=== PATIENT | female | born 1985 | race Caucasian/White ===

== ENCOUNTER 2020-07-20 11:43 | Outpatient (REF) | payer OTHER, SELFPAY ==
[2020-07-20 12:48] LABS: Influenza A PCR NEGATIVE (Negative); Influenza B PCR NEGATIVE (Negative); Resp Syncy Virus RNA Qual PCR NEGATIVE (Negative); SARS COV2 PCR INHOUSE POSITIVE (Negative)
== END 2020-07-20 11:44 | disposition home or self-care (01) ==
LOC: HO.LNP 11:43
PROVIDERS: Visit Provider Nurse Practitioner Family
DX: Z20.822 Contact with and (suspected) exposure to COVID-19 (principal); R05 Cough; R52 Pain, unspecified
CPT/HCPCS: 0241U

== ENCOUNTER 2020-07-21 10:35 | Emergency (ER) | payer OTHER, SELFPAY ==
[2020-07-21 10:49] VITALS: BP 112/71; BP 118/78; PULSE 73; PULSE 82; RESP 16; TEMP 37.2; O2SAT 97; O2SAT 99; BMI 22.4
--- NOTE | 2020-07-21 11:06 | ED.SOB ---
HPI - SOB/Dyspnea General Chief Complaint: Dyspnea Stated Complaint: covid +, diff breathing/abd pain Time Seen by Provider: 07/21/20 10:53 History of Present Illness HPI Narrative: Patient is a 35-year-old female with a past medical history of abdominoplasty on 07/05/20 with freshly removed sutures and Steri-Strips in place who was diagnosed yesterday at the walk-in clinic with COVID and pneumonia. She was treated with a Z-Jarrett and inhaler and sent home. Today, she is complaining of increased shortness of breath. Diarrhea, inability to keep food down, she is also dry heaving. She states it is difficult for her to cough or dry heaves because of the incision in her abdomen which is healing. She states she has been bed-bound the last 2 weeks because of her surgery. She lives with her 17-year-old son who is waiting to hear the results of his COVID test. She admits to loss of sense of smell. She denies cough, fever. Related Data Home Medications Medication Instructions Recorded Confirmed bupropion HCl 300 mg 24 hr tablet, mg PO 07/20/20 extended release cetirizine 10 mg tablet 10 mg PO DAILY 07/20/20 Previous Rx's Medication Instructions Recorded albuterol sulfate 90 mcg/actuation 1 inh INHALATION Q6H PRN 30 Days 07/20/20 aerosol inhaler #8.5 g azithromycin 250 mg tablet See Rx Instructions PO .COMPLEX #6 07/20/20 tab ondansetron HCl [Zofran] 4 mg PO Q6H PRN #10 tab 07/21/20 Allergies Allergy/AdvReac Type Severity Reaction Status Date / Time sumatriptan [From IMITREX] Allergy Severe HYPOTENSION, Verified 07/21/20 10:55 SYNCOPE sulfamethoxazole Allergy Mild HIVES Verified 07/21/20 10:55 [From BACTRIM] trimethoprim [From BACTRIM] Allergy Mild HIVES Verified 07/21/20 10:55 Sulfa (Sulfonamide Allergy Unknown Rash Verified 07/21/20 10:55 Antibiotics) tetracycline [TETRACYCLINE] Allergy Unknown HIVES, Rash Verified 07/21/20 10:55 trazodone [TRAZODONE] AdvReac Intermediate HEADACHE, Verified 07/21/20 10:55 Severe HAs oxycodone AdvReac Vomiting Verified 07/21/20 10:56 Review of Systems Review of Systems: Yes all other systems are reviewed and are negative [facility] Past Medical History Medical History Chronic fatigue Endometriosis Fibromyalgia Interstitial cystitis Surgical History H/O abdominoplasty Social History Social History Alcohol intake: never Smoked in Last 30 Days: No Use of substances other than those prescribed or required for medical reasons: No Advance Directives: No Advance Directives Information Provided: No Physical Exam Vital Signs: Vital Signs: Last Vital Signs Temp 98.7 F 07/21/20 14:17 Pulse 65 07/21/20 14:17 Resp 16 07/21/20 14:17 BP 112/61 07/21/20 14:17 Pulse Ox 99 07/21/20 14:17 Body Mass Index 22.4 Const: General: cooperative, healthy appearing, no acute distress, well developed and anxious Orientation/consciousness: patient oriented x3 Limitations: no limitations HENMT: Head: Yes normal to inspection Eyes: General: appearance normal, both eyes and all related structures Neck: Neck: Yes normal visual inspection and Yes full ROM Resp: Effort & Inspection: normal respiratory effort and able to speak in complete sentences Auscultation: clear to auscultation bilaterally Cardio: Rate: regular rate Rhythm: regular rhythm Heart sounds: normal S1 and S2 GI: Inspection: Yes normal to inspection Palpation (GI): Soft to palpation and nontender Skin: General skin exam: no rashes or lesions noted Neuro: General: patient oriented x3 Extrem: General: Yes normal to inspection Course Course Course Narrative: 35-year-old female a with a past medical history of abdominal plasty 2 weeks ago has been bed-bound since then complaining of is decreased shortness of breast after being diagnosed with COVID-19 yesterday. Patient started taking his Z-Jarrett in using inhaler yesterday with no relief. Because patient has been bedbound for 2 weeks, and now she has COVID, I will get a CTA to rule out a PE although she is not tachycardic and the usual labs and EKG. Dyspnea is likely secondary to anxiety related to her illness at her vital signs are stable. 3pm VSS, CTA negative, labs all normal, patient received 2 L IV fluids and is feeling better. Will p.o. call patient prior to discharge. Will discharge home with prescription for Zofran and red flag warning signs and when to return to the emergency department. MDM - SOB/Dyspnea Lab Data Result diagrams: 07/21/20 11:57 07/21/20 11:57 Labs: Lab Results 07/21/20 07/21/20 07/21/20 Range/Units 11:57 11:57 11:57 WBC 2.4 L (4.8-10.8) X10*3/uL RBC 4.17 L (4.20-5.50) X10*6/uL Hgb 13.6 (12.0-16.0) g/dl Hct 40.7 (37-47) % MCV 97.6 (80-98) fL MCH 32.6 (27.0-33.0) pg MCHC 33.4 (31.0-35.0) g/dl RDW 12.3 (11.0-16.0) % Plt Count 249 (160-400) X10*3/uL MPV 9.7 (9.4-12.3) fL Immature Gran % (Auto) 0.4 (0.0-0.4) % Neut % (Auto) 45.7 (45-73) % Lymph % (Auto) 33.6 (20-40) % [place] % (Auto) 19.9 H (2-11) % Eos % (Auto) 0.4 (0-4) % Baso % (Auto) 0.0 (0-2) % Lymph # (Auto) 0.8 L (1.2-4.9) X10*3/uL [place] # (Auto) 0.5 (0.1-1.2) X10*3/uL Eos # (Auto) 0.0 (0.0-0.4) X10*3/uL Baso # (Auto) 0.0 (0.0-0.2) X10*3/uL Abs Immat Gran (auto) 0.01 (0.00-0.03) X10*3/uL Absolute Neuts (auto) 1.1 L (2.0-8.3) X10*3/uL Absolute Nucleated RBC 0.000 (0.0-0.012) X10*3/uL Nucleated RBC % (auto) 0.0 (0.0-0.2) /100WBC Smear Tech's Comments VERIFIED Hold Blue Top SEE NOTE Sodium 144 (135-145) mmol/L Potassium 3.9 (3.3-5.1) mmol/l Chloride 109 H (96-108) mmol/L Carbon Dioxide 27 (22-29) mmol/L Anion Gap 12 (12-20) BUN 14 (9-16) mg/dL Creatinine 0.71 (0.5-1.4) mg/dL Estim Creat Clear Calc 97.6 Estimated GFR > 60 Random Glucose 92 (60-115) mg/dL Calcium 8.7 (8.4-10.2) mg/dL Troponin I High Sens (<3.5-17.0) ng/L B-Natriuretic Peptide (<100) pg/mL 07/21/20 Range/Units 11:57 WBC (4.8-10.8) X10*3/uL RBC (4.20-5.50) X10*6/uL Hgb (12.0-16.0) g/dl Hct (37-47) % MCV (80-98) fL MCH (27.0-33.0) pg MCHC (31.0-35.0) g/dl RDW (11.0-16.0) % Plt Count (160-400) X10*3/uL MPV (9.4-12.3) fL Immature Gran % (Auto) (0.0-0.4) % Neut % (Auto) (45-73) % Lymph % (Auto) (20-40) % [place] % (Auto) (2-11) % Eos % (Auto) (0-4) % Baso % (Auto) (0-2) % Lymph # (Auto) (1.2-4.9) X10*3/uL [place] # (Auto) (0.1-1.2) X10*3/uL Eos # (Auto) (0.0-0.4) X10*3/uL Baso # (Auto) (0.0-0.2) X10*3/uL Abs Immat Gran (auto) (0.00-0.03) X10*3/uL Absolute Neuts (auto) (2.0-8.3) X10*3/uL Absolute Nucleated RBC (0.0-0.012) X10*3/uL Nucleated RBC % (auto) (0.0-0.2) /100WBC Smear Tech's Comments Hold Blue Top Sodium (135-145) mmol/L Potassium (3.3-5.1) mmol/l Chloride (96-108) mmol/L Carbon Dioxide (22-29) mmol/L Anion Gap (12-20) BUN (9-16) mg/dL Creatinine (0.5-1.4) mg/dL Estim Creat Clear Calc Estimated GFR Random Glucose (60-115) mg/dL Calcium (8.4-10.2) mg/dL Troponin I High Sens < 3.5 (<3.5-17.0) ng/L B-Natriuretic Peptide < 10 (<100) pg/mL Imaging Data CT scan - chest: Attestation: I personally reviewed and interpreted this imaging study as follows: My impression: negative for PE Radiologist's impression: [address] [address] [address] Scan Report Signed Patient: Sindhu Talavera [facility]#: [id number] : 1985Acct:[id number] Age/Sex: 35 / FADM Date: 07/21/20 Loc: .ED Attending Dr: Ordering Physician: JONG SAAVEDRA Date of Service: 07/21/20 Procedure(s): CT angio chest PE protocol Accession Number(s): [id number] cc: JONG SAAVEDRA~ EXAMINATION: CT ANGIOGRAM OF THE CHEST WITH AND WITHOUT CONTRAST (CT PULMONARY ANGIOGRAM FOR PE) CLINICAL INFORMATION: Reason for Exam covid + and bedbound x 16 DAYS COMPARISON: None TECHNIQUE: Prior to contrast administration, noncontrast localization images were obtained. Subsequently, multidetector volumetric imaging was performed from the thoracic inlet to below the diaphragms following the administration of 80 mL Omnipaque 350 intravenous contrast. No contrast reaction reported Sagittal, coronal, and MIP oblique sagittal reformatted images were obtained on the CT workstation, uploaded to PACS, and reviewed. This CT examination was performed using dose optimization techniques as appropriate, variously including the following: *Automated exposure control *Adjustment of mA and/or kV according to patient size (this includes techniques or standardized protocols for targeted exams where dose is matched to indication/reason for exam; i.e. extremities or head) *Use of iterative reconstruction technique Total exam dose-length product 289 mGy-cm FINDINGS: QUALITY OF STUDY/CONTRAST BOLUS: Satisfactory. PULMONARY ARTERIES: No central or segmental pulmonary emboli. THORACIC AORTA: No aneurysm or dissection. LUNG: The lungs are well-expanded with dependent bibasilar patchy airspace disease. Rest of lungs are clear. PLEURA: No pleural effusion or pneumothorax. MEDIASTINUM: Normal heart size. No pericardial effusion. No hilar or mediastinal lymphadenopathy. No evidence of septal bowing or right heart strain. CHEST WALL/AXILLA: No axillary or internal mammary lymphadenopathy. OSSEOUS STRUCTURES: No acute or suspicious osseous abnormality. UPPER ABDOMEN: Visualized liver, spleen, pancreas appears unremarkable. No reflux of contrast into the hepatic veins to suggest elevated right heart pressures. CT/CT angio chest PE protocol IMPRESSION: No evidence of PE. No evidence of aortic aneurysm or dissection. Bilateral lower lobe dependent infiltrates, likely related to Covid. VTE: negative. Dictated By:ANTONY ABRAHAM MD Signed By:<Electronically signed by ANTONY ABRAHAM MD in OV>07/21/20 1439 ECG Data Attestation: I personally reviewed and interpreted this ECG as follows: ECG interpretation date: 07/21/20 ECG interpretation time: 12:04 Prior ECG tracings: not available for review Interpretation: NSR @63BPM, incomplete RBBB Discharge Plan Discharge Clinical Impression: COVID-19 Patient Disposition: Home, Self-Care Instructions: COVID-19 (Coronavirus Disease 2019) (ED) Additional Instructions: If you experience shortness of breath, chest pain or fever you can not control your cannot tolerate eating or drinking, please return to the emergency department. Prescriptions: New ondansetron HCl [Zofran] 4 mg tablet 4 mg PO Q6H PRN (Reason: nausea and vomiting) Qty: 10 RF: 0 No Action cetirizine 10 mg tablet 10 mg PO DAILY RF: 0 bupropion HCl 300 mg tablet extended release 24 hr PO RF: 0 azithromycin 250 mg tablet See Rx Instructions PO .COMPLEX Qty: 6 RF: 0 albuterol sulfate 90 mcg/actuation HFA aerosol inhaler 1 inh inhalation Q6H PRN (Reason: shortness of breath or wheezing) 30 Days Qty: 8.5 RF: 0
--- NOTE | 2020-07-21 11:10 | CT_ITS ---
EXAMINATION: CT ANGIOGRAM OF THE CHEST WITH AND WITHOUT CONTRAST (CT PULMONARY ANGIOGRAM FOR PE) CLINICAL INFORMATION: Reason for Exam covid + and bedbound x 16 DAYS COMPARISON: None TECHNIQUE: Prior to contrast administration, noncontrast localization images were obtained. Subsequently, multidetector volumetric imaging was performed from the thoracic inlet to below the diaphragms following the administration of 80 mL Omnipaque 350 intravenous contrast. No contrast reaction reported Sagittal, coronal, and MIP oblique sagittal reformatted images were obtained on the CT workstation, uploaded to PACS, and reviewed. This CT examination was performed using dose optimization techniques as appropriate, variously including the following: *Automated exposure control *Adjustment of mA and/or kV according to patient size (this includes techniques or standardized protocols for targeted exams where dose is matched to indication/reason for exam; i.e. extremities or head) *Use of iterative reconstruction technique Total exam dose-length product 289 mGy-cm FINDINGS: QUALITY OF STUDY/CONTRAST BOLUS: Satisfactory. PULMONARY ARTERIES: No central or segmental pulmonary emboli. THORACIC AORTA: No aneurysm or dissection. LUNG: The lungs are well-expanded with dependent bibasilar patchy airspace disease. Rest of lungs are clear. PLEURA: No pleural effusion or pneumothorax. MEDIASTINUM: Normal heart size. No pericardial effusion. No hilar or mediastinal lymphadenopathy. No evidence of septal bowing or right heart strain. CHEST WALL/AXILLA: No axillary or internal mammary lymphadenopathy. OSSEOUS STRUCTURES: No acute or suspicious osseous abnormality. UPPER ABDOMEN: Visualized liver, spleen, pancreas appears unremarkable. No reflux of contrast into the hepatic veins to suggest elevated right heart pressures. CT/CT angio chest PE protocol IMPRESSION: No evidence of PE. No evidence of aortic aneurysm or dissection. Bilateral lower lobe dependent infiltrates, likely related to Covid. VTE: negative.
--- NOTE | 2020-07-21 11:11 | ECG_ITS ---
Test Reason : SOB Blood Pressure : / mmHG Vent. Rate : 063 BPM Atrial Rate : 063 BPM P-R Int : 128 ms QRS Dur : 096 ms QT Int : 410 ms P-R-T Axes : 064 020 016 degrees QTc Int : 419 ms Normal sinus rhythm Incomplete right bundle branch block Borderline ECG No previous ECGs available Referred By: Merly Farmer Electronically Signed By:LITZY MARTE MD
[2020-07-21 12:00] VITALS: BP 101/63; PULSE 63; RESP 16; TEMP 36.8; O2SAT 98
[2020-07-21 12:04] LABS: Eosinophils Percent Auto 0.4 % (0-4); Hematocrit 40.7 % (37-47); Hemoglobin 13.6 g/dl (12.0-16.0); Imm Gran Abs Auto 0.01 X10*3/uL (0.00-0.03); Imm Gran Pct Auto 0.4 % (0.0-0.4); Lymphocytes Absolute Auto 0.8 X10*3/uL (1.2-4.9); Lymphocytes Percent Auto 33.6 % (20-40); MANUAL DIFF FLAG SCAN; Mean Corpuscular HGB Conc 33.4 g/dl (31.0-35.0); Mean Corpuscular Hemoglobin 32.6 pg (27.0-33.0); Mean Corpuscular Volume 97.6 fL (80-98); Mean Platelet Volume 9.7 fL (9.4-12.3); Monocytes Absolute Auto 0.5 X10*3/uL (0.1-1.2); Monocytes Percent Auto 19.9 % (2-11); Neutrophils Absolute Auto 1.1 X10*3/uL (2.0-8.3); Neutrophils Percent Auto 45.7 % (45-73); Platelet Count 249 X10*3/uL (160-400); Red Blood Count 4.17 X10*6/uL (4.20-5.50); Red Cell Distribution Width 12.3 % (11.0-16.0); SCAN SMEAR FLAG 1
[2020-07-21] MEDS: 0.9 % Sodium Chloride 1,000 ML 999 ML IVCONT (12:06)
[2020-07-21] MEDS: Ketorolac Tromethamine 15 MG/ML VIAL IVPUSH (12:06)
[2020-07-21 12:11] LABS: White Blood Count 2.4 X10*3/uL (4.8-10.8)
[2020-07-21 12:24] LABS: SLIDE REVIEW VERIFIED
[2020-07-21 12:31] LABS: B Type Natriuretic Peptide < 10 pg/mL (<100); Troponin-I High Sensitivity < 3.5 ng/L (<3.5-17.0)
[2020-07-21 12:37] LABS: Anion Gap 12 (12-20); Blood Urea Nitrogen 14 mg/dL (9-16); Calcium 8.7 mg/dL (8.4-10.2); Carbon Dioxide 27 mmol/L (22-29); Chloride 109 mmol/L (96-108); Creatinine Clr Calc Pharmacy 97.6; Estimated Glomerular Filt Rate > 60; Glucose Random 92 mg/dL (60-115); Potassium 3.9 mmol/l (3.3-5.1); Sodium 144 mmol/L (135-145)
--- NOTE | 2020-07-21 13:52 | PC.NURSE ---
Pt given total of 2l NS W/O per donna.
[2020-07-21 14:17] VITALS: BP 112/61; PULSE 65; RESP 16; TEMP 37.1; O2SAT 99
[2020-07-21] MEDS: iohexoL 350 MG/ML 100 ML INFUS..BTL IV (14:28)
[2020-07-21 16:48] LABS: HCG Quantitative < 2 mIU/mL
== END 2020-07-21 16:36 | disposition home or self-care (01) ==
PROVIDERS: Physician Assistant; Emergency Provider Emergency Medicine; PCP Nurse Practitioner Family
DX: U07.1 COVID-19 (principal)
CPT/HCPCS: 36415; 71275; 80048; 83880; 84484; 84702; 85025; 85060; 93005; 96361; 96374; 99284; J1885; Q9967

== ENCOUNTER 2020-12-26 09:07 | Outpatient (REF) | payer OTHER, SELFPAY ==
[2020-12-30 05:36] LABS: HPV 16 RNA NOT DETECTED (NOT DETECTED); HPV mRNA E6/E7 rflx Detected (Not Detected)
== END 2020-12-26 09:08 | disposition home or self-care (01) ==
LOC: HO.LAB 09:07
PROVIDERS: PCP Nurse Practitioner Family; Visit Provider Advanced Practice Midwife
DX: Z01.419 Encounter for gynecological examination (general) (routine) without abnormal findings (principal)
CPT/HCPCS: 87624; 87625; 88142

== ENCOUNTER 2021-01-07 15:29 | Emergency (ER) | payer OTHER, SELFPAY ==
--- NOTE | ~2021-01-07 | CT_ITS ---
EXAMINATION: CT ABDOMEN AND PELVIS WITHOUT CONTRAST CLINICAL INFORMATION: Lower abdominal pain. Hematuria, question kidney stones. COMPARISON: CT abdomen 09/24/2019 TECHNIQUE: Multidetector volumetric imaging was performed from the superior aspect of the liver through the pubic symphysis. Sagittal and coronal reformatted images were obtained on the technologist's workstation. This CT examination was performed using dose optimization techniques as appropriate, variously including the following: *Automated exposure control *Adjustment of mA and/or kV according to patient size (this includes techniques or standardized protocols for targeted exams where dose is matched to indication/reason for exam; i.e. extremities or head) *Use of iterative reconstruction technique DLP: 459 mGy-cm FINDINGS: LUNG BASES: Mild bibasilar atelectasis. Evaluation limited without intravenous contrast. LIVER, GALLBLADDER, AND BILIARY TREE: Stable small hypodensities in segment 4A, and the inferior right lobe, too small to characterize, stable from previous. Additional smaller lesions are not seen on the noncontrast study. No intrahepatic biliary duct dilatation. The gallbladder is unremarkable with no evidence of radiopaque gallstones, gallbladder wall thickening, or obvious pericholecystic inflammatory changes. PANCREAS: Unremarkable. SPLEEN: Unremarkable. ADRENAL GLANDS: Unremarkable. KIDNEYS AND URETERS: The kidneys are normal in size, shape, and attenuation. 2 mm nonobstructing calculus in the right renal pelvis, unchanged. No left renal calculi. No hydronephrosis is seen. The ureters are difficult to follow distally, with no definite calculi in the expected course of the ureters. BLADDER: Unremarkable. GASTROINTESTINAL TRACT: Stomach and luminal contents limiting evaluation. Evaluation is limited without intravenous contrast, paucity of intra-abdominal fat. The large colon is mildly prominent with fluid within the lumen, extending to the pelvis, without evidence of kwadwo distention. No colonic wall thickening or pericolonic inflammatory changes. No dilated small bowel loops seen. Overall, there is a nonobstructive bowel gas pattern. The appendix is not clearly visualized, with clustering of bowel loops in the right lower quadrant, lack of intravenous contrast. No kwadwo inflammatory changes evident in the right upper quadrant. No significant free fluid. ABDOMINAL WALL: No significant hernia is appreciated. LYMPH NODES: No enlarged lymph nodes are seen. VASCULAR: Normal caliber aorta. PELVIC VISCERA: Anteverted uterus with an IUD in place. No obvious adnexal masses identified, with fluid-filled bowel loops limiting evaluation. OSSEOUS STRUCTURES: Degenerative changes in lower lumbar spine. CT/CT abdomen pelvis wo con IMPRESSION: 1. Unchanged appearance of a 2 mm nonobstructing calculus in the right renal pelvis. No additional renal or ureteral calculi are seen. No evidence of hydronephrosis. 2. Stable small hypodensities in the liver. 3. Nonspecific fluid within the large colon, but overall nonobstructive bowel gas pattern. Clinically correlate. 4. Additional findings and details, as above.
[2021-01-07 15:32] VITALS: BP 140/79; PULSE 86; RESP 18; TEMP 37.1; O2SAT 100; BMI 25.0
--- NOTE | 2021-01-07 15:45 | ED_ITS ---
HPI - General Adult General Chief complaint: General Medical Stated complaint: Vomiting/Diarrhea Time Seen by Provider: 01/07/21 17:02 Source: patient Mode of arrival: ambulatory Limitations: no limitations History of Present Illness HPI narrative: patient presents to the ED for lower abdominal pain, hematuria, diarrhea, nausea, and vomiting for 2 days. Patient states symptoms started since yesterday. patient patient states she is having her usual endometriosis exacerbation. patient has been followed by her OBGYN for this. Patient was informed hysterectomy was not a good option due to endometriosis can come back after hysterectomy. Related Data Home Medications Medication Instructions Recorded Confirmed bupropion HCl 300 mg 24 hr tablet, mg PO 07/20/20 extended release alprazolam 0.5 mg tablet 0.5 mg PO BID PRN 12/26/20 levonorgestrel 20 mcg/24 hours (6 INTRAUTERINE 12/26/20 yrs) 52 mg intrauterine device Previous Rx's Medication Instructions Recorded albuterol sulfate 90 mcg/actuation 1 inh INHALATION Q6H PRN 30 Days 07/20/20 aerosol inhaler #8.5 g azithromycin 250 mg tablet See Rx Instructions PO .COMPLEX #6 07/20/20 tab ondansetron HCl [Zofran] 4 mg PO Q6H PRN #10 tab 07/21/20 cetirizine 10 mg tablet 10 mg PO DAILY #90 tab 11/20/20 Allergies Allergy/AdvReac Type Severity Reaction Status Date / Time sumatriptan [From IMITREX] Allergy Severe HYPOTENSION, Verified 12/26/20 09:29 SYNCOPE Sulfa (Sulfonamide Allergy Unknown Rash Verified 12/26/20 09:29 Antibiotics) tetracycline [TETRACYCLINE] Allergy Unknown HIVES, Rash Verified 12/26/20 09:29 sulfamethoxazole Allergy Hives Verified 01/07/21 15:32 [From Bactrim] trimethoprim [From Bactrim] Allergy Hives Verified 01/07/21 15:32 trazodone [TRAZODONE] AdvReac Intermediate HEADACHE, Verified 12/26/20 09:29 Severe HAs oxycodone AdvReac Vomiting Verified 12/26/20 09:29 Review of Systems Review of Systems: Yes all other systems are reviewed and are negative Constitutional: Constitutional: Reports as per HPI and Reports no additional constitutional complaints Eyes: Eyes: Reports as per HPI and Reports no additional eye complaints ENT: Reports system reviewed and no additional complaints, except as documented and Reports as per HPI Cardiovascular: Cardiovascular: Reports as per HPI and Reports no additional cardiovascular complaints Respiratory: Respiratory: Reports as per HPI and Reports no additional respiratory complaints Gastrointestinal: Gastrointestinal: Reports as per HPI, Reports no additional gastrointestinal complaints, Reports abdominal pain ( Lower abdominal pain), Reports diarrhea, Reports nausea and Reports vomiting Genitourinary: Genitourinary: Reports no additional female genitourinary complaints, Reports as per HPI and Reports hematuria Comments: endometriosis Musculoskeletal: Musculoskeletal: Reports no additional musculoskeletal complaints and Reports as per HPI Neurologic: Reports system reviewed and no additional complaints, except as documented and Reports as per HPI Psychiatric: Psychiatric: Reports no additional psychiatric complaints and Reports as per HPI PMFSH Past Medical History Medical History Chronic fatigue Endometriosis Fibromyalgia Junie's disease Interstitial cystitis Positive ISAAK (antinuclear antibody) Renal calculi Surgical History H/O abdominoplasty Social History Social History Alcohol intake: never Patient Tobacco Use Status: Never used Tobacco Use of substances other than those prescribed or required for medical reasons: No Advance Directives: No Advance Directives Information Provided: Yes Patient : No Physical Exam Vital Signs: Vital Signs: Last Vital Signs Temp 98.7 F 01/07/21 15:32 Pulse 86 01/07/21 15:32 Resp 18 01/07/21 15:32 BP 140/79 H 01/07/21 15:32 Pulse Ox 100 01/07/21 15:32 Body Mass Index 25.0 Const: General: cooperative, healthy appearing and acute distress Orientation/consciousness: patient oriented x3 HENMT: Head: Yes normal to inspection, Yes No palpable skull fracture present, Yes normocephalic, Yes atraumatic and No abrasion Eyes: General: appearance normal, both eyes and all related structures Neck: Neck: Yes normal visual inspection, Yes full ROM, Yes no lymphadenopathy, Yes no meningeal signs, Yes trachea midline, Yes supple and No tender Chest: Chest palpation & inspection: normal inspection of the chest and normal palpation of entire chest wall Resp: Effort & Inspection: normal respiratory effort and able to speak in complete sentences Auscultation: clear to auscultation bilaterally Cardio: Jugular venous distension: no JVD Heart sounds: S1 normal heart sound present and S2 normal heart sound present GI: Inspection: Yes normal to inspection and No abdominal wall ecchymosis Palpation (GI): Soft to palpation, not firm, Tenderness to palpation present (GI) in the LLQ and in the RLQ, no guarding and not rigid : General: No CVA tenderness and Yes no CVA tenderness Back/Spine/Pelvis: Back: no CVA tenderness, No CVA tenderness and No back tenderness Neuro: General: patient oriented x3, gait normal and no meningeal signs Cranial nerves: Yes CN's II-XII intact bilaterally Extrem: General: Yes normal to inspection and Yes full ROM Psych: Appearance: grossly normal, well kempt and not disheveled Course Course Course Narrative: patient states this is her endometriosis exacerbation but will do labs. Reevaluation(s) Reevaluation #1: patient labs are normal and baseline. is negative. Patient given Toradol. Although patient states this usual endometriosis exacerbation was sent for CT scan due to patient stating diarrhea and vomiting. Patient given fluids. Case signed out to ANA MARIA Mckeon. patient not in distress After being given Toradol Time: 17:40 Medical Decision Making [facility] Narrative Medical decision making narrative: endometriosis Lab Data Result diagrams: 01/07/21 16:07 01/07/21 16:07 Labs: Lab Results 01/07/21 01/07/21 01/07/21 Range/Units 15:43 15:43 16:07 WBC 12.2 H (4.8-10.8) X10*3/uL RBC 4.32 (4.20-5.50) X10*6/uL Hgb 14.3 (12.0-16.0) g/dl Hct 42.4 (37-47) % MCV 98.1 H (80-98) fL MCH 33.1 H (27.0-33.0) pg MCHC 33.7 (31.0-35.0) g/dl RDW 13.2 (11.0-16.0) % Plt Count 232 (160-400) X10*3/uL MPV 9.9 (9.4-12.3) fL Immature Gran % (Auto) 0.3 (0.0-0.4) % Neut % (Auto) 92.7 H (45-73) % Lymph % (Auto) 2.3 L (20-40) % [place] % (Auto) 3.8 (2-11) % Eos % (Auto) 0.7 (0-4) % Baso % (Auto) 0.2 (0-2) % Lymph # (Auto) 0.3 L (1.2-4.9) X10*3/uL [place] # (Auto) 0.5 (0.1-1.2) X10*3/uL Eos # (Auto) 0.1 (0.0-0.4) X10*3/uL Baso # (Auto) 0.0 (0.0-0.2) X10*3/uL Abs Immat Gran (auto) 0.04 H (0.00-0.03) X10*3/uL Absolute Neuts (auto) 11.3 H (2.0-8.3) X10*3/uL Absolute Nucleated RBC 0.000 (0.0-0.012) X10*3/uL Nucleated RBC % (auto) 0.0 (0.0-0.2) /100WBC Smear Tech's Comments VERIFIED PT (9.9-13.0) SEC INR (0.9-1.1) APTT (24.1-38.0) SEC Sodium (135-145) mmol/L Potassium (3.3-5.1) mmol/L Chloride (96-108) mmol/L Carbon Dioxide (22-29) mmol/L Anion Gap (12-20) BUN (9-16) mg/dL Creatinine (0.5-1.4) mg/dL Estim Creat Clear Calc Estimated GFR Random Glucose (60-115) mg/dL Calcium (8.4-10.2) mg/dL Total Bilirubin (0.0-1.0) mg/dL Direct Bilirubin (0.0-0.5) mg/dL AST (5-31) U/L ALT (0-31) U/L Alkaline Phosphatase (39-117) U/L Total Protein (6.5-8.0) g/dL Albumin (3.5-5.0) g/dL Lipase (8-78) U/L Urine Color YELLOW Urine Appearance CLEAR Urine pH 5.5 (5.0-8.0) Ur Specific [place] >= 1.030 H (1.005-1.025) Urine Protein NEG (NEG-TRACE) MG/DL Urine Glucose (UA) NEG (NEG) MG/DL Urine Ketones 40 (NEG) MG/DL Urine Blood 2+ H (NEG) Urine Nitrite NEG (NEG) Ur Leukocyte Esterase NEG (NEG) Urine RBC 1-4 (0) /HPF Urine WBC 0-2 (0-4) /HPF Ur Squamous Epith Cells 4+ /LPF Urine Bacteria 1+ /LPF Urine Mucus 2+ /LPF Urine Test NEGATIVE (NEGATIVE) COVID-19 ([facility]) (Negative) COVID-19 Clin Com 01/07/21 01/07/21 01/07/21 Range/Units 16:07 16:07 16:34 WBC (4.8-10.8) X10*3/uL RBC (4.20-5.50) X10*6/uL Hgb (12.0-16.0) g/dl Hct (37-47) % MCV (80-98) fL MCH (27.0-33.0) pg MCHC (31.0-35.0) g/dl RDW (11.0-16.0) % Plt Count (160-400) X10*3/uL MPV (9.4-12.3) fL Immature Gran % (Auto) (0.0-0.4) % Neut % (Auto) (45-73) % Lymph % (Auto) (20-40) % [place] % (Auto) (2-11) % Eos % (Auto) (0-4) % Baso % (Auto) (0-2) % Lymph # (Auto) (1.2-4.9) X10*3/uL [place] # (Auto) (0.1-1.2) X10*3/uL Eos # (Auto) (0.0-0.4) X10*3/uL Baso # (Auto) (0.0-0.2) X10*3/uL Abs Immat Gran (auto) (0.00-0.03) X10*3/uL Absolute Neuts (auto) (2.0-8.3) X10*3/uL Absolute Nucleated RBC (0.0-0.012) X10*3/uL Nucleated RBC % (auto) (0.0-0.2) /100WBC Smear Tech's Comments PT 12.2 (9.9-13.0) SEC INR 1.1 (0.9-1.1) APTT 31.8 (24.1-38.0) SEC Sodium 141 (135-145) mmol/L Potassium 4.7 (3.3-5.1) mmol/L Chloride 110 H (96-108) mmol/L Carbon Dioxide 17 L (22-29) mmol/L Anion Gap 19 (12-20) BUN 14 (9-16) mg/dL Creatinine 0.86 (0.5-1.4) mg/dL Estim Creat Clear Calc 80.6 Estimated GFR > 60 Random Glucose 102 (60-115) mg/dL Calcium 9.6 D (8.4-10.2) mg/dL Total Bilirubin 1.1 H (0.0-1.0) mg/dL Direct Bilirubin 0.3 (0.0-0.5) mg/dL AST 25 (5-31) U/L ALT 12 (0-31) U/L Alkaline Phosphatase 53 (39-117) U/L Total Protein 7.7 (6.5-8.0) g/dL Albumin 4.5 (3.5-5.0) g/dL Lipase 13 (8-78) U/L Urine Color Urine Appearance Urine pH (5.0-8.0) Ur Specific [place] (1.005-1.025) Urine Protein (NEG-TRACE) MG/DL Urine Glucose (UA) (NEG) MG/DL Urine Ketones (NEG) MG/DL Urine Blood (NEG) Urine Nitrite (NEG) Ur Leukocyte Esterase (NEG) Urine RBC (0) /HPF Urine WBC (0-4) /HPF Ur Squamous Epith Cells /LPF Urine Bacteria /LPF Urine Mucus /LPF Urine Test (NEGATIVE) COVID-19 ([facility]) Negative (Negative) COVID-19 Clin Com See Note Discharge Plan Discharge Clinical Impression: Endometriosis Prescriptions: No Action cetirizine 10 mg tablet 10 mg PO DAILY Qty: 90 RF: 0 ondansetron HCl [Zofran] 4 mg tablet 4 mg PO Q6H PRN (Reason: nausea and vomiting) Qty: 10 RF: 0 bupropion HCl 300 mg tablet extended release 24 hr PO RF: 0 azithromycin 250 mg tablet See Rx Instructions PO .COMPLEX Qty: 6 RF: 0 albuterol sulfate 90 mcg/actuation HFA aerosol inhaler 1 inh inhalation Q6H PRN (Reason: shortness of breath or wheezing) 30 Days Qty: 8.5 RF: 0 alprazolam 0.5 mg tablet 0.5 mg PO BID PRNRF: 0 Mirena 20 mcg/24 hours (6 yrs) 52 mg intrauterine device intrauterine RF: 0
[2021-01-07 15:50] LABS: Glucose Urine UA NEG (NEG); Leukocyte Esterase Urine NEG (NEG); Nitrite Urine NEG (NEG); PH 5.5 (5.0-8.0); Specific Gravity - Urine >= 1.030 (1.005-1.025); Urine Blood 2+ (NEG); Urine Ketones 40 MG/DL (NEG); Urine Protein NEG (NEG-TRACE)
[2021-01-07 15:54] LABS: Appearance Urine CLEAR; Color Urine YELLOW
[2021-01-07 16:00] LABS: Bacteria Urine 1+ /LPF; Mucus Urine 2+ /LPF; Squamous Epithelial Cell Urine 4+ /LPF; WBC Urine 0-2 /HPF (0-4)
[2021-01-07] MEDS: 0.9 % Sodium Chloride 1,000 ML 999 ML IV (16:08)
[2021-01-07 16:14] LABS: Basophils Percent Auto 0.2 % (0-2); Eosinophils Absolute Auto 0.1 X10*3/uL (0.0-0.4); Eosinophils Percent Auto 0.7 % (0-4); Hematocrit 42.4 % (37-47); Hemoglobin 14.3 g/dl (12.0-16.0); Imm Gran Abs Auto 0.04 X10*3/uL (0.00-0.03); Imm Gran Pct Auto 0.3 % (0.0-0.4); Lymphocytes Absolute Auto 0.3 X10*3/uL (1.2-4.9); Lymphocytes Percent Auto 2.3 % (20-40); MANUAL DIFF FLAG SCAN; Mean Corpuscular HGB Conc 33.7 g/dl (31.0-35.0); Mean Corpuscular Hemoglobin 33.1 pg (27.0-33.0); Mean Corpuscular Volume 98.1 fL (80-98); Mean Platelet Volume 9.9 fL (9.4-12.3); Monocytes Absolute Auto 0.5 X10*3/uL (0.1-1.2); Monocytes Percent Auto 3.8 % (2-11); Neutrophils Absolute Auto 11.3 X10*3/uL (2.0-8.3); Neutrophils Percent Auto 92.7 % (45-73); Platelet Count 232 X10*3/uL (160-400); Red Blood Count 4.32 X10*6/uL (4.20-5.50); Red Cell Distribution Width 13.2 % (11.0-16.0); SCAN SMEAR FLAG 1; White Blood Count 12.2 X10*3/uL (4.8-10.8)
[2021-01-07 16:21] LABS: UPreg QC Valid YES; Urine Pregnancy NEGATIVE (NEGATIVE)
[2021-01-07 16:35] LABS: SLIDE REVIEW VERIFIED
[2021-01-07 16:46] LABS: INTERNATIONAL NORM RATIO 1.1 (0.9-1.1); Prothrombin Time 12.2 SEC (9.9-13.0)
[2021-01-07 16:49] LABS: Partial Thromboplastin Time 31.8 SEC (24.1-38.0)
[2021-01-07 16:49] LABS: Alanine Aminotransferase 12 U/L (0-31); Albumin Level 4.5 g/dL (3.5-5.0); Alkaline Phosphatase 53 U/L (39-117); Anion Gap 19 (12-20); Aspartate Amino Transferase 25 U/L (5-31); Bilirubin Direct 0.3 mg/dL (0.0-0.5); Bilirubin Total 1.1 mg/dL (0.0-1.0); Blood Urea Nitrogen 14 mg/dL (9-16); Calcium 9.6 mg/dL (8.4-10.2); Carbon Dioxide 17 mmol/L (22-29); Chloride 110 mmol/L (96-108); Creatinine Clr Calc Pharmacy 80.6; Estimated Glomerular Filt Rate > 60; Glucose Random 102 mg/dL (60-115); Lipase 13 U/L (8-78); Potassium 4.7 mmol/L (3.3-5.1); Sodium 141 mmol/L (135-145); Total Protein 7.7 g/dL (6.5-8.0)
[2021-01-07 17:31] LABS: COVID-19 Test Negative (Negative)
[2021-01-07] MEDS: Ketorolac Tromethamine 30 MG/ML VIAL IVPUSH (17:41)
[2021-01-07] MEDS: ondansetron HCL 4 MG/2 ML VIAL IVPUSH (17:41)
[2021-01-07 18:43] VITALS: BP 117/59; PULSE 71; RESP 16; O2SAT 98
--- NOTE | 2021-01-07 18:44 | PC.NURSE ---
pt reports nausea resolved & pain improvement after IV toradol. pt appears more comfortable at this time. awaiting ct results.
== END 2021-01-07 19:45 | disposition home or self-care (01) ==
PROVIDERS: Physician Assistant; Emergency Provider Internal Medicine; PCP Nurse Practitioner Family
DX: N80.9 Endometriosis, unspecified (principal); R19.7 Diarrhea, unspecified; Z20.822 Contact with and (suspected) exposure to COVID-19
CPT/HCPCS: 36415; 74176; 80053; 80076; 81001; 81025; 82248; 83690; 85025; 85610; 85730; 87635; 96361; 96374; 96375; 99284; J1885; J2405

== ENCOUNTER 2021-01-12 16:49 | Emergency (ER) | payer OTHER, SELFPAY | END 2021-01-12 18:02 | disposition left against medical advice (07) | PROVIDERS: Emergency Provider Internal Medicine; PCP Nurse Practitioner Family | DX: R10.9 Unspecified abdominal pain (principal) ==

== ENCOUNTER 2021-01-24 08:38 | Outpatient (REF) | payer OTHER, SELFPAY | END 2021-01-24 08:39 | disposition home or self-care (01) | LOC: HO.LAB 08:38 | PROVIDERS: PCP Nurse Practitioner Family; Visit Provider Obstetrics & Gynecology | DX: R87.610 Atypical squamous cells of undetermined significance on cytologic smear of cervix (ASC-US) (principal); R87.810 Cervical high risk human papillomavirus (HPV) DNA test positive | CPT/HCPCS: 57454; 88305; 88342 ==

== ENCOUNTER 2021-02-05 16:47 | Emergency (ER) | payer OTHER, SELFPAY ==
[2021-02-05 17:22] VITALS: BP 134/80; PULSE 73; RESP 18; TEMP 36.7; O2SAT 100; BMI 24.1
[2021-02-05] MEDS: Ondansetron ODT 4 MG TAB.RAPDIS TRANSLINGU (17:28)
--- NOTE | 2021-02-05 20:09 | ED_ITS ---
HPI - SOB/Dyspnea General Chief Complaint: Dyspnea Stated Complaint: sob Time Seen by Provider: 02/05/21 20:07 Related Data Home Medications Medication Instructions Recorded Confirmed bupropion HCl 300 mg 24 hr tablet, mg PO 07/20/20 01/10/21 extended release alprazolam 0.5 mg tablet 0.5 mg PO BID PRN 12/26/20 01/10/21 levonorgestrel 20 mcg/24 hours (6 INTRAUTERINE 12/26/20 01/10/21 yrs) 52 mg intrauterine device (Mirena) Previous Rx's Medication Instructions Recorded cetirizine 10 mg tablet 10 mg PO DAILY #90 tab 11/20/20 dicyclomine 10 mg capsule 10 mg PO BID #14 cap 01/07/21 hydrocodone 5 mg-acetaminophen 300 1 tab PO BID PRN #14 tab 01/07/21 mg tablet ondansetron HCl 4 mg tablet 4 mg PO Q8H PRN #14 tab 01/07/21 (Zofran) Allergies Allergy/AdvReac Type Severity Reaction Status Date / Time sumatriptan [From IMITREX] Allergy Severe HYPOTENSION, Verified 12/26/20 09:29 SYNCOPE Sulfa (Sulfonamide Allergy Unknown Rash Verified 12/26/20 09:29 Antibiotics) tetracycline [TETRACYCLINE] Allergy Unknown HIVES, Rash Verified 12/26/20 09:29 sulfamethoxazole Allergy Hives Verified 01/07/21 15:32 [From Bactrim] trimethoprim [From Bactrim] Allergy Hives Verified 01/07/21 15:32 trazodone [TRAZODONE] AdvReac Intermediate HEADACHE, Verified 12/26/20 09:29 Severe HAs oxycodone AdvReac Vomiting Verified 12/26/20 09:29 [facility] Past Medical History Medical History Chronic fatigue Endometriosis Fibromyalgia Junie's disease Interstitial cystitis Positive ISAAK (antinuclear antibody) Renal calculi Surgical History H/O abdominoplasty Family History Family History Other Substance use disorder Social History Social History Housing: House Alcohol intake: never Patient Tobacco Use Status: Never used Tobacco Current occupational status: employed Physical Exam Vital Signs: Vital Signs: Last Vital Signs Temp 98.1 F 02/05/21 17:22 Pulse 73 02/05/21 17:22 Resp 18 02/05/21 17:22 BP 134/80 02/05/21 17:22 Pulse Ox 100 02/05/21 17:22 Body Mass Index 24.1 Discharge Plan Discharge Patient Disposition: Left Without Being Seen Interventions: LWBS Worksheet Last Done: 02/05/21 20:04 Discharge Date/Time: 02/05/21 21:05
== END 2021-02-05 21:05 | disposition left against medical advice (07) ==
PROVIDERS: Emergency Provider Student in an Organized Health Care Education/Training Program; PCP Nurse Practitioner Family
DX: R06.02 Shortness of breath (principal)
CPT/HCPCS: 99282; 99283

== ENCOUNTER → 2021-02-07 11:37 | Outpatient (BNVA) | payer OTHER, SELFPAY | PROVIDERS: PCP Nurse Practitioner Family; Visit Provider Obstetrics & Gynecology ==

== ENCOUNTER 2021-05-26 12:18 | Outpatient (REF) | payer OTHER, SELFPAY ==
[2021-05-26 13:42] LABS: MANUAL DIFF FLAG NO
[2021-05-26 14:06] LABS: Alanine Aminotransferase 11 U/L (0-31); Albumin Level 4.4 g/dL (3.5-5.0); Alkaline Phosphatase 63 U/L (39-117); Anion Gap 13 (12-20); Aspartate Amino Transferase 18 U/L (5-31); Bilirubin Total 0.3 mg/dL (0.0-1.0); Blood Urea Nitrogen 21 mg/dL (9-16); Calcium 9.6 mg/dL (8.4-10.2); Carbon Dioxide 26 mmol/L (22-29); Chloride 108 mmol/L (96-108); Estimated Glomerular Filt Rate > 60; Glucose Random 87 mg/dL (60-115); Potassium 4.8 mmol/L (3.3-5.1); Sodium 142 mmol/L (135-145); Total Protein 7.2 g/dL (6.5-8.0)
[2021-05-26 14:12] LABS: Basophils Percent Auto 0.5 % (0-2); Eosinophils Absolute Auto 0.1 X10*3/uL (0.0-0.4); Eosinophils Percent Auto 0.9 % (0-4); Hematocrit 40.3 % (37.0-47.0); Hemoglobin 13.4 g/dl (12.0-16.0); Lymphocytes Absolute Auto 1.5 X10*3/uL (1.2-4.9); Lymphocytes Percent Auto 26.7 % (20-40); Mean Corpuscular HGB Conc 33.3 g/dl (31.0-35.0); Mean Corpuscular Volume 99.3 fL (80.0-98.0); Mean Platelet Volume 11.3 fL (9.4-12.3); Monocytes Absolute Auto 0.6 X10*3/uL (0.1-1.2); Monocytes Percent Auto 9.9 % (2-11); Neutrophils Absolute Auto 3.6 x10*3/uL (2.0-8.3); Platelet Count 224 X10*3/uL (160-400); Red Blood Count 4.06 X10*6/uL (4.20-5.50); Red Cell Distribution Width 13.9 % (11.0-16.0); White Blood Count 5.7 X10*3/uL (4.8-10.8)
[2021-05-26 14:27] LABS: Ferritin 125 ng/mL (10-122)
[2021-05-26 14:28] LABS: TSH reflex Free T4 0.43 uIU/mL (0.32-4.0)
[2021-05-28 04:27] LABS: Folate 14.6 ng/mL (> or = 4.0); Vitamin B12 753 pg/mL (200-900)
[2021-05-28 21:11] LABS: Lyme Abs Screen <0.90 index
== END 2021-05-26 12:19 | disposition home or self-care (01) ==
LOC: HO.HMGCLDS 12:18
PROVIDERS: PCP Nurse Practitioner Family; Visit Provider Nurse Practitioner Family
DX: R53.83 Other fatigue (principal)
CPT/HCPCS: 36415; 80053; 82607; 82728; 82746; 84443; 85025; 86617; 86618

== ENCOUNTER 2021-11-22 13:19 | Outpatient (REF) | payer OTHER, SELFPAY ==
--- NOTE | ~2021-11-22 | XR_ITS ---
EXAMINATION: XR HAND, BILATERAL CLINICAL INFORMATION: Injury COMPARISON: None available at the time of this dictation. TECHNIQUE: Frontal lateral obliques views of the hand were obtained. FINDINGS: There is an avulsion chip fracture from the medial base distal phalanx left fourth finger. There are no other fractures.. Radiocarpal, intercarpal, carpometacarpal, metacarpophalangeal and interphalangeal joints are intact. There are no osteolytic or osteoblastic lesions. There are no bone erosions. Surrounding soft tissue unremarkable. XR/XR hand RT min 3V IMPRESSION: Avulsion chip fracture from the medial aspect of the base of the distal phalanx left fourth finger. No other fractures.
--- NOTE | ~2021-11-22 | XR_ITS ---
EXAMINATION: XR HAND, BILATERAL CLINICAL INFORMATION: Injury COMPARISON: None available at the time of this dictation. TECHNIQUE: Frontal lateral obliques views of the hand were obtained. FINDINGS: There is an avulsion chip fracture from the medial base distal phalanx left fourth finger. There are no other fractures.. Radiocarpal, intercarpal, carpometacarpal, metacarpophalangeal and interphalangeal joints are intact. There are no osteolytic or osteoblastic lesions. There are no bone erosions. Surrounding soft tissue unremarkable. XR/XR hand LT min 3V IMPRESSION: Avulsion chip fracture from the medial aspect of the base of the distal phalanx left fourth finger. No other fractures.
== END 2021-11-22 13:20 | disposition home or self-care (01) ==
LOC: HO.HMGCX 13:19
PROVIDERS: Visit Provider Nurse Practitioner Family
DX: S69.92XD Unspecified injury of left wrist, hand and finger(s), subsequent encounter (principal); S69.91XD Unspecified injury of right wrist, hand and finger(s), subsequent encounter
CPT/HCPCS: 73130

== ENCOUNTER 2021-12-05 10:22 | Outpatient (REF) | payer OTHER, SELFPAY ==
--- NOTE | ~2021-12-05 | XR_ITS ---
EXAMINATION: XR ANKLE, RIGHT CLINICAL INFORMATION: Pain right ankle and right foot. COMPARISON: None TECHNIQUE: AP, lateral, and mortise views of the right ankle. FINDINGS: There is mild right lateral malleolar soft tissue swelling and lateral hindfoot but no visible acute fracture or dislocation seen. The ankle mortise and subtalar joints are normal. XR/XR ankle RT min 3V IMPRESSION: Mild lateral malleolar soft tissue swelling. No underlying acute fracture or dislocation.
== END 2021-12-05 10:23 | disposition home or self-care (01) ==
LOC: HO.HOSX 10:22
PROVIDERS: PCP Nurse Practitioner Family; Visit Provider Physician Assistant
DX: S62.605A Fracture of unspecified phalanx of left ring finger, initial encounter for closed fracture (principal); S93.401A Sprain of unspecified ligament of right ankle, initial encounter; Y93.61 Activity, american tackle football
CPT/HCPCS: 73610; 99202

== ENCOUNTER 2021-12-17 09:36 | Outpatient (REF) | payer OTHER, SELFPAY ==
--- NOTE | ~2021-12-17 | XR_ITS ---
EXAMINATION: XR FOOT, RIGHT CLINICAL INFORMATION: Pain COMPARISON: Right ankle x-ray from earlier this month TECHNIQUE: AP, lateral, and oblique views of the right foot. FINDINGS: On the lateral view there is ossification projecting over the dorsal base of the metatarsal bones. This is well-corticated and suggestive of chronic changes from old trauma/avulsion fracture. No acute fracture is seen. There is mild arthritis at the talar navicular joint. Joint spaces are otherwise normal. Soft tissues are otherwise normal. XR/XR foot RT min 3V IMPRESSION: Question old trauma to the dorsal base of the metatarsal bones seen on the lateral view. No acute fracture seen. Mild degenerative changes at the talar navicular joint.
== END 2021-12-17 09:37 | disposition home or self-care (01) ==
LOC: HO.HMGCX 09:36
PROVIDERS: Visit Provider Nurse Practitioner Family
DX: M79.671 Pain in right foot (principal)
CPT/HCPCS: 73630

== ENCOUNTER 2021-12-18 11:48 | Outpatient (REF) | payer OTHER, SELFPAY ==
--- NOTE | ~2021-12-18 | XR_ITS ---
EXAMINATION: XR ANKLE, RIGHT CLINICAL INFORMATION: Right ankle sprain. COMPARISON: None TECHNIQUE: AP, lateral, and mortise views of the right ankle. FINDINGS: There is mild lateral malleolar soft tissue swelling. The ankle mortise and subtalar joints are normal. No visible acute fracture, dislocation or subluxation seen. XR/XR ankle RT min 3V IMPRESSION: Mild right lateral malleolar soft tissue swelling suggestive of ligamentous injury. No visible acute fracture or dislocation seen.
== END 2021-12-18 11:49 | disposition home or self-care (01) ==
LOC: HO.HMGCX 11:48
PROVIDERS: Visit Provider Nurse Practitioner Family
DX: S93.401A Sprain of unspecified ligament of right ankle, initial encounter (principal); X58.XXXA Exposure to other specified factors, initial encounter; Y93.9 Activity, unspecified; Y92.9 Unspecified place or not applicable; Y99.9 Unspecified external cause status
CPT/HCPCS: 73610

== ENCOUNTER 2021-12-24 07:18 | Outpatient (REF) | payer OTHER, SELFPAY ==
--- NOTE | ~2021-12-24 | MR_ITS ---
EXAMINATION: MR ANKLE WITHOUT CONTRAST, RIGHT CLINICAL INFORMATION: Pain, difficulty weightbearing. Decreased range of motion. Pain and swelling. COMPARISON: Most recent right ankle radiographs dated 12/18/2021. TECHNIQUE: Multisequence MR imaging of the right ankle was obtained without contrast on a high-field strength scanner. FINDINGS: BONE AND ARTICULAR CARTILAGE: Patchy marrow edema throughout the medial aspect of the talus adjacent to the deltoid ligament and likely reactive. Edema extends along the dorsal aspect of the talar head. No associated fracture line. Focal degenerative cystic change within the anterior tibial plafond. No talar osteochondral lesion. ACHILLES TENDON: Increased T2 signal within the intrasubstance of the Achilles tendon consistent with chronic tendinosis. No measurable tendon tear. OTHER TENDONS: Prominent fluid within the peroneal brevis and peroneal longus tendons as well as, to a lesser degree, within the posterior tibialis tendon and flexor digitorum longus tendon, consistent with tenosynovitis. No transverse tendon tear or tendon retraction. LIGAMENTS: Absence of the anterior talofibular ligament consistent with a complete tear. Adjacent soft tissue edema. Diffuse thickening and abnormal signal of the posterior talofibular ligament and calcaneofibular ligament consistent with more moderate sprain/partial tears. Abnormal signal/edema throughout the deltoid ligament, consistent with an acute moderate sprain/partial tear. JOINT FLUID AND SOFT TISSUES: Moderate tibiotalar and posterior subtalar joint effusions. Circumferential subcutaneous edema. PLANTAR FASCIA: Normal. SINUS TARSI AND TARSAL TUNNEL: Normal. MR/MR ankle RT wo con IMPRESSION: 1. Complete tear of the anterior talofibular ligament with more moderate sprain/partial tears of the posterior talofibular and calcaneofibular ligaments. 2. Moderate sprain/partial tear of the deltoid ligament with patchy, reactive marrow edema throughout the adjacent talus. No definite fracture line. 3. Peroneal brevis, peroneal longus, posterior tibialis, and flexor digitorum longus tenosynovitis without a transverse tendon tear. 4. Chronic Achilles tendinosis. 5. Moderate tibiotalar and posterior subtalar joint effusions. Circumferential subcutaneous edema.
== END 2021-12-24 07:19 | disposition home or self-care (01) ==
LOC: HO.MRI 07:18
PROVIDERS: Visit Provider Nurse Practitioner Family
DX: S93.401A Sprain of unspecified ligament of right ankle, initial encounter (principal); M79.673 Pain in unspecified foot
CPT/HCPCS: 73721

== ENCOUNTER → 2021-12-27 08:36 | Outpatient (BNVA) | payer OTHER, SELFPAY | PROVIDERS: PCP Nurse Practitioner Family; Visit Provider Orthopaedic Surgery | DX: S93.491A Sprain of other ligament of right ankle, initial encounter (principal) | CPT/HCPCS: 99212 ==

== ENCOUNTER 2022-01-02 08:38 | Day surgery (SDC) | payer OTHER, SELFPAY ==
--- NOTE | 2022-01-01 10:01 | HO.ANESPROP2 ---
Documented by User: Solange Pickett NP 01/01/22 10:02 HPI - Anesthesia Eval Consult details Narrative: 36yo F for Right Ligament Repair anterior Talobfibular *Multiple Med Allergies* PMFSH Active Problems Active Problems: All Active Problems (Updated 12/27/21 @ 12:51 by Az Del Rosario MD) Tear of talofibular ligament of right lower extremity (Acute) Foot pain (Acute) Right ankle sprain (Acute) Jammed interphalangeal joint of finger of right hand (Acute) Jammed interphalangeal joint of finger of left hand (Acute) Physical exam (Acute) Fatigue (Acute) ASCUS with positive high risk HPV (Acute) Grieving (Acute) Hospital discharge follow-up (Acute) Diarrhea (Acute) Nausea (Acute) Abdominal discomfort (Acute) Endometriosis (Acute) Encounter for annual routine gynecological examination (Acute) Close exposure to COVID-19 virus (Acute) Generalized body aches (Acute) Cough with exposure to COVID-19 virus (Acute) COVID-19 (Acute) Past Medical History Medical History Chronic fatigue Endometriosis Fibromyalgia Junie's disease Interstitial cystitis Positive ISAAK (antinuclear antibody) Renal calculi Small intestinal bacterial overgrowth (SIBO) Family History Family History Other Substance use disorder Surgical History Surgical History H/O abdominoplasty Social History Social History (Updated 12/05/21 @ 10:38 by Mary Grace Roberts CMA) Housing: House Alcohol intake: never Patient Tobacco Use Status: Never used Tobacco e-Cigarette/Vaping Use: Never Used Use of substances other than those prescribed or required for medical reasons: No Are you DNR?: No Advance Directives: No Advance Directives Information Provided: Yes Current occupational status: employed 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 Cognitive needs: No Hearing needs: No Vision needs: No Meds Allergies Allergy/AdvReac Type Severity Reaction Status Date / Time sumatriptan [From IMITREX] Allergy Severe HYPOTENSION, Verified 12/17/21 09:17 SYNCOPE Sulfa (Sulfonamide Allergy Unknown Rash Verified 12/17/21 09:17 Antibiotics) tetracycline [TETRACYCLINE] Allergy Unknown HIVES, Rash Verified 12/17/21 09:17 sulfamethoxazole Allergy Hives Verified 12/17/21 09:17 [From Bactrim] trimethoprim [From Bactrim] Allergy Hives Verified 12/17/21 09:17 trazodone [TRAZODONE] AdvReac Intermediate HEADACHE, Verified 12/17/21 09:17 Severe HAs oxycodone AdvReac Vomiting Verified 12/17/21 09:17 Home Medications Medication Instructions Recorded Confirmed Last Taken Type levonorgestrel 20 mcg/24 hours (7 intrauterine 12/26/20 07/24/21 Unknown History yrs) 52 mg intrauterine device (Mirena) dicyclomine 20 mg tablet 20 mg PO QID 02/20/21 07/24/21 Unknown History acarbose 25 mg tablet mg PO PRN low sugar 07/24/21 07/24/21 Unknown History flash glucose sensor (FreeStyle #1 ea 11/14/21 Unknown History Esteban 2 Sensor) pantoprazole 40 mg tablet,delayed 40 mg PO DAILY 11/14/21 Unknown History release ropinirole 0.25 mg tablet 0.25 mg PO BID 11/14/21 Unknown History Exam Exam Date and Time: January 01, 2022 1001 Assessment and Plan Assessment Anesthesia Assessment: Chart Reviewed Documented by User: Reji Galvan MD 01/02/22 18:53 [facility] Past Medical History Medical History Chronic fatigue Endometriosis Fibromyalgia Junie's disease Interstitial cystitis Positive ISAAK (antinuclear antibody) Renal calculi Small intestinal bacterial overgrowth (SIBO) Functional capacity: independent ambulation Family History Family History Other Substance use disorder Family history of problems with anesthesia: No Surgical History Surgical History H/O abdominoplasty History of Problems with Anesthesia: Yes (PONV) Social History Social History (Updated 12/05/21 @ 10:38 by Mary Grace Roberts CMA) Housing: House Alcohol intake: never Patient Tobacco Use Status: Never used Tobacco e-Cigarette/Vaping Use: Never Used Use of substances other than those prescribed or required for medical reasons: No Are you DNR?: No Advance Directives: No Advance Directives Information Provided: Yes Current occupational status: employed 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 Cognitive needs: No Hearing needs: No Vision needs: No Meds Allergies Allergy/AdvReac Type Severity Reaction Status Date / Time sumatriptan [From IMITREX] Allergy Severe HYPOTENSION, Verified 12/17/21 09:17 SYNCOPE Sulfa (Sulfonamide Allergy Unknown Rash Verified 12/17/21 09:17 Antibiotics) tetracycline [TETRACYCLINE] Allergy Unknown HIVES, Rash Verified 12/17/21 09:17 sulfamethoxazole Allergy Hives Verified 12/17/21 09:17 [From Bactrim] trimethoprim [From Bactrim] Allergy Hives Verified 12/17/21 09:17 trazodone [TRAZODONE] AdvReac Intermediate HEADACHE, Verified 12/17/21 09:17 Severe HAs oxycodone AdvReac Vomiting Verified 12/17/21 09:17 Home Medications Medication Instructions Recorded Confirmed Last Taken Type levonorgestrel 20 mcg/24 hours (7 intrauterine 12/26/20 07/24/21 Unknown History yrs) 52 mg intrauterine device (Mirena) dicyclomine 20 mg tablet 20 mg PO QID 02/20/21 07/24/21 Unknown History acarbose 25 mg tablet mg PO PRN low sugar 07/24/21 07/24/21 Unknown History flash glucose sensor (FreeStyle #1 ea 11/14/21 Unknown History Esteban 2 Sensor) pantoprazole 40 mg tablet,delayed 40 mg PO DAILY 11/14/21 Unknown History release ropinirole 0.25 mg tablet 0.25 mg PO BID 11/14/21 Unknown History Exam Airway Mallampati Class: II TM Dist: >3cm Neck ROM: Full Loose/Missing/Broken Teeth: Yes Heart: S1,S2 Lungs: b/l breath sounds Assessment and Plan Assessment Anesthesia Assessment: Anesthesia Plan Discussed Final Anesthetic Review Family History of Problems with Anesthesia: No History of Problems with Anesthesia: Yes (PONV) NPO: Yes ASA Class: II Final Preanesthetic Review: Meds/Allgs Chart Reviewed, Consent Obtained/Reviewed and Anes Risks/Benef Reviewed Patient Risk: Intermediate Procedure Risk: Intermediate Anesthetic Plan Anesthetic Plan: GA Disposition: Standard PACU
[2022-01-02] VITALS (10 sets, daily range): BP systolic 98–117; BP diastolic 55–70; PULSE 60–106; RESP 11–18; TEMP 36.3–37.2; O2SAT 95–100; BMI 27.1
[2022-01-02 09:07] LABS: Urine Pregnancy NEGATIVE (NEGATIVE)
[2022-01-02 09:08] LABS: UPreg QC Valid YES
[2022-01-02] MEDS: Lactated Ringers 1,000 ML 100 ML IVCONT (09:24)
[2022-01-02 13:55] LABS: Glucose, Whole Blood 105 mg/dL (60-115)
--- NOTE | 2022-01-08 14:25 | P.BOP_ITS ---
Brief Operative Note Date of Service: 02/01/22 Pre-op diagnosis: Right ankle ATFL tear Post-op diagnosis: same Procedure: Right ankle Brostrom with internal brace Implants: Wu and Nephew micro-raptor x 2 Arthrex internal brace Surgeon: Az Del Rosario MD Anesthesia: GETA and local Was an Environment Coordinator used for this Procedure?: No Estimated blood loss (mL): 25 IV fluids (mL): 800 Pathology: other Condition: stable Disposition: PACU
--- NOTE | 2022-01-09 09:42 | W.PM.OPN ---
Operative Note Operative Note Date of Service: 01/02/22 Narrative: Date of Service: 01/02/22 Pre-op diagnosis: Right ankle ATFL tear Post-op diagnosis: same Procedure: Right ankle Brostrom with internal brace Implants: Wu and Nephew micro-raptor x 2 Arthrex internal brace Surgeon: Az Del Rosario MD Anesthesia: GETA and local Was an Commercial Real Estate Manager used for this Procedure?: No Estimated blood loss (mL): 25 IV fluids (mL): 800 Pathology: other Condition: stable Disposition: PACU Procedure in detail: Patient was brought to the operating room and placed supine on the surgical table. She was prepped and draped in standard sterile fashion and a time out was called to identify proper site, proper procedure and IV antibiotics per weight were administered. I began by making a curvilinear incision over the anterolateral aspect of the anterior talofibular ligament. once through skin I was careful to avoid the anterior-posterior neurovascular structures. The calcaneofibular ligament was intact but the anterior talofibular ligament was compromised. It was torn both off the fibula and with intrasubstance tearing. It appeared to be acute on chronic. I incised a portion of the capsule and extensor retinaculum off the distal fibula and placed to all suture Wu and Nephew anchors. I then placed a talar anchor fro mthe internal brace system in the non articular portion of the talus just distal to the insertion of the ATFL. I then performed the brostrm using the suturefrom the anchors from the fibula. I had a good repair of the ATFL. The repair was performed in dorsiflexion and mild pronation. Once I was satisfied with this repair I placed a swivel lock anchor proximal to fibular anchors and, with the ankle in neutral, tightened the internal brace. I was careful not to overtighten. I was satisfied with both the repair and the internal brace. The wound was then irrigated copiously and closed with absorbale suture and skin. Sterile dressing were applied and she was awaklined from anesthesia and arslan the to the recovery room. There were no known complications.
== END 2022-01-02 15:40 | disposition home or self-care (01) ==
LOC: HO.SSS 16:46
PROVIDERS: Nurse Practitioner; PCP Nurse Practitioner Family; Visit Provider Orthopaedic Surgery
PROC: (CPT 27698; principal; 2022-01-02 11:10)
DX: S93.491A Sprain of other ligament of right ankle, initial encounter (principal); M25.471 Effusion, right ankle; W01.0XXA Fall on same level from slipping, tripping and stumbling without subsequent striking against object, initial encounter; Y93.01 Activity, walking, marching and hiking; Y92.9 Unspecified place or not applicable; Y99.8 Other external cause status; M79.7 Fibromyalgia; R53.82 Chronic fatigue, unspecified; E06.3 Autoimmune thyroiditis; Z79.899 Other long term (current) drug therapy; Z88.2 Allergy status to sulfonamides; Z88.1 Allergy status to other antibiotic agents; Z88.8 Allergy status to other drugs, medicaments and biological substances; Z98.890 Other specified postprocedural states
CPT/HCPCS: 27698; 81025; 82947; C1713; J0690; J1100; J1170; J1885; J2250; J2405; J2550; J3010

== ENCOUNTER 2022-01-31 08:09 | Outpatient (REF) | payer OTHER, SELFPAY ==
--- NOTE | ~2022-01-31 | XR_ITS ---
EXAMINATION: XR ANKLE, RIGHT CLINICAL INFORMATION: M25.579 - Pain in unspecified ankle and joints of unspecified foot COMPARISON: Radiographs right ankle 12/18/2021 TECHNIQUE: AP, lateral, and mortise views of the right ankle. FINDINGS: No fracture, dislocation, or destructive process. The malleoli appear intact and the ankle mortise is symmetric. There is no tibiotalar joint narrowing or erosive change. No visible osteochondral lesion. No visible ankle capsular effusion. The subtalar joint is unremarkable. The retrocalcaneal recess is preserved. There are borderline posterior and plantar calcaneal spurs and mild dorsal spurring from the talonavicular region. XR/XR ankle RT min 3V IMPRESSION: -No fracture or destructive process or arthropathy. -Mild dorsal spurring tibiotalar region. Borderline calcaneal spurring.
== END 2022-01-31 08:10 | disposition home or self-care (01) ==
LOC: HO.HOSX 08:09
PROVIDERS: Visit Provider Physician Assistant
DX: M25.571 Pain in right ankle and joints of right foot (principal)
CPT/HCPCS: 73610

== ENCOUNTER 2022-05-08 08:00 | Outpatient (RCR) | payer OTHER, SELFPAY ==
--- NOTE | 2022-01-21 15:01 | MHC.PT.EP ---
[facility] [place] Office [place] Office [place] [facility] [address] Regis John [address] [phone] F: [phone] F: [phone] F: [phone] F: [phone] Physical Therapy Plan of Care Date of Evaluation: Date of Surgery: 01/02/22 Diagnosis: s/p ATFL repair Assessment: Patient is a 36 year old R handed female who presents with s/s consistent with R ATFL repair. 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 Patient past medical history includes pelvic fracture. Current impairments include pain, posture, ROM, strength, activity tolerance, gait mechanics, and functional mobility. Functional limitations include decreased ability to perform all weight bearing activities. Patient is motivated with good rehab potential. Skilled PT will address impairments and functional limitations in order to achieve goals. 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 Manual therapy to restore motion and function. Therapeutic exercise to improve strength and flexibility. Neuromuscular re-education for posture and balance. Therapeutic activities to return to functional activities of daily living. Electronically signed by: Ulices Morales, PT Please sign and return to therapist. Thank you for your referral.
--- NOTE | 2022-06-18 11:49 | MHC.PT.DC ---
[facility] [place] [facility] [place] [facility] [place] [facility] [address] Regis John [address] [phone] F: [phone] F: [phone] F: [phone] F: [phone] Physical Therapy Discharge Report Diagnosis: s/p ATFL repair Date of Surgery: 01/02/22 Date of Evaluation: 01/21/22 Date of Discharge: 06/18/22 Treatments to Date: 20 Cancellations to Date: No Shows to Date: Discharge Status: Improved Function Independent with HEP Discharge Summary: Pt was unable to continue with PT due to other health concerns. 05/08/22: pt progressing still with ladder drills. no adverse reactions. hesitant with progression today due to pt have GI issues. 05/06/22: pt has been progressing well with skilled PT, adding ladder drills with increased instensity. notes minimal decrease in discomfort since changing shoes. 05/01/22: pt has been feeling better overall, progressing with strength and higher level ex. she has been able to progress ladder drills, jogging and strenght. today's ladder at 60% max. 04/22/22: Pt has been progressing well over the course of skilled PT. She has improved strength, ROM and balance with less pain and swelling. We have been able to progress functional activities as she is progressing through TM program and initiating plyo/speed and agility activity. She is compliant and motivated. She would like to progress towards a return to tackle football. We will continue to push progress this way over the next 6 weeks as we continue 2x/week for 6 more weeks. At that time we will plan to d/c to HEP and continued progression toward all activities. 04/17/22: pt continues to progress well with skilled PT. S&A ladder started today at 50%. Follows cues and commands well. Continue to progress as tolerated. 04/03/22: pt continues to progress well. was able to walk big E for 3 hours. progressing in single leg stance activities with no pain. 03/29/22: pt progressing well with skilled PT. some toe ext weakness. given ideas to work with TB at home. 03/22/22: pt TM jog for 2 min. mild discomfort noted. we will manage this going forward. min swelling present. tolerating program well with little s/s. 03/20/22: pt progressing well with skilled PT. stared jogging today. good mechanics. we will progress this as tolerated. 03/13/22: pt with improved ROM after mobs with DF. we will progress towards jogging. encouraged pt to walk daily with increased pain, focus on single leg heel raises, and balance in HEP. 03/08/22: progressing well with amb, strength. ROM. we have been progressing pain free with higher level ex with SLS included. Electronically signed by: Ulices Morales, PT Please sign and return to therapist. Thank you for your referral.
== END 2022-06-18 11:50 | disposition home or self-care (01) ==
LOC: HO.PTCHIC 08:00
PROVIDERS: PCP Nurse Practitioner Family; Visit Provider Orthopaedic Surgery
DX: S93.491A Sprain of other ligament of right ankle, initial encounter (principal); Z98.890 Other specified postprocedural states
CPT/HCPCS: 97110; 97112; 97116; 97140; 97161; 97530

== ENCOUNTER 2022-05-10 15:32 | Emergency (ER) | payer OTHER, SELFPAY ==
--- NOTE | ~2022-05-10 | CT_ITS ---
EXAMINATION: CT ABDOMEN AND PELVIS WITHOUT CONTRAST CLINICAL INFORMATION: Right-sided abdominal pain. COMPARISON: CT abdomen pelvis 01/07/2021 TECHNIQUE: Multidetector volumetric imaging was performed from the superior aspect of the liver through the pubic symphysis. Sagittal and coronal reformatted images were obtained on the technologist's workstation. This CT examination was performed using dose optimization techniques as appropriate, variously including the following: *Automated exposure control *Adjustment of mA and/or kV according to patient size (this includes techniques or standardized protocols for targeted exams where dose is matched to indication/reason for exam; i.e. extremities or head) *Use of iterative reconstruction technique DLP: 490 mGy-cm FINDINGS: LUNG BASES: The visualized lung bases are unremarkable. LIVER, GALLBLADDER, AND BILIARY TREE: Stable small hypodensities of liver too small to characterize likely hepatic cyst. Segment 4A. No suspicious liver lesions. No intrahepatic bile duct dilatation. The gallbladder is unremarkable with no evidence of radiopaque gallstones, gallbladder wall thickening, or obvious pericholecystic inflammatory changes. PANCREAS: Unremarkable. SPLEEN: Unremarkable. ADRENAL GLANDS: Unremarkable. KIDNEYS AND URETERS: Right kidney: 2 mm stone mid pole right kidney. There is no stone in the left kidney. No ureteral calculi. No hydronephrosis. BLADDER: Unremarkable. GASTROINTESTINAL TRACT: The small and large bowel are unremarkable. The appendix is unremarkable. ABDOMINAL WALL: No significant hernia is appreciated. LYMPH NODES: Normal. VASCULAR: Unremarkable. PELVIC VISCERA: The uterus is anteverted. IUD in endometrial cavity. No adnexal abnormality. OSSEOUS STRUCTURES: Multilevel degenerative spondylosis. Vacuum disc phenomena L4-L5 and L5-S1. No acute osseous abnormality. CT/CT abdomen pelvis wo IV con IMPRESSION: No acute abnormality CT scan abdomen pelvis. Fleischner guidelines were followed.
[2022-05-10 15:35] VITALS: BP 114/67; PULSE 61; RESP 20; TEMP 36.9; O2SAT 100; BMI 27.6
[2022-05-10 15:49] LABS: Basophils Percent Auto 0.4 % (0-2); Eosinophils Absolute Auto 0.1 X10*3/uL (0.0-0.4); Eosinophils Percent Auto 1.7 % (0-4); Hematocrit 36.3 % (37.0-47.0); Hemoglobin 12.4 g/dl (12.0-16.0); Imm Gran Abs Auto 0.01 X10*3/uL (0.00-0.03); Imm Gran Pct Auto 0.2 % (0.0-0.4); Lymphocytes Absolute Auto 1.7 X10*3/uL (1.2-4.9); Lymphocytes Percent Auto 31.3 % (20-40); MANUAL DIFF FLAG NO; Mean Corpuscular HGB Conc 34.2 g/dl (31.0-35.0); Mean Corpuscular Hemoglobin 33.2 pg (27.0-33.0); Mean Corpuscular Volume 97.1 fL (80.0-98.0); Mean Platelet Volume 10.2 fL (9.4-12.3); Monocytes Absolute Auto 0.5 X10*3/uL (0.1-1.2); Neutrophils Percent Auto 56.4 % (45-73); Platelet Count 199 X10*3/uL (160-400); Red Blood Count 3.74 X10*6/uL (4.20-5.50); Red Cell Distribution Width 12.7 % (11.0-16.0); White Blood Count 5.3 X10*3/uL (4.8-10.8)
[2022-05-10 16:10] LABS: Alanine Aminotransferase 9 U/L (0-31); Albumin Level 4.1 g/dL (3.5-5.0); Alkaline Phosphatase 50 U/L (39-117); Anion Gap 15 (12-20); Aspartate Amino Transferase 15 U/L (5-31); Bilirubin Direct 0.2 mg/dL (0.0-0.5); Bilirubin Total 0.5 mg/dL (0.0-1.0); Blood Urea Nitrogen 12 mg/dL (9-16); Carbon Dioxide 23 mmol/L (22-29); Chloride 107 mmol/L (96-108); Creatinine Clr Calc Pharmacy 92.4; Estimated Glomerular Filt Rate > 60; Glucose Random 77 mg/dL (60-115); Potassium 4.1 mmol/L (3.3-5.1); Sodium 141 mmol/L (135-145); Total Protein 6.6 g/dL (6.5-8.0)
[2022-05-10 17:26] LABS: HCG Quantitative < 2 mIU/mL
[2022-05-10 21:03] VITALS: BP 117/56; PULSE 57; RESP 16; TEMP 37.1; O2SAT 99
--- NOTE | 2022-05-10 21:04 | ED.ABDPAIN ---
HPI - Abdominal Pain General Chief Complaint: Abdominal Pain Stated Complaint: gallbladder infection? Time Seen by Provider: 05/10/22 20:50 Source: patient Mode of arrival: ambulatory Limitations: no limitations History of Present Illness HPI narrative: Patient comes to the emergency room complaining of 4 weeks of intermittent abdominal pain especially in the right upper quadrant radiating towards the right shoulder and towards the back. Patient states that she usually feels nauseous after eating. Patient states that for the last 5 days, any time that she eats or drinks anything she starts vomiting. Patient also complaining of diarrhea. Patient went to a walk-in clinic today, she was asked to come to the emergency room for further evaluation and treatment. Related Data Home Medications Medication Instructions Recorded Confirmed levonorgestrel 20 mcg/24 hours (8 intrauterine 12/26/20 07/24/21 yrs) 52 mg intrauterine device (Mirena) dicyclomine 20 mg tablet 20 mg PO QID 02/20/21 07/24/21 acarbose 25 mg tablet mg PO PRN low sugar 07/24/21 07/24/21 flash glucose sensor (FreeStyle #1 ea 11/14/21 Esteban 2 Sensor kit) pantoprazole 40 mg tablet,delayed 40 mg PO DAILY 11/14/21 release ropinirole 0.25 mg tablet 0.25 mg PO BID 11/14/21 Previous Rx's Medication Instructions Recorded ondansetron 8 mg disintegrating 8 mg PO BEDTIME 24 hours #5 tabs 01/04/22 tablet oxycodone-acetaminophen 5 mg-325 1 tab PO Q4-6H PRN pain 7 days #42 01/04/22 mg tablet tabs ibuprofen 800 mg tablet 800 mg PO TID pain #90 tabs 01/17/22 oxycodone 5 mg tablet 5 mg PO BEDTIME PRN pain 7 days 01/22/22 #14 tabs cetirizine 10 mg tablet 10 mg PO DAILY #90 tabs 04/15/22 lorazepam 1 mg tablet 1 mg PO DAILY PRN anxiety 30 days 05/04/22 #30 tabs sucralfate 1 gram tablet (Carafate) 1 g PO BID #60 tabs 05/10/22 Allergies Allergy/AdvReac Type Severity Reaction Status Date / Time sumatriptan [From IMITREX] Allergy Severe HYPOTENSION, Verified 05/10/22 14:42 SYNCOPE Sulfa (Sulfonamide Allergy Unknown Rash Verified 05/10/22 14:42 Antibiotics) tetracycline [TETRACYCLINE] Allergy Unknown HIVES, Rash Verified 05/10/22 14:42 sulfamethoxazole Allergy Hives Verified 05/10/22 14:42 [From Bactrim] trimethoprim [From Bactrim] Allergy Hives Verified 05/10/22 14:42 trazodone [TRAZODONE] AdvReac Intermediate HEADACHE, Verified 05/10/22 14:42 Severe HAs oxycodone AdvReac Vomiting Verified 05/10/22 14:42 Review of Systems Review of Systems Constitutional : No Weight loss, No Fever, No Chills, No Night Sweats, No Fatigue, No Malaise ENT/Mouth : No Hearing loss, No Ear Pain, No Nasal Congestion, No Sinus Pain, No Hoarseness, No sore throat, No Rhinorrhea, No Swallowing Difficulty Eyes: No Eye Pain, No Swelling, No Redness, No Foreign Body, No Discharge, No Vision Changes Cardiovascular : No Chest Pain, No SOB, No Dyspnea on Exertion, No Orthopnea, No Edema, No Palpitations Respiratory : No Cough, No Sputum, No Wheezing, No Smoke Exposure, No Dyspnea Gastrointestinal : Complaining of nausea vomiting and diarrhea, no constipation, complaining of right upper quadrant pain radiating to the back and right shoulder Genitourinary : no irregular bleeding, No Dysuria, No Urinary Frequency, No Hematuria, No Urinary Incontinence, No Urgency, No Flank Pain, No Urinary Flow Changes, No Hesitancy Musculoskeletal : No joint pain, No Myalgias, No Joint Swelling Skin : No Skin Lesions, No rash Neuro : No Weakness, No Numbness, No Paresthesias, No Loss of Consciousness, No Dizziness, No Headache Psych : No Anxiety/Panic, No Depression, No SI/HI/AH/VH, No Social Issues, Heme/Lymph: No Bruising, No Bleeding,No Lymphadenopathy Endocrine : No Polyuria, No Polydipsia, No Temperature Intolerance [facility] Past Medical History Medical History Chronic fatigue Endometriosis Fibromyalgia Junie's disease Interstitial cystitis Positive ISAAK (antinuclear antibody) Renal calculi Small intestinal bacterial overgrowth (SIBO) Surgical History H/O abdominoplasty Family History Family History Other Substance use disorder Social History Social History Housing: House Alcohol intake: never Patient Tobacco Use Status: Never used Tobacco e-Cigarette/Vaping Use: Never Used Advance Directives: No Advance Directives Information Provided: No Current occupational status: employed Current occupation: [employer] Cognitive needs: No Hearing needs: No Vision needs: No Physical Exam ED Vital Signs: Vital Signs - 24 hr 05/10/22 15:35 05/10/22 21:03 Temperature 98.4 F 98.7 F Pulse Rate 61 57 Respiratory Rate 20 16 Blood Pressure 114/67 117/56 L Pulse Oximetry 100 99 Oxygen Delivery Method Room Air Room Air BMI result Body Mass Index 27.6 Const Other: Appearance: Alert. Oriented X3. No acute distress. Well-appearing Eyes: Pupils equal, round and reactive to light. ENT: Pharynx normal. Neck: Normal inspection. Neck supple. No lymph nodes noted. No crepitus CVS: Normal heart rate and rhythm. Pulses normal. Normal S1 and S2 Respiratory: No respiratory distress. Breath sounds normal. No Wheezing. No rales Abdomen: Soft , moderate tenderness to palpation in right upper and lower quadrant, pain to palpation in epigastric area and all a solid left upper quadrant, negative Stroud sign Skin: Skin warm and dry. Normal skin color. Normal skin turgor. Extremities: No lower extremity edema. No Lacerations. No Rash Neuro: Oriented X 3. No motor deficit. No sensory deficit. Moving all extremities. No slurred speech. CN 2 through 12 grossly intact Psych: calm, cooperative, normal affect Course Course Course Narrative: With white blood cell count within normal limits, chemistry unremarkable, LFTs within normal limits. CT scan pending. Patient unlikely to have a gallbladder pathology, patient may have a peptic ulcer Patient getting IV fluids, Pepcid IV, p.o. Maalox and viscous lidocaine Patient states that she felt much better after GI cocktail. CT scan unremarkable. MDM - Abdominal Pain Lab Data Result diagrams: 05/10/22 15:44 05/10/22 15:44 Labs: Lab Results 05/10/22 05/10/22 05/10/22 Range/Units 15:44 15:44 20:53 WBC 5.3 (4.8-10.8) X10*3/uL RBC 3.74 L (4.20-5.50) X10*6/uL Hgb 12.4 (12.0-16.0) g/dl Hct 36.3 L (37.0-47.0) % MCV 97.1 (80.0-98.0) fL MCH 33.2 H (27.0-33.0) pg MCHC 34.2 (31.0-35.0) g/dl RDW 12.7 (11.0-16.0) % Plt Count 199 (160-400) X10*3/uL MPV 10.2 (9.4-12.3) fL Immature Gran % (Auto) 0.2 (0.0-0.4) % Neut % (Auto) 56.4 (45-73) % Lymph % (Auto) 31.3 (20-40) % Douglas % (Auto) 10.0 (2-11) % Eos % (Auto) 1.7 (0-4) % Baso % (Auto) 0.4 (0-2) % Lymph # (Auto) 1.7 (1.2-4.9) X10*3/uL Douglas # (Auto) 0.5 (0.1-1.2) X10*3/uL Eos # (Auto) 0.1 (0.0-0.4) X10*3/uL Baso # (Auto) 0.0 (0.0-0.2) X10*3/uL Abs Immat Gran (auto) 0.01 (0.00-0.03) X10*3/uL Absolute Neuts (auto) 3.0 (2.0-8.3) x10*3/uL Absolute Nucleated RBC 0.000 (0.0-0.012) X10*3/uL Nucleated RBC % (auto) 0.0 (0.0-0.2) /100WBC Sodium 141 (135-145) mmol/L Potassium 4.1 (3.3-5.1) mmol/L Chloride 107 (96-108) mmol/L Carbon Dioxide 23 (22-29) mmol/L Anion Gap 15 (12-20) BUN 12 (9-16) mg/dL Creatinine 0.83 (0.5-1.4) mg/dL Estim Creat Clear Calc 92.4 Estimated GFR > 60 Random Glucose 77 (60-115) mg/dL Calcium 9.0 D (8.4-10.2) mg/dL Total Bilirubin 0.5 (0.0-1.0) mg/dL Direct Bilirubin 0.2 (0.0-0.5) mg/dL AST 15 (5-31) U/L ALT 9 (0-31) U/L Alkaline Phosphatase 50 D (39-117) U/L Total Protein 6.6 (6.5-8.0) g/dL Albumin 4.1 (3.5-5.0) g/dL Beta HCG, Quant < 2 mIU/mL Urine Color Yellow Urine Appearance Clear Urine pH 5.5 (5.0-9.0) Ur Specific [place] 1.025 (1.005-1.025) Urine Protein Negative (Neg-Trace) mg/dL Urine Glucose (UA) Negative (Negative) mg/dL Urine Ketones 40 (Negative) mg/dL Urine Blood Negative (Negative) Urine Nitrite Negative (Negative) Ur Leukocyte Esterase Negative (Negative) Imaging Data CT scan - abdomen: Radiologist's impression: FINDINGS: LUNG BASES: The visualized lung bases are unremarkable.? LIVER, GALLBLADDER, AND BILIARY TREE: Stable small hypodensities of liver too small to characterize likely hepatic cyst. Segment 4A. No suspicious liver lesions. No intrahepatic bile duct dilatation. ?The gallbladder is unremarkable with no evidence of radiopaque gallstones, gallbladder wall thickening, or obvious pericholecystic inflammatory changes.? PANCREAS: Unremarkable.? SPLEEN: Unremarkable.? ADRENAL GLANDS: Unremarkable.? KIDNEYS AND URETERS: Right kidney: 2 mm stone mid pole right kidney. There is no stone in the left kidney. No ureteral calculi. No hydronephrosis.? BLADDER: Unremarkable.? GASTROINTESTINAL TRACT: The small and large bowel are unremarkable. The appendix is unremarkable.? ABDOMINAL WALL: No significant hernia is appreciated.? LYMPH NODES: Normal. VASCULAR: Unremarkable. PELVIC VISCERA: The uterus is anteverted. IUD in endometrial cavity. No adnexal abnormality.? OSSEOUS STRUCTURES: Multilevel degenerative spondylosis. Vacuum disc phenomena L4-L5 and L5-S1. No acute osseous abnormality.? CT/CT abdomen pelvis wo IV con IMPRESSION: No acute abnormality CT scan abdomen pelvis. ? Fleischner guidelines were followed. Discharge Plan Discharge Clinical Impression: Peptic ulcer symptoms Patient Disposition: Home, Self-Care Instructions: Gastritis (ED), Diet for Stomach Ulcers and Gastritis (ED) Additional Instructions: Stop taking pantoprazole. Please follow-up with your primary care physician and with your offline cutter on FridayMay 13. If you have any worsening or new symptoms, please return to the emergency room or call 911 Prescriptions: New sucralfate [Carafate] 1 gram tablet 1 g PO BID Qty: 60 0RF No Action oxycodone-acetaminophen 5-325 mg tablet 1 tab PO Q4-6H PRN (Reason: pain) 7 Days Qty: 42 0RF Rx Instructions: Partial Fill upon patient request. ondansetron 8 mg tablet,disintegrating 8 mg PO BEDTIME 1 Days Qty: 5 0RF cetirizine 10 mg tablet 10 mg PO DAILY Qty: 90 1RF lorazepam 1 mg tablet 1 mg PO DAILY PRN (Reason: anxiety) 30 Days Qty: 30 0RF acarbose 25 mg tablet PO PRN (Reason: low sugar) dicyclomine 20 mg tablet 20 mg PO QID pantoprazole 40 mg tablet,delayed release (DR/EC) 40 mg PO DAILY ropinirole 0.25 mg tablet 0.25 mg PO BID (DME) FreeStyle Esteban 2 Sensor Kit See Rx Instructions .ROUTE .MEDSUPPLY Qty: 1 Rx Instructions: As directed Mirena 20 mcg/24 hours (6 yrs) 52 mg intrauterine device intrauterine ibuprofen 800 mg tablet 800 mg PO TID Qty: 90 1RF oxycodone 5 mg tablet 5 mg PO BEDTIME PRN (Reason: pain) 7 Days Qty: 14 0RF Rx Instructions: Partial Fill upon patient request.
[2022-05-10 21:07] LABS: Appearance Urine Clear; Color Urine Yellow; Glucose Urine UA Negative (Negative); Leukocyte Esterase Urine Negative (Negative); Nitrite Urine Negative (Negative); PH 5.5 (5.0-9.0); Specific Gravity - Urine 1.025 (1.005-1.025); Urine Blood Negative (Negative); Urine Ketones 40 mg/dL (Negative); Urine Protein Negative (Neg-Trace)
[2022-05-10] MEDS: 0.9 % Sodium Chloride 1,000 ML 999 ML IVCONT (21:32)
[2022-05-10] MEDS: Magnesium Hydrox/Alum Hydrox 30 ML ORAL.SUSP PO (21:38)
[2022-05-10] MEDS: ondansetron HCL 4 MG/2 ML VIAL IVPUSH (21:38)
[2022-05-10] MEDS: Lidocaine HCl Viscous 2 % 15 ML SOLUTION MUCOUS MEM (21:38)
[2022-05-10] MEDS: Famotidine/PF 20 MG/2 ML VIAL IVPUSH (21:38)
[2022-05-10 23:54] VITALS: BP 119/62; PULSE 59; RESP 16; TEMP 36.6; O2SAT 99
== END 2022-05-10 23:55 | disposition home or self-care (01) ==
PROVIDERS: Student in an Organized Health Care Education/Training Program; Emergency Provider Emergency Medicine; PCP Nurse Practitioner Family
DX: K27.9 Peptic ulcer, site unspecified, unspecified as acute or chronic, without hemorrhage or perforation (principal); R10.11 Right upper quadrant pain; Z79.899 Other long term (current) drug therapy
CPT/HCPCS: 36415; 74176; 80048; 80076; 81003; 84702; 85025; 96361; 96374; 96375; 99284; J2405

== ENCOUNTER → 2022-05-24 09:32 | Outpatient (BNVA) | payer OTHER, SELFPAY | PROVIDERS: PCP Nurse Practitioner Family; Visit Provider Physician Assistant | DX: S93.491A Sprain of other ligament of right ankle, initial encounter (principal); Z98.890 Other specified postprocedural states | CPT/HCPCS: 99212 ==

== ENCOUNTER → 2022-07-29 08:28 | Outpatient (BNVA) | payer OTHER, SELFPAY | PROVIDERS: PCP Nurse Practitioner Family; Visit Provider Physician Assistant | DX: S93.491D Sprain of other ligament of right ankle, subsequent encounter (principal) | CPT/HCPCS: 99212 ==

== ENCOUNTER → 2022-09-30 13:16 | Outpatient (BNVA) | payer OTHER, SELFPAY | PROVIDERS: PCP Nurse Practitioner Family; Visit Provider Physician Assistant | DX: S93.491D Sprain of other ligament of right ankle, subsequent encounter (principal); Z98.890 Other specified postprocedural states | CPT/HCPCS: 99212 ==

== ENCOUNTER 2022-10-11 09:21 | Outpatient (REF) | payer OTHER, SELFPAY ==
--- NOTE | ~2022-10-11 | XR_ITS ---
EXAMINATION: XR SHOULDER, RIGHT CLINICAL INFORMATION: Right shoulder sprain COMPARISON: None available. TECHNIQUE: AP external rotation, Grashey, scapular Y, and axillary views of the right shoulder. FINDINGS: The bones and soft tissues are normal. No fracture. Glenohumeral and acromioclavicular alignment is anatomic with normal joint space. No abnormal soft tissue calcifications. XR/XR shoulder RT min 2V IMPRESSION: Unremarkable right shoulder.
== END 2022-10-11 09:22 | disposition home or self-care (01) ==
LOC: HO.HMGCX 09:21
PROVIDERS: PCP Nurse Practitioner Family; Visit Provider Internal Medicine
DX: S43.401A Unspecified sprain of right shoulder joint, initial encounter (principal); X58.XXXA Exposure to other specified factors, initial encounter; Y93.9 Activity, unspecified; Y92.9 Unspecified place or not applicable; Y99.9 Unspecified external cause status
CPT/HCPCS: 73030

== ENCOUNTER 2022-11-03 15:00 | Emergency (ER) | payer OTHER, SELFPAY ==
--- NOTE | ~2022-11-03 | CT_ITS ---
EXAM: Noncontrast CT scan of the head and cervical spine. INDICATION: Head on collision playing football. Pain. COMPARISON: Head CT 07/26/2016 TECHNIQUE: Axial slices were obtained from skull base to vertex and displayed. This was followed by helical, multislice, multidetector axial images from the occiput to the upper thorax. Coronal and sagittal reformats of the cervical spine in addition to coronal reformats of the head were obtained at the technologist workstation. DLP: 895 mGy-cm FINDINGS: HEAD: There is no evidence of acute intracranial hemorrhage or territorial infarction. No abnormal mass effect or midline shift is appreciated. Bose-white differentiation is well preserved. No extra-axial fluid collections. The ventricular system and cortical sulci are normal in size. The osseous structures and soft tissues are normal. The visualized paranasal sinuses and mastoid air cells are well aerated. SPINE: The cervical spine is visualized in its entirety. There is straightening of the normal cervical lordosis. Alignment is otherwise unremarkable. Normal C1/C2 articulation. Cervical vertebral body heights are maintained. Cervical disc spaces are well-maintained diffusely. No appreciable degenerative changes. Visualized lung apices are well aerated. CT/CT cervical spine wo IV con IMPRESSION: 1. No acute intracranial pathology. 2. No fractures or dislocations of the cervical spine. This CT examination was performed using dose optimization techniques as appropriate, variously including the following: *Automated exposure control *Adjustment of mA and/or kV according to patient size (this includes techniques or standardized protocols for targeted exams where dose is matched to indication/reason for exam; i.e. extremities or head) *Use of iterative reconstruction technique
--- NOTE | ~2022-11-03 | CT_ITS ---
EXAM: Noncontrast CT scan of the head and cervical spine. INDICATION: Head on collision playing football. Pain. COMPARISON: Head CT 07/26/2016 TECHNIQUE: Axial slices were obtained from skull base to vertex and displayed. This was followed by helical, multislice, multidetector axial images from the occiput to the upper thorax. Coronal and sagittal reformats of the cervical spine in addition to coronal reformats of the head were obtained at the technologist workstation. DLP: 895 mGy-cm FINDINGS: HEAD: There is no evidence of acute intracranial hemorrhage or territorial infarction. No abnormal mass effect or midline shift is appreciated. Bose-white differentiation is well preserved. No extra-axial fluid collections. The ventricular system and cortical sulci are normal in size. The osseous structures and soft tissues are normal. The visualized paranasal sinuses and mastoid air cells are well aerated. SPINE: The cervical spine is visualized in its entirety. There is straightening of the normal cervical lordosis. Alignment is otherwise unremarkable. Normal C1/C2 articulation. Cervical vertebral body heights are maintained. Cervical disc spaces are well-maintained diffusely. No appreciable degenerative changes. Visualized lung apices are well aerated. CT/CT head/brain wo IV con IMPRESSION: 1. No acute intracranial pathology. 2. No fractures or dislocations of the cervical spine. This CT examination was performed using dose optimization techniques as appropriate, variously including the following: *Automated exposure control *Adjustment of mA and/or kV according to patient size (this includes techniques or standardized protocols for targeted exams where dose is matched to indication/reason for exam; i.e. extremities or head) *Use of iterative reconstruction technique
[2022-11-03 15:15] VITALS: BP 115/74; PULSE 76; RESP 16; TEMP 36.6; O2SAT 100; BMI 24.6
--- NOTE | 2022-11-03 15:22 | ED.GENADULT ---
HPI - General Adult General Chief complaint: Head Injury <ANA MARIA Holley - Last Filed: 11/05/22 12:00> Stated complaint: possible concussion <ANA MARIA Holley - Last Filed: 11/05/22 12:00> Time Seen by Provider: 11/03/22 16:03 <ANA MARIA Holley - Last Filed: 11/05/22 12:00> Source: patient <Gladys Rivers NP - Last Filed: 11/03/22 17:22> Mode of arrival: ambulatory <Gladys Rivers NP - Last Filed: 11/03/22 17:22> Limitations: no limitations <Gladys Rivers NP - Last Filed: 11/03/22 17:22> History of Present Illness HPI narrative: This is a 37-year-old female who has a history of previous concussions and post concussive syndrome who presents to the ER after head injury yesterday. Patient reports she was playing tackle football with home it and had 2 head injuries. The 1st head injury occurred when she fell hitting her head on the ground. The 2nd injury occurred when she struck a 2nd player's body with her helmeted head. She did not lose consciousness but she was dazed after the head strike and was confused. Patient reports since then she has had headache, neck pain, nausea, dizziness, photophobia and phonophobia. She has not had any vomiting and has been able to take ibuprofen for pain. <Gladys Rivers NP - Last Filed: 11/03/22 17:22> Related Data Home medications: Home Medications Medication Instructions Recorded Confirmed levonorgestrel 21 mcg/24 hours (8 intrauterine 12/26/07/24/21 yrs) 52 mg intrauterine device (Mirena) dicyclomine 20 mg tablet 20 mg PO QID 02/20/21 07/24/21 flash glucose sensor (FreeStyle #1 ea 11/14/21 Esteban 2 Sensor kit) pantoprazole 40 mg tablet,delayed 40 mg PO DAILY 11/14/21 release ropinirole 0.25 mg tablet 0.25 mg PO BID 11/14/21 trazodone 50 mg tablet 50 - 100 mg PO BEDTIME PRN anxiety 05/24/22 dextroamphetamine-amphetamine 20 20 mg PO DAILY 11/05/22 mg tablet (Adderall) Previous Rx's Medication Instructions Recorded ondansetron 8 mg disintegrating 8 mg PO BEDTIME 24 hours #5 tabs 01/04/22 tablet lorazepam 1 mg tablet 1 mg PO DAILY PRN anxiety 30 days 05/04/22 #30 tabs cetirizine 10 mg tablet 10 mg PO DAILY #90 tabs 10/31/22 <ANA MARIA Holley - Last Filed: 11/05/22 12:00> Allergies/adverse reactions: Allergies Allergy/AdvReac Type Severity Reaction Status Date / Time sumatriptan [From IMITREX] Allergy Severe HYPOTENSION, Verified 11/05/22 08:18 SYNCOPE Sulfa (Sulfonamide Allergy Unknown Rash Verified 11/05/22 08:18 Antibiotics) tetracycline [TETRACYCLINE] Allergy Unknown HIVES, Rash Verified 11/05/22 08:18 sulfamethoxazole Allergy Hives Verified 11/05/22 08:18 [From Bactrim] trimethoprim [From Bactrim] Allergy Hives Verified 11/05/22 08:18 oxycodone AdvReac Vomiting Verified 11/05/22 08:18 <ANA MARIA Holley - Last Filed: 11/05/22 12:00> Review of Systems Review of Systems: Yes all other systems are reviewed and are negative <Gladys Rivers NP - Last Filed: 11/03/22 17:22> Constitutional: Constitutional: Reports no additional constitutional complaints, Denies body ache(s), Denies chills, Denies fever(s), Reports headache(s) and Denies weakness <Gladys Rivers NP - Last Filed: 11/03/22 17:22> Eyes: Eyes: Reports no additional eye complaints, Denies change in vision and Reports photophobia <Gladys Rivers NP - Last Filed: 11/03/22 17:22> ENT: Reports system reviewed and no additional complaints, except as documented, Denies dizziness, Reports headache(s), Denies nasal congestion, Denies nasal discharge and Reports neck pain <Gladys Rivers NP - Last Filed: 11/03/22 17:22> Cardiovascular: Cardiovascular: Reports no additional cardiovascular complaints, Denies chest pain, Denies leg edema and Denies dyspnea <Gladys Rivers HEALTHCARE ADVISORY SERVICES MANAGER - Last Filed: 11/03/22 17:22> Respiratory: Respiratory: Reports no additional respiratory complaints, Denies cough and Denies dyspnea <Gladys Rivers HEALTHCARE ADVISORY SERVICES MANAGER - Last Filed: 11/03/22 17:22> Gastrointestinal: Gastrointestinal: Reports no additional gastrointestinal complaints, Denies abdominal pain, Denies diarrhea, Denies nausea and Denies vomiting <lGadys Rivers HEALTHCARE ADVISORY SERVICES MANAGER - Last Filed: 11/03/22 17:22> Genitourinary: Genitourinary: Reports no additional female genitourinary complaints and Denies urinary incontinence <Gladys Rivers, HEALTHCARE ADVISORY SERVICES MANAGER - Last Filed: 11/03/22 17:22> Musculoskeletal: Musculoskeletal: Reports no additional musculoskeletal complaints, Denies back pain, Denies arthralgias, Denies joint swelling, Reports neck pain, Denies numbness and Denies tingling <Gladys Rivers HEALTHCARE ADVISORY SERVICES MANAGER - Last Filed: 11/03/22 17:22> Integumentary/Breasts: Skin/Breast: Reports system reviewed and no additional complaints, except as docu and Denies rash <Gladys Rivers HEALTHCARE ADVISORY SERVICES MANAGER - Last Filed: 11/03/22 17:22> Neurologic: Reports system reviewed and no additional complaints, except as documented, Denies dizziness, Reports headache(s), Denies numbness, Denies tingling and Denies weakness <Gladys Rivers HEALTHCARE ADVISORY SERVICES MANAGER - Last Filed: 11/03/22 17:22> [facility] Past Medical History Attestation statement: The following information was validated with the patient. <Gladys Rivers NP - Last Filed: 11/03/22 17:22> Source: old records reviewed and nursing notes reviewed <Gladys Rivers NP - Last Filed: 11/03/22 17:22> Medical History: Medical History Chronic fatigue Endometriosis Fibromyalgia Junie's disease Interstitial cystitis Positive ISAAK (antinuclear antibody) Renal calculi Small intestinal bacterial overgrowth (SIBO) <ANA MARIA Holley - Last Filed: 11/05/22 12:00> Surgical History: Surgical History H/O abdominoplasty History of ankle surgery <ANA MARIA Holley - Last Filed: 11/05/22 12:00> Family History Family History: Family History Father Diabetes Maternal Grandfather Hypertension Maternal Grandmother Hypertension Other Substance use disorder <ANA MARIA Holley - Last Filed: 11/05/22 12:00> Social History Social History: Social History Housing: House Alcohol intake: current Alcohol intake frequency: holidays/special occasions only Patient Tobacco Use Status: Never used Tobacco e-Cigarette/Vaping Use: Never Used Current occupational status: employed 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 Sexual orientation: Straight/Heterosexual Gender identity: Female Cognitive needs: No Hearing needs: No Vision needs: No <ANA MARIA Holley - Last Filed: 11/05/22 12:00> Physical Exam ED Vital Signs: Vital Signs - 24 hr 11/03/22 15:15 11/03/22 16:42 Temperature 97.9 F 98.3 F Pulse Rate 76 68 Respiratory Rate 16 12 Blood Pressure 115/74 111/67 Pulse Oximetry 100 99 Oxygen Delivery Method Room Air Room Air BMI result Body Mass Index 24.6 <ANA MARIA Holley - Last Filed: 11/05/22 12:00> Vital Signs - 24 hr 11/03/22 15:15 11/03/22 16:42 Temperature 97.9 F 98.3 F Pulse Rate 76 68 Respiratory Rate 16 12 Blood Pressure 115/74 111/67 Pulse Oximetry 100 99 Oxygen Delivery Method Room Air Room Air BMI result Body Mass Index 24.6 <Gladys Rivers NP - Last Filed: 11/03/22 17:22> Const General: cooperative, healthy appearing, comfortable and no acute distress <Gladys Rivers NP - Last Filed: 11/03/22 17:22> Orientation/consciousness: patient oriented x3 <Gladys Rivers NP - Last Filed: 11/03/22 17:22> Limitations: no limitations <Gladys Rivers NP - Last Filed: 11/03/22 17:22> HENMT Head: Yes normal to inspection, No Gee's sign and No raccoon eyes <Gladys Rivers HEALTHCARE ADVISORY SERVICES MANAGER - Last Filed: 11/03/22 17:22> Ears: hearing grossly normal bilaterally and TM's normal bilaterally <Gladys Rivers HEALTHCARE ADVISORY SERVICES MANAGER - Last Filed: 11/03/22 17:22> General nose exam: Normal external nose present <Gladys Rivers HEALTHCARE ADVISORY SERVICES MANAGER - Last Filed: 11/03/22 17:22> Face and sinus: Yes normal facial exam <Gladys Rivers, HEALTHCARE ADVISORY SERVICES MANAGER - Last Filed: 11/03/22 17:22> Mouth: Normal oral and palatal mucosa present <Gladys Rivers HEALTHCARE ADVISORY SERVICES MANAGER - Last Filed: 11/03/22 17:22> Throat: Yes posterior oropharynx normal, Yes tonsils normal and Yes uvula midline <Gladys Rivers HEALTHCARE ADVISORY SERVICES MANAGER - Last Filed: 11/03/22 17:22> Eyes General: appearance normal, both eyes and all related structures <Gladys Rivers HEALTHCARE ADVISORY SERVICES MANAGER - Last Filed: 11/03/22 17:22> Pupils: Equal, round and reactive pupils present <Gladys Rivers HEALTHCARE ADVISORY SERVICES MANAGER - Last Filed: 11/03/22 17:22> Direct Ophthalmoscopy: photophobia <Gladys Rivers HEALTHCARE ADVISORY SERVICES MANAGER - Last Filed: 11/03/22 17:22> Neck Neck: Yes normal visual inspection, Yes full ROM, Yes no lymphadenopathy and Yes no meningeal signs <Gladys Rivers HEALTHCARE ADVISORY SERVICES MANAGER - Last Filed: 11/03/22 17:22> Chest Chest palpation & inspection: normal inspection of the chest <Gladys Rivers HEALTHCARE ADVISORY SERVICES MANAGER - Last Filed: 11/03/22 17:22> Resp Effort & Inspection: normal respiratory effort <Gladys Rivers HEALTHCARE ADVISORY SERVICES MANAGER - Last Filed: 11/03/22 17:22> Auscultation: clear to auscultation bilaterally <Gladys Rivers HEALTHCARE ADVISORY SERVICES MANAGER - Last Filed: 11/03/22 17:22> Cardio Rate: regular rate <Gladys Pascucci, HEALTHCARE ADVISORY SERVICES MANAGER - Last Filed: 11/03/22 17:22> Rhythm: regular rhythm <Gladysdirk Rivers, HEALTHCARE ADVISORY SERVICES MANAGER - Last Filed: 11/03/22 17:22> Peripheral pulses: Peripheral pulses 2+ throughout <Gladysdirk Rivers, HEALTHCARE ADVISORY SERVICES MANAGER - Last Filed: 11/03/22 17:22> GI Inspection: Yes normal to inspection <Gladysdirk Rivers, HEALTHCARE ADVISORY SERVICES MANAGER - Last Filed: 11/03/22 17:22> Palpation (GI): Soft to palpation and nontender <Gladys Tita, HEALTHCARE ADVISORY SERVICES MANAGER - Last Filed: 11/03/22 17:22> General: Yes no CVA tenderness <Gladys Tita, HEALTHCARE ADVISORY SERVICES MANAGER - Last Filed: 11/03/22 17:22> Back/Spine/Pelvis Back: no CVA tenderness <Gladys Tita, HEALTHCARE ADVISORY SERVICES MANAGER - Last Filed: 11/03/22 17:22> Thoracic/Lumbar Spine: thoracic and lumbar spine normal to inspection <Gladysdirk Rivers, HEALTHCARE ADVISORY SERVICES MANAGER - Last Filed: 11/03/22 17:22> Skin General skin exam: no rashes or lesions noted <Gladysdirk Rivers, HEALTHCARE ADVISORY SERVICES MANAGER - Last Filed: 11/03/22 17:22> Neuro General: patient oriented x3, moves all extremities and no meningeal signs <Gladysdirk Rivers, HEALTHCARE ADVISORY SERVICES MANAGER - Last Filed: 11/03/22 17:22> Cranial nerves: Yes CN's II-XII intact bilaterally, Yes Equal, round and reactive pupils present, Yes Bilaterally intact EOM present, Yes Nystagmus not present and Yes Normal facial strength present <Gladysdirk Rivers, HEALTHCARE ADVISORY SERVICES MANAGER - Last Filed: 11/03/22 17:22> Cognition (Neuro): normal cognition <Gladys Tita, HEALTHCARE ADVISORY SERVICES MANAGER - Last Filed: 11/03/22 17:22> Gait exam (Neuro): Normal gait present <Gladysjacqueline Rivers, HEALTHCARE ADVISORY SERVICES MANAGER - Last Filed: 11/03/22 17:22> Motor exam (neuro): 5/5 motor strength present throughout <Gladys Tita, HEALTHCARE ADVISORY SERVICES MANAGER - Last Filed: 11/03/22 17:22> Sensory Exam: Normal double simultaneous stimulation for sensation <Gladys Tita, HEALTHCARE ADVISORY SERVICES MANAGER - Last Filed: 11/03/22 17:22> Coordination: [id number] test normal, [id number] test normal and tandem gait normal <Gladys Rivers NP - Last Filed: 11/03/22 17:22> Course Course Course Narrative: RME: 37 yold female presents to the ED for headacge, neck pain after head collission while playing football yesterday. patient falied concussion test and was confused yesterday. patient main complaints is posterior neck pain. she states headache has improved. cervical spine tendreness intact. Head CT and cervical spine CT odered. <ANA MARIA Holley - Last Filed: 11/05/22 12:00> Reevaluation(s) Reevaluation #1: CT head and cervical spine are unremarkable. Likely concussion and cervical strain. Patient tolerating p.o.. Reviewed head injury care at home. Reviewed worrisome signs and symptoms when to return to the emergency room. Comfortable plan for discharge home <Gladys Rivers NP - Last Filed: 11/03/22 17:22> Medications Administered Discontinued Medications Generic Name Dose Route Start Last Admin Trade Name Freq PRN Reason Stop Dose Admin Acetaminophen 975 mg 11/03/22 16:23 11/03/22 16:54 Acetaminophen 325 Mg Tablet PO 11/03/22 16:24 975 mg ONCE ONE Administration <ANA MARIA Holley - Last Filed: 11/05/22 12:00> Medications Administered Discontinued Medications Generic Name Dose Route Start Last Admin Trade Name Freq PRN Reason Stop Dose Admin Acetaminophen 975 mg 11/03/22 16:23 11/03/22 16:54 Acetaminophen 325 Mg Tablet PO 11/03/22 16:24 975 mg ONCE ONE Administration <Gladys Rivers NP - Last Filed: 11/03/22 17:22> Medical Decision Making Medical Decision Making MDM Narrative: This is a 37-year-old female with a history of concussion and post concussive syndrome who presents the ER with complaints of headache, neck pain, photophobia, phonophobia, nausea after having 2 head strike yesterday while playing tackle football. Normal neuro exam with no focal finding. Will check CT head and cervical spine, provide analgesia <Gladys Rivers NP - Last Filed: 11/03/22 17:22> Differential Diagnosis Differential Diagnoses: The differential diagnosis associated with the presentation includes <Gladys Rivers NP - Last Filed: 11/03/22 17:22> Concussion, less likely intracranial hemorrhage Cervical strain, less likely cervical fracture <Gladys Rivers NP - Last Filed: 11/03/22 17:22> Lab Data MDM Lab Attestation statement: I reviewed the patient's lab results. <Gladys Rivers NP - Last Filed: 11/03/22 17:22> Labs: Lab Results 11/03/22 Range/Units 15:25 Urine Test NEGATIVE (NEGATIVE) <ANA MARIA Holley - Last Filed: 11/05/22 12:00> Lab Results 11/03/22 Range/Units 15:25 Urine Test NEGATIVE (NEGATIVE) <Gladys Rivers NP - Last Filed: 11/03/22 17:22> Independent Interpretation I performed an independent interpretation of an: CT Scan <Gladys Rivers NP - Last Filed: 11/03/22 17:22> Interpretation: I independently reviewed the CT scan and agree with radiologist's report <Gladys Rivers NP - Last Filed: 11/03/22 17:22> Radiology Impression Discussion of test interpretation with radiology: I have reviewed the radiologist's reading. <Gladys Rivers NP - Last Filed: 11/03/22 17:22> Radiologist Impression: [place] [id number] CT Scan Report Signed Patient: Sindhu Rolon MR#: [id number] : 1985 Acct:[id number] Age/Sex: 37 / F ADM Date: 11/03/22 Loc: HO.ED Attending Dr: Ordering Physician: Bill Zendejas Date of Service: 11/03/22 Procedure(s): CT head/brain wo IV con Accession Number(s): [id number] cc: Bill Zendejas~ EXAM: Noncontrast CT scan of the head and cervical spine. INDICATION: Head on collision playing football. Pain. COMPARISON: Head CT 07/26/2016 TECHNIQUE: Axial slices were obtained from skull base to vertex and displayed. This was followed by helical, multislice, multidetector axial images from the occiput to the upper thorax. Coronal and sagittal reformats of the cervical spine in addition to coronal reformats of the head were obtained at the technologist workstation. DLP: 895 mGy-cm FINDINGS: HEAD: There is no evidence of acute intracranial hemorrhage or territorial infarction.? No abnormal mass effect or midline shift is appreciated. Bose-white differentiation is well preserved.? No extra-axial fluid collections.? The ventricular system and cortical sulci are normal in size. The osseous structures and soft tissues are normal.? The visualized paranasal sinuses and mastoid air cells are well aerated. SPINE: The cervical spine is visualized in its entirety. There is straightening of the normal cervical lordosis. Alignment is otherwise unremarkable. Normal C1/C2 articulation. Cervical vertebral body heights are maintained. Cervical disc spaces are well-maintained diffusely. No appreciable degenerative changes. Visualized lung apices are well aerated. CT/CT head/brain wo IV con IMPRESSION: 1. No acute intracranial pathology. 2. No fractures or dislocations of the cervical spine. ? ? This CT examination was performed using dose optimization techniques as appropriate, variously including the following: ? <Gladys Rivers NP - Last Filed: 11/03/22 17:22> Discharge Plan Discharge Clinical Impression: Concussion without loss of consciousness, Cervical strain <ANA MARIA Holley - Last Filed: 11/05/22 12:00> Patient Disposition: Home, Self-Care <ANA MARIA Holley - Last Filed: 11/05/22 12:00> Instructions: Cervical Strain (DC), Concussion (ED) <ANA MARIA Holley - Last Filed: 11/05/22 12:00> Additional Instructions: Limit screen time Get plenty of rest Take Motrin or Tylenol for pain as needed Follow-up with her primary care doctor No contact sports until cleared by primary care <ANA MARIA Holley - Last Filed: 11/05/22 12:00> Prescriptions: No Action ondansetron 8 mg tablet,disintegrating 8 mg PO BEDTIME 1 Days Qty: 5 0RF lorazepam 1 mg tablet 1 mg PO DAILY PRN (Reason: anxiety) 30 Days Qty: 30 0RF cetirizine 10 mg tablet 10 mg PO DAILY Qty: 90 1RF dicyclomine 20 mg tablet 20 mg PO QID pantoprazole 40 mg tablet,delayed release (DR/EC) 40 mg PO DAILY ropinirole 0.25 mg tablet 0.25 mg PO BID (DME) FreeStyle Esteban 2 Sensor Kit See Rx Instructions .ROUTE .MEDSUPPLY Qty: 1 Rx Instructions: As directed Mirena 20 mcg/24 hours (6 yrs) 52 mg intrauterine device intrauterine dextroamphetamine-amphetamine [Adderall] 20 mg tablet 20 mg PO DAILY trazodone 50 mg tablet 50 - 100 mg PO BEDTIME PRN (Reason: anxiety) <ANA MARIA Holley - Last Filed: 11/05/22 12:00> Referrals: Ari Richard FNP- [Primary Care Provider] - 1 week <ANA MARIA Holley - Last Filed: 11/05/22 12:00> Interventions: ED Discharge Assessment Last Done: 11/03/22 17:38 <ANA MARIA Holley - Last Filed: 11/05/22 12:00> Discharge Date/Time: 11/03/22 17:40 <ANA MARIA Holley - Last Filed: 11/05/22 12:00>
[2022-11-03 15:33] LABS: UPreg QC Valid YES
[2022-11-03 15:36] LABS: Urine Pregnancy NEGATIVE (NEGATIVE)
[2022-11-03 16:42] VITALS: BP 111/67; PULSE 68; RESP 12; TEMP 36.8; O2SAT 99
[2022-11-03] MEDS: Acetaminophen 325 MG TABLET 975 MG PO (16:54)
== END 2022-11-03 17:40 | disposition home or self-care (01) ==
PROVIDERS: Physician Assistant; Emergency Provider Emergency Medicine; PCP Nurse Practitioner Family
DX: S06.0X0A Concussion without loss of consciousness, initial encounter (principal); S16.1XXA Strain of muscle, fascia and tendon at neck level, initial encounter; M54.2 Cervicalgia; R51.9 Headache, unspecified; Y29.XXXA Contact with blunt object, undetermined intent, initial encounter; Y93.9 Activity, unspecified; Y92.9 Unspecified place or not applicable; Y99.9 Unspecified external cause status; Z79.899 Other long term (current) drug therapy
CPT/HCPCS: 70450; 72125; 81025; 99284

== ENCOUNTER 2022-11-05 08:08 | Outpatient (REF) | payer OTHER, SELFPAY ==
[2022-11-06 08:52] LABS: BV Int Neg Control Negative (Negative); BV Int Pos Control Positive (Positive)
[2022-11-07 07:24] LABS: HPV mRNA E6/E7 rflx Not Detected (Not Detected)
== END 2022-11-05 08:09 | disposition home or self-care (01) ==
LOC: HO.LNP 08:08
PROVIDERS: PCP Nurse Practitioner Family; Visit Provider Advanced Practice Midwife
DX: Z01.419 Encounter for gynecological examination (general) (routine) without abnormal findings (principal); N89.8 Other specified noninflammatory disorders of vagina; R10.2 Pelvic and perineal pain
CPT/HCPCS: 87480; 87510; 87624; 87660; 88142

== ENCOUNTER 2022-11-05 08:49 | Outpatient (REF) | payer OTHER, SELFPAY | END 2022-11-05 08:50 | disposition home or self-care (01) | LOC: HO.LAB 08:49 | PROVIDERS: Visit Provider Advanced Practice Midwife | DX: Z13.89 Encounter for screening for other disorder (principal) ==

== ENCOUNTER 2022-11-18 08:10 | Emergency (ER) | payer OTHER, SELFPAY ==
--- NOTE | ~2022-11-18 | CT_ITS ---
EXAMINATION: CT angio head neck CLINICAL INFORMATION: Left-sided headaches and pain status post injury. COMPARISON: CT scan of the head 11/03/2022. TECHNIQUE: Coding File Clerk images were obtained. A CT angiogram of the head and neck was performed in the arterial phase after the intravenous administration of 70 mL Omnipaque 350. Delayed postcontrast images of the head were also obtained. 3D images were processed on an independent workstation under concurrent supervision. Arterial stenoses are measured in accordance with NASCET criteria or similar method if applicable. This CT examination was performed using dose optimization techniques as appropriate, including one or more of the following: Automated exposure control, iterative reconstruction, and adjustment of technique factors (mA and/or kVp) according to patient size (this includes techniques or standardized protocols for targeted exams where dose is matched to indication/reason for exam). Fleischner Society criteria for the followup of incidental pulmonary nodules was implemented if appropriate. Total exam dose-length product 1493 mGy-cm FINDINGS: Head: Postcontrast images reveal no abnormal intracranial mass or enhancement. There is no intracranial mass effect or midline shift. Lateral and third ventricles are normal. No hydrocephalus. Bose-white matter differentiation is preserved and there is no evidence of acute territorial infarct. The calvarium and skull base are intact. Mastoid air cells and middle ear cavities are well aerated. No active paranasal sinus disease. CT angiogram neck: The aortic arch apex is normal. Origins of the major aortic branches are widely patent. Common carotid arteries and carotid bifurcations are normal. No stenosis of the extracranial internal carotid arteries. The cervical vertebral arteries are patent. CT angiogram head: Intracranial internal carotid arteries are patent. The intradural vertebral artery segments and basilar artery are patent. Anterior, middle, and posterior cerebral complexes are normal. No intracranial vessel occlusion. The timing of contrast injection provides adequate opacification of the dural venous sinuses which are patent. Other: Soft tissues of the neck including the thyroid gland are normal. No pathologically enlarged cervical lymph nodes. Lung apices are clear. There is no acute osseous finding. No worrisome lytic or blastic osseous lesion. Grossly no spinal canal compromise. CT/CT angio head neck IMPRESSION: Normal CT angiogram of the head and neck. No stenosis of the cervical carotid or vertebral arteries. No intracranial vessel occlusion. No evidence of acute territorial infarct or hemorrhage. No abnormal intracranial mass or enhancement.
[2022-11-18 08:11] VITALS: BP 111/74; PULSE 65; RESP 18; TEMP 36.4; O2SAT 100; BMI 24.5
[2022-11-18 08:17] VITALS: BP 115/72; PULSE 62; RESP 20; TEMP 36.6; O2SAT 100
--- NOTE | 2022-11-18 08:21 | PC.NURSE ---
Pt being seen by provider for Left eye swelling, pain, ADKINS, internal ear pain, dizziness and loss of balance. Reporting symptoms worsen in the night than in the morning time. awaiting further orders at this time
--- NOTE | 2022-11-18 08:37 | ED_ITS ---
HPI - Headache General Chief Complaint: Headache Stated Complaint: L sided head pain/Ear pain Time Seen by Provider: 11/18/22 08:15 Source: patient and old records reviewed Mode of arrival: ambulatory Limitations: no limitations History of Present Illness HPI Narrative: 37-year-old female with a history of fibromyalgia, Junie's disease, endometriosis, small intestinal bacterial overgrowth, kidney stones, , history of syncope, currently being monitored with a Holter who presents to the ER for evaluation of chronic left-sided facial pain and head pain for the last several months. Patient reports that the pain was initially thought to be due to a dental problem, she had a tooth extracted from her left upper dentition in August. The pain persisted. She reports daily left-sided facial pain and headaches. It is worse at the end of the day, worse with chewing, worse when touching her face. She also reports associated left eye swelling, watering, blurred vision in the left eye. She states the pain radiates to the ear as well. No hearing loss or drainage. Patient was seen here on November 03 after head injury associated with tackle football. She had dry CT of the head and neck that were unremarkable. MD elicited complaint: headache and other Pertinent past history: recent trauma Onset (ago): month(s) (5-6) Onset description: gradually Location: left, frontal, temporal and facial Severity: moderate Quality & Timing: aching, throbbing and progressively worsening Exacerbating factors: other (chewing, end of the day) Relieving factors: NSAIDs Context: occurred while eating and recent head injury Associated symptoms: eye pain Treatments prior to arrival: none Related Data Home Medications Medication Instructions Recorded Confirmed levonorgestrel 21 mcg/24 hours (8 intrauterine 12/26/20 07/24/21 yrs) 52 mg intrauterine device (Mirena) dicyclomine 20 mg tablet 20 mg PO QID 02/20/21 07/24/21 flash glucose sensor (FreeStyle #1 ea 11/14/21 Esteban 2 Sensor kit) pantoprazole 40 mg tablet,delayed 40 mg PO DAILY 11/14/21 release ropinirole 0.25 mg tablet 0.25 mg PO BID 11/14/21 trazodone 50 mg tablet 50 - 100 mg PO BEDTIME PRN anxiety 05/24/22 dextroamphetamine-amphetamine 20 20 mg PO DAILY 05/02/23 mg tablet (Adderall) Previous Rx's Medication Instructions Recorded ondansetron 8 mg disintegrating 8 mg PO BEDTIME 24 hours #5 tabs 01/04/22 tablet lorazepam 1 mg tablet 1 mg PO DAILY PRN anxiety 30 days 05/04/22 #30 tabs cetirizine 10 mg tablet 10 mg PO DAILY #90 tabs 10/31/22 carbamazepine 200 mg tablet 200 mg PO DAILY #30 tabs 11/18/22 (Tegretol) Allergies Allergy/AdvReac Type Severity Reaction Status Date / Time sumatriptan [From IMITREX] Allergy Severe HYPOTENSION, Verified 11/18/22 08:11 SYNCOPE Sulfa (Sulfonamide Allergy Unknown Rash Verified 11/18/22 08:11 Antibiotics) tetracycline [TETRACYCLINE] Allergy Unknown HIVES, Rash Verified 11/18/22 08:11 sulfamethoxazole Allergy Hives Verified 11/18/22 08:11 [From Bactrim] trimethoprim [From Bactrim] Allergy Hives Verified 11/18/22 08:11 oxycodone AdvReac Vomiting Verified 11/18/22 08:11 Review of Systems Review of Systems: Yes all other systems are reviewed and are negative [facility] Past Medical History Medical History Chronic fatigue Endometriosis Fibromyalgia Junie's disease Interstitial cystitis Positive ISAAK (antinuclear antibody) Renal calculi Small intestinal bacterial overgrowth (SIBO) Surgical History H/O abdominoplasty History of ankle surgery Family History Family History Father Diabetes Maternal Grandfather Hypertension Maternal Grandmother Hypertension Other Substance use disorder Social History Social History Housing: House Alcohol intake: current Alcohol intake frequency: holidays/special occasions only Patient Tobacco Use Status: Never used Tobacco e-Cigarette/Vaping Use: Never Used Advance Directives: No Advance Directives Information Provided: Yes Current occupational status: employed 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 Oriented X3. No acute distress. Head/face: normocephalic, atraumatic. diffuse tenderness of the left side of the face, face is symmetrical. Eyes: Pupils equal, round and reactive to light. EOMI, mild periorbial swelling of the left eye, superficial twitching. ENT: Pharynx normal. No tonsillar swelling or exudate. Normal TMs bilaterally. Neck: Normal inspection. Neck supple. No midline tenderness. CVS: Normal heart rate and rhythm. Pulses normal. Respiratory: No respiratory distress. Breath sounds normal. Abdomen: Soft and nontender. +BS x4 Skin: Skin warm and dry. Normal skin color. Normal skin turgor. No rashes. Extremities: No lower extremity edema. No joint swelling. Neuro/psych: Oriented X 3. No motor deficit. No sensory deficit. CN II-XII intact. Normal speech and cognition. Medications Administered Discontinued Medications Generic Name Dose Route Start Last Admin Trade Name Freq PRN Reason Stop Dose Admin Iohexol 70 ml 11/18/22 10:49 11/18/22 10:50 Iohexol 350 Mg/Ml 100 Ml Infus..Btl IV 11/18/22 10:50 70 ml ONCE ONE Administration Medical Decision Making Medical Decision Making MDM Narrative: 37 yo female presenting to the ER for evaluation of 5-6 months of left sided facial and head pain associated with intermittent swelling of the left eye, left eye blurred vision. Symptoms occur daily, are worse the end of the day and with chewing. Exam and clinical presentation are concerning for trigeminal neuralgia. Case d/w Dr. Bolanos - recommended CT angio/head and neck done today given head injury recently to r/o dissection which was normal. Case was d/w Dr. Montaño from Neurology - recommending f/u in the office. tegretol effective for trigeminal neuralgia Stable for d/c home w/ low dose tegretol, neuro and PCP follow up. patient counseled. Differential Diagnosis Differential Diagnoses: The differential diagnosis associated with the presentation includes trigeminal neuralgia, post herpetic neuralgia, cluster headache, migraine, TMJ disorder Consult Healthcare Provider Management of the patient was discussed with: Social Media Manager Dr. montaño Lab Data [facility] Lab Attestation statement: I reviewed the patient's lab results. 11/18/22 09:21 11/18/22 09:21 Labs: Lab Results 11/18/22 11/18/22 Range/Units 09:21 09:52 WBC 3.9 L (4.8-10.8) X10*3/uL RBC 4.06 L (4.20-5.50) X10*6/uL Hgb 13.1 (12.0-16.0) g/dl Hct 38.7 (37.0-47.0) % MCV 95.3 (80.0-98.0) fL MCH 32.3 (27.0-33.0) pg MCHC 33.9 (31.0-35.0) g/dl RDW 13.5 (11.0-16.0) % Plt Count 195 (160-400) X10*3/uL MPV 9.9 (9.4-12.3) fL Immature Gran % (Auto) 0.3 (0.0-0.4) % Neut % (Auto) 47.4 (45-73) % Lymph % (Auto) 34.0 (20-40) % [place] % (Auto) 13.9 H (2-11) % Eos % (Auto) 3.6 (0-4) % Baso % (Auto) 0.8 (0-2) % Lymph # (Auto) 1.3 (1.2-4.9) X10*3/uL [place] # (Auto) 0.5 (0.1-1.2) X10*3/uL Eos # (Auto) 0.1 (0.0-0.4) X10*3/uL Baso # (Auto) 0.0 (0.0-0.2) X10*3/uL Abs Immat Gran (auto) 0.01 (0.00-0.03) X10*3/uL Absolute Neuts (auto) 1.8 L (2.0-8.3) x10*3/uL Absolute Nucleated RBC 0.000 (0.0-0.012) X10*3/uL Nucleated RBC % (auto) 0.0 (0.0-0.2) /100WBC Sodium 141 (135-145) mmol/L Potassium 4.3 (3.3-5.1) mmol/L Chloride 109 H (96-108) mmol/L Carbon Dioxide 28 (22-29) mmol/L Anion Gap 8 L (12-20) BUN 12 (9-16) mg/dL Creatinine 0.85 (0.5-1.4) mg/dL Estim Creat Clear Calc 79.9 Estimated GFR > 60 Random Glucose 80 (60-115) mg/dL Calcium 9.3 (8.4-10.2) mg/dL External Record Review External record reviewed: Office record, Outpatient record, Prior outpatient labs and Prior outpatient radiology Prescription Management I considered prescription management with: Pain Medication Critical Care Time Critical Care Time Critical Care Time: No Discharge Plan Discharge Clinical Impression: Left-sided trigeminal neuralgia Patient Disposition: Home, Self-Care Instructions: Trigeminal Neuralgia (ED) Additional Instructions: Your CT head/neck with contrast today was normal. Recommend starting the prescribed medication for probable trigeminal neuralgia This is a low starting dose and can be titrated up by your doctor or by Neurology Recommend calling Neurology to set up an appointment for further evaluation and treatment If you develop new or worsening symptoms call 911 or come back to the ER for further evaluation. Prescriptions: New carbamazepine [Tegretol] 200 mg tablet 200 mg PO DAILY Qty: 30 0RF No Action ondansetron 8 mg tablet,disintegrating 8 mg PO BEDTIME 1 Days Qty: 5 0RF lorazepam 1 mg tablet 1 mg PO DAILY PRN (Reason: anxiety) 30 Days Qty: 30 0RF cetirizine 10 mg tablet 10 mg PO DAILY Qty: 90 1RF dicyclomine 20 mg tablet 20 mg PO QID pantoprazole 40 mg tablet,delayed release (DR/EC) 40 mg PO DAILY ropinirole 0.25 mg tablet 0.25 mg PO BID (DME) FreeStyle Esteban 2 Sensor Kit See Rx Instructions .ROUTE .MEDSUPPLY Qty: 1 Rx Instructions: As directed Mirena 20 mcg/24 hours (6 yrs) 52 mg intrauterine device intrauterine dextroamphetamine-amphetamine [Adderall] 20 mg tablet 20 mg PO DAILY trazodone 50 mg tablet 50 - 100 mg PO BEDTIME PRN (Reason: anxiety) Referrals: [facility] Neuro/Sleep [Provider Group] (trigeminal neuralgia) Ari Richard, [facility] [Primary Care Provider] - Stand Alone Forms: Work/School Release Interventions: ED Discharge Assessment Last Done: 11/18/22 12:28
[2022-11-18 09:26] LABS: MANUAL DIFF FLAG NO
[2022-11-18 09:31] LABS: Basophils Percent Auto 0.8 % (0-2); Eosinophils Absolute Auto 0.1 X10*3/uL (0.0-0.4); Eosinophils Percent Auto 3.6 % (0-4); Hematocrit 38.7 % (37.0-47.0); Hemoglobin 13.1 g/dl (12.0-16.0); Imm Gran Abs Auto 0.01 X10*3/uL (0.00-0.03); Imm Gran Pct Auto 0.3 % (0.0-0.4); Lymphocytes Absolute Auto 1.3 X10*3/uL (1.2-4.9); Mean Corpuscular HGB Conc 33.9 g/dl (31.0-35.0); Mean Corpuscular Hemoglobin 32.3 pg (27.0-33.0); Mean Corpuscular Volume 95.3 fL (80.0-98.0); Mean Platelet Volume 9.9 fL (9.4-12.3); Monocytes Absolute Auto 0.5 X10*3/uL (0.1-1.2); Monocytes Percent Auto 13.9 % (2-11); Neutrophils Absolute Auto 1.8 x10*3/uL (2.0-8.3); Neutrophils Percent Auto 47.4 % (45-73); Platelet Count 195 X10*3/uL (160-400); Red Blood Count 4.06 X10*6/uL (4.20-5.50); Red Cell Distribution Width 13.5 % (11.0-16.0); White Blood Count 3.9 X10*3/uL (4.8-10.8)
[2022-11-18 10:13] LABS: Anion Gap 8 (12-20); Blood Urea Nitrogen 12 mg/dL (9-16); Calcium 9.3 mg/dL (8.4-10.2); Carbon Dioxide 28 mmol/L (22-29); Chloride 109 mmol/L (96-108); Creatinine Clr Calc Pharmacy 79.9; Estimated Glomerular Filt Rate > 60; Glucose Random 80 mg/dL (60-115); Potassium 4.3 mmol/L (3.3-5.1); Sodium 141 mmol/L (135-145)
[2022-11-18] MEDS: iohexoL 350 MG/ML 100 ML INFUS..BTL 70 ML IV (10:50)
== END 2022-11-18 12:28 | disposition home or self-care (01) ==
PROVIDERS: Physician Assistant; Emergency Provider Student in an Organized Health Care Education/Training Program; PCP Nurse Practitioner Family
DX: G50.0 Trigeminal neuralgia (principal); R51.9 Headache, unspecified; H57.12 Ocular pain, left eye; Z79.899 Other long term (current) drug therapy
CPT/HCPCS: 36415; 70496; 70498; 80048; 85025; 99284; Q9967

== ENCOUNTER 2022-12-23 10:58 | Outpatient (REF) | payer OTHER, SELFPAY | END 2022-12-23 10:59 | disposition home or self-care (01) | LOC: HO.LAB 10:58 | PROVIDERS: PCP Nurse Practitioner Family; Visit Provider Obstetrics & Gynecology | DX: Z32.02 Encounter for pregnancy test, result negative (principal); R87.610 Atypical squamous cells of undetermined significance on cytologic smear of cervix (ASC-US) | CPT/HCPCS: 57454; 81025; 88305 ==

== ENCOUNTER 2022-12-24 06:56 | Emergency (ER) | payer OTHER, SELFPAY ==
[2022-12-24 07:01] VITALS: BP 123/70; PULSE 64; RESP 16; TEMP 36.4; O2SAT 100; BMI 25.0
[2022-12-24 08:01] LABS: MANUAL DIFF FLAG NO
[2022-12-24 08:05] LABS: Appearance Urine Clear; Color Urine Yellow; Glucose Urine UA Negative (Negative); Leukocyte Esterase Urine Small (1+) (Negative); Nitrite Urine Negative (Negative); PH 7.5 (5.0-9.0); Specific Gravity - Urine 1.015 (1.005-1.025); UMIC TRIGGER UACC YES; Urine Blood Negative (Negative); Urine Ketones 15 mg/dL (Negative); Urine Protein Negative (Neg-Trace)
[2022-12-24 08:06] LABS: Basophils Percent Auto 0.3 % (0-2); Eosinophils Absolute Auto 0.1 X10*3/uL (0.0-0.4); Eosinophils Percent Auto 0.5 % (0-4); Hematocrit 44.2 % (37.0-47.0); Imm Gran Abs Auto 0.02 X10*3/uL (0.00-0.03); Imm Gran Pct Auto 0.2 % (0.0-0.4); Lymphocytes Absolute Auto 0.4 X10*3/uL (1.2-4.9); Mean Corpuscular HGB Conc 33.9 g/dl (31.0-35.0); Mean Corpuscular Hemoglobin 32.8 pg (27.0-33.0); Mean Corpuscular Volume 96.5 fL (80.0-98.0); Mean Platelet Volume 10.4 fL (9.4-12.3); Monocytes Absolute Auto 0.5 X10*3/uL (0.1-1.2); Monocytes Percent Auto 5.3 % (2-11); Neutrophils Percent Auto 89.7 % (45-73); Platelet Count 230 X10*3/uL (160-400); Red Blood Count 4.58 X10*6/uL (4.20-5.50); Red Cell Distribution Width 13.8 % (11.0-16.0); White Blood Count 10.1 X10*3/uL (4.8-10.8)
[2022-12-24] MEDS: 0.9 % Sodium Chloride 1,000 ML 999 ML IV (08:06)
--- NOTE | 2022-12-24 08:08 | ED.GENADULT ---
HPI - General Adult General Chief complaint: Nausea/Vomiting/Diarrhea Stated complaint: Vomiting Time Seen by Provider: 12/24/22 07:14 Source: patient Mode of arrival: ambulatory Limitations: no limitations History of Present Illness HPI narrative: 37-year-old female with history of IBS and longstanding history of other GI issues that have been extensively worked up including upper and lower endoscopy, check celiac disease bacterial overgrowth presents with nausea, vomiting and abdominal pain. Her symptoms are severe. There is no clear relieving or exacerbating features. She had similar symptoms just a few days ago. She denies any fevers or chills. Her abdominal pain is generalized. It is constant. It does not radiate. The pain is described as sharp and achy. Symptoms are similar to previous episodes. She currently takes dicyclomine as needed as well as pantoprazole. She denies any blood in her stool or melanotic stool. She did have flecks of blood in her vomitus but no gross hematemesis. Related Data Home Medications Medication Instructions Recorded Confirmed levonorgestrel 21 mcg/24 hours (8 intrauterine 12/26/20 07/24/21 yrs) 52 mg intrauterine device (Mirena) dicyclomine 20 mg tablet 20 mg PO QID 02/20/21 07/24/21 flash glucose sensor (FreeStyle #1 ea 11/14/21 Esteban 2 Sensor kit) pantoprazole 40 mg tablet,delayed 40 mg PO DAILY 11/14/21 release trazodone 50 mg tablet 50 - 100 mg PO BEDTIME PRN anxiety 05/24/22 dextroamphetamine-amphetamine 20 20 mg PO DAILY 11/05/22 mg tablet (Adderall) venlafaxine 25 mg tablet 25 mg PO BID 12/23/22 Previous Rx's Medication Instructions Recorded ondansetron 8 mg disintegrating 8 mg PO BEDTIME 24 hours #5 tabs 01/04/22 tablet lorazepam 1 mg tablet 1 mg PO DAILY PRN anxiety 30 days 05/04/22 #30 tabs cetirizine 10 mg tablet 10 mg PO DAILY #90 tabs 10/31/22 fddzgbfad-xzonsyyil-chhnvhqm-scop 1 tab PO BID PRN indigestion #14 12/24/22 16.2 mg-0.1037 mg-0.0194 mg tablet tabs () Allergies Allergy/AdvReac Type Severity Reaction Status Date / Time carbamazepine [From Tegretol] Allergy Severe Hives Verified 12/24/22 07:04 sumatriptan [From IMITREX] Allergy Severe HYPOTENSION, Verified 12/24/22 07:04 SYNCOPE Sulfa (Sulfonamide Allergy Unknown Rash Verified 12/24/22 07:04 Antibiotics) tetracycline [TETRACYCLINE] Allergy Unknown HIVES, Rash Verified 12/24/22 07:04 oxycodone AdvReac Vomiting Verified 12/24/22 07:04 Review of Systems Review of Systems: CONSTITUTIONAL: Denies weight loss, fever and chills. HEENT: Denies changes in vision and hearing. RESPIRATORY: Denies SOB and cough. CV: Denies palpitations no CP. GI: n/v abd pain : Denies dysuria and urinary frequency. MSK: Denies myalgia and joint pain. SKIN: Denies rash and pruritus. NEUROLOGICAL: Denies headache and syncope. PSYCHIATRIC: Denies recent changes in mood. Denies anxiety and depression. All other ROS are negative unless in HPI PMFSH Past Medical History Medical History Chronic fatigue Endometriosis Fibromyalgia Junie's disease Interstitial cystitis Positive ISAAK (antinuclear antibody) Renal calculi Small intestinal bacterial overgrowth (SIBO) Surgical History H/O abdominoplasty History of ankle surgery Family History Family History Father Diabetes Maternal Grandfather Hypertension Maternal Grandmother Hypertension Other Substance use disorder Social History Social History Housing: House Alcohol intake: current Alcohol intake frequency: holidays/special occasions only Patient Tobacco Use Status: Never used Tobacco e-Cigarette/Vaping Use: Never Used Advance Directives: No Advance Directives Information Provided: No Current occupational status: employed 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 Sexual orientation: Straight/Heterosexual Gender identity: Female Cognitive needs: No Hearing needs: No Vision needs: No Physical Exam ED Vital Signs: Vital Signs - 24 hr 12/24/22 07:01 Temperature 97.5 F Pulse Rate 64 Respiratory Rate 16 Blood Pressure 123/70 Pulse Oximetry 100 Oxygen Delivery Method Room Air BMI result Body Mass Index 25.0 GEN: Well developed, no acute distress, alert, oriented HEENT: Normocephalic, atraumatic, normal external ears, nose appears normal, no oropharyngeal edema or exudates Eyes: Normal to appearance Neck: Supple, no lymphadenopathy Respiratory: Talks in complete sentences, no respiratory distress, clear to auscultation bilaterally Cardiovascular: Regular rate and rhythm, no murmurs rubs or gallops Abdomen: Soft, generalized tenderenss, nondistended, no guarding, no rebound Back: No CVA tenderness Extremities: No clubbing cyanosis or edema Neurologic: No focal neurologic deficits, cranial nerves 2-12 intact, strength is 5/5 bilaterally Skin: No rash Medications Administered Generic Name Dose Route Start Last Admin Trade Name Freq PRN Reason Stop Dose Admin Sodium Chloride 1,000 mls @ 999 mls/hr 12/24/22 07:30 12/24/22 08:06 Ns IV 12/24/22 08:30 999 mls/hr .Q1H1M CONCEPCION Administration Discontinued Medications Generic Name Dose Route Start Last Admin Trade Name Freq PRN Reason Stop Dose Admin Promethazine HCl 12.5 mg/ 50.5 mls @ 202 mls/hr 12/24/22 07:24 12/24/22 08:11 Sodium Chloride IV 12/24/22 07:25 202 mls/hr ONCE ONE Administration Ketorolac Tromethamine 15 mg 12/24/22 07:24 12/24/22 08:10 Ketorolac Tromethamine 15 Mg/Ml Vial IVPUSH 12/24/22 07:25 15 mg ONCE ONE Administration Pantoprazole Sodium 40 mg 12/24/22 07:27 12/24/22 08:09 Pantoprazole Sodium 40 Mg/10 Ml Vial IVPUSH 12/24/22 07:28 40 mg ONCE ONE Administration Medical Decision Making Medical Decision Making MDM Narrative: 37-year-old female with an extensive previous workup for chronic abdominal pain, nausea, vomiting intermittent diarrhea. Today she presents with similar symptoms. She has generalized abdominal tenderness without rebound or guarding. She has been nausea vomiting which is her predominant complaint. At this point, will hold off on a CT scan as I do not believe this is colitis, diverticulitis, mesenteric ischemia, appendicitis, cholecystitis, AAA, dissection. Most likely this is related to her chronic abdominal pain likely IBS. At this time, we will obtain a CBC, chemistry, lipase in treat symptomatically. Will re-evaluate. However, should symptoms start to localize, will order CT scan or an ultrasound of the abdomen. Differential Diagnosis Differential Diagnoses: The differential diagnosis associated with the presentation includes (See above) Admission/Observation Consideration of admission/observation: Escalation of care including admission/observation considered (If patient has intractable nausea vomiting) Lab Data MDM Lab Attestation statement: I reviewed the patient's lab results. 12/24/22 07:54 12/24/22 07:54 Labs: Lab Results 12/24/22 12/24/22 Range/Units 07:45 07:54 WBC 10.1 (4.8-10.8) X10*3/uL RBC 4.58 (4.20-5.50) X10*6/uL Hgb 15.0 (12.0-16.0) g/dl Hct 44.2 (37.0-47.0) % MCV 96.5 (80.0-98.0) fL MCH 32.8 (27.0-33.0) pg MCHC 33.9 (31.0-35.0) g/dl RDW 13.8 (11.0-16.0) % Plt Count 230 (160-400) X10*3/uL MPV 10.4 (9.4-12.3) fL Immature Gran % (Auto) 0.2 (0.0-0.4) % Neut % (Auto) 89.7 H (45-73) % Lymph % (Auto) 4.0 L (20-40) % [place] % (Auto) 5.3 (2-11) % Eos % (Auto) 0.5 (0-4) % Baso % (Auto) 0.3 (0-2) % Lymph # (Auto) 0.4 L (1.2-4.9) X10*3/uL [place] # (Auto) 0.5 (0.1-1.2) X10*3/uL Eos # (Auto) 0.1 (0.0-0.4) X10*3/uL Baso # (Auto) 0.0 (0.0-0.2) X10*3/uL Abs Immat Gran (auto) 0.02 (0.00-0.03) X10*3/uL Absolute Neuts (auto) 9.0 H (2.0-8.3) x10*3/uL Absolute Nucleated RBC 0.000 (0.0-0.012) X10*3/uL Nucleated RBC % (auto) 0.0 (0.0-0.2) /100WBC Urine Color Yellow Urine Appearance Clear Urine pH 7.5 (5.0-9.0) Ur Specific [place] 1.015 (1.005-1.025) Urine Protein Negative (Neg-Trace) mg/dL Urine Glucose (UA) Negative (Negative) mg/dL Urine Ketones 15 (Negative) mg/dL Urine Blood Negative (Negative) Urine Nitrite Negative (Negative) Ur Leukocyte Esterase Small (1+) H (Negative) External Record Review External record reviewed: Office record (GI from 2020) Tests considered The following testing was considered but not selected: CT scan, ultrasound Prescription Management I considered prescription management with: Pain Medication Discharge Plan Discharge Clinical Impression: Abdominal discomfort, Nausea, Diarrhea Patient Disposition: Home, Self-Care Instructions: Acute Nausea and Vomiting (ED), Acute Diarrhea (ED), Abdominal Pain (ED) Prescriptions: New isvbjhvqq-nlwznw-ffcpgbuh-scop [] 16.2-0.1037 -0.0194 mg tablet 1 tab PO BID PRN (Reason: indigestion) Qty: 14 0RF No Action ondansetron 8 mg tablet,disintegrating 8 mg PO BEDTIME 1 Days Qty: 5 0RF lorazepam 1 mg tablet 1 mg PO DAILY PRN (Reason: anxiety) 30 Days Qty: 30 0RF cetirizine 10 mg tablet 10 mg PO DAILY Qty: 90 1RF dicyclomine 20 mg tablet 20 mg PO QID pantoprazole 40 mg tablet,delayed release (DR/EC) 40 mg PO DAILY (DME) FreeStyle Esteban 2 Sensor Kit See Rx Instructions .ROUTE .MEDSUPPLY Qty: 1 Rx Instructions: As directed Mirena 20 mcg/24 hours (6 yrs) 52 mg intrauterine device intrauterine dextroamphetamine-amphetamine [Adderall] 20 mg tablet 20 mg PO DAILY trazodone 50 mg tablet 50 - 100 mg PO BEDTIME PRN (Reason: anxiety) venlafaxine 25 mg tablet 25 mg PO BID Referrals: Ari Richard, [employer] [Primary Care Provider] - 3 days
[2022-12-24] MEDS: Pantoprazole Sodium 40 MG/10 ML VIAL IVPUSH (08:09)
[2022-12-24] MEDS: Ketorolac Tromethamine 15 MG/ML VIAL IVPUSH (08:10)
[2022-12-24 08:20] LABS: Bacteria Urine None Seen (None Seen); Hyaline Casts Urine 0-2 /LPF (0-2); RBC Urine 0-2 /HPF (0-2); Squamous Epithelial Cell Urine 0-2 /HPF (0-2); UACC Culture Trigger YES; WBC Urine 0-5 /HPF (0-5)
[2022-12-24 09:01] LABS: Alanine Aminotransferase 8 U/L (0-31); Alkaline Phosphatase 60 U/L (39-117); Anion Gap 14 (12-20); Aspartate Amino Transferase 14 U/L (5-31); Bilirubin Total 0.7 mg/dL (0.0-1.0); Blood Urea Nitrogen 15 mg/dL (9-16); Calcium 9.5 mg/dL (8.4-10.2); Carbon Dioxide 26 mmol/L (22-29); Chloride 106 mmol/L (96-108); Creatinine Clr Calc Pharmacy 93.1; Estimated Glomerular Filt Rate > 60; Glucose Random 107 mg/dL (60-115); Lipase 9 U/L (8-78); Sodium 142 mmol/L (135-145); Total Protein 6.9 g/dL (6.5-8.0)
[2022-12-24 09:25] VITALS: BP 116/65; PULSE 64; RESP 16; TEMP 36.7; O2SAT 99
--- NOTE | 2022-12-24 09:39 | PC.NURSE ---
Pt currently resting, appears to have positive effect from medication, needs are being met.
--- NOTE | 2022-12-24 11:24 | PC.NURSE ---
Pt stated she is not feeling nauseous at this time. Stated if upon discharge can they prescribe zofran in case she gets nauseous at home. Provider aware.
== END 2022-12-24 12:01 | disposition home or self-care (01) ==
PROVIDERS: Emergency Provider Emergency Medicine; PCP Nurse Practitioner Family
DX: R11.2 Nausea with vomiting, unspecified (principal); R19.7 Diarrhea, unspecified; R10.9 Unspecified abdominal pain; Z79.899 Other long term (current) drug therapy
CPT/HCPCS: 36415; 80053; 81001; 81003; 83690; 85025; 87086; 96361; 96374; 96375; 99284; 99285; J1885; J2550

== ENCOUNTER 2023-01-03 18:07 | Outpatient (REF) | payer OTHER, SELFPAY | END 2023-01-03 18:08 | disposition home or self-care (01) | LOC: HO.MRI 18:07 | PROVIDERS: PCP Nurse Practitioner Family; Visit Provider Nurse Practitioner Family | DX: M25.511 Pain in right shoulder (principal) | CPT/HCPCS: 73221 ==

== ENCOUNTER → 2023-01-09 09:23 | Outpatient (BNVA) | payer OTHER, SELFPAY | PROVIDERS: PCP Nurse Practitioner Family; Visit Provider Obstetrics & Gynecology | DX: R87.610 Atypical squamous cells of undetermined significance on cytologic smear of cervix (ASC-US) (principal) | CPT/HCPCS: 99212 ==

== ENCOUNTER 2023-02-17 07:50 | Emergency (ER) | payer OTHER, SELFPAY ==
--- NOTE | ~2023-02-17 | XR_ITS ---
EXAMINATION: XR CHEST CLINICAL INFORMATION: Upper back pain, difficulty breathing COMPARISON: None available. TECHNIQUE: Frontal view of the chest was obtained. FINDINGS: No significant abnormality is noted involving the heart, lungs, mediastinum, bony thorax or soft tissues. XR/XR chest 1V IMPRESSION: Unremarkable examination.
[2023-02-17 07:53] VITALS: BP 102/69; PULSE 61; RESP 18; TEMP 36.4; O2SAT 100; BMI 24.5
--- NOTE | 2023-02-17 09:58 | ECG_ITS ---
Test Reason : CHEST PAIN Blood Pressure : / mmHG Vent. Rate : 055 BPM Atrial Rate : 055 BPM P-R Int : 152 ms QRS Dur : 092 ms QT Int : 424 ms P-R-T Axes : 069 013 017 degrees QTc Int : 405 ms Sinus bradycardia with sinus arrhythmia Otherwise normal ECG When compared to the previous EKG of No significant changes seen Referred By: Bill Zendejas Electronically Signed By:LITZY MARTE MD
--- NOTE | 2023-02-17 10:13 | MHC.EDTECH ---
Labs drawn and sent to lab
[2023-02-17 10:17] LABS: MANUAL DIFF FLAG NO
[2023-02-17 10:19] LABS: Basophils Percent Auto 0.4 % (0-2); Eosinophils Absolute Auto 0.1 X10*3/uL (0.0-0.4); Eosinophils Percent Auto 1.9 % (0-4); Hematocrit 39.3 % (37.0-47.0); Hemoglobin 13.1 g/dl (12.0-16.0); Imm Gran Abs Auto 0.01 X10*3/uL (0.00-0.03); Imm Gran Pct Auto 0.2 % (0.0-0.4); Lymphocytes Absolute Auto 1.5 X10*3/uL (1.2-4.9); Lymphocytes Percent Auto 28.1 % (20-40); Mean Corpuscular HGB Conc 33.3 g/dl (31.0-35.0); Mean Corpuscular Hemoglobin 32.3 pg (27.0-33.0); Mean Platelet Volume 10.1 fL (9.4-12.3); Monocytes Absolute Auto 0.4 X10*3/uL (0.1-1.2); Monocytes Percent Auto 7.8 % (2-11); Neutrophils Absolute Auto 3.2 x10*3/uL (2.0-8.3); Neutrophils Percent Auto 61.6 % (45-73); Platelet Count 206 X10*3/uL (160-400); Red Blood Count 4.05 X10*6/uL (4.20-5.50); Red Cell Distribution Width 12.9 % (11.0-16.0); White Blood Count 5.2 X10*3/uL (4.8-10.8)
[2023-02-17 10:27] LABS: Prothrombin Time 11.9 SEC (11.1-13.3)
[2023-02-17 10:30] LABS: Partial Thromboplastin Time 29.4 SEC (26.0-36.4)
--- NOTE | 2023-02-17 10:31 | ED.GENADULT ---
HPI - General Adult General Chief complaint: General Medical Stated complaint: diff breathing chest and upper back pain Time Seen by Provider: 02/17/23 09:42 Source: patient Mode of arrival: ambulatory Limitations: no limitations History of Present Illness HPI narrative: 37-year-old female healthy presents to ED for upper back pain -worse on moving and also pleurisy for 1 week. Patient states 1 week ago she woke up with upper back pain that is worse on movement and pain when she took a deep breath. Patient denies any recent trauma, lower extremity swelling, recent long travel, recent surgery, fever, chills, or any history of IV drug use. Patient denies any urinary / bowel incontinence. Patient admits to sleeping in awkward position may contributed to back pain as worse of movement. Patient denies any URI symptoms. Related Data Home Medications Medication Instructions Recorded Confirmed levonorgestrel 21 mcg/24 hours (8 intrauterine 12/26/07/24/21 yrs) 52 mg intrauterine device (Mirena) flash glucose sensor (FreeStyle #1 ea 11/14/21 Esteban 2 Sensor kit) pantoprazole 40 mg tablet,delayed 40 mg PO DAILY 11/14/21 release trazodone 50 mg tablet 50 - 100 mg PO BEDTIME PRN anxiety 05/24/22 dextroamphetamine-amphetamine 20 20 mg PO DAILY 11/05/22 mg tablet (Adderall) venlafaxine 25 mg tablet 25 mg PO BID 12/23/22 Previous Rx's Medication Instructions Recorded ondansetron 8 mg disintegrating 8 mg PO BEDTIME 24 hours #5 tabs 01/04/22 tablet cetirizine 10 mg tablet 10 mg PO DAILY #90 tabs 10/31/22 ondansetron 4 mg disintegrating 4 mg PO Q8H PRN nausea and 12/24/22 tablet vomiting #10 tabs kvfaymxsc-lygkfysce-ugvdzbuo-scop 1 tab PO BID PRN indigestion #14 12/24/22 16.2 mg-0.1037 mg-0.0194 mg tablet tabs () lorazepam 1 mg tablet 1 mg PO DAILY PRN anxiety 30 days 01/14/23 #30 tabs naproxen 500 mg tablet 500 mg PO BID PRN pain 7 days #14 02/17/23 tabs prednisone 20 mg tablet 40 mg PO DAILY 5 days #10 tabs 02/17/23 Allergies Allergy/AdvReac Type Severity Reaction Status Date / Time carbamazepine [From Tegretol] Allergy Severe Hives Verified 01/09/23 09:47 sumatriptan [From IMITREX] Allergy Severe HYPOTENSION, Verified 01/09/23 09:47 SYNCOPE gluten Allergy Unknown Unknown Verified 01/09/23 09:48 Sulfa (Sulfonamide Allergy Unknown Rash Verified 01/09/23 09:47 Antibiotics) tetracycline [TETRACYCLINE] Allergy Unknown HIVES, Rash Verified 01/09/23 09:47 oxycodone AdvReac Vomiting Verified 01/09/23 09:47 Review of Systems Review of Systems: Upper back pain worse on movement and pleurisy for 1 week Yes all other systems are reviewed and are negative [facility] Past Medical History Medical History Chronic fatigue Endometriosis Fibromyalgia Junie's disease Interstitial cystitis Positive ISAAK (antinuclear antibody) Renal calculi Small intestinal bacterial overgrowth (SIBO) Surgical History H/O abdominoplasty History of ankle surgery Family History Family History Father Diabetes Maternal Grandfather Hypertension Maternal Grandmother Hypertension Other Substance use disorder Social History Social History Housing: House Alcohol intake: current Alcohol intake frequency: holidays/special occasions only Patient Tobacco Use Status: Never used Tobacco e-Cigarette/Vaping Use: Never Used Advance Directives: No Advance Directives Information Provided: No Current occupational status: employed 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 Sexual orientation: Straight/Heterosexual Gender identity: Female Cognitive needs: No Hearing needs: No Vision needs: No Physical Exam ED Vital Signs: Vital Signs - 24 hr 02/17/23 07:53 Temperature 97.5 F Pulse Rate 61 Respiratory Rate 18 Blood Pressure 102/69 Pulse Oximetry 100 Oxygen Delivery Method Room Air BMI result Body Mass Index 24.5 Const General: cooperative, healthy appearing, comfortable, no acute distress, well developed, alert, awake and Physically active Orientation/consciousness: oriented to person, oriented to place, oriented to time and patient oriented x3 HENMT Head: Yes normal to inspection, Yes No palpable skull fracture present, Yes normocephalic, Yes atraumatic and No abrasion Eyes General: appearance normal, both eyes and all related structures Neck Neck: Yes normal visual inspection, Yes full ROM, Yes no lymphadenopathy, Yes no meningeal signs, Yes trachea midline, Yes supple, No anterior neck swelling and No tender Chest Chest palpation & inspection: normal inspection of the chest and normal palpation of entire chest wall Chest/axillae images: 1. tenderness on palpation and range of motion of upper torso and left upper extremity. no crepitus, ecchymosis, or erythema rash Resp Effort & Inspection: normal respiratory effort and able to speak in complete sentences Auscultation: clear to auscultation bilaterally Cardio Jugular venous distension: no JVD Heart sounds: S1 normal heart sound present and S2 normal heart sound present GI Inspection: Yes normal to inspection and No abdominal wall ecchymosis Palpation (GI): Soft to palpation, not firm, nontender, no guarding and not rigid General: No CVA tenderness and Yes no CVA tenderness Back/Spine/Pelvis Back: no CVA tenderness, No CVA tenderness and back tenderness (no spine tenderenss) Back/spine/pelvis image: 1. tenderness on palpation. Positive for pain on range of motion. Negative for any erythema, vesicles, rash, crepitus, ecchymosis, or deformity. Skin General skin exam: no rashes or lesions noted, elasticity normal and turgor normal Neuro General: oriented to person, oriented to place, oriented to time, patient oriented x3, gait normal, tone normal, moves all extremities, Normal light touch and pain sensation, no meningeal signs, no focal motor deficits, CN's II-XI intact bilaterally and normal sensation to monofilament Extrem Other: Bilateral lower extremities negative for swelling, pitting edema, or calf tenderness General: Yes normal to inspection and Yes full ROM Psych Appearance: grossly normal, well kempt and not disheveled Medical Decision Making Medical Decision Making MDM Narrative: 37-year-old female healthy presents to ED for upper back pain as worse on movement and pleurisy for 1 week. Patient denies any shortness of breath or chest pain on exertion. Patient denies any lower extremity swelling, calf pain, coughing up blood, recent travel, fever, or chills. Due to patient stating mother have history of DVT patient will have labs drawn including D-dimer. Perc score is 0 11:23. Patient D-dimer negative. Perc score is 0. Heart score 0. Troponin BNP negative. EKG negative STEMI. Chest x-ray normal. Patient is safe for discharge. Most likely muscle spasm Differential Diagnosis Differential Diagnoses: The differential diagnosis associated with the presentation includes ( PE, DVT, myocardial infarction, CHF, back muscle spasm) Admission/Observation Consideration of admission/observation: Escalation of care including admission/observation considered Lab Data MDM Lab Attestation statement: I reviewed the patient's lab results. 02/17/23 10:11 02/17/23 10:11 Labs: Lab Results 02/17/23 02/17/23 02/17/23 Range/Units 10:11 10:11 10:11 WBC 5.2 (4.8-10.8) X10*3/uL RBC 4.05 L (4.20-5.50) X10*6/uL Hgb 13.1 (12.0-16.0) g/dl Hct 39.3 (37.0-47.0) % MCV 97.0 (80.0-98.0) fL MCH 32.3 (27.0-33.0) pg MCHC 33.3 (31.0-35.0) g/dl RDW 12.9 (11.0-16.0) % Plt Count 206 (160-400) X10*3/uL MPV 10.1 (9.4-12.3) fL Immature Gran % (Auto) 0.2 (0.0-0.4) % Neut % (Auto) 61.6 (45-73) % Lymph % (Auto) 28.1 (20-40) % [place] % (Auto) 7.8 (2-11) % Eos % (Auto) 1.9 (0-4) % Baso % (Auto) 0.4 (0-2) % Lymph # (Auto) 1.5 (1.2-4.9) X10*3/uL [place] # (Auto) 0.4 (0.1-1.2) X10*3/uL Eos # (Auto) 0.1 (0.0-0.4) X10*3/uL Baso # (Auto) 0.0 (0.0-0.2) X10*3/uL Abs Immat Gran (auto) 0.01 (0.00-0.03) X10*3/uL Absolute Neuts (auto) 3.2 (2.0-8.3) x10*3/uL Absolute Nucleated RBC 0.000 (0.0-0.012) X10*3/uL Nucleated RBC % (auto) 0.0 (0.0-0.2) /100WBC PT 11.9 (11.1-13.3) SEC INR 1.0 (0.9-1.1) APTT 29.4 (26.0-36.4) SEC D-Dimer High Sensitivty < 150 NG/ML Sodium 138 (135-145) mmol/L Potassium 4.1 (3.3-5.1) mmol/L Chloride 107 (96-108) mmol/L Carbon Dioxide 24 (22-29) mmol/L Anion Gap 11 L (12-20) BUN 18 H (9-16) mg/dL Creatinine 0.99 (0.5-1.4) mg/dL Estim Creat Clear Calc 68.6 Estimated GFR > 60 Random Glucose 79 (60-115) mg/dL Calcium 9.3 (8.4-10.2) mg/dL Total Bilirubin 0.3 (0.0-1.0) mg/dL AST 15 (5-31) U/L ALT 7 (0-31) U/L Alkaline Phosphatase 45 (39-117) U/L Troponin I High Sens (<3.5-17.0) ng/L B-Natriuretic Peptide (<100) pg/mL Total Protein 7.0 (6.5-8.0) g/dL Albumin 4.0 (3.5-5.0) g/dL 02/17/23 02/17/23 Range/Units 10:11 10:11 WBC (4.8-10.8) X10*3/uL RBC (4.20-5.50) X10*6/uL Hgb (12.0-16.0) g/dl Hct (37.0-47.0) % MCV (80.0-98.0) fL MCH (27.0-33.0) pg MCHC (31.0-35.0) g/dl RDW (11.0-16.0) % Plt Count (160-400) X10*3/uL MPV (9.4-12.3) fL Immature Gran % (Auto) (0.0-0.4) % Neut % (Auto) (45-73) % Lymph % (Auto) (20-40) % [place] % (Auto) (2-11) % Eos % (Auto) (0-4) % Baso % (Auto) (0-2) % Lymph # (Auto) (1.2-4.9) X10*3/uL [place] # (Auto) (0.1-1.2) X10*3/uL Eos # (Auto) (0.0-0.4) X10*3/uL Baso # (Auto) (0.0-0.2) X10*3/uL Abs Immat Gran (auto) (0.00-0.03) X10*3/uL Absolute Neuts (auto) (2.0-8.3) x10*3/uL Absolute Nucleated RBC (0.0-0.012) X10*3/uL Nucleated RBC % (auto) (0.0-0.2) /100WBC PT (11.1-13.3) SEC INR (0.9-1.1) APTT (26.0-36.4) SEC D-Dimer High Sensitivty NG/ML Sodium (135-145) mmol/L Potassium (3.3-5.1) mmol/L Chloride (96-108) mmol/L Carbon Dioxide (22-29) mmol/L Anion Gap (12-20) BUN (9-16) mg/dL Creatinine (0.5-1.4) mg/dL Estim Creat Clear Calc Estimated GFR Random Glucose (60-115) mg/dL Calcium (8.4-10.2) mg/dL Total Bilirubin (0.0-1.0) mg/dL AST (5-31) U/L ALT (0-31) U/L Alkaline Phosphatase (39-117) U/L Troponin I High Sens < 2.7 (<3.5-17.0) ng/L B-Natriuretic Peptide 14 (<100) pg/mL Total Protein (6.5-8.0) g/dL Albumin (3.5-5.0) g/dL Independent Interpretation I performed an independent interpretation of an: EKG ( sinus bradycardia, ventricular rate 55. Pr interval 152. QRS 92. QTC 405. Negative STEMI) Radiology Impression Discussion of test interpretation with radiology: I have reviewed the radiologist's reading. External Record Review External record reviewed: Other (Prior ED visit) Prescription Management I considered prescription management with: Pain Medication Discharge Plan Discharge Clinical Impression: Back spasm, Pleurisy Patient Disposition: Home, Self-Care Instructions: Pleurisy (ED), Back Pain (ED), Warm Compress or Soak (ED) Additional Instructions: your blood work and EKG came back negative for signs of heart attack, heart failure, or blood clot. You're chest x-ray came back normal. Most likely having a muscle spasm. Recommend follow-up with your primary care provider. Return to the ED immediately for any chest pain, shortness of breath, chest pain and pleurisy, leg swelling, calf pain, coughing blood, fever, chills, weakness, dizziness, or any other concerning symptoms. Prescriptions: New naproxen 500 mg tablet 500 mg PO BID PRN (Reason: pain) 7 Days Qty: 14 0RF prednisone 20 mg tablet 40 mg PO DAILY 5 Days Qty: 10 0RF No Action ondansetron 8 mg tablet,disintegrating 8 mg PO BEDTIME 1 Days Qty: 5 0RF cetirizine 10 mg tablet 10 mg PO DAILY Qty: 90 1RF lorazepam 1 mg tablet 1 mg PO DAILY PRN (Reason: anxiety) 30 Days Qty: 30 0RF zyaoxeqvr-dnhkug-cxnopsrq-scop [] 16.2-0.1037 -0.0194 mg tablet 1 tab PO BID PRN (Reason: indigestion) Qty: 14 0RF ondansetron 4 mg tablet,disintegrating 4 mg PO Q8H PRN (Reason: nausea and vomiting) Qty: 10 0RF pantoprazole 40 mg tablet,delayed release (DR/EC) 40 mg PO DAILY (DME) FreeStyle Esteban 2 Sensor Kit See Rx Instructions .ROUTE .MEDSUPPLY Qty: 1 Rx Instructions: As directed Mirena 20 mcg/24 hours (6 yrs) 52 mg intrauterine device intrauterine dextroamphetamine-amphetamine [Adderall] 20 mg tablet 20 mg PO DAILY trazodone 50 mg tablet 50 - 100 mg PO BEDTIME PRN (Reason: anxiety) venlafaxine 25 mg tablet 25 mg PO BID Stand Alone Forms: Work/School Release Interventions: ED Discharge Assessment Last Done: 02/17/23 11:36 Discharge Date/Time: 02/17/23 11:39 Print Language: Irish
[2023-02-17 10:35] LABS: Alanine Aminotransferase 7 U/L (0-31); Alkaline Phosphatase 45 U/L (39-117); Anion Gap 11 (12-20); Aspartate Amino Transferase 15 U/L (5-31); Bilirubin Total 0.3 mg/dL (0.0-1.0); Blood Urea Nitrogen 18 mg/dL (9-16); Calcium 9.3 mg/dL (8.4-10.2); Carbon Dioxide 24 mmol/L (22-29); Chloride 107 mmol/L (96-108); Creatinine Clr Calc Pharmacy 68.6; Estimated Glomerular Filt Rate > 60; Glucose Random 79 mg/dL (60-115); Potassium 4.1 mmol/L (3.3-5.1); Sodium 138 mmol/L (135-145)
[2023-02-17 10:36] LABS: D Dimer High Sensitivity < 150 NG/ML
[2023-02-17 10:40] LABS: B Type Natriuretic Peptide 14 pg/mL (<100)
[2023-02-17 10:44] LABS: Troponin-I High Sensitivity < 2.7 ng/L (<3.5-17.0)
== END 2023-02-17 11:39 | disposition home or self-care (01) ==
PROVIDERS: Physician Assistant; Emergency Provider Emergency Medicine; PCP Nurse Practitioner Family
DX: M62.830 Muscle spasm of back (principal); R09.1 Pleurisy; M79.622 Pain in left upper arm; E06.3 Autoimmune thyroiditis; Z79.899 Other long term (current) drug therapy
CPT/HCPCS: 36415; 71045; 80053; 83880; 84484; 85025; 85379; 85610; 85730; 93005; 99283

== ENCOUNTER → 2023-02-17 09:58 | Outpatient (BNV) | payer OTHER, SELFPAY | PROVIDERS: Emergency Provider Emergency Medicine; PCP Nurse Practitioner Family; Visit Provider Internal Medicine Cardiovascular Disease | DX: R00.1 Bradycardia, unspecified (principal) | CPT/HCPCS: 93010 ==

== ENCOUNTER 2023-04-17 12:58 | Outpatient (AMB) | payer OTHER, SELFPAY ==
--- NOTE | 2023-04-17 13:03 | AM.OFFWIN_ITS ---
Intake Vital Signs 04/17/23 13:05 Weight 153 lb BP 108/70 Blood Pressure Location Lt brachial Position Sitting Pulse 102 H Pulse Source Pulse Oximeter Pulse Oximetry (%) 96 Oxygen Delivery Method Room Air Intake Visit Reasons: EST/cold sympt/(masked lobby) Intake Note: Patient here for cough, fatigue,lower back pain and chest pain that has been going on for about 8 days. Patient Tobacco Use Status: Never used Tobacco Allergies carbamazepine [From Tegretol] Allergy (Severe, Verified 04/17/23 13:06) Hives sumatriptan [From IMITREX] Allergy (Severe, Verified 04/17/23 13:06) HYPOTENSION, SYNCOPE gluten Allergy (Unknown, Verified 04/17/23 13:06) Unknown Sulfa (Sulfonamide Antibiotics) Allergy (Unknown, Verified 04/17/23 13:06) Rash tetracycline [TETRACYCLINE] Allergy (Unknown, Verified 04/17/23 13:06) HIVES, Rash oxycodone Adverse Reaction (Verified 04/17/23 13:06) Vomiting Do you need a note to return to daycare/school/sports/work: No HPI HPI Comments History of Present Illness Details 38-year-old female who presents for coug h chest congestion times 10 days. Denies fever or chills. Was seen at urgent care received negative COVID and flu swab. [facility] Medical History Chronic fatigue Endometriosis Fibromyalgia Junie's disease Interstitial cystitis Positive ISAAK (antinuclear antibody) Renal calculi Small intestinal bacterial overgrowth (SIBO) Surgical History H/O abdominoplasty History of ankle surgery Family History Father Diabetes Maternal Grandfather Hypertension Maternal Grandmother Hypertension Other Substance use disorder Social History Housing: House Alcohol intake: current Alcohol intake frequency: holidays/special occasions only Patient Tobacco Use Status: Never used Tobacco e-Cigarette/Vaping Use: Never Used Current occupational status: employed 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 Sexual orientation: Straight/Heterosexual Gender identity: Female Cognitive needs: No Hearing needs: No Vision needs: No Review of Systems ENT Reports nasal congestion Resp Reports chest congestion, Reports cough and Reports excessive phlegm production Physical Exam Vital Signs: Last Vital Signs Pulse 102 H 04/17/23 13:05 BP 108/70 04/17/23 13:05 Pulse Ox 96 04/17/23 13:05 Oxygen Delivery Method Room Air 04/17/23 13:05 Const General: healthy appearing, comfortable, no acute distress and alert Orientation/consciousness: patient oriented x3 Limitations: no limitations HEENT Head: Yes normal to inspection Ears: hearing grossly normal bilaterally Resp Other: Coarse breath sounds throughout Effort & Inspection: normal respiratory effort and able to speak in complete sentences Cardio Rate: regular rate Skin General skin exam: no rashes or lesions noted Neuro General: patient oriented x3 Extrem General: Yes normal to inspection Assessment & Plan Assessment & Plan (1) Bronchitis: Code(s): J40 - Bronchitis, not specified as acute or chronic Plan: Signs and symptoms consistent w/ bronchitis. will prescribe albuterol, prednisone, and tessalon pearls Discharge instructions, follow up and treatment are discussed with patient in my usual fashion. Alternatives in treatment are also discussed. The patient will return for worsening symptoms or as needed. Advised that any labs/imaging ordered will be followed up on and contact made if further treatment needed. Counseled that patient's condition may require further evaluation and/or treatment. Symptoms of concern for worsening disorder discussed in detail in my customary manner. Patient does verbalize understanding of the plan, there are no apparent barriers to communication. The patient is given the opportunity to ask questions and have them answered to his/her satisfaction Medications: New albuterol sulfate 90 mcg/actuation 2 puffs inhalation Q6H PRN 6.7 grams 0RF shortness of breath or wheezing benzonatate 100 mg PO BID PRN 10 caps 0RF cough prednisone 40 mg (2 x 20 mg) PO DAILY 10 tabs 0RF 5 days Coding Level of Care Code Est Pt Level 3 (71218) Diagnoses Bronchitis J40
[2023-04-17 13:05] VITALS: BP 108/70; PULSE 102; O2SAT 96
== END 2023-04-17 13:35 | disposition home or self-care (01) ==
PROVIDERS: PCP Nurse Practitioner Family; Visit Provider Physician Assistant
DX: J40 Bronchitis, not specified as acute or chronic (principal)
CPT/HCPCS: 99213

== ENCOUNTER 2023-06-26 10:11 | Outpatient (AMB) | payer OTHER, SELFPAY ==
--- NOTE | 2023-06-26 10:50 | A.OFFPC_ITS ---
Vital Signs 06/26/23 10:56 Height 5 ft 5 in Weight 150 lb BMI 25.0 BP 130/98 H Blood Pressure Location Lt brachial Position Sitting Pulse 80 Pulse Source Pulse Oximeter Pulse Oximetry (%) 100 Oxygen Delivery Method Room Air Intake Visit Reasons: Physical Intake Note: Patient is here for physical exam and would like to talk about getting allergy tested as she has been to the ED a couple of times due to possible gluten allergy. Mammo: booked for aug Pap: up to date Allergies carbamazepine [From Tegretol] Allergy (Severe, Verified 06/26/23 10:59) Hives sumatriptan [From IMITREX] Allergy (Severe, Verified 06/26/23 10:59) HYPOTENSION, SYNCOPE gluten Allergy (Unknown, Verified 06/26/23 10:59) Unknown Sulfa (Sulfonamide Antibiotics) Allergy (Unknown, Verified 06/26/23 10:59) Rash tetracycline [TETRACYCLINE] Allergy (Unknown, Verified 06/26/23 10:59) HIVES, Rash oxycodone Adverse Reaction (Verified 06/26/23 10:59) Vomiting Tobacco use date assessed: 06/26/23 Dental Screening Dental Screen Date: 06/26/23 Did you have a dental visit in the last 12 months?: No Did you have a dental problem in the last 6 months where you did not have access to dental care?: No Was dental information given to patient?: Patient has dentist HPI Physical HPI Details Pt is here for a PE. Will order labs. Has a tenant selector. Mammo is scheduled. Pt thinks she has a significant amount of environmental and food allergies. Will order RAST testing. Will also refer to middle school music teacher. Pt's blood pressure is elevated today. Will have pt monitor BP at home. Pt has a GI provider as well. [facility] Medical History 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 Renal calculi Positive ISAAK (antinuclear antibody) Chronic fatigue Endometriosis Fibromyalgia Interstitial cystitis Surgical History History of ankle surgery H/O abdominoplasty Family History Father Diabetes Maternal Grandfather Hypertension Maternal Grandmother Hypertension Other Substance use disorder Social History Housing: House Alcohol intake: current Alcohol intake frequency: holidays/special occasions only Patient Tobacco Use Status: Never used Tobacco e-Cigarette/Vaping Use: Never Used Current occupational status: employed 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 How often do you have a drink containing alcohol?: Monthly or less 2. How many drinks containing alcohol do you have on a typical day when you are drinking?: 1 or 2 3. How often do you have six or more drinks on one occasion?: Never Total Score: 1 Score Reviewed/Action Taken: Yes DINORA-7 AMB Questionnaire DINORA-7 Date DINORA - 7 assessed: 06/26/23 Feeling nervous, anxious, or on edge: 2 = More than half the days Not being able to stop or control worryin = More than half the days Worrying too much about different things: 2 = More than half the days Trouble relaxin = More than half the days Being so restless that it is hard to sit still: 2 = More than half the days Becoming easily annoyed or irritable: 2 = More than half the days Feeling afraid as if something awful might happen: 2 = More than half the days Total DINORA-7 score (0-4 normal; 5-9 mild; 10-14 moderate; 15-21 severe): 14 Source: Developed by Drs. Keyur Corey, Yana Moss, Vernon Tomas and colleagues, with an educational hossein from [employer]. DINORA-7 Assessment Billing DINORA-7 Assessment Tool: DINORA-7 Assessment 58305 Review of Systems Const Denies chills and Denies fever(s) Eyes Denies blurry vision ENT Denies vertigo, Denies dizziness and Denies sore throat Card Denies chest pain at rest, Denies chest pain with activity, Denies diaphoresis, Denies dyspnea and Denies dyspnea on exertion Resp Denies cough, Denies dyspnea, Denies dyspnea on exertion and Denies wheezing GI Denies abdominal pain, Denies melena, Denies hematochezia, Denies constipation, Denies diarrhea and Denies loose stools Denies hematuria Musc Denies numbness and Denies tingling Skin/Breast Denies lesions Neuro Denies vertigo, Denies dizziness, Denies numbness and Denies tingling Psych Denies anxiety, Denies depression, Denies homicidal ideation, Denies suicidal ideation and Denies other (substance abuse) Aller/Immun Denies wheezing Physical exam (Primary Care) Vital Signs: Last Vital Signs Pulse 80 06/26/23 10:56 BP 130/98 H 06/26/23 10:56 Pulse Ox 100 06/26/23 10:56 Oxygen Delivery Method Room Air 06/26/23 10:56 BMI result Body Mass Index 25.0 Tobacco/Smoking Status: Tobacco use Status Tobacco use date assessed 06/26/23 06/26/23 11:03 Patient Tobacco Use Status Never used Tobacco 06/26/23 10:53 e-Cigarette/Vaping Use Never Used 06/26/23 10:53 Thrive Assessment: Date of Thrive Assessment Date Thrive assessed 07/24/21 06/26/23 10:53 Const General: cooperative Nutritional Appearance: well nourished Orientation/consciousness: patient oriented x3 [facility] Head: Yes normal to inspection, Yes normocephalic and Yes atraumatic Ears: TM's normal bilaterally Eyes General: appearance normal, both eyes and all related structures Alignment and Position: alignment normal and position normal Neck Neck: Yes normal visual inspection and Yes no lymphadenopathy Thyroid: Thyroid normal Resp Effort & Inspection: normal respiratory effort Auscultation: clear to auscultation bilaterally Cardio Rate: regular rate Rhythm: regular rhythm Heart sounds: S1 normal heart sound present, S2 normal heart sound present and no murmurs GI Palpation (GI): Soft to palpation and nontender Auscultation: normal bowel sounds Skin Rashes: no rashes Neuro General: patient oriented x3, moves all extremities, no focal motor deficits and deep tendon reflexes 2+ bilaterally Romberg Test: Negative Psych Appearance: grossly normal Mental Status: mental status grossly normal Speech and movement: Normal speech and movement present Affect: normal affect Attitude: cooperative Thought process: Normal thought process present Thought content: Normal thought content present Insight: Good insight present (Psych) Judgement: Good judgement present (Psych) Assessment and Plan Assessment & Plan (1) Allergic reaction: Code(s): T78.40XA - Allergy, unspecified, initial encounter Plan: RAST testing ordered, referred to middle school music teacher (2) Rash: Code(s): R21 - Rash and other nonspecific skin eruption Plan: RAST testing ordered, referred to middle school music teacher (3) Physical exam: Code(s): Z00.00 - Encounter for general adult medical examination without abnormal findings Plan: Labs ordered (4) Elevated blood pressure reading: Code(s): R03.0 - Elevated blood-pressure reading, without diagnosis of hypertension Plan: will cont to monitor Plan The patient agreed to the use of a medical educator for this encounter. Scribed for STEVEN Garner by Fransisca Kinsey medical educator, on 06/26/2023 at 11:05 EST. Orders: Orders Complete Blood Count Auto Diff Today Z00.00 - Encounter for general adult medical examination without abnormal findings Comprehensive [place]. Panel Fast Today Z00.00 - Encounter for general adult medical examination without abnormal findings TSH reflex Free T4 Today Z00.00 - Encounter for general adult medical examination without abnormal findings UA CC w/rflx Micro + Cult Today Z00.00 - Encounter for general adult medical examination without abnormal findings Lipid Panel Today Z00.00 - Encounter for general adult medical examination without abnormal findings Referrals Allergy & Immunology Referral R21 - Rash and other nonspecific skin eruption, T78.40XA - Allergy, unspecified, initial encounter Medications: Changed From ondansetron 8 mg PO BEDTIME 24 hours 5 tabs 0RF To ondansetron 8 mg PO BEDTIME 30 tabs 3RF 30 days Coding Level of Care Code Est Pt Prev Care 40-64y(38985) Diagnoses Allergic reaction T78.40XA Rash R21 Physical exam Z00.00 Elevated blood pressure reading R03.0 Additional Codes DINORA-7 Assessment Billing - DINORA-7 Assessment Tool: DINORA-7 Assessment 30143 ([id number])
[2023-06-26 10:56] VITALS: BP 130/98; PULSE 80; O2SAT 100; BMI 25.0
== END 2023-06-26 11:31 | disposition home or self-care (01) ==
PROVIDERS: PCP Nurse Practitioner Family; Visit Provider Nurse Practitioner Family
DX: T78.40XA Allergy, unspecified, initial encounter (principal); R21 Rash and other nonspecific skin eruption; Z00.00 Encounter for general adult medical examination without abnormal findings; R03.0 Elevated blood-pressure reading, without diagnosis of hypertension
CPT/HCPCS: 99396

== ENCOUNTER 2023-08-25 07:28 | Outpatient (REF) | payer OTHER, SELFPAY ==
--- NOTE | ~2023-08-25 | MM_ITS ---
EXAMINATION: MM SCREENING DIGITAL BREAST TOMOSYNTHESIS, BILATERAL CLINICAL INFORMATION: Screening. Asymptomatic. COMPARISON: Mammography: This is a baseline mammogram. TECHNIQUE: Digital breast tomosynthesis is performed in both the craniocaudal and mediolateral oblique views along with computer-aided detection (CAD). Synthesized 2D images are generated from the tomosynthesis. FINDINGS: The breasts are heterogeneously dense, which may obscure small masses (ACR BI-RADS breast composition Category c). There are no significant masses, abnormal calcifications, or other abnormalities. MM/MM tomosynthesis screening BI IMPRESSION: No mammographic evidence of malignancy. ASSESSMENT: BI-RADS BI-RADS 1 - Negative RECOMMENDATION: Routine annual mammography screening. 1 year F/U This examination should not preclude the clinical evaluation of a suspicious palpable abnormality. This patient's information was entered into a reminder system with a target due date for their next mammogram.
== END 2023-08-25 07:29 | disposition home or self-care (01) ==
LOC: HO.MAMMO 07:28
PROVIDERS: PCP Nurse Practitioner Family; Visit Provider Advanced Practice Midwife
DX: Z12.31 Encounter for screening mammogram for malignant neoplasm of breast (principal)
CPT/HCPCS: 77063; 77067

== ENCOUNTER → 2023-08-25 07:45 | Outpatient (BNV) | payer OTHER, SELFPAY | PROVIDERS: PCP Nurse Practitioner Family; Visit Provider Radiology Diagnostic Radiology | DX: Z12.31 Encounter for screening mammogram for malignant neoplasm of breast (principal) | CPT/HCPCS: 77063; 77067 ==

== ENCOUNTER 2023-09-13 08:08 | Outpatient (REF) | payer OTHER, SELFPAY ==
[2023-09-13 10:58] LABS: Appearance Urine Clear; Color Urine Yellow; Glucose Urine UA Negative (Negative); Leukocyte Esterase Urine Negative (Negative); Nitrite Urine Negative (Negative); PH 6.5 (5.0-9.0); Specific Gravity - Urine 1.015 (1.005-1.025); UMIC TRIGGER UACC YES; Urine Blood Trace (Negative); Urine Ketones Negative (Negative); Urine Protein Negative (Neg-Trace)
[2023-09-13 11:01] LABS: Bacteria Urine None Seen (None Seen); Hyaline Casts Urine 0-2 /LPF (0-2); Squamous Epithelial Cell Urine 0-2 /HPF (0-2); WBC Urine 0-5 /HPF (0-5)
[2023-09-13 11:09] LABS: MANUAL DIFF FLAG NO
[2023-09-13 11:12] LABS: Eosinophils Absolute Auto 0.1 X10*3/uL (0.0-0.4); Eosinophils Percent Auto 2.8 % (0-4); Hematocrit 41.6 % (37.0-47.0); Hemoglobin 13.8 g/dl (12.0-16.0); Lymphocytes Absolute Auto 1.6 X10*3/uL (1.2-4.9); Lymphocytes Percent Auto 40.7 % (20-40); Mean Corpuscular HGB Conc 33.2 g/dl (31.0-35.0); Mean Corpuscular Hemoglobin 31.9 pg (27.0-33.0); Mean Corpuscular Volume 96.1 fL (80.0-98.0); Mean Platelet Volume 10.5 fL (9.4-12.3); Monocytes Absolute Auto 0.5 X10*3/uL (0.1-1.2); Neutrophils Absolute Auto 1.7 x10*3/uL (2.0-8.3); Neutrophils Percent Auto 43.5 % (45-73); Platelet Count 321 X10*3/uL (160-400); Red Blood Count 4.33 X10*6/uL (4.20-5.50); Red Cell Distribution Width 12.3 % (11.0-16.0); White Blood Count 3.9 X10*3/uL (4.8-10.8)
[2023-09-13 12:25] LABS: Alanine Aminotransferase 7 U/L (0-31); Albumin Level 3.9 g/dL (3.5-5.0); Alkaline Phosphatase 57 U/L (39-117); Anion Gap 12 (12-20); Aspartate Amino Transferase 14 U/L (5-31); Bilirubin Total 0.6 mg/dL (0.0-1.0); Blood Urea Nitrogen 13 mg/dL (9-16); Calcium 9.4 mg/dL (8.4-10.2); Carbon Dioxide 27 mmol/L (22-29); Chloride 107 mmol/L (96-108); Cholesterol 161 mg/dL (<200); Estimated Glomerular Filt Rate > 60; Glucose Fasting 71 mg/dL (60-99); HDL Cholesterol 55 mg/dL (>40); LDL Cholesterol Calculated 101 mg/dL (<100); Potassium 3.9 mmol/L (3.3-5.1); Sodium 142 mmol/L (135-145); Total Protein 7.2 g/dL (6.5-8.0); Triglycerides 28 mg/dL (<150)
[2023-09-13 12:39] LABS: TSH reflex Free T4 0.24 uIU/mL (0.32-4.0)
[2023-09-13 13:57] LABS: Free T4 (Free Thyroxine) 1.09 ng/dL (0.71-1.85)
== END 2023-09-13 08:09 | disposition home or self-care (01) ==
LOC: HO.HMGCLDS 08:08
PROVIDERS: PCP Nurse Practitioner Family; Visit Provider Nurse Practitioner Family
DX: Z00.00 Encounter for general adult medical examination without abnormal findings (principal); Z13.6 Encounter for screening for cardiovascular disorders
CPT/HCPCS: 36415; 80053; 80061; 81001; 84439; 84443; 85025

== ENCOUNTER 2023-09-24 08:14 | Outpatient (REF) | payer OTHER, SELFPAY ==
--- NOTE | ~2023-09-24 | US_ITS ---
EXAMINATION: US THYROID CLINICAL INFORMATION: Low TSH. COMPARISON: CTA neck 11/18/2022. TECHNIQUE: Linear transducer grayscale and color Doppler examination with attention to the region of the thyroid. FINDINGS: SIZE: Measurements of the thyroid lobes and nodules are given in sagittal, anteroposterior and transverse dimensions respectively. Right Thyroid Lobe: 5.5 x 1.8 x 2.0 cm, volume 10.3 mL. Parenchyma: The gland echotexture is heterogeneous. Thyroid vascularity is increased. Left Thyroid Lobe: 4.7 x 1.4 x 2.2 cm, volume 7.8 mL. Parenchyma: The gland echotexture is heterogeneous. Thyroid vascularity is increased. There is a lobulated appearance of the left thyroid lobe, nonspecific. Isthmus: 0.5 cm in maximum AP dimension. No focal thyroid nodule is seen. NODES: No lymphadenopathy is seen in the tissue surrounding the thyroid gland. ADDITIONAL FINDINGS: Inferior to the right thyroid lobe is a 0.7 x 0.4 x 0.6 cm hypoechoic focus, nonspecific. US/US thyroid IMPRESSION: 1. Normal-sized thyroid gland which demonstrates heterogeneous echotexture and increased vascularity. No discrete thyroid nodules visualized. Inferior to the right thyroid lobe is a 0.7 x 0.4 x 0.6 cm hypoechoic focus. This is a nonspecific finding. This may represent a small lymph node or possibly parathyroid. Clinical correlation recommended. Follow-up imaging can be obtained as clinically indicated.
[2023-10-13 07:54] LABS: Immunoglobulin A 233
[2023-10-13 07:55] LABS: Transglutaminase IgA <1.0
== END 2023-09-24 08:15 | disposition home or self-care (01) ==
LOC: HO.HMGCX 08:14
PROVIDERS: PCP Nurse Practitioner Family; Visit Provider Nurse Practitioner Family
DX: R79.89 Other specified abnormal findings of blood chemistry (principal)
CPT/HCPCS: 36415; 76536; 82784; 86003; 86364

== ENCOUNTER 2023-11-14 08:56 | Outpatient (REF) | payer OTHER, SELFPAY ==
[2023-11-14 16:27] LABS: Urine Cytology See Pathology rpt
== END 2023-11-14 08:57 | disposition home or self-care (01) ==
LOC: HO.LNP 08:56
PROVIDERS: PCP Nurse Practitioner Family; Visit Provider Nurse Practitioner Family
DX: R31.29 Other microscopic hematuria (principal); N30.10 Interstitial cystitis (chronic) without hematuria
CPT/HCPCS: 81003; 88112; 99202

== ENCOUNTER 2023-11-14 08:56 | Outpatient (AMB) | payer OTHER, SELFPAY ==
--- NOTE | 2023-11-14 09:27 | MHC.OFFVIS ---
Intake Visit Reasons: Microscopic hematuria Intake Note: New Patient presents for initial visit for micro hematuria Urology Medications: none Blood Thinner: none smoker: never Audit Officer Required: No Accompanied by: Self / Same As Patient Allergies carbamazepine [From Tegretol] Allergy (Severe, Verified 11/14/23 11:13) Hives sumatriptan [From IMITREX] Allergy (Severe, Verified 11/14/23 11:13) HYPOTENSION, SYNCOPE gluten Allergy (Unknown, Verified 11/14/23 11:13) Unknown Sulfa (Sulfonamide Antibiotics) Allergy (Unknown, Verified 11/14/23 11:13) Rash tetracycline [TETRACYCLINE] Allergy (Unknown, Verified 11/14/23 11:13) HIVES, Rash oxycodone Adverse Reaction (Verified 11/14/23 11:13) Vomiting Medication List - Last Reconciled 11/14/23 by ALCIDES Iniguez-JULIETTE cetirizine 10 mg PO DAILY dextroamphetamine-amphetamine 20 mg (Adderall) 20 mg PO DAILY flash glucose sensor (FreeStyle Esteban 2 Sensor kit) As directed gabapentin mg PO levonorgestrel (Mirena) intrauterine lorazepam 1 mg PO DAILY PRN 30 days ondansetron 8 mg PO BEDTIME 30 days pantoprazole 40 mg PO DAILY ijmhwremk-pzkjgd-ubijygse-scop 16.2-0.1037 -0.0194 mg () 1 tab PO BID PRN trazodone 100 mg PO BEDTIME PRN HPI Comments Details: Sindhu is a very pleasant 38-year-old female patient of Dr. Richard. She has a past medical history of Junie's disease, nephrolithiasis, positive ISAAK, chronic fatigue, endometriosis, fibromyalgia, and interstitial cystitis. She presents to the office today as a new patient for microscopic hematuria. In discussion with the patient today she reports a longstanding history of interstitial cystitis for the last 22 years. She reports being diagnosed with interstitial cystitis at the age of 16 [address] Sheree Henderson. She has undergone multiple treatment options to include hydrodistention, medications such as Elmiron, and at home bladder installations. She discusses experiencing bladder pain and pressure however feels she is and has been managing this without medications. She discusses her reluctant see to taking medications. Discussed at length treatment options of interstitial cystitis. She denies urinary urgency, urinary frequency, incontinence, nocturia, hematuria, dysuria, foul smelling urine, changes to urinary stream, flank pain, fever, and or chills. She is happy with her current voiding parameters. In office urinalysis results reviewed with the patient today 1+ microscopic hematuria. She denies any previous history of chemical exposure and or nicotine dependence. Discussed obtaining retroperitoneal ultrasound for further assessment evaluation. She discusses her concerns regarding bladder cancer as her brother has recently been diagnosed with bladder cancer and another sibling had from a rare form of cancer. She otherwise offers no other issues or concerns at this time. [facility] Medical History 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 Renal calculi Positive ISAAK (antinuclear antibody) Chronic fatigue Endometriosis Fibromyalgia Interstitial cystitis Surgical History History of ankle surgery H/O abdominoplasty Family History Father Diabetes Maternal Grandfather Hypertension Maternal Grandmother Hypertension Other Substance use disorder Social History Housing: House Alcohol intake: current Alcohol intake frequency: holidays/special occasions only Patient Tobacco Use Status: Never used Tobacco e-Cigarette/Vaping Use: Never Used Current occupational status: employed Current occupation: [employer] Sexual orientation: Straight/Heterosexual Gender identity: Female Cognitive needs: No Hearing needs: No Vision needs: No Review of Systems Const Reports no additional complaints Eyes Reports no additional complaints ENT Reports no additional complaints Card Reports no additional complaints Resp Reports no additional complaints GI Reports no additional complaints Reports as per HPI Musc Reports as per HPI Neuro Reports no additional complaints Psych Reports no additional complaints Endo Reports as per HPI Dimas/Lymph Reports no additional complaints Aller/Immun Reports no additional complaints Physical Exam Const General: cooperative, healthy appearing, comfortable, no acute distress, well developed, alert and awake Orientation/consciousness: patient oriented x3 Limitations: no limitations HEENT Head: Yes normal to inspection, Yes normocephalic and Yes atraumatic Ears: hearing grossly normal bilaterally Eyes General: appearance normal, both eyes and all related structures Neck Neck: Yes normal visual inspection and Yes trachea midline Chest Chest palpation & inspection: normal inspection of the chest Resp Effort & Inspection: normal respiratory effort and able to speak in complete sentences Cardio Rate: regular rate GI Inspection: Yes normal to inspection General: Yes no CVA tenderness Back/Spine/Pelvis Back: no CVA tenderness Skin General skin exam: no rashes or lesions noted Neuro General: patient oriented x3 Extrem General: Yes normal to inspection Psych Appearance: grossly normal and well kempt Mental Status: mental status grossly normal Speech and movement: Normal speech and movement present and Clear speech present Affect: normal affect Attitude: cooperative Thought process: Normal thought process present Thought content: Normal thought content present Insight: Fair insight present (Psych) Judgement: Fair judgement present (Psych) Results AMB Urinalysis, Automated UA Leukoctes 0 Eli/uL Last Edit by [employer] on 11/14/23 09:35 UA Nitrite Negative Last Edit by [employer] on 11/14/23 09:35 UA Urobilinogen 0.2 mg/dL Last Edit by [employer] on 11/14/23 09:35 UA Protein 0 mg/dL Last Edit by [employer] on 11/14/23 09:35 UA pH 6.0 Last Edit by [employer] on 11/14/23 09:35 UA Blood 25 Harpreet/uL Last Edit by [employer] on 11/14/23 09:35 UA Specific [place] 1.025 Last Edit by [employer] on 11/14/23 09:35 UA Ketone Negative Last Edit by [employer] on 11/14/23 09:35 UA Bilirubin 0 mg/dL Last Edit by [employer] on 11/14/23 09:35 UA Glucose 0 mg/dL Last Edit by [employer] on 11/14/23 09:35 Results Reviewed Results Reviewed: Laboratory Last Values Urine pH (Auto) 6.0 11/14/23 09:31 Specific [place] (Auto) 1.025 11/14/23 09:31 Urine Protein (Auto) 0 mg/dL 11/14/23 09:31 Glucose (UA)(Auto) 0 mg/dL 11/14/23 09:31 Urine Ketones (Auto) Negative 11/14/23 09:31 Urine Blood (Auto) 25 Harpreet/uL 11/14/23 09:31 Urine Nitrite (Auto) Negative 11/14/23 09:31 Urine Bilirubin (Auto) 0 mg/dL 11/14/23 09:31 Urine Urobilinogen (Auto) 0.2 mg/dL 11/14/23 09:31 Leukocyte Esterase (Auto) 0 Eli/uL 11/14/23 09:31 Assessment & Plan Assessment & Plan (1) Microscopic hematuria: Code(s): R31.29 - Other microscopic hematuria Category: Medical (2) Interstitial cystitis: Code(s): N30.10 - Interstitial cystitis (chronic) without hematuria Category: Medical Plan In office urinalysis results reviewed with the patient today; as noted above; will send for urine cytology. Patient currently denies any bothersome urinary issues or concerns. Discussed further interventions for interstitial cystitis. Discussed bladder triggers/irritants. Discussed IC diet. Discussed pelvic floor therapy. Will obtain retroperitoneal ultrasound for further assessment evaluation. Discussed, educated, and stressed the importance of drinking plenty of water daily. Follow-up in 1-3 months with imaging to be completed prior; or sooner with any issues, concerns, and or questions. Orders: Orders AMB Urinalysis Automated 11/14/23 Z13.9 - Encounter for screening, unspecified Urine Cytology 11/14/23 R31.29 - Other microscopic hematuria Patient Instructions: The patient had an opportunity to ask questions regarding the treatment plan. All questions were answered. Physical exam, labs, and imaging were discussed and reviewed in detail. As well as risks, benefits, and discussion of treatment choices. No major barriers to understanding were identified. The patient expressed understanding and agreement with the above treatment plan. The patient was made aware they should contact our office by phone for worsening of their current condition, the appearance of new symptoms, or with any questions or concerns. Compliance is encouraged with any medications and follow up testing that is ordered. It is a privilege to be allowed the opportunity to participate in? your urological care.? Again, if you have any questions or concerns If you have any questions or concerns please do not hesitate to contact me. The office is [phone]. This note is constructed using voice recognition software. While every effort has been made to ensure accuracy casting director errors may have been included. Yours sincerely, STEVEN Iniguez Coding Level of Care Code New Pt Level 3 (89875) Diagnoses Microscopic hematuria R31.29 Interstitial cystitis N30.10
== END 2023-11-14 09:46 | disposition home or self-care (01) ==
PROVIDERS: PCP Nurse Practitioner Family; Visit Provider Nurse Practitioner Family
DX: R31.29 Other microscopic hematuria (principal); N30.10 Interstitial cystitis (chronic) without hematuria
CPT/HCPCS: 99203

== ENCOUNTER 2023-12-22 09:43 | Outpatient (AMB) | payer OTHER, SELFPAY ==
--- NOTE | 2023-12-22 09:45 | A.OFFPC_ITS ---
Vital Signs 12/22/23 09:47 Height 5 ft 5 in Weight 151 lb BMI 25.1 BP 110/78 Blood Pressure Location Rt brachial Position Sitting Pulse 100 Pulse Source Pulse Oximeter Pulse Oximetry (%) 98 Oxygen Delivery Method Room Air Intake Visit Reasons: 6 month follow up Intake Note: Patient here for HTN f/u. Allergies carbamazepine [From Tegretol] Allergy (Severe, Verified 12/22/23 09:48) Hives sumatriptan [From IMITREX] Allergy (Severe, Verified 12/22/23 09:48) HYPOTENSION, SYNCOPE gluten Allergy (Unknown, Verified 12/22/23 09:48) Unknown Sulfa (Sulfonamide Antibiotics) Allergy (Unknown, Verified 12/22/23 09:48) Rash tetracycline [TETRACYCLINE] Allergy (Unknown, Verified 12/22/23 09:48) HIVES, Rash oxycodone Adverse Reaction (Verified 12/22/23 09:48) Vomiting Tobacco use date assessed: 12/22/23 Dental Screening Dental Screen Date: 12/22/23 Did you have a dental visit in the last 12 months?: Yes Did you have a dental problem in the last 6 months where you did not have access to dental care?: No Was dental information given to patient?: Patient has dentist HPI 6 month follow up HPI Details pt is depressed, brother , then pt found out her is having an affair. Pt reports her tried committing suicide, was in ICU, now out. Pt does have therapist and a psychiatrist. Pt reports liking her therapist. Pt denies any SI or HI. Pt was in tears talking about this, but then seemed more relaxed. Pt has a hx of trigeminal neuralgia. She is currently seeing a neurologist but he is moving so she needs a new provider. Will refer to [facility] (Dr. Holden). [facility] Medical History 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 Renal calculi Positive ISAAK (antinuclear antibody) Chronic fatigue Endometriosis Fibromyalgia Interstitial cystitis Surgical History History of ankle surgery H/O abdominoplasty Family History Father Diabetes Maternal Grandfather Hypertension Maternal Grandmother Hypertension Other Substance use disorder Social History Housing: House Alcohol intake: current Alcohol intake frequency: holidays/special occasions only Patient Tobacco Use Status: Never used Tobacco e-Cigarette/Vaping Use: Never Used Current occupational status: employed Current occupation: [employer] Sexual orientation: Straight/Heterosexual Gender identity: Female Cognitive needs: No Hearing needs: No Vision needs: No Questionnaire PHQ-9 Over the last 2 weeks, how often have you been bothered by any of the following problems? 1. Little interest or pleasure in doing things: nearly every day 2. Feeling down, depressed, or hopeless: nearly every day 3. Trouble falling or staying asleep, or sleeping too much: nearly every day 4. Feeling tired or having little energy: nearly every day 5. Poor appetite or overeating: nearly every day 6. Feeling bad about yourself - or that you are a failure or have let yourself or your family down: nearly every day 7. Trouble concentrating on things, such as reading the newspaper or watching television: nearly every day 8. Moving or speaking so slowly that other people could have noticed. Or the o pposite - being so fidgety or restless that you have been moving around a lot more than usual: nearly every day 9. Thoughts that you would be better off or of hurting yourself in some way: several days Total score: 25 Depression Screening Interpretation: Positive Depression Screening Done: Yes 56653 - PHQ-9 Billing: Yes Source: Developed by Drs. Keyur Corey, Yana Moss, Vernon Tomas and colleagues, with an educational hossein from [employer]. Thrive Questionnaire Date Thrive assessed: 12/22/23 I am a: Patient What is your living situation today?: I have a steady place to live Within the past 12 months, did the food you bought not last and you didn't have the money to get more?: Never true Within the past 12 months, did you worry whether your food would run out before you got money to buy more?: Never true Do you have trouble paying for medicines?: No Do you have trouble getting transportation to medical appointments?: No Do you have trouble paying your heating and electricity bill?: No Do you have trouble taking care of your child, family member or friend?: No Do you have trouble with day-to-day activities such as bathing, preparing meals, shopping, managing finances, etc.?: No Are you currently unemployed and looking for a job?: No Are you interested in more education?: No Currently or been in a relationship where the following occur: I choose not to answer this question THRIVE Score: 0 AUDIT C Alcohol Use Questionnaire (AUDIT-C) 1. How often do you have a drink containing alcohol?: Never 3. How often do you have six or more drinks on one occasion?: Never Total Score: 0 Score Reviewed/Action Taken: No DINORA-7 AMB Questionnaire DINORA-7 Date DINORA - 7 assessed: 12/22/23 Feeling nervous, anxious, or on edge: 3 = Nearly every day Not being able to stop or control worryin = Nearly every day Worrying too much about different things: 3 = Nearly every day Trouble relaxin = Nearly every day Being so restless that it is hard to sit still: 3 = Nearly every day Becoming easily annoyed or irritable: 1 = Several days Feeling afraid as if something awful might happen: 0 = Not at all Total DINORA-7 score (0-4 normal; 5-9 mild; 10-14 moderate; 15-21 severe): 16 Source: Developed by Drs. Keyur Corey, Yana Moss, Vernon Tomas and colleagues, with an educational hossein from [employer]. Review of Systems Const Reports as per HPI Physical exam (Primary Care) Vital Signs: Last Vital Signs Pulse 100 12/22/23 09:47 BP 110/78 12/22/23 09:47 Pulse Ox 98 12/22/23 09:47 Oxygen Delivery Method Room Air 12/22/23 09:47 BMI result Body Mass Index 25.1 Tobacco/Smoking Status: Tobacco use Status Tobacco use date assessed 12/22/23 12/22/23 09:51 Patient Tobacco Use Status Never used Tobacco 12/22/23 09:47 e-Cigarette/Vaping Use Never Used 12/22/23 09:47 Depression Screening Interpretation: Positive Thrive Assessment: Date of Thrive Assessment Date Thrive assessed 07/24/21 12/22/23 09:47 Currently or been in a relationship where the following occur: I choose not to answer this question Const General: cooperative Orientation/consciousness: patient oriented x3 Resp Effort & Inspection: normal respiratory effort Auscultation: clear to auscultation bilaterally Cardio Rate: regular rate Rhythm: regular rhythm Heart sounds: S1 normal heart sound present and S2 normal heart sound present Neuro General: patient oriented x3 Psych Appearance: grossly normal Mental Status: mental status grossly normal Speech and movement: Normal speech and movement present Affect: normal affect Attitude: cooperative Thought process: Normal thought process present Thought content: Normal thought content present Insight: Good insight present (Psych) Judgement: Good judgement present (Psych) Assessment and Plan Assessment & Plan (1) Anxiety: Code(s): F41.9 - Anxiety disorder, unspecified Plan: cont with psychiatrist and therapist. (2) Depression: Code(s): F32.A - Depression, unspecified Plan: Continue seeing therapist and psychiatrist (3) Trigeminal neuralgia: Code(s): G50.0 - Trigeminal neuralgia Plan: referring to Dr. Navin Hodges. Plan The patient agreed to the use of a medical information officer for this encounter. Scribed for ALCIDES Garner-JULIETTE by Fransisca Kinsey medical information officer, on 12/22/2023 at 10:10 EST. Orders: Referrals Neurology Referral G50.0 - Trigeminal neuralgia Coding Level of Care Code Est Pt Level 3 (80689) Diagnoses Anxiety F41.9 Depression F32.A Trigeminal neuralgia G50.0
[2023-12-22 09:47] VITALS: BP 110/78; PULSE 100; O2SAT 98; BMI 25.1
== END 2023-12-22 10:40 | disposition home or self-care (01) ==
PROVIDERS: PCP Nurse Practitioner Family; Visit Provider Nurse Practitioner Family
DX: F41.9 Anxiety disorder, unspecified (principal); F32.A Depression, unspecified; G50.0 Trigeminal neuralgia
CPT/HCPCS: 99213

== ENCOUNTER 2023-12-31 08:29 | Outpatient (REF) | payer OTHER, SELFPAY ==
--- NOTE | ~2023-12-31 | US_ITS ---
EXAMINATION: US SOFT TISSUE HEAD/NECK CLINICAL INFORMATION: Disorder of thyroid, unspecified. Hypoechoic focus to right thyroid.? Parathyroid versus lymph node (follow up image). COMPARISON: Thyroid ultrasound 09/24/2023. TECHNIQUE: Linear transducer avina-scale and color Doppler examination with attention to the region of concern inferior to the right thyroid. FINDINGS: Inferior to the right thyroid gland, a 7 x 4 x 7 mm hypoechoic, circumscribed nodule is seen. This shows mild associated color Doppler flow, possibly a vascular hilum. Prior ultrasound dimensions were 7 x 4 x 6 mm. US/US soft tiss head and/or neck IMPRESSION: There is a continued stable hypoechoic nodule inferior to the right thyroid lobe, possibly a small lymph node or a parathyroid gland. Continued clinical concern, consider further evaluation with serum parathormone and calcium levels.
== END 2023-12-31 08:30 | disposition home or self-care (01) ==
LOC: HO.HMGCX 08:29
PROVIDERS: PCP Nurse Practitioner Family; Visit Provider Nurse Practitioner Family
DX: E07.9 Disorder of thyroid, unspecified (principal)
CPT/HCPCS: 76536

== ENCOUNTER 2024-01-14 08:13 | Outpatient (REF) | payer OTHER, SELFPAY ==
--- NOTE | ~2024-01-14 | US_ITS ---
EXAMINATION: US RETROPERITONEAL COMPLETE (RENAL) CLINICAL INFORMATION: Interstitial cystitis (chronic) without hematuria. COMPARISON: CT abdomen and pelvis 05/10/2022. TECHNIQUE: Real-time imaging of the kidneys and bladder. FINDINGS: RIGHT KIDNEY: 10.6 x 3.6 x 5.4 cm (SAG x AP x TRV). The kidney is normal in size, contour, and echogenicity. Renal cortical thickness is normal. No calculi or focal parenchymal lesions. No hydronephrosis. LEFT KIDNEY: 10.3 x 4.8 x 5.1 cm (SAG x AP x TRV). The kidney is normal in size, contour, and echogenicity. Renal cortical thickness is normal. No calculi or focal parenchymal lesions. No hydronephrosis. BLADDER: Well distended and normal. Bilateral ureteral jets are demonstrated. Prevoid bladder volume is 533 mL. Postvoid bladder volume is 28 mL. US/US retroperitoneal comp IMPRESSION: Normal renal and bladder ultrasound. Previously seen right renal calculus is not visible on the current study.
== END 2024-01-14 08:14 | disposition home or self-care (01) ==
LOC: HO.HMGCX 08:13
PROVIDERS: PCP Nurse Practitioner Family; Visit Provider Nurse Practitioner Family
DX: N30.10 Interstitial cystitis (chronic) without hematuria (principal); R31.29 Other microscopic hematuria
CPT/HCPCS: 76770

== ENCOUNTER 2024-01-20 08:21 | Outpatient (AMB) | payer OTHER, SELFPAY ==
--- NOTE | 2024-01-20 08:30 | A.OFFVIS_ITS ---
Intake Visit Reasons: 2m/US(set) Intake Note: Patient presents for a 2m f/u and US Urology Medications: none Blood Thinner: none Allergies:sulfa,tetracycline Customer Operations Representative Required: No Accompanied by: Self / Same As Patient Allergies carbamazepine [From Tegretol] Allergy (Severe, Verified 01/20/24 20:00) Hives sumatriptan [From IMITREX] Allergy (Severe, Verified 01/20/24 20:00) HYPOTENSION, SYNCOPE gluten Allergy (Unknown, Verified 01/20/24 20:00) Unknown Sulfa (Sulfonamide Antibiotics) Allergy (Unknown, Verified 01/20/24 20:00) Rash tetracycline [TETRACYCLINE] Allergy (Unknown, Verified 01/20/24 20:00) HIVES, Rash oxycodone Adverse Reaction (Verified 01/20/24 20:00) Vomiting Medication List - Last Reconciled 01/20/24 by ALCIDES Iniguez-JULIETTE cetirizine 10 mg PO DAILY dextroamphetamine-amphetamine 20 mg (Adderall) 20 mg PO DAILY flash glucose sensor (FreeStyle Esteban 2 Sensor kit) As directed gabapentin 1 tab in am 1 tab in afternoon and 2 tabs at night levonorgestrel (Mirena) intrauterine lorazepam 1 mg PO DAILY PRN 30 days ondansetron 8 mg PO BEDTIME 30 days HPI Comments Details: Sindhu is a very pleasant 38-year-old female patient of Dr. Richard. She has a past medical history of Junie's disease, nephrolithiasis, positive ISAAK, chronic fatigue, endometriosis, fibromyalgia, and interstitial cystitis. She presents to the office today for follow-up. Of note, patient was seen approximately 2 months ago as a new patient for microscopic hematuria at which time a retroperitoneal ultrasound was ordered for further assessment evaluation. These results were reviewed with the patient today. Bilateral kidneys with no hydronephrosis, renal calculi, and or lesions noted. The bladder is well distended and normal. Bladder jets are demonstrated. Pre void bladder volume is approximately 530 mL. Postvoid bladder volume is approximately 30 mL. Previously seen right renal calculus is not visible on current study. In discussion with the patient today she reports to be doing and feeling well. She reports a longstanding history of interstitial cystitis over the last 22 years. She reports initial diagnosis was that the age of 16 [address] Sheree Henderson. She has undergone multiple treatment options to include hydrodistention, medications such as Elmiron, and at home bladder installations. She discusses at times she does experience bladder pain and pressure however feels she is managing well with lifestyle modifications. She discusses her reluctancy to taking medications. Discussed at length treatment options of interstitial cystitis. She denies urinary urgency, urinary frequency, incontinence, nocturia, hematuria, dysuria, foul smelling urine, changes to urinary stream, flank pain, fever, and or chills. She is happy with her current voiding parameters. In office urinalysis results reviewed with the patient today. She denies any previous history of chemical exposure and or nicotine dependence. She discusses her concerns regarding bladder cancer as her brother has recently been diagnosed with bladder cancer and another sibling had from a rare form of cancer. She otherwise offers no other issues or concerns at this time. Urine cytology 11/27 Negative for high-grade urothelial carcinoma. [facility] Medical History 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 Renal calculi Positive ISAAK (antinuclear antibody) Chronic fatigue Endometriosis Fibromyalgia Interstitial cystitis Surgical History History of ankle surgery H/O abdominoplasty Family History Father Diabetes Maternal Grandfather Hypertension Maternal Grandmother Hypertension Other Substance use disorder Social History Housing: House Alcohol intake: current Alcohol intake frequency: holidays/special occasions only Patient Tobacco Use Status: Never used Tobacco e-Cigarette/Vaping Use: Never Used Current occupational status: employed 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 Sexual orientation: Straight/Heterosexual Gender identity: Female Cognitive needs: No Hearing needs: No Vision needs: No Review of Systems Const Reports no additional complaints Eyes Reports no additional complaints ENT Reports no additional complaints Card Reports no additional complaints Resp Reports no additional complaints GI Reports no additional complaints Reports as per HPI Musc Reports as per HPI Neuro Reports no additional complaints Psych Reports no additional complaints Endo Reports as per HPI Dimas/Lymph Reports no additional complaints Aller/Immun Reports no additional complaints Physical Exam Const General: cooperative, healthy appearing, comfortable, no acute distress, well developed, alert and awake Orientation/consciousness: patient oriented x3 Limitations: no limitations HEENT Head: Yes normal to inspection, Yes normocephalic and Yes atraumatic Ears: hearing grossly normal bilaterally Eyes General: appearance normal, both eyes and all related structures Neck Neck: Yes normal visual inspection and Yes trachea midline Chest Chest palpation & inspection: normal inspection of the chest Resp Effort & Inspection: normal respiratory effort and able to speak in complete sentences Cardio Rate: regular rate GI Inspection: Yes normal to inspection General: Yes no CVA tenderness Back/Spine/Pelvis Back: no CVA tenderness Skin General skin exam: no rashes or lesions noted Neuro General: patient oriented x3 Extrem General: Yes normal to inspection Psych Appearance: grossly normal and well kempt Mental Status: mental status grossly normal Speech and movement: Normal speech and movement present and Clear speech present Affect: normal affect Attitude: cooperative Thought process: Normal thought process present Thought content: Normal thought content present Insight: Fair insight present (Psych) Judgement: Fair judgement present (Psych) Results AMB Urinalysis, Automated UA Leukoctes 0 Eli/uL Last Edit by NATI Sweeney on 01/20/24 08:42 UA Nitrite Negative Last Edit by NATI Sweeney on 01/20/24 08:42 UA Urobilinogen 0.2 mg/dL Last Edit by NATI Sweeney on 01/20/24 08:4 2 UA Protein 15 mg/dL Last Edit by NATI Sweeney on 01/20/24 08:42 UA pH 80 Last Edit by NATI Sweeney on 01/20/24 08:42 UA Blood 0 Harpreet/uL Last Edit by NATI Sweeney on 01/20/24 08:42 UA Specific [place] 1.010 Last Edit by NATI Sweeney on 01/20/24 08: 42 UA Ketone Negative Last Edit by NATI Sweeney on 01/20/24 08:42 UA Bilirubin 0 mg/dL Last Edit by NATI Sweeney on 01/20/24 08:42 UA Glucose 0 mg/dL Last Edit by NATI Sweeney on 01/20/24 08:42 Results Reviewed Results Reviewed: Laboratory Last Values Urine pH (Auto) 80 01/20/24 08:40 Specific [place] (Auto) 1.010 01/20/24 08:40 Urine Protein (Auto) 15 mg/dL 01/20/24 08:40 Glucose (UA)(Auto) 0 mg/dL 01/20/24 08:40 Urine Ketones (Auto) Negative 01/20/24 08:40 Urine Blood (Auto) 0 Harpreet/uL 01/20/24 08:40 Urine Nitrite (Auto) Negative 01/20/24 08:40 Urine Bilirubin (Auto) 0 mg/dL 01/20/24 08:40 Urine Urobilinogen (Auto) 0.2 mg/dL 01/20/24 08:40 Leukocyte Esterase (Auto) 0 Eli/uL 01/20/24 08:40 Date of Service: 01/14/24 EXAMINATION: US RETROPERITONEAL COMPLETE (RENAL) FINDINGS: RIGHT KIDNEY: 10.6 x 3.6 x 5.4 cm (SAG x AP x TRV). The kidney is normal in size, contour, and echogenicity. Renal cortical thickness is normal. No calculi or focal parenchymal lesions. No hydronephrosis. LEFT KIDNEY: 10.3 x 4.8 x 5.1 cm (SAG x AP x TRV). The kidney is normal in size, contour, and echogenicity. Renal cortical thickness is normal. No calculi or focal parenchymal lesions. No hydronephrosis. BLADDER: Well distended and normal. Bilateral ureteral jets are demonstrated. Prevoid bladder volume is 533 mL. Postvoid bladder volume is 28 mL. IMPRESSION: Normal renal and bladder ultrasound. Previously seen right renal calculus is not visible on the current study. Assessment & Plan Assessment & Plan (1) Microscopic hematuria: Code(s): R31.29 - Other microscopic hematuria Category: Medical (2) Interstitial cystitis: Code(s): N30.10 - Interstitial cystitis (chronic) without hematuria Category: Medical Plan In office urinalysis results reviewed with the patient today; as noted above. Recent retroperitoneal ultrasound results reviewed with the patient today; as noted above. Recent urine cytology results reviewed with the patient today; as noted above. Patient currently denies any bothersome urinary issues or concerns. Discussed further interventions for interstitial cystitis. Discussed bladder triggers/irritants. Discussed IC diet. Discussed pelvic floor therapy. Discussed, educated, and stressed the importance of drinking plenty of water daily. Follow-up in 6months with imaging to be completed prior; or sooner with any issues, concerns, and or questions. Orders: Orders AMB Urinalysis Automated Today Z13.9 - Encounter for screening, unspecified Patient Instructions: The patient had an opportunity to ask questions regarding the treatment plan. All questions were answered. Physical exam, labs, and imaging were discussed and reviewed in detail. As well as risks, benefits, and discussion of treatment ch oices. No major barriers to understanding were identified. The patient expressed understanding and agreement with the above treatment plan. The patient was made aware they should contact our office by phone for worsening of their current condition, the appearance of new symptoms, or with any questions or concerns. Compliance is encouraged with any medications and follow up testing that is ordered. It is a privilege to be allowed the opportunity to participate in? your urological care.? Again, if you have any questions or concerns If you have any questions or concerns please do not hesitate to contact me. The office is [phone]. This note is constructed using voice recognition software. While every effort has been made to ensure accuracy church communications administrator errors may have been included. Yours sincerely, STEVEN Iniguez Coding Level of Care Code Est Pt Level 3 (06001) Diagnoses Microscopic hematuria R31.29 Interstitial cystitis N30.10
== END 2024-01-20 08:57 | disposition home or self-care (01) ==
PROVIDERS: PCP Nurse Practitioner Family; Visit Provider Nurse Practitioner Family
DX: R31.29 Other microscopic hematuria (principal); N30.10 Interstitial cystitis (chronic) without hematuria; Z13.9 Encounter for screening, unspecified
CPT/HCPCS: 99213

== ENCOUNTER → 2024-01-20 08:21 | Outpatient (BNVA) | payer OTHER, SELFPAY | PROVIDERS: PCP Nurse Practitioner Family; Visit Provider Nurse Practitioner Family | DX: R31.29 Other microscopic hematuria (principal); N30.10 Interstitial cystitis (chronic) without hematuria | CPT/HCPCS: 81003; 99212 ==

== ENCOUNTER 2024-01-22 06:52 | Outpatient (REF) | payer OTHER, SELFPAY ==
[2024-01-22 07:06] LABS: MANUAL DIFF FLAG NO
[2024-01-22 07:19] LABS: Basophils Percent Auto 0.9 % (0-2); Eosinophils Absolute Auto 0.1 X10*3/uL (0.0-0.4); Eosinophils Percent Auto 1.2 % (0-4); Hematocrit 40.8 % (37.0-47.0); Hemoglobin 13.4 g/dl (12.0-16.0); Imm Gran Abs Auto 0.01 X10*3/uL (0.00-0.03); Imm Gran Pct Auto 0.2 % (0.0-0.4); Immature Retic Fraction 10.4 % (3.0-15.9); Lymphocytes Absolute Auto 1.5 X10*3/uL (1.2-4.9); Lymphocytes Percent Auto 34.4 % (20-40); Mean Corpuscular HGB Conc 32.8 g/dl (31.0-35.0); Mean Corpuscular Hemoglobin 32.5 pg (27.0-33.0); Mean Platelet Volume 9.8 fL (9.4-12.3); Monocytes Absolute Auto 0.5 X10*3/uL (0.1-1.2); Monocytes Percent Auto 11.5 % (2-11); Neutrophils Absolute Auto 2.2 x10*3/uL (2.0-8.3); Neutrophils Percent Auto 51.8 % (45-73); Platelet Count 272 X10*3/uL (160-400); Red Blood Count 4.12 X10*6/uL (4.20-5.50); Red Cell Distribution Width 13.4 % (11.0-16.0); Reticulocyte Percent 1.4 % (0.5-1.8); Reticulocytes Absolute 0.056 X10*6/uL (0.026-0.095); White Blood Count 4.3 X10*3/uL (4.8-10.8)
[2024-01-22 07:52] LABS: Parathyroid Hormone Intact 99.5 pg/mL (8.7-77.1)
[2024-01-22 08:06] LABS: TSH reflex Free T4 0.73 uIU/mL (0.32-4.0)
[2024-01-22 08:12] LABS: Urine Cytology See Pathology rpt
[2024-01-22 09:37] LABS: Appearance Urine Clear; Color Urine Yellow; Glucose Urine UA Negative (Negative); Leukocyte Esterase Urine Negative (Negative); Nitrite Urine Negative (Negative); PH 5.5 (5.0-9.0); Specific Gravity - Urine 1.025 (1.005-1.025); Urine Blood Negative (Negative); Urine Ketones Negative (Negative); Urine Protein Negative (Neg-Trace)
[2024-01-23 20:18] LABS: Triiodothyronine T3 Free 2.7 pg/mL (2.3-4.2)
[2024-01-23 21:19] LABS: Thyroid Peroxidase Antibodies 504 IU/mL (<9)
[2024-01-26 20:23] LABS: Thyrotropin Receptor Antibody 1.03 IU/L (<=2.00)
== END 2024-01-22 06:53 | disposition home or self-care (01) ==
LOC: HO.LAB 06:52
PROVIDERS: PCP Nurse Practitioner Family; Visit Provider Nurse Practitioner Family
DX: Z00.00 Encounter for general adult medical examination without abnormal findings (principal); E04.1 Nontoxic single thyroid nodule; R79.89 Other specified abnormal findings of blood chemistry; D72.819 Decreased white blood cell count, unspecified; R31.29 Other microscopic hematuria
CPT/HCPCS: 36415; 81003; 82330; 83520; 83970; 84443; 84481; 85025; 85045; 86376; 87086; 88112

== ENCOUNTER 2024-01-28 08:05 | Outpatient (AMB) | payer OTHER, SELFPAY ==
--- NOTE | 2024-01-28 08:05 | MHC.OFFVIS ---
Vital Signs 01/28/24 08:06 Height 5 ft 5 in Weight 150 lb 12.739 oz BMI 25.1 BP 102/78 Blood Pressure Location Lt brachial Position Sitting Pulse 63 Pulse Source Pulse Oximeter Intake Visit Reasons: Nontoxic single thyroid nodule-conf Intake Note: Patient present today for Nontoxic single thyroid nodule follow up visit. Acls Specialist Required: No Accompanied by: Spouse Allergies carbamazepine [From Tegretol] Allergy (Severe, Verified 01/28/24 08:13) Hives sumatriptan [From IMITREX] Allergy (Severe, Verified 01/28/24 08:13) HYPOTENSION, SYNCOPE gluten Allergy (Unknown, Verified 01/28/24 08:13) Unknown Sulfa (Sulfonamide Antibiotics) Allergy (Unknown, Verified 01/28/24 08:13) Rash tetracycline [TETRACYCLINE] Allergy (Unknown, Verified 01/28/24 08:13) HIVES, Rash oxycodone Adverse Reaction (Verified 01/28/24 08:13) Vomiting Medication List - Last Reconciled 01/28/24 by Keyur Nunn MD cetirizine 10 mg PO DAILY dextroamphetamine-amphetamine 20 mg (Adderall) 20 mg PO DAILY flash glucose sensor (FreeStyle Esteban 2 Sensor kit) As directed gabapentin 1 tab in am 1 tab in afternoon and 2 tabs at night levonorgestrel (Mirena) intrauterine lorazepam 1 mg PO DAILY PRN 30 days ondansetron 8 mg PO BEDTIME 30 days HPI Comments Details: 38 YO F who is seen in consultation for neck mass at the request of PCP. Was initially diagnosed with with thyroid US on 09/24/23 revealing .SIZE: Measurements of the thyroid lobes and nodules are given in sagittal, anteroposterior and transverse dimensions respectively. Right Thyroid Lobe: 5.5 x 1.8 x 2.0 cm, volume 10.3 mL. Parenchyma: The gland echotexture is heterogeneous. Thyroid vascularity is increased. Left Thyroid Lobe: 4.7 x 1.4 x 2.2 cm, volume 7.8 mL. Parenchyma: The gland echotexture is heterogeneous. Thyroid vascularity is increased. There is a lobulated appearance of the left thyroid lobe, nonspecific. Isthmus: 0.5 cm in maximum AP dimension. No focal thyroid nodule is seen. NODES: No lymphadenopathy is seen in the tissue surrounding the thyroid gland. ADDITIONAL FINDINGS: Inferior to the right thyroid lobe is a 0.7 x 0.4 x 0.6 cm hypoechoic focus, nonspecific. CAdmits to palpitations,but no tremors, weight loss, frequent bowel movements. Denies any ocular complaints, blurred or double vision. Has trigeminal neuralgia Has hair loss, dry skin,has cold intolerance, weight gain, confusion. Denies any history of head or neck irradiation. Denies any family history of thyroid cancer. Not Had biopsy of nodules in the past. Thyroid US: Labs: Was found to have a slightly increased PTH level with normal ionized calcium. Has hx of kidney stomes and pelvic fx PFSH Medical History (Updated 01/24/24 @ 12:37 by ALCIDES [facility]) 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 Renal calculi Positive ISAAK (antinuclear antibody) Chronic fatigue Endometriosis Fibromyalgia Interstitial cystitis Surgical History (Updated 01/28/24 @ 08:15 by DANIEL Alarcon) H/O shoulder surgery History of ankle surgery H/O abdominoplasty Family History Father Diabetes Maternal Grandfather Hypertension Maternal Grandmother Hypertension Other Substance use disorder Social History Housing: House Alcohol intake: current Alcohol intake frequency: holidays/special occasions only Patient Tobacco Use Status: Never used Tobacco e-Cigarette/Vaping Use: Never Used Current occupational status: employed 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 Thyroid gland measure gms . No nodules or tenderness palpated. There is no cervical adenopathy palpated. Lungs CTA. Heart S1, S2 Reg R/R -M/R/G. Abdominal exam benign. Skin exam reveals absence of dryness or thyroid dermopathy or vitiligo. Nail exam reveals absence of thyroid acropachy or oncholysis. Neurologic exam reveals 2+ reflexes . Muscle Strength is 5/5 proximally. There are no tremors in upper extremities. Assessment & Plan Assessment & Plan (1) Thyroid cyst: Code(s): E04.1 - Nontoxic single thyroid nodule Category: Medical Plan: This is a 38-year-old female with a history of neck ultrasound showing possible mass inferior to the right lobe of the thyroid? Parathyroid adenoma. PTH is slightly elevated. Patient appears to be clinically and biochemically euthyroid . The plan is to recheck PTH, calcium, albumin, 25 hydroxy vitamin-D at [facility] ([facility]) as a have been some issues and measuring PTH in our lab. Will have patient follow-up with Dr. Maldonado with joining our practice in February 2024 in his expert neck ultrasound. At that point, neck ultrasound can be correlated with above lab tests to see if primary hyperparathyroidism is present and also to better characterize the mass inferior to the right lobe of the thyroid. If there is in fact a distinct lesion inferior to the right lobe, a fine-needle aspiration of the lesion might be necessary with sample being sent for PTH measurement (2) Elevated parathyroid hormone: Code(s): R79.89 - Other specified abnormal findings of blood chemistry Category: Medical Plan: See plan above Orders: Orders Vitamin D 25-OH Total Today R79.89 - Other specified abnormal findings of blood chemistry Calcium Today R79.89 - Other specified abnormal findings of blood chemistry Albumin Level Today R79.89 - Other specified abnormal findings of blood chemistry Parathyroid Hormone Intact Today R79.89 - Other specified abnormal findings of blood chemistry Coding Level of Care Code New Pt Level 4 (60718) Diagnoses Thyroid cyst E04.1 Elevated parathyroid hormone R79.89
[2024-01-28 08:06] VITALS: BP 102/78; PULSE 63; BMI 25.1
== END 2024-01-28 08:35 | disposition home or self-care (01) ==
PROVIDERS: PCP Nurse Practitioner Family; Referring Provider Nurse Practitioner Family; Visit Provider Internal Medicine Endocrinology, Diabetes & Metabolism
DX: E04.1 Nontoxic single thyroid nodule (principal); R79.89 Other specified abnormal findings of blood chemistry
CPT/HCPCS: 99204

== ENCOUNTER → 2024-01-28 08:05 | Outpatient (BNVA) | payer OTHER, SELFPAY | PROVIDERS: PCP Nurse Practitioner Family; Visit Provider Internal Medicine Endocrinology, Diabetes & Metabolism | DX: E04.1 Nontoxic single thyroid nodule (principal); R79.89 Other specified abnormal findings of blood chemistry | CPT/HCPCS: 99202 ==

== ENCOUNTER 2024-02-24 07:52 | Outpatient (AMB) | payer OTHER, SELFPAY ==
[2024-02-24 07:54] VITALS: BP 98/64; PULSE 77; BMI 25.3
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
== END 2024-02-24 08:54 | disposition home or self-care (01) ==
PROVIDERS: PCP Nurse Practitioner Family; Visit Provider Student in an Organized Health Care Education/Training Program
DX: R22.1 Localized swelling, mass and lump, neck (principal); Z87.310 Personal history of (healed) osteoporosis fracture
CPT/HCPCS: 99214

== ENCOUNTER → 2024-02-24 07:52 | Outpatient (BNVA) | payer OTHER, SELFPAY | PROVIDERS: PCP Nurse Practitioner Family; Visit Provider Student in an Organized Health Care Education/Training Program | DX: R22.1 Localized swelling, mass and lump, neck (principal); Z87.310 Personal history of (healed) osteoporosis fracture | CPT/HCPCS: 99212 ==

== ENCOUNTER 2024-03-11 11:22 | Outpatient (AMB) | payer OTHER, SELFPAY ==
--- NOTE | 2024-03-11 11:23 | AM.OFFWIN_ITS ---
Intake Vital Signs 03/11/24 11:24 Height 5 ft 5 in Weight 153 lb BMI 25.5 BP 102/68 Blood Pressure Location Lt brachial Position Sitting Pulse 68 Pulse Source Pulse Oximeter Temp 98.5 F Temp Source Oral Pulse Oximetry (%) 98 Oxygen Delivery Method Room Air Intake Visit Reasons: EP Cervical spine pain Intake Note: pt c/o neck pain. Started 2 months ago Patient Tobacco Use Status: Never used Tobacco Allergies carbamazepine [From Tegretol] Allergy (Severe, Verified 03/11/24 11:23) Hives sumatriptan [From IMITREX] Allergy (Severe, Verified 03/11/24 11:23) HYPOTENSION, SYNCOPE Sulfa (Sulfonamide Antibiotics) Allergy (Unknown, Verified 03/11/24 11:23) Rash tetracycline [TETRACYCLINE] Allergy (Unknown, Verified 03/11/24 11:23) HIVES, Rash oxycodone Adverse Reaction (Verified 03/11/24 11:23) Vomiting Do you need a note to return to daycare/school/sports/work: No HPI HPI Comments History of Present Illness Details Patient is a 38-year-old female complaining of pain along the spine of her neck for the last 2 months. She states the pain is like a burning and throbbing pain that is worse when she tries to extend her neck and look up. She has tried ibuprofen and Tylenol with no relief. She denies this ever happening before. But she states the pain is unbearable. 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 Renal calculi Positive ISAAK (antinuclear antibody) Chronic fatigue Endometriosis Fibromyalgia Interstitial cystitis Surgical History H/O shoulder surgery History of ankle surgery H/O abdominoplasty Family History Father Diabetes Maternal Grandfather Hypertension Maternal Grandmother Hypertension Other Substance use disorder Social History Housing: House Alcohol intake: current Alcohol intake frequency: holidays/special occasions only Patient Tobacco Use Status: Never used Tobacco e-Cigarette/Vaping Use: Never Used Current occupational status: employed 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 Sexual orientation: Straight/Heterosexual Gender identity: Female Cognitive needs: No Hearing needs: No Vision needs: No Review of Systems Const All systems reviewed & are unremarkable except as noted in HPI and below Physical Exam Vital Signs: Last Vital Signs Temp 98.5 F 03/11/24 11:24 Pulse 68 03/11/24 11:24 BP 102/68 03/11/24 11:24 Pulse Ox 98 03/11/24 11:24 Oxygen Delivery Method Room Air 03/11/24 11:24 BMI result Body Mass Index 25.5 Const General: cooperative, healthy appearing and comfortable Orientation/consciousness: patient oriented x3 HEENT Head: Yes normal to inspection and Yes normocephalic General nose exam: Normal external nose present Face and sinus: Yes normal facial exam Eyes General: appearance normal, both eyes and all related structures Resp Effort & Inspection: normal respiratory effort and able to speak in complete sentences Back/Spine/Pelvis Cervical Spine: cervical ROM normal, No cervical muscular tenderness, pain with cervical ROM (extension), No cervical spasm and Cervical spine tenderness (lower c spine) Thoracic/Lumbar Spine: thoracic and lumbar spine normal to inspection and No tho racic spinal tenderness Neuro General: patient oriented x3 Assessment & Plan Assessment & Plan (1) Cervical spine pain: Code(s): M54.2 - Cervicalgia Plan: We will get x-ray to rule out anatomical issue. Also sent prednisone for anti- inflammatory effects. Recommended if no improvement and x-ray negative, she follow up with her PCP for further management. Plan See above Orders: Orders XR cervical spine w flex/ext Today M54.2 - Cervicalgia Medications: New prednisone 20 mg PO DAILY 5 tabs 0RF Coding Level of Care Code Est Pt Level 4 (87898) Diagnoses Cervical spine pain M54.2
[2024-03-11 11:24] VITALS: BP 102/68; PULSE 68; TEMP 36.9; O2SAT 98; BMI 25.5
== END 2024-03-11 12:36 | disposition home or self-care (01) ==
PROVIDERS: PCP Nurse Practitioner Family; Visit Provider Physician Assistant
DX: M54.2 Cervicalgia (principal)
CPT/HCPCS: 99214

== ENCOUNTER 2024-03-11 11:57 | Outpatient (REF) | payer OTHER, SELFPAY ==
--- NOTE | ~2024-03-11 | XR_ITS ---
EXAMINATION: XR CERVICAL SPINE CLINICAL INFORMATION: Cervicalgia. COMPARISON: CT cervical spine 11/03/2022. TECHNIQUE: 4 views of the cervical spine, inclusive of flexion and extension views, were obtained. FINDINGS: Straightening of the cervical lordosis, otherwise anatomic alignment. No instability on flexion or extension views. No acute compression deformity. Mild multilevel intervertebral disc height loss more noticeable at C4, C5 and C6. Small anterior marginal osteophyte at C5. Mild multilevel uncovertebral hypertrophy. No prevertebral soft tissue thickening. Minimally included lung apices are clear. XR/XR cervical spine w flex/ext IMPRESSION: 1. No acute compression deformity or malalignment. 2. No instability on flexion or extension views. 3. Mild cervical spondylosis. Electronically signed by: Maria Teresa Sanders MD 03/11/2024 01:00 PM EDT
== END 2024-03-11 11:58 | disposition home or self-care (01) ==
LOC: HO.HMGCX 11:57
PROVIDERS: PCP Nurse Practitioner Family; Visit Provider Physician Assistant
DX: M54.2 Cervicalgia (principal)
CPT/HCPCS: 72052

== ENCOUNTER 2024-04-02 08:18 | Outpatient (REF) | payer OTHER, SELFPAY ==
--- NOTE | ~2024-04-02 | MM_ITS ---
EXAMINATION: BONE DENSITOMETRY CLINICAL INDICATION: Personal history of (healed) osteoporosis fracture. COMPARISON: This is the patient's baseline examination. TECHNIQUE: Using a SCYNEXIS DXA System (software version: 13.1) manufactured by [employer], dual-energy x-ray absorptiometry was performed of the lumbar spine, left hip and left forearm radius 33%. The images are of good technical quality. Based on ISCD (International Society for Clinical Densitometry) standards of reporting, Z-scores instead of T-scores are reported in this premenopausal woman. Summary results are attached. FINDINGS: AP SPINE L1-L4: BMD 1.354 g/cm2, T-score 1.4, Z-score 1.3, Z-score within expected range for age. LEFT FEMUR, NECK: BMD 0.965 g/cm2, T-score -0.5, Z-score -0.1, Z-score within expected range for age. LEFT FEMUR, TOTAL: BMD 0.988 g/cm2, T-score -0.2, Z-score 0.0, Z-score within expected range for age. LEFT FOREARM RADIUS 33%: BMD 0.862 g/cm2, T-score -0.2, Z-score -0.2, Z-score within expected range for age. IDENTIFIED RISK FACTORS: None listed. HISTORY OF FRACTURE: None listed. MEDICATIONS: Vitamin D. MM/XR DEXA appendicular skeleton IMPRESSION: 1. DIAGNOSIS: Based on the lowest Z-score value of -0.2 in the left forearm radius 33%, the patient's bone density is within the expected range for age. 2. 10-YEAR FRACTURE RISK PREDICTION, FRAX: Not performed in this perimenopausal patient. 3. Treatment Recommendations: NOF guidelines recommend consideration for treatment in postmenopausal women and men age 50 and older presenting with the following: -A hip or vertebral (clinical or morphometric) fracture. -T-score less than or equal to -2.5 at the femoral neck or spine after appropriate evaluation to exclude secondary causes. -Low bone mass at the hip or spine and a 10-year fracture probability by FRAX of greater than or equal to 3% for hip fracture or greater than or equal to 20% for major osteoporotic fracture based on the [place] adapted WHO algorithm. 4. Other Recommendations: All treatment decisions require clinical judgment and consideration of individual patient factors, including patient preferences, comorbidities, previous drug use, risk factors not captured in the FRAX model (e.g. frailty, falls, vitamin D deficiency, increased bone turnover, interval significant decline in bone density) and possible under or overestimation of fracture risk by FRAX. FUTURE SCAN RECOMMENDATION: People with diagnosed cases of osteoporosis or at high risk for fracture should have regular bone mineral density tests. For patients eligible for Medicare, routine testing is allowed once every 2 years. The testing frequency can be increased to one year for patients who have rapidly progressing disease, those who are receiving or discontinuing medical therapy to restore bone mass, or have additional risk factors. Electronically signed by: Ga Liang MD 04/13/2024 01:15 PM EDT RP
== END 2024-04-02 08:19 | disposition home or self-care (01) ==
LOC: HO.MAMMO 08:18
PROVIDERS: PCP Nurse Practitioner Family; Visit Provider Student in an Organized Health Care Education/Training Program
DX: Z13.820 Encounter for screening for osteoporosis (principal); Z87.310 Personal history of (healed) osteoporosis fracture; R79.89 Other specified abnormal findings of blood chemistry
CPT/HCPCS: 77081

== ENCOUNTER 2024-05-04 10:35 | Outpatient (AMB) | payer OTHER, SELFPAY ==
[2024-05-04 10:45] VITALS: BP 110/74; BMI 25.5
--- NOTE | 2024-05-04 10:45 | MHC.OFFVIS ---
Vital Signs 05/04/24 10:45 Height 5 ft 5 in Weight 153 lb BMI 25.5 BP 110/74 Blood Pressure Location Lt brachial Position Sitting Intake Visit Reasons: co-test Allergies carbamazepine [From Tegretol] Allergy (Severe, Verified 05/04/24 10:45) Hives sumatriptan [From IMITREX] Allergy (Severe, Verified 05/04/24 10:45) HYPOTENSION, SYNCOPE Sulfa (Sulfonamide Antibiotics) Allergy (Unknown, Verified 05/04/24 10:45) Rash tetracycline [TETRACYCLINE] Allergy (Unknown, Verified 05/04/24 10:45) HIVES, Rash oxycodone Adverse Reaction (Verified 05/04/24 10:45) Vomiting HPI Comments Details: Presenting for annual exam. No complaints. Last Pap/HPV was ascus/HPV negative in 11/26, followed by colpo/biopsy/ECC which was negative Last Mammogram was BI-RADS 1 in 08/30 [facility] Medical History ASCUS of cervix with negative high risk HPV Mass of right side of neck History of healed fragility fracture 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 Renal calculi Positive ISAAK (antinuclear antibody) Chronic fatigue Endometriosis Fibromyalgia Interstitial cystitis Surgical History H/O shoulder surgery History of ankle surgery H/O abdominoplasty Family History Father Diabetes Maternal Grandfather Hypertension Maternal Grandmother Hypertension Other Substance use disorder Social History Housing: House Alcohol intake: current Alcohol intake frequency: holidays/special occasions only Patient Tobacco Use Status: Never used Tobacco e-Cigarette/Vaping Use: Never Used Current occupational status: employed 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 Sexual orientation: Straight/Heterosexual Gender identity: Female Cognitive needs: No Hearing needs: No Vision needs: No Review of Systems Const All systems reviewed & are unremarkable except as noted in HPI and below Card Reports as per HPI Resp Reports as per HPI GI Reports as per HPI and Reports no additional complaints Reports as per HPI Physical Exam Vital Signs: Last Vital Signs BP 110/74 05/04/24 10:45 BMI result Body Mass Index 25.5 Const General: cooperative, healthy appearing and comfortable Chest Chest palpation & inspection: normal inspection of the chest and normal palpation of entire chest wall Breast/axilla inspection: normal inspection of the breasts and normal inspection of the axillae Breast/axilla palpation: normal palpation of the breasts, normal palpation of the axillae and no axillary lymphadenopathy Resp Effort & Inspection: normal respiratory effort Auscultation: clear to auscultation bilaterally Percussion: percussion normal Cardio Palpation: normal PMI Rate: regular rate Rhythm: regular rhythm Heart sounds: no murmurs and no rubs Peripheral pulses: Peripheral pulses 2+ throughout GI Inspection: Yes normal to inspection Palpation (GI): Soft to palpation, nontender, no guarding, not rigid and No hepatosplenomegaly present Percussion: Yes normal to percussion Auscultation: normal bowel sounds Rectal Exam - Female: deferred General: Yes bladder normal to palpation External Female Exam: No lesion Speculum Exam - Vagina: normal appearance of the vagina, normal palpation, normal vaginal discharge and not erythematous Speculum Exam - Cervix: normal appearance of the cervix, normal palpation and Other cervical findings present (IUD string in place) Bimanual exam- vagina & uterus: normal bimanual exam, normal palpation, uterine size normal, bladder normal to palpation, consistency normal and normal palpation Bimanual Exam- Adnexa, other: normal adnexae, no masses and no tenderness Assessment & Plan Assessment & Plan (1) Well woman exam: Code(s): Z01.419 - Encounter for gynecological examination (general) (routine) without abnormal findings Category: Medical Plan: Cotesting done. Instructions given the patient to schedule next screening Mammogram in 08/31. Counseled the patient about the recommended dietary allowance of 1000 mg of Calcium & 600 IU of vitamin D. The patient was instructed to perform monthly self-breast exams and to schedule an annual exam in a year; All questions answered and the patient verbalized understanding. Instructed the patient to schedule annual exam in a year (2) IUD check up: Code(s): Z30.431 - Encounter for routine checking of intrauterine contraceptive device Category: Medical Plan: Discussed with the patient the timing of replacement for Mirena IUD for endometriosis around 5 years, recommended to schedule an appointment for IUD removal and reinsertion since screen more than 5 years IUD was inserted according to the patient. All questions answered, the patient verbalized understanding agreed with the plan Coding Level of Care Code Est Pt Prev Care 40-64y(87737) Diagnoses Well woman exam Z01.419 IUD check up Z30.431
== END 2024-05-04 11:04 | disposition home or self-care (01) ==
LOC: HO.HWS 10:36
PROVIDERS: PCP Nurse Practitioner Family; Visit Provider Obstetrics & Gynecology
DX: Z01.419 Encounter for gynecological examination (general) (routine) without abnormal findings (principal); Z30.431 Encounter for routine checking of intrauterine contraceptive device
CPT/HCPCS: 99396

== ENCOUNTER 2024-05-04 10:35 | Outpatient (REF) | payer OTHER, SELFPAY ==
[2024-05-09 06:13] LABS: HPV mRNA E6/E7 Not Detected (Not Detected)
== END 2024-05-04 10:36 | disposition home or self-care (01) ==
LOC: HO.LNP 10:35
PROVIDERS: PCP Nurse Practitioner Family; Visit Provider Obstetrics & Gynecology
DX: R87.610 Atypical squamous cells of undetermined significance on cytologic smear of cervix (ASC-US) (principal)
CPT/HCPCS: 87624; 88175

== ENCOUNTER 2024-06-11 08:10 | Outpatient (AMB) | payer OTHER, SELFPAY ==
[2024-06-11 08:13] VITALS: BP 108/66; BMI 25.5
--- NOTE | 2024-06-11 08:13 | MHC.OFFVIS ---
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 Frame Operator Present (Anneliese Patel DANIEL) Accompanied by: Self / Same As Patient Allergies carbamazepine [From Tegretol] Allergy (Severe, Verified 06/11/24 08:22) Hives sumatriptan [From IMITREX] Allergy (Severe, Verified 06/11/24 08:22) HYPOTENSION, SYNCOPE Sulfa (Sulfonamide Antibiotics) Allergy (Unknown, Verified 06/11/24 08:22) Rash tetracycline [TETRACYCLINE] Allergy (Unknown, Verified 06/11/24 08:22) HIVES, Rash oxycodone Adverse Reaction (Verified 06/11/24 08:22) Vomiting Is last menstrual period known: No (mirena) HPI Comments Details: Presenting for Mirena IUD removal and reinsertion [facility] Medical History ASCUS of cervix with negative high risk HPV Mass of right side of neck History of healed fragility fracture 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 Renal calculi Positive ISAAK (antinuclear antibody) Chronic fatigue Endometriosis Fibromyalgia Interstitial cystitis Surgical History H/O shoulder surgery History of ankle surgery H/O abdominoplasty Family History Father Diabetes Maternal Grandfather Hypertension Maternal Grandmother Hypertension Other Substance use disorder Social History Housing: House Alcohol intake: current Alcohol intake frequency: holidays/special occasions only Patient Tobacco Use Status: Never used Tobacco e-Cigarette/Vaping Use: Never Used Current occupational status: employed 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 Her last menstrual period was within the last 5 days, Urine test was done in the office and was negative; All the contraindications were excluded. The following possible complications were discussed with the patient: Intrauterine , Ectopic , Sepsis, Pelvic Infection, Irregular Bleeding and Amenorrhea, Perforation, Expulsion, Ovarian Cysts, Breast Cancer. The following adverse effects were discussed with the patient: alteration of menstrual bleeding pattern, including: unscheduled uterine bleeding decreased uterine bleeding increased scheduled uterine bleeding female genital tract bleeding ,amenorrhea , genital discharge , vulvovaginitis , breast pain , benign ovarian cyst and associated complications , dysmenorrhea , Gastrointestinal disorders abdominal/pelvic pain, headache/migraine , back pain , acne , depression Alternative options were discussed with the patient including but not limited: control pills, patch, NuvaRing, Depo-medroxyprogesterone acetate, Nexplanon, copper IUD, sterilization, vasectomy, others The procedure was explained in detail to patient , at the end patient signed the informed consent obtained. Alternative options were discussed with the patient The patient signed the consent and agreed with the plan; all questions answered. Urine test was done in the office and was negative Preop dx: Requesting IUD removal and Reinsertion Op: IUD removal and Mirena insertion Post op dx: same EBL= 10 cc Procedure: The patient was put in the dorsal lithotomy position a speculum was inserted in the vagina the IUD thread identified. Using a Brandie clamp the thread was grasped and the IUD pulled out with no complications. A no touch technique was used throughout the procedure. A speculum was placed into vagina and cervix was cleaned with betadine). A tenaculum was placed. A plastic sound was advanced through the external and internal os until it reached the fundus of the uterus, the depth was 8 cm. The sound was then withdrawn. The IUD was loaded in a sterile manner and advanced into position. The string was visualized and cut to 3 cm. Tenaculum site hemostatic. All instruments removed from vagina. Patient tolerated the procedure well. NO complications were noted. Patient was instructed to call for fever over 100.4, significant pain unrelieved by Motrin, IUD expulsion, heavy bleeding, or abnormal discharge. In addition, the following clinical considerations were discussed with the patient to call for removal: A stroke or heart attack ,Very severe or migraine headaches ,Unexplained fever ,Yellowing of the skin or whites of the eyes, as these may be signs of serious liver problems , or suspected , Pelvic pain or pain during sex ,HIV positive seroconversion in herself or her partner , Possible exposure to sexually transmitted infections Unusual vaginal discharge or genital sores , severe vaginal bleeding or bleeding that lasts a long time, or if she misses a menstrual period, Inability to feel Mirena's threads Counseled the patient that the IUD does not protect against STI's, recommended use of condoms for the first 7 days post insertion and explained to the patient that condoms are recommended for patients at risk for sexually transmitted infections. Follow up appointment made for 4 weeks following insertion. Date of removal in no more than five years for DUB treatment and 8 years for contraception from today?s date was d/w patient. This note was generated with a voice recognition program. Some errors may have been overlooked during the review of this note. Sometimes these errors may affect the content or meaning of a given sentence. 08707-TYB Insertion 69399-EDK Removal Procedure code (CPT) selection complete Office Meds Mirena 21 mcg/24 hr (up to 8 years) 52 mg intrauterine device Performing Provider: Joselito Merida MD Performing Location: [facility] [place] [facility] Documented (not given) by: Joselito Merida MD on 06/11/24 08:38 Dose Route Admin Location Dispensed Lot Number Expiration Date NDC Director Data Management 1 device intrauterine ea Assessment & Plan Assessment & Plan (1) Encounter for IUD removal and reinsertion: Code(s): Z30.433 - Encounter for removal and reinsertion of intrauterine contraceptive device Category: Medical Plan: UPT done in the office was negative, GC/CT collected. Mirena IUD removed and reinserted, see procedure Orders: Orders AMB IUD Insertion/Removal - Practice Supplied Today Z30.433 - Encounter for removal and reinsertion of intrauterine contraceptive device Medications: New Mirena (levonorgestrel) 1 device intrauterine ONCE 1 ea 0RF IUD removal/insertion NS Z30.433 - Encounter for removal and reinsertion of intrauterine contraceptive device Coding Level of Care Code Procedure Only Diagnoses Encounter for IUD removal and reinsertion Z30.433 CPT Codes Details - CPT: 59412-TRX Insertion ([id number]) Details - CPT: 73666-OMU Removal ([id number])
--- OUTSIDE RECORDS SUMMARY | 2024-06-16 05:10 | XMS_ITS | Continuity of Care Document ---
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 It does not include entries that were removed or entered in error. Problem Status Onset Date Problem Type Date of Resolution Comments Source pain in leg lower Active Condition DoD dermatitis Inactive Condition DoD pelvic fracture stress Active Condition DoD sinusitis acute Inactive Condition DoD visit for: screening exam Inactive Condition DoD joint pain, localized in the hip Active Condition DoD groin (inguinal) pain left side Active Condition DoD ankle sprain Inactive Condition DoD ankle joint pain Active Condition DoD Other Physical Therapy Active Condition DoD visit for: services physical Active Condition DoD refractive error Active Condition DoD visit for: screening exam pulmonary tuberculosis Inactive Condition DoD other specified family circumstances Active Condition DoD Cervical Pap Smear Inactive Condition Do D insomnia Active Condition DoD Body Mass Index Active Condition DoD depression with anxiety Active Condition DoD Gynecologic Services Intrauterine Device (IUD) Checking Inactive Condition DoD Gynecologic Services Intrauterine Device (IUD) Insertion Inactive Condition DoD primary insomnia Active Condition DoD female pelvic pain Active Condition DoD hyperlipidemia Active Condition DoD female dyspareunia due to a physical condition Active Condition DoD blood in urine Inactive Condition DoD routine examination Inactive Condition D oD migraine headache Active Condition DoD abdominal pain Inactive Condition DoD obesity Active Condition DoD joint pain, localized in the knee Active Condition DoD candidiasis oral thrush Inactive Condition meds [id number] up with pcm prn DoD skin abscess Inactive Condition Small a bcess in right axillary. Will treat with augmentin for 10 days. Advised paitnet to change razor. DoD depression Inactive Condition Patient a lso reports trouble sleeping and crying spells. Will try trial of trazodone 100mg po qhs. DoD visit for: contraceptive surveillance Inactive Condition DoD allergic rhinitis Active Condition DoD dermatophytosis tinea corporis Inactive Condition buttock DoD visit for: administrative purpose Inactive Condition DoD metrorrhagia Inactive Condition DoD cystitis chronic interstitial Active Condition DoD visit for: issue repeat prescription Inactive Condition DoD bronchitis Inactive Condition DoD Need For Vaccination Against Influenza Inactive Condition DoD Need For Vaccination Hepatitis B Inactive Condition DoD cystitis Inactive Condition pt instruc humberto on prevention of UTI DoD routine gynecological exam with cervical pap smear Inactive Condition [facility] Contraceptive Management Active Condition DoD Inquiry And Counseling: Contraceptive Practices Inactive Condition DoD Patient Education - Proper Use Of Medications Inactive Condition [facility] visit for: issue repeat prescription for medication Inactive Condition DoD benign paroxysmal positional vertigo Inactive Condition probaply from virus and new diet pills DoD skin disorders appendage hair follicle folliculitis Inactive Condition TO AXILLAE DoD acne vulgaris Active Condition DoD visit for: refer patient without exam or treatment Inactive Condition DoD Allergies, Adverse Reactions, Alerts Combined list of allergies from Department of Defense and Veterans Affairs facilities. It does not include entries that were removed or entered in error. Substance Category Reaction Severity Reaction type Status Date Reported Comments Source BACTRIM (SULFAMETHOXA ZOLE/TRIMETHO PRIM) Drug allergy (disorder ) Unknown active 4 [place] IMITREX Drug allergy (disorder ) Unknown active 8 [facility] TETRACYCLINE (TETRACYCLINE ) Drug allergy (disorder ) Unknown active 4 [place] TRAZODONE (TRAZODONE HCL) Drug allergy (disorder ) Unknown active 8 [facility] Immunizations Combined list of available immunizations from the Department of Defense and Veterans Affairs facilities. Immunization Series Date Given Administered By Site Reaction Lot Number CVX Code Drug Qm Nurse Status Comments Source Influenza, seasonal, injectable, preservative free 1 2014 UNK 140 [employer] (CSL) complet ed Influenza , seasonal, injectabl e, preservat marilu free DoD hepatitis A vaccine, adult dosage 2 2014 [id number] Other (OTH) complet ed hepatitis A vaccine, adult dosage DoD Influenza, seasonal, injectable, preservative free 1 2013 UNK 140 [employer] (CSL) complet ed Influenza , seasonal, injectabl e, preservat marilu free DoD tetanus toxoid, reduced diphtheria toxoid, and acellular pertu is vaccine, adsorbed 1 2013 [id number] 115 Sanofi Pasteur ([facility]) complet ed tetanus toxoid, reduced diphtheri a toxoid, and acellular pertussis vaccine, adsorbed DoD Influenza, seasonal, injectable, preservative free 1 2013 [id number] 140 [employer] (MED) complet ed Influenza , seasonal, injectabl e, preservat marilu free DoD tetanus toxoid, reduced diphtheria toxoid, and acellular pertu is vaccine, adsorbed 1 2013 [id number] 115 [employer] (SKB) complet ed tetanus toxoid, reduced diphtheri a toxoid, and acellular pertussis vaccine, adsorbed DoD Influenza, seasonal, injectable, preservative free 1 2012 [id number] 140 [employer] (MED) complet ed Influenza , seasonal, injectabl e, preservat marilu free DoD poliovirus vaccine, inactivated 1 2011 [id number] 10 Sanofi Pasteur ([facility]) complet ed polioviru s vaccine, inactivat ed DoD hepatitis A vaccine, adult dosage 1 2011 [id number] 52 [employer] (SKB) complet ed hepatitis A vaccine, adult dosage DoD influenza virus vaccine, live, attenuated, for intranasal use 1 2011 [id number] 111 [employer] (MED) complet ed influenza virus vaccine, live, attenuate d, for intranasa l use DoD meningococcal polysaccharid e (groups A, C, Y and W-135) diphtheria toxoid conjugate vaccine (MCV4P) 1 2011 [id number] 114 Sanofi Pasteur ([facility]) complet ed meningoco ccal polysacch aride (groups A, C, Y and W-135) diphtheri a toxoid conjugate vaccine (MCV4P) DoD tetanus toxoid, reduced diphtheria toxoid, and acellular pertu is vaccine, adsorbed 1 2011 [id number] 115 Vita [employer]oco[employer] (SKB) complet ed tetanus toxoid, reduced diphtheri a toxoid, and acellular pertussis vaccine, adsorbed DoD Adenovirus, type 4 and type 7, live, oral 1 [id number] [place] [address] (BRR) complet ed Adenoviru s, type 4 and type 7, live, oral DoD measles, mumps and rubella virus vaccine 2 2011 UNK 03 Unknown (UNK) Not Given measles, mumps and rubella virus vaccine DoD varicella virus vaccine 1 2011 UNK 21 Unknown (UNK) Not Given varicella virus vaccine DoD hepatitis B vaccine, adult dosage 1 2011 UNK 43 Unknown (UNK) Not Given hepatitis B vaccine, adult dosage DoD tuberculin skin test; purified protein derivative solution, intradermal 1 2011 Unknown, Provider [id number] Sanofi Pasteur ([facility]) complet ed tuberculi n skin test; purified protein derivativ e solution, intraderm al DoD Influenza, seasonal, injectable, preservative free 0 2010 140 Sanofi Pasteur ([facility]) complet ed Influenza , seasonal, injectabl e, preservat marilu free DoD influenza virus vaccine, split virus (incl. purified surface antigen)-reti red CODE 1 2007 JULITO RICHTER [id number] 15 [employer] PASTEUR ([facility]) complet ed influenza virus vaccine, split virus (incl. purified surface antigen)- retired CODE DoD influenza virus vaccine, split virus (incl. purified surface antigen)-reti red CODE 1 2004 Unknown, Provider [id number] 15 Sanofi Pasteur ([facility]) complet ed influenza virus vaccine, split virus (incl. purified surface antigen)- retired CODE DoD measles, mumps and rubella virus vaccine 1 2004 Unknown, Provider [id number] 03 Merck (MSD) complet ed measles, mumps and rubella virus vaccine DoD Encounters Combined list of: 1) Encounters from Department of Veterans Affairs facilities going back up to thelast 18 months. 2) Encounters from the Department of Defense facilities going back up to 280 months. Location Location Details Encounter Type Encounter Number Reason For Visit Attending Provider ADM Date DC Date Status Disposition Source [place] OUTPATIENT [id number] [facility] Released w/o Limitations [place] OUT[place]IENT [id number] KRISTIN VASQUEZ 09/28 Released w/o Limitations [facility], [place]) [place] TELE CONSULT [id number] PEDRO PABLO OSBORN 11/08 [facility] [employer] [place] [place] [facility] [place] [id number] ALLERGI ES KRISTIN BECKER 11/13 Released w/o Limitations [facility], [place] [facility] [place] [id number] WELL WOMAN EXAM KRISTIN BECKER 11/28 Released w/o Limitations [facility], [place] [facility] [place] TELE CONSULT [id number] CHESTER JONES 12/11 [facility], [employer] [place] [facility] [place] [id number] painful urinati on(walk in appt for 1800) MELINDA KERNS 04/24 Released w/o Limitations [facility], [employer] [place] [place]) [facility], [place] OUTPATIENT [id number] immuniz ation BLAKE HUYNH 04/29 Released w/o Limitations [facility], [employer] [place] [place] [facility] [place] [id number] REQ REF TO UROLOGY KRISTIN BECKER 06/03 Released w/o Limitations [facility], [employer] [place] [facility] [place] [id number] COUGH MEKA VALLES 06/17 Released w/o Limitations [facility], [employer] [place] [facility] [place] [id number] VAG DISCHAR GE AND ODOR KRISTIN BECKER 07/10 Released w/o Limitations [facility], [employer] [place] [place] [facility] [place] TELE CONSULT [id number] RODNEY ROSAHANIE 07/23 [facility] [employer] [place] [place] [facility] [place] [id number] RASH IN PRIVATE AREA FIOR QUEEN SURYA 12/03 Released w/o Limitations [facility], [employer] [place] [place] [facility] [place] TELE CONSULT [id number] SHARIF QUEENVENICE LONDON 12/09 [facility] [employer] [place] [place] [facility] [place] TELE CONSULT [id number] MED REFILL LORI ROSA 01/08 [facility] [employer] [place] [place] [facility] [place] [id number] RASH UNDER ARM CARRIE WELLER 02/28 Released w/o Limitations [facility], [employer] [place] [place] [facility] [place] [id number] R/O FRANCOISE JUÁREZ 04/28 Released w/o Limitations [facility], [employer] [place] [place]) [facility], [place]Except ional Family [place] OUTPATIENT [id number] [facility] enrollm ent ASHIA BESS 02/05 Released w/o Limitations [facility], [employer]Exce ptional Family Member) [facility](Amanda [facility] [place]) OUTPATIENT [id number] BOTD/IR R VAG BLEEDIN G/PAIN X3WK PAPADOPOUL OS, HAI B 11/24 Released w/o Limitations [facility]David [facility]([facility] [place]) [facility] Olympic Team) OUTPATIENT [id number] fu migrain and allergy meds ANGELIQUE WARREN SILVIA 12/08 Released w/o Limitations [facility] Olympic Team) [facility](Uro logy) OUTPATIENT [id number] Interst itial Cystiti s/ufl/b s/void log-nee ds SPEC appt. MIRIAM TAMIA A 12/23 Released w/o Limitations [facility](U rology) [facility](Uro logy) OUTPATIENT [id number] LENARD Pineda 01/12 Released w/o Limitations [facility](U rology) [facility](Linux System Admin ecology Clinic) OUTPATIENT [id number] metorrh LIMA Grimm 01/25 Released w/o Limitations [facility](G ynecolo gy Clinic) [facility] Olympic Team) OUTPATIENT [id number] f/u ANGELIQUE WARREN 01/27 Released w/o Limitations 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 Olympic Team) OUTPATIENT [id number] depress ion and anxiety x yos ROSIO CARBAJAL 04/12 Released w/o Limitations [facility] Olympic Team) [facility] Olympic Team) OUTPATIENT [id number] f/u DEPRESS ION ROSIO CARBAJAL 06/01 Released w/o Limitations [facility]-For lazara Peñ[place]za(M [facility] Olympic Team) [facility] Olympic Team) OUTPATIENT [id number] 23yo f/u on sleep issues ROSIO CARBAJAL [place] 07/28 Released w/o Limitations [facility]For la[facility]ara Peñalo[facility] Olympic Team) [facility](Linux System Admin ecology Clinic) OUTPATIENT [id number] iud removal MIKE REES 12/05 Released w/o Limitations [facility]For [facility]ara Peñ[place](G ynecolo gy Clinic) [facility] Post Immunizat ion) OUTPATIENT [id number] Notes Entered by: XAVIER TOMAS 21 Apr 2012 0626 ------- ------- ------- ------- -- IET PPD ELIAS MCCARTHY 04/21 Released w/o Limitations [employer]([facility] Post Immuniz ation) [employer]([facility] Optometry -Trainee) OUTPATIENT [id number] FITO SMITH 04/22 Released w/o Limitations [facility](P ES Optomet ry-Lewis nee) [facility] Physical Therapy) TELE CONSULT [id number] Notes Entered by: ANGELIQUE VUONG 20 May 2012 0751 ------- ------- ------- ------- -- med refill ANGELIQUE VUONG 05/20 [employer]([facility] Physica l Therapy ) [employer]([facility] [place] Athlete Perform) OUTPATIENT [id number] Notes Entered by: SMILEY COTO 20 May 2012 1423 ------- ------- ------- ------- -- TONY Dodson 05/20 Released with Work/Duty Limitations [employer]([facility] [place] Ath[place] Perform ) [facility] [place] [employer] Perform) OUTPATIENT [id number] Notes Entered by: SMILEY COTO 21 May 2012 1514 ------- ------- ------- ------- -- Left Ankle TONY COTO 05/21 Released with Work/Duty Limitations [facility] [place] Ath[place] Perform ) [facility] [place] Ath[place] Perform) OUTPATIENT [id number] Notes Entered by: SMILEY COTO 22 May 2012 1247 ------- ------- ------- ------- -- L ankle TONY COTO 05/22 Released with Work/Duty Limitations [employer]([facility] [place] Ath[place] Perform ) [facility] Physical Therapy BAS) TELE CONSULT [id number] Notes Entered by: Aristeo BEGUM 26 May 2012 0550 ------- ------- ------- ------- -- REF-- ATC imaging DAYANARA DANIELS 05/26 [employer] Physica l Therapy BAS) [facility] Ambulator y) OUTPATIENT [id number] Notes Entered by: JESUS SALCEDO 26 May 2012 0824 ------- ------- ------- ------- -- ORTHO FELIPE CADENA 05/26 Released with Work/Duty Limitations [employer](T [facility] Ambulat ory) [facility] Physical Therapy) OUTPATIENT [id number] Notes Entered by: TWAN ELLIS 26 May 2012 1444 ------- ------- ------- ------- -- Ankle - Initial (ref: Soljamey) CHARISMA ELLIS 05/26 Released with Work/Duty Limitations [facility]([employer] Physica l Therapy ) [facility] [place] Ath[place] Perform) OUTPATIENT [id number] Notes Entered by: SMILEY COTO 26 May 2012 1530 ------- ------- ------- ------- -- L ankle TONY COTO 05/26 Immediate Referral [facility] [place] Athlete Perform ) [facility] Ambulator y) OUTPATIENT [id number] Notes Entered by: Amanda ELDRIDGE 08 Jun 2012 0759 ------- ------- ------- ------- -- LEFT GROIN PAIN YULIANA FAULKNER 06/08 Released with Work/Duty Limitations [facility] Ambulat ory) [facility] Ambulator y) OUTPATIENT [id number] Notes Entered by: HENRY FLEMING 09 Jun 2012 1308 ------- ------- ------- ------- -- f/u YULIANA FAULKNER 06/09 Immediate Referral [facility] Ambulat ory) [facility] Ambulator y) OUTPATIENT [id number] Notes Entered by: HENRY FLEMING 09 Jun 2012 1312 ------- ------- ------- ------- -- fran/ELIAS Thompson 06/09 Released w/o Limitations [facility] Ambulat ory) [facility] Physical Therapy BAS) OUTPATIENT [id number] Notes Entered by: Aristeo BEGUM 10 Jun 2012 0627 ------- ------- ------- ------- -- INITIAL -- GROIN/P ELVIC PAIN DAYANARA DANIELS 06/10 Released with Work/Duty Limitations [facility] Physica l Therapy BAS) [facility] Physical Therapy BAS) OUTPATIENT [id number] Notes Entered by: Aristeo BEGUM 11 Jun 2012 0600 ------- ------- ------- ------- -- F/U -- GROIN PAIN DAYANARA DANIELS 06/11 Released with Work/Duty Limitations [facility] Physica l Therapy BAS) [facility] Ambulator y) OUTPATIENT [id number] Notes Entered by: Elaine FAULKNER 11 Jun 2012 0616 ------- ------- ------- ------- -- sore throat YULIANA FAULKNER 06/11 Sick at Home/Quarter s [facility] Ambulat ory) [facility] Ambulator y) OUTPATIENT [id number] MEME FINLEY 06/12 Released w/o Limitations [facility] Ambulat ory) [facility] Ambulator y) OUTPATIENT [id number] Notes Entered by: ALLEN SMITH 13 Jun 2012 1459 ------- ------- ------- ------- -- ORTHO NADIA GUAMAN 06/13 Released with Work/Duty Limitations [facility] Ambulat ory) [facility] Physical Therapy BAS) OUTPATIENT [id number] Notes Entered by: Aristeo BEGUM 19 Jun 2012 0837 ------- ------- ------- ------- -- F/U -- HIP PAIN DAYANARA DANIELS 06/19 Released with Work/Duty Limitations [facility] Physica l Therapy BAS) [facility]([address]) OUTPATIENT [id number] Notes Entered by: ARIS HERRERA 27 Aug 2012 0816 ------- ------- ------- ------- -- Rash on bilater al legs, behind knee for 3 days. MALAIKA STEIN 08/27 Released w/o Limitations [facility]([address]) [facility]([address]) OUTPATIENT [id number] Notes Entered by: JIMBO MOLINA 14 Oct 2012 1413 ------- ------- ------- ------- -- Self Care Knee pain JIMBO MOLINA 10/14 Released w/o Limitations [facility] [place]) [facility]([place] Athlete Performan ce) OUTPATIENT [id number] Notes Entered by: MARTINA STEIN 20 Oct 2012 0938 ------- ------- ------- ------- -- Thony saravia knee pain 12/14 GERSON STEIN 10/20 Released with Work/Duty Limitations [facility](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) [facility] Team B) OUTPATIENT [id number] LOD stress fx pelvis, left MADELINE TIRADO 12/22 Released w/o Limitations [facility] Team B) [facility] Team B) OUTPATIENT [id number] LOD Followu p MADELINE Ramirez 09/15 Released with Work/Duty Limitations [facility] Team B) [facility] Team A) TELE CONSULT [id number] Notes Entered by: Amanda CROFT 26 Jul 2016 1212 ------- ------- ------- ------- -- Network Results LOD Referra saravia [facility] Jul 23 FAISAL HINES I 07/[address] [place] [address]([facility] Team A) Procedures Combined list of: 1) Procedures from Department of Veterans Affairs facilities going back [facility] to [facility], not all VA non-surgical procedures are included; 2) All procedures from the Department of Defense facilities. Procedure Procedure Type Code Date Perfomer Comments [facility] THERAPEUTIC PROCEDURE,1 OR MORE AREAS,EACH 15 MINUTES;NEUROMUSCULAR REEDUCATION OF MOVEMENT,BALANCE,COOR DINATION,KINESTHETIC SENSE,POSTURE,AND/OR PROPRIOCEPTION FOR SITTING AND/OR STANDING ACTIVITIES 2 [facility] PHYSICAL THERAPY RE-EVALUATION 2 [facility] THERAPEUTIC PROCEDURE,1 OR MORE AREAS,EACH 15 MINUTES;NEUROMUSCULAR REEDUCATION OF MOVEMENT,BALANCE,COOR DINATION,KINESTHETIC SENSE,POSTURE,AND/OR PROPRIOCEPTION FOR SITTING AND/OR STANDING ACTIVITIES 2 DoD APPLICATION OF A MODALITY TO 1 OR MORE AREAS; HOT OR COLD PACKS 2 DoD ANKLE ORTHOSIS, ANKLE GAUNTLET OR SIMILAR, WITH OR WITHOUT JOINTS, PREFABRICATED, [id number] 2 DoD ANKLE FOOT ORTHOSIS, MULTILIGAMENTOUS ANKLE SUPPORT, PREFABRICATED, [id number] 2 DoD STRAPPING; ANKLE AND/OR FOOT 2 DoD STRAPPING; ANKLE AND/OR FOOT 2 DoD EAR MOLD/INSERT, NOT DISPOSABLE, ANY TYPE 2 DoD DETERMINATION OF REFRACTIVE STATE 2 DoD SKIN TEST; TUBERCULOSIS, INTRADERMAL 2 DoD REMOVAL OF INTRAUTERINE DEVICE (IUD) 9 DoD IMMUNIZATION ADMINISTRATION (INCLUDES PERCUTANEOUS, INTRADERMAL, SUBCUTANEOUS, OR INTRAMUSCULAR INJECTIONS); 1 VACCINE (SINGLE OR COMBINATION VACCINE/TOXOID) 8 DoD URINALYSIS, BY DIP STICK OR TABLET REAGENT FOR BILIRUBIN, GLUCOSE, HEMOGLOBIN, KETONES, LEUKOCYTES, NITRITE, PH, PROTEIN, SPEC GRAVITY, UROBILINOGEN, ANY NUMBER OF CONSTITUENTS; W/O MICRO, NON-AUTO 8 DoD CONTRACEPTIVE INTRAUTERINE DEVICE (E.G., PROGESTACERT IUD), INCLUDING IMPLANTS AND SUPPLIES 8 DoD EDUCATIONAL SUPPLIES, SUCH BOOKS, TAPES, AND PAMPHLETS, FOR THE PATIENT'S EDUCATION AT COST TO PHYSICIAN OR OTHER QUALIFIED HEALTH NETWORK FIELD ENGINEER 8 DoD MEASUREMENT OF POST-VOIDING RESIDUAL URINE AND/OR BLADDER CAPACITY BY ULTRASOUND, NON-IMAGING 8 DoD APPLICATION OF A MODALITY TO 1 OR MORE AREAS; HOT OR COLD PACKS 3 DoD IMMUNIZATION ADMINISTRATION (INCLUDES PERCUTANEOUS, INTRADERMAL, SUBCUTANEOUS, OR INTRAMUSCULAR INJECTIONS); 1 VACCINE (SINGLE OR COMBINATION VACCINE/TOXOID) 5 DoD HEPATITIS B VACCINE (HEPB), ADULT DOSAGE, 3 DOSE SCHEDULE, FOR INTRAMUSCULAR USE 5 DoD URINALYSIS, BY DIP STICK OR TABLET REAGENT FOR BILIRUBIN, GLUCOSE, HEMOGLOBIN, KETONES, LEUKOCYTES, NITRITE, PH, PROTEIN, SPEC GRAVITY, UROBILINOGEN, ANY NUMBER OF CONSTITUENTS; W/O MICRO, NON-AUTO 5 [facility] ALL POTASSIUM HYDROXIDE (LUPE) PREPARATIONS 5 [facility] NONINVASIVE EAR OR PULSE OXIMETRY FOR OXYGEN SATURATION; SINGLE DETERMINATION 5 [facility] ANESTHESIA FOR VAGINAL PROCEDURES (INCLUDING BIOPSY OF LABIA, VAGINA, CERVIX OR ENDOMETRIUM); NOT OTHERWISE SPECIFIED 4 [facility] SCREENING PAPANICOLAOU SMEAR; OBTAINING, PREPARING AND CONVEYANCE OF CERVICAL OR VAGINAL SMEAR TO LABORATORY 4 [facility] Modalities Cryotherapy Cold Packs Modalities Cryotherapy Cold Packs 42640 3 [facility] Athletic Training Evaluation Athletic Training Evaluation 64514 3 [facility] Physical Therapy Neuromuscular Re-education Physical Therapy Neuromuscular Re-education 96125 2 DAYANARA DANIELS [facility] Physical Therapy Service Re-Evaluation Physical Therapy Service Re-Evaluation 53572 2 JEREMIAHDAYANARA ROLON [facility] Physical Therapy Service Re-Evaluation Physical Therapy Service Re-Evaluation 18439 2 DAYANARA DANIELS [facility] Physical Therapy Neuromuscular Re-education Physical Therapy Neuromuscular Re-education 04205 2 JEREMIAHDAYANARA ROLON [facility] Physical Therapy Service Evaluation Physical Therapy Service Evaluation 39750 2 DAYANARA DANIELS [facility] Modalities Cryotherapy Cold Packs Modalities Cryotherapy Cold Packs 80213 2 TONY COTO [facility] Athletic Training Re-evaluation Athletic Training Re-evaluation 23477 2 TONY COTO [facility] Ankle orthosis, ankle gauntlet or similar, with or without joints, prefabricated, [id number] 2 CHARISMA ELLIS [facility] Foot, arch support, removable, premolded, longitudinal, each 2 CHARISMA ELLIS [facility] Physician Supervised Ordering / Handling / Fitting Patient Devices Physician Supervised Ordering / Handling / Fitting Patient Devices 96375 2 CHARISMA ELLIS Physical Therapy Neuromuscular Re-education Physical Therapy Neuromuscular Re-education 99303 2 CHARISMA ELLIS Patient Counseling Medical Management Individual Patient Patient Counseling Medical Management Individual Patient 32855 2 CHARISMA ELLIS Physical Therapy Service Evaluation Physical Therapy Service Evaluation 64088 2 CHARISMA ELLIS Ankle foot orthosis, multiligamentous ankle support, prefabricated, [id number] 2 TONY COTO Taping Ankle Taping Ankle 16926 2 TONY COTO Modalities Cryotherapy Cold Packs Modalities Cryotherapy Cold Packs 62885 2 TONY COTO Physical Therapy Neuromuscular Re-education Physical Therapy Neuromuscular Re-education 57466 2 TONY COTO Taping Ankle Taping Ankle 63441 2 TONY COTO Modalities Cryotherapy Cold Packs Modalities Cryotherapy Cold Packs 25990 2 TONY COTO A isted Exercises For ROM Assisted Exercises For ROM 11930 2 TONY COTO Athletic Training Evaluation Athletic Training Evaluation 83907 2 TONY COTO Taping Ankle Taping Ankle 92428 2 TONY COTO Modalities Cryotherapy Cold Packs Modalities Cryotherapy Cold Packs 98984 2 TONY COTO isted Exercises For ROM Assisted Exercises For ROM 74603 2 TONY COTO Athletic Training Evaluation Athletic Training Evaluation 93247 2 TONY COTO Ophthalmological New Patient Start Intermediate Level Care Ophthalmological New Patient Start Intermediate Level Care 84038 2 MARY ELLEN ERAZO Spectacles Services Fitting Monofocal Except For Aphakia Spectacles Services Fitting Monofocal Except For Aphakia 53143 2 MARY ELLEN ERAZO Determination Of Refractive State Determination Of Refractive State 32350 2 MARY ELLEN ERAZO Skin Test Anergy Tuberculin Intradermal Skin Test Anergy Tuberculin Intradermal 56319 2 ELIAS MCCARTHY Immunization Administration By Injection, One Vaccine Immunization Administration By Injection, One Vaccine 84115 2 ELIAS MCCARTHY Screening papanicolaou smear; obtaining, preparing and conveyance of cervical or vaginal smear to laboratory 9 MIKE REES [facility] Intrauterine Device (IUD) Removal Gynecologic Services Intrauterine Device (IUD) Removal 56365 9 CABRERA MIKE [facility] Influenza Split Virus Vaccine 0.5mL Dosage Intramuscular Preservative Free 8 ROSIO CARBAJAL [facility] Immunization Administration By Injection, One Vaccine Immunization Administration By Injection, One Vaccine 44233 8 ROSIO CARBAJAL [facility] Routine Urinalysis Without Microscopic Examination Routine Urinalysis Without Microscopic Examination 63641 8 OMID WINTER [facility] Diagnostic Cystoscopy Diagnostic Cystoscopy 25165 8 OMID WINTER [facility] Contraceptive IntraUterine Device (e.g., Progestacert IUD), including implants and supplies 8 LIMA VARMA [facility] Intrauterine Device (IUD) Insertion Gynecologic Services Intrauterine Device (IUD) Insertion 44533 8 LIMA VARMA Ultrasound Trans-Vaginal Ultrasound Trans-Vaginal 51780 8 LIMA VARMA Physician Supervised Services Provision Of Educational Supplies Physician Supervised Services Provision Of Educational Supplies 92308 8 LIMA VARMA Screening papanicolaou smear; obtaining, preparing and conveyance of cervical or vaginal smear to laboratory 8 LIMA VARMA Measuremt Post-Voiding Resid Urine, Bladder Capacity Ultrasd Measuremt Post-Voiding Resid Urine, Bladder Capacity Ultrasd 73455 8 TAMIA PINEDA Complex Bladder Flow Rate Studies Complex Bladder Flow Rate Studies 68372 8 TAMIA PINEDA Influenza Split Virus Vaccine 0.5mL Dosage Intramuscular 5 KRISTIN BECKER Immunization Administration By Injection, One Vaccine Immunization Administration By Injection, One Vaccine 47491 5 KRISTIN BECKER Hepatitis B Vaccine (Active) Adult Dosage 5 BLAKE HUYNH Routine Urinalysis Without Microscopic Examination Routine Urinalysis Without Microscopic Examination 76309 5 MELINDA KERNS Vaginal Wet [place] Smear Vaginal [place] Smear 59297 5 KRISTIN BECKER Vaginal LUPE Prep Vaginal LUPE Prep 91439 00 5 KRISTIN BECKER [facility] Screening papanicolaou smear; obtaining, preparing and conveyance of cervical or vaginal smear to laboratory 5 KRISTIN BECKER Cervical Pap Smear Cervical Pap Smear 51907 5 KRISTIN BECKER Social History Combined list of available smoking, tobacco, and other social history from [facility] of Defense and [facility] facilities. Social History Type Response Date Comment Sour e This section is an empty social history section. DoD
--- OUTSIDE RECORDS SUMMARY | 2024-06-16 05:12 | XMS_ITS | Continuity of Care Document ---
Author Organization [facility] Address 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 Care Team Information Rec eiver Unavailable Kelly Whatley MD Primary Care Physician Unavailab le Problems Active Problems Provider Date Reactive hypoglycemia Stacey Agrawal M.D. On set: 02/04/2022 Reactive hypoglycemia Stacey Agrawal M.D. On set: 09/24/2021 Junie thyroiditis Stacey Agrawal M.D. On set: 06/11/2021 Reactive hypoglycemia Stacey Agrawal M.D. On set: 06/11/2021 Social History Type Date Description Comments Sex Unknown Allergies and adverse reactions Active Allergies Criticality Reaction Severity Comments Date Bactrim Unable to assess criticality Hives 04/18/2021 Tetracycline Unable to assess criticality Hives 04/18/2021 traZODone Unable to assess criticality Severe headache 04/18/2021 Oxycodone Unable to assess criticality Nausea and Vomitin g 04/18/2021 Acarbose Unable to assess criticality GI upse t 08/20/2022 Medications Active Medications SIG Qnty Indications Ordering Provider Date Freestyle Esteban 2/Sensor/Flash Glucose Monitoring [id number] Misc uad to monitor bs 4-6x a day 2units E16.1 Stacey Agrawal M.D. 07/09/2021 Dicyclomine [id number] Capsules 2 tablets up to four times a day Kelly Whatley MD Bupropion Hydrochloride ER (XL)300mg Tablets ER 24HR Daily Unknown Xanax0.5mg Tablets prn Unknown 0 Zyrtec [id number] Tablets Every night Unknown [id number] Tablets Martha Whatley se, MD Vitamin D (Ergocalciferol)1.25mg (80192 Ut) Capsules Wing Morris MD Multivitamin Ca+380mg/[id number] x1/d Unknown Mirena (52 MG)20mcg/24HR IUD Unknown History Medications Dexcom G6 TransmitterMisc use as directed daily to send glucose values to control systems designer. change every 3 months 1units E16.1 Stacey Agrawal M.D. 08/15/2021 - 02/04/2022 Dexcom G6 SensorMisc use 1 sensor q10d 3units E16.1 Stacey Agrawal M.D. 08/15/2021 - 02/04/2022 Dexcom G6 ReceiverDevice use daily to recieve sugar data from sensor 1units E16.1 Stacey Agrawal M.D. 08/15/2021 - 02/04/2022 [id number] Tablets 1 tab by mouth three times a day before meals 270tabs E16.1 Stacey Agrawal M.D. 07/24/2021 - 08/20/2022 Ogqyvzzo91yb Tablets 1 tab by mouth three times a day before meals 90tabs E16.1 Stacey Agrawal M.D. 06/11/2021 - 07/24/2021
== END 2024-06-11 08:39 | disposition home or self-care (01) ==
LOC: HO.HWS 08:10
PROVIDERS: PCP Nurse Practitioner Family; Visit Provider Obstetrics & Gynecology
DX: Z30.433 Encounter for removal and reinsertion of intrauterine contraceptive device (principal)
CPT/HCPCS: 58300; 58301

== ENCOUNTER 2024-06-11 08:10 | Outpatient (REF) | payer OTHER, SELFPAY ==
[2024-06-11 15:36] LABS: CT PCR NOT DETECTED (Not Detect.); NG PCR NOT DETECTED (Not Detect.)
--- OUTSIDE RECORDS SUMMARY | 2024-06-16 05:52 | XMS_ITS | Continuity of Care Document ---
Author Name DOD-PA Organization DOD-PA Care Team Providers Care Instructor Painting Name Role Phone [facility] Unavailable Unavailable Problems [...] DoD candidiasis oral thrush Inactive Condition meds [id number] up with pcm prn DoD skin abscess [...] exam with cervical pap smear Inactive Condition [facility] Gynecologic Services Contraceptive Management Active Condition DoD Inquiry And Counseling: Contraceptive Practices Inactive Condition DoD Patient Education - Proper Use Of Medications Inactive Condition [facility] visit for: issue repeat prescription for medication [...] Drug allergy (disorder ) Unknown active 4 [place] IMITREX Drug allergy (disorder ) Unknown active 8 [facility] TETRACYCLINE (TETRACYCLINE ) Drug allergy (disorder ) Unknown active 4 [place] TRAZODONE (TRAZODONE HCL) Drug allergy (disorder ) Unknown active 8 [facility] Immunizations Combined list of available immunizations from the Department of Defense and Veterans Affairs facilities. Immunization Series Date Given Administered By Site Reaction Lot Number CVX Code Drug Cube Cutter Status Comments Source Influenza, seasonal, injectable, preservative free 1 2014 UNK 140 [employer] (CSL) complet ed Influenza , seasonal, injectabl e, preservat marilu free DoD hepatitis A vaccine, adult dosage 2 2014 [id number] 52 Other (OTH) complet ed hepatitis A vaccine, adult dosage DoD Influenza, seasonal, injectable, preservative free 1 2013 UNK 140 [employer] (CSL) complet ed Influenza , seasonal, injectabl e, preservat marilu free DoD tetanus toxoid, reduced diphtheria toxoid, and acellular pertu is vaccine, adsorbed 1 2013 [id number] 115 Sanofi Pasteur ([facility]) complet ed tetanus toxoid, reduced diphtheri a toxoid, and acellular pertussis vaccine, adsorbed DoD Influenza, seasonal, injectable, preservative free 1 2013 [id number] 140 [employer] (MED) complet ed Influenza , seasonal, injectabl e, preservat marilu free DoD tetanus toxoid, reduced diphtheria toxoid, and acellular pertu is vaccine, adsorbed 1 2013 [id number] 115 [place] (SKB) complet ed tetanus toxoid, reduced diphtheri a toxoid, and acellular pertussis vaccine, adsorbed DoD Influenza, seasonal, injectable, preservative free 1 2012 [id number] 140 [employer] (MED) complet ed Influenza , seasonal, injectabl e, preservat marilu free DoD poliovirus vaccine, inactivated 1 2011 [id number] 10 Sanofi Pasteur ([facility]) complet ed polioviru s vaccine, inactivat ed DoD hepatitis A vaccine, adult dosage 1 2011 [id number] 52 [place] (SKB) complet ed hepatitis A vaccine, adult dosage DoD influenza virus vaccine, live, attenuated, for intranasal use 1 2011 [id number] 111 [employer] (MED) complet ed influenza virus vaccine, live, attenuate d, for intranasa l use DoD meningococcal polysaccharid e (groups A, C, Y and W-135) diphtheria toxoid conjugate vaccine (MCV4P) 1 2011 [id number] 114 Sanofi Pasteur ([facility]) complet ed meningoco ccal polysacch aride (groups A, C, Y and W-135) diphtheri a toxoid conjugate vaccine (MCV4P) DoD tetanus toxoid, reduced diphtheria toxoid, and acellular pertu is vaccine, adsorbed 1 2011 [id number] 115 [employer]it[employer] (SKB) complet ed tetanus toxoid, reduced diphtheri a toxoid, and acellular pertussis vaccine, adsorbed DoD Adenovirus, type 4 and type 7, live, oral 1 [id number] [place] [address] (BRR) complet ed Adenoviru s, type 4 [...] derivative solution, intradermal 1 2011 Unknown, Provider [id number] 96 Sanofi Pasteur ([facility]) complet ed tuberculi n skin test; purified protein derivativ e solution, intraderm al DoD Influenza, seasonal, injectable, preservative free 0 2010 140 Sanofi Pasteur ([facility]) complet ed Influenza , seasonal, injectabl e, preservat marilu free DoD influenza virus vaccine, split virus (incl. purified surface antigen)-reti red CODE 1 2007 JULITO RICHTER [id number] 15 [employer] PA[employer]UR ([facility]) complet ed influenza virus vaccine, split virus (incl. purified surface antigen)- retired CODE DoD influenza virus vaccine, split virus (incl. purified surface antigen)-reti red CODE 1 2004 Unknown, Provider [id number] 15 Sanofi Pasteur ([facility]) complet ed influenza virus vaccine, split virus [...] DC Date Status Disposition Source [place] OUTPATIENT [id number] [facility]ased w/o Limitations [place]) [place] OUTPATIENT [id number] KRISTIN VASQUEZ 09/28 Released w/o Limitations [facility], [place]([facility]) [place] TELE CONSULT [id number] PEDRO PABLO OSBORN 11/08 [facility], [employer] [place] [place] [facility], [place] [id number] ALLERGI ES KRISTIN BECKER 11/13 Released w/o Limitations [facility], [employer] [place] [place] [facility], [place] [id number] WELL WOMAN EXAM KRISTIN BECKER 11/28 Released w/o Limitations [facility], [employer] [place] [facility], [place] TELE CONSULT [id number] CHESTER JONES 12/11 [facility], [employer] [place] [place] [facility], [place] [id number] painful urinati on(walk in appt for 1800) MELINDA KERNS 04/24 Released w/o Limitations [facility], [employer] [place]) [facility], [place] OUTPATIENT [id number] immuniz ation BLAKE HUYNH 04/29 Released w/o Limitations [facility], [employer] [place] [place] [facility], [place] [id number] REQ REF TO UROLOGY KRISTIN BECKER 06/03 Released w/o Limitations [facility], [employer] [place] [place] [facility], [place] [id number] COUGH MEKA VALLES 06/17 Released w/o Limitations [facility], [employer] [place] [place] [facility], [place]IENT [id number] VAG DISCHAR GE AND ODOR KRISTIN BECKER 07/10 Released w/o Limitations [facility], [place] [place] [facility], [place] TELE CONSULT [id number] RODNEY ROSAHANIE 07/23 [facility], [employer] [place] [place] [facility], [place] [id number] RASH IN PRIVATE AREA FIOR QUEEN SURYA 12/03 Released w/o Limitations [facility], [employer] [place] [place] [facility], [place] TELE CONSULT [id number] SHARIF QUEENVENICE LONDON 12/09 [facility], [employer] [place] [place] [facility], [place] TELE CONSULT [id number] MED REFILL LORI ROSA 01/08 [facility], [place] [place] [facility], [place] [id number] RASH UNDER ARM CARRIE WELLER 02/28 Released w/o Limitations [facility], [employer] [place] [place]) [facility], [place] [id number] R/O FRANCOISE JUÁREZ 04/28 Released w/o Limitations [facility], [employer] [place] [facility], [place]Except [place] Family [place] OUTPATIENT [id number] [facility] enrollm ent ASHIA BESS 02/05 Released w/o Limitations [facility], [employer]Exce [place]ional Family Member) [facility](Amanda [facility]aton Team) OUTPATIENT [id number] BOTD/IR R VAG BLEEDIN G/PAIN X3WK PAPADOPOUL OS, HAI B 11/24 Released w/o Limitations [facility](M [facility]) [facility] OUTPATIENT [id number] fu migrain and allergy meds ANGELIQUE WARREN SILVIA 12/08 Released w/o Limitations [facility]) [facility](Uro logy) OUTPATIENT [id number] Interst itial Cystiti s/ufl/b s/void log-nee ds SPEC appt. MIRIAM TAMIA A 12/23 Released w/o Limitations [facility](U rology) [facility](Uro logy) OUTPATIENT [id number] LENARD Pineda 01/12 Released w/o Limitations [facility](U rology) [facility]([place] [place] [facility]) OUTPATIENT [id number] metorrh LIMA Grimm 01/25 Released w/o Limitations [facility](G ynecolo gy Clinic) [facility] OUTPATIENT [id number] f/u ANGELIQUE WARREN 01/27 Released w/o Limitations [facility]) [facility]([place] [facility]) OUTPATIENT [id number] FIELD CHECKER F/U (WALK-I N) PER LIMA MEDINA 02/02 Released w/o Limitations [facility]) [facility]([place] [place] [facility]) OUTPATIENT [id number] LIMA BLAIR 02/17 Released w/o Limitations [facility]) [facility](Uro logy) OUTPATIENT [id number] venkato LENARD WAGNER 03/23 Released w/o Limitations [facility](U rology) [facility]) OUTPATIENT [id number] depress ion and anxiety x yos ROSIO CARBAJAL 04/12 Released w/o Limitations [facility] Olympic [facility]) [facility] Olympic [facility]) OUTPATIENT [id number] f/u DEPRESS ION ROSIO CARBAJAL 06/01 Released w/o Limitations [facility]ara [facility](M [facility] Olympic Team) [facility] Olympic [facility] OUTPATIENT [id number] 23yo f/u on sleep issues ROSIO CARBAJAL IA 07/28 Released w/o Limitations [facility](M [facility] Olympic Team) [facility]([place] [facility]) OUTPATIENT [id number] iud removal MIKE REES 12/05 Released w/o Limitations [facility](G ynecolo gy Clinic) [facility] Post Immunizat ion) OUTPATIENT [id number] Notes Entered by: XAVIER TOMAS 21 Apr 2012 0626 ------- ------- ------- ------- -- IET PPD ELIAS MCCARTHY 04/21 Released w/o Limitations [facility]([facility] Post Immuniz ation) [employer]([facility] Optometry -Trainee) OUTPATIENT [id number] FITO SMITH 04/22 Released w/o Limitations [facility](P ES Optomet ry-Lewis nee) [facility] Physical Therapy) TELE CONSULT [id number] Notes Entered by: ANGELIQUE VUONG 20 May 2012 0751 ------- ------- ------- ------- -- med refill ANGELIQUE VUONG 05/20 [facility] [employer] [facility](T [facility] Physica l Therapy ) [employer]([facility] [employer] Perform) OUTPATIENT [id number] Notes Entered by: SMILEY COTO 20 May 2012 1423 ------- ------- ------- ------- -- TONY Dodson 05/20 Released with Work/Duty Limitations [employer]([facility] [employer]lete 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 ) [facility] [employer]lete Perform) OUTPATIENT [id number] Notes Entered by: SMILEY COTO 21 May 2012 1514 ------- ------- ------- ------- -- Left Ankle TONY COTO 05/21 Released with Work/Duty Limitations [facility] [employer]lete Perform ) [facility] [employer]lete Perform) OUTPATIENT [id number] Notes Entered by: SMILEY COTO 22 May 2012 1247 ------- ------- ------- ------- -- L ankle TONY COTO 05/22 Released with Work/Duty Limitations [facility]([facility] [employer] Perform ) [facility] Physical Therapy BAS) TELE CONSULT [id number] Notes Entered by: Aristeo BEGUM 26 May 2012 0550 ------- ------- ------- ------- -- REF-- ATC imaging DAYANARA DANIELS 05/26 [facility](T [employer] Physica l Therapy BAS) [facility] Ambulator y) OUTPATIENT [id number] Notes Entered by: JESUS SALCEDO 26 May 2012 0824 ------- ------- ------- ------- -- ORTHO FELIPE CADENA 05/26 Released with Work/Duty Limitations [employer](T MC Ambulat ory) [facility] Physical Therapy) OUTPATIENT [id number] Notes Entered by: TWAN ELLIS 26 May 2012 1444 ------- ------- ------- ------- -- Ankle - Initial (ref: Soljamey) CHARISMA ELLIS 05/26 Released with Work/Duty Limitations [facility](T [employer] Physica l Therapy ) [facility] [employer] Perform) OUTPATIENT [id number] Notes Entered by: SMILEY COTO 26 May 2012 1530 ------- ------- ------- ------- -- L ankle TONY COTO 05/26 Immediate Referral [facility] [employer] Perform ) [facility] Ambulator y) OUTPATIENT [id number] Notes Entered by: Amanda ELDRIDGE 08 Jun 2012 0759 ------- ------- ------- ------- -- LEFT GROIN PAIN YULIANA FAULKNER 06/08 Released with Work/Duty Limitations [facility] Ambulat ory) [facility] Ambulator y) OUTPATIENT [id number] Notes Entered by: HENRY FLEMING 09 Jun 2012 1308 ------- ------- ------- ------- -- f/u YULIANA FAULKNER 06/09 Immediate Referral [facility] Ambulat ory) [facility] Ambulator y) OUTPATIENT [id number] Notes Entered by: HENRY FLEMING 09 Jun 2012 1312 ------- ------- ------- ------- -- fran/ELIAS Thompson 06/09 Released w/o Limitations [facility] Ambulat ory) [facility] Physical Therapy BAS) OUTPATIENT [id number] Notes Entered by: Aristeo BEGUM 10 Jun 2012 0627 ------- ------- ------- ------- -- INITIAL -- GROIN/P ELVIC PAIN DAYANARA DANIELS 06/10 Released with Work/Duty Limitations [facility] Physica l Therapy BAS) [facility] Physical Therapy BAS) OUTPATIENT [id number] Notes Entered by: Aristeo BEGUM 11 Jun 2012 0600 ------- ------- ------- ------- -- F/U -- GROIN PAIN DAYANARA DANIELS 06/11 Released with Work/Duty Limitations [facility] Physica l Therapy BAS) [facility] Ambulator y) OUTPATIENT [id number] Notes Entered by: Elaine FAULKNER 11 Jun 2012 0616 ------- ------- ------- ------- -- sore throat YULIANA FAULKNER 06/11 Sick at Home/Quarter s [facility] Ambulat ory) [facility] Ambulator y) OUTPATIENT [id number] MEME FINLEY 06/12 Released w/o Limitations [facility] Ambulat ory) [facility] Ambulator y) OUTPATIENT [id number] Notes Entered by: ALLEN SMITH 13 Jun 2012 1459 ------- ------- ------- ------- -- ORTHO NADIA GUAMAN 06/13 Released with Work/Duty Limitations [facility] Ambulat ory) [facility] Physical Therapy BAS) OUTPATIENT [id number] Notes Entered by: Aristeo BEGUM 19 Jun 2012 0837 ------- ------- ------- ------- -- F/U -- HIP PAIN DAYANARA DANIELS 06/19 Released with Work/Duty Limitations [facility] Physica l Therapy BAS) [facility]([address]) OUTPATIENT [id number] Notes Entered by: ARIS HERRERA 27 Aug 2012 0816 ------- ------- ------- ------- -- Rash on bilater al legs, behind knee for 3 days. MALAIKA STEIN 08/27 Released w/o Limitations [facility]([address]) [facility]([address]) OUTPATIENT [id number] Notes Entered by: JIMBO MOLINA 14 Oct 2012 1413 ------- ------- ------- ------- -- Self Care Knee pain JIMBO MOLINA 10/14 Released w/o Limitations [facility] [place]) [facility]([employer]forman ce) OUTPATIENT [id number] Notes Entered by: MARTINA STEIN 20 Oct 2012 0938 ------- ------- ------- ------- -- Thony saravia knee pain 12/14 GERSON STEIN 10/20 Released with Work/Duty Limitations [facility](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) [facility]([employer]) OUTPATIENT [id number] LOD stress fx pelvis, left MADELINE TIRADO 12/22 Released w/o Limitations [facility] Team B) [facility]([employer] [facility]) OUTPATIENT [id number] LOD Followu p MADELINE Ramirez 09/15 Released with Work/Duty Limitations [facility] Team B) [facility]([employer] A) TELE CONSULT [id number] Notes Entered by: Amanda CROFT 26 Jul 2016 1212 ------- ------- ------- ------- -- Network Results LOD Referra saravia [facility] Jul 23 FAISAL HINES I 07/[address] [place] [address]([facility] Team A) Procedures Combined list of: 1) Procedures from Department of Veterans Affairs facilities [facility], not all VA non-surgical procedures are included; 2) All procedures from the Department of Defense facilities. Procedure Procedure Type Code Date Perfomer Comments [facility] e THERAPEUTIC PROCEDURE,1 OR MORE AREAS,EACH 15 MINUTES;NEUROMUSCULAR REEDUCATION OF MOVEMENT,BALANCE,COOR DINATION,KINESTHETIC SENSE,POSTURE,AND/OR PROPRIOCEPTION FOR SITTING AND/OR STANDING ACTIVITIES 2 [facility] PHYSICAL THERAPY RE-EVALUATION 2 [facility] THERAPEUTIC PROCEDURE,1 OR MORE AREAS,EACH 15 MINUTES;NEUROMUSCULAR REEDUCATION OF MOVEMENT,BALANCE,COOR DINATION,KINESTHETIC SENSE,POSTURE,AND/OR PROPRIOCEPTION FOR SITTING AND/OR STANDING ACTIVITIES 2 DoD APPLICATION OF A MODALITY TO 1 OR MORE AREAS; HOT OR COLD PACKS 2 DoD ANKLE ORTHOSIS, ANKLE GAUNTLET OR SIMILAR, WITH OR WITHOUT JOINTS, PREFABRICATED, [id number] 2 DoD ANKLE FOOT ORTHOSIS, MULTILIGAMENTOUS ANKLE SUPPORT, PREFABRICATED, [id number] 2 DoD STRAPPING; ANKLE AND/OR FOOT 2 [...] COST TO PHYSICIAN OR OTHER QUALIFIED HEALTH TUMBLER OPERATOR 8 DoD MEASUREMENT OF POST-VOIDING RESIDUAL URINE [...] NUMBER OF CONSTITUENTS; W/O MICRO, NON-AUTO 5 [facility] ALL POTASSIUM HYDROXIDE (ULPE) PREPARATIONS 5 [facility] NONINVASIVE EAR OR PULSE OXIMETRY FOR OXYGEN SATURATION; SINGLE DETERMINATION 5 [facility] ANESTHESIA FOR VAGINAL PROCEDURES (INCLUDING BIOPSY OF LABIA, VAGINA, CERVIX OR ENDOMETRIUM); NOT OTHERWISE SPECIFIED 4 [facility] SCREENING PAPANICOLAOU SMEAR; OBTAINING, PREPARING AND CONVEYANCE OF CERVICAL OR VAGINAL SMEAR TO LABORATORY 4 [facility] Modalities Cryotherapy Cold Packs Modalities Cryotherapy Cold Packs 41876 3 [facility] Athletic Training Evaluation Athletic Training Evaluation 34370 3 [facility] Physical Therapy Neuromuscular Re-education Physical Therapy Neuromuscular Re-education 81719 2 DAYANARA DANIELS [facility] Physical Therapy Service Re-Evaluation Physical Therapy Service Re-Evaluation 99645 2 JEREMIAHDAYANARA ROLON [facility] Physical Therapy Service Re-Evaluation Physical Therapy Service Re-Evaluation 39598 2 DAYANARA DANIELS [facility] Physical Therapy Neuromuscular Re-education Physical Therapy Neuromuscular Re-education 85332 2 JEREMIAHDAYANARA ROLON [facility] Physical Therapy Service Evaluation Physical Therapy Service Evaluation 20159 2 DAYANARA DANIELS [facility] Modalities Cryotherapy Cold Packs Modalities Cryotherapy Cold Packs 44376 2 TONY COTO [facility] Athletic Training Re-evaluation Athletic Training Re-evaluation 32928 2 TONY COTO [facility] Ankle orthosis, ankle gauntlet or similar, with or without joints, prefabricated, [id number] 2 CHARISMA ELLIS [facility] Foot, arch support, removable, premolded, longitudinal, each 2 CHARISMA ELLIS [facility] Physician Supervised Ordering / Handling / Fitting Patient Devices Physician Supervised Ordering / Handling / Fitting Patient Devices 56869 2 CHARISMA ELLIS Physical Therapy Neuromuscular Re-education Physical Therapy Neuromuscular Re-education 48456 2 CHARISMA ELLIS Patient Counseling Medical Management Individual Patient Patient Counseling Medical Management Individual Patient 56335 2 CHARISMA ELLIS Physical Therapy Service Evaluation Physical Therapy Service Evaluation 89703 2 CHARISMA ELLIS Ankle foot orthosis, multiligamentous ankle support, prefabricated, [id number] 2 TONY COTO Taping Ankle Taping Ankle 87927 2 TONY COTO Modalities Cryotherapy Cold Packs Modalities Cryotherapy Cold Packs 22571 2 TONY COTO Physical Therapy Neuromuscular Re-education Physical Therapy Neuromuscular Re-education 19966 2 TONY COTO Taping Ankle Taping Ankle 09835 2 TONY COTO Modalities Cryotherapy Cold Packs Modalities Cryotherapy Cold Packs 86045 2 TONY COTO A isted Exercises For ROM Assisted Exercises For ROM 79279 2 TONY COTO Athletic Training Evaluation Athletic Training Evaluation 11463 2 TONY COTO Taping Ankle Taping Ankle 84917 2 TONY COTO Modalities Cryotherapy Cold Packs Modalities Cryotherapy Cold Packs 58262 2 TONY COTO isted Exercises For ROM Assisted Exercises For ROM 37972 2 TONY COTO Athletic Training Evaluation Athletic Training Evaluation 37307 2 TONY COTO Ophthalmological New Patient Start Intermediate Level Care Ophthalmological New Patient Start Intermediate Level Care 00510 2 MARY ELLEN ERAZO Spect[facility] Services Fitting Monofocal Except For Aphakia Spectacles Services Fitting Monofocal Except For Aphakia 25330 2 MARY ELLEN ERAZO Determination Of Refractive State Determination Of Refractive State 11637 2 MARY ELLEN ERAZO Skin Test Anergy Tuberculin Intradermal Skin Test Anergy Tuberculin Intradermal 65996 2 ELIAS MCCARTHY Immunization Administration By Injection, One Vaccine Immunization Administration By Injection, One Vaccine 64633 2 ELIAS MCCARTHY Screening papanicolaou smear; obtaining, preparing and conveyance of cervical or vaginal smear to laboratory 9 MIKE REES [facility] Intrauterine Device (IUD) Removal Gynecologic Services Intrauterine Device (IUD) Removal 73832 9 CABRERA MIKE [facility] Influenza Split Virus Vaccine 0.5mL Dosage Intramuscular Preservative Free 8 ROSIO CARBAJAL [facility] Immunization Administration By Injection, One Vaccine Immunization Administration By Injection, One Vaccine 31118 8 ROSIO CARBAJAL [facility] Routine Urinalysis Without Microscopic Examination Routine Urinalysis Without Microscopic Examination 09560 8 OMID WINTER [facility] Diagnostic Cystoscopy Diagnostic Cystoscopy 58520 8 OMID WINTER [facility] Contraceptive IntraUterine Device (e.g., Progestacert IUD), including implants and supplies 8 LIMA VARMA [facility] Intrauterine Device (IUD) Insertion Gynecologic Services Intrauterine Device (IUD) Insertion 50247 8 LIMA VARMA Ultrasound Trans-Vaginal Ultrasound Trans-Vaginal 26553 8 LIMA VARMA Physician Supervised Services Provision Of Educational Supplies Physician Supervised Services Provision Of Educational Supplies 26723 8 LIMA VARMA Screening papanicolaou smear; obtaining, preparing and conveyance of cervical or vaginal smear to laboratory 8 LIMA VARMA Measuremt Post-Voiding Resid Urine, Bladder Capacity Ultrasd Measuremt Post-Voiding Resid Urine, Bladder Capacity Ultrasd 77122 8 TAMIA PINEDA Complex Bladder Flow Rate Studies Complex Bladder Flow Rate Studies 57125 8 TAMIA PINEDA Influenza Split Virus Vaccine 0.5mL Dosage Intramuscular 5 KRISTIN BECKER Immunization Administration By Injection, One Vaccine Immunization Administration By Injection, One Vaccine 33044 5 KRISTIN BECKER Hepatitis B Vaccine (Active) Adult Dosage 5 BLAKE HUYNH Routine Urinalysis Without Microscopic Examination Routine Urinalysis Without Microscopic Examination 02320 5 MELINDA KERNS Vaginal Wet [place] Smear Vaginal [place] Smear 63280 5 KRISTIN BECKER Vaginal LUPE Prep Vaginal LUPE Prep 20462 00 5 KRISTIN BECKER [facility] Screening papanicolaou smear; obtaining, preparing and conveyance of cervical or vaginal smear to laboratory 5 KRISTIN BECKER Cervical Pap Smear Cervical Pap Smear 61881 5 KRISTIN BECKER Social History Combined list of available smoking, tobacco, and other social history from Department of Defense and Veterans Affairs facilities. Social History Type Response Date Comment Sour e This section is an empty social history section. DoD
--- OUTSIDE RECORDS SUMMARY | 2024-06-16 05:53 | XMS_ITS | Continuity of Care Document ---
Author Organization [facility] Address [address] [facility] [address] [place], [place] Phone [phone] Care Team Providers Care Leaf Binner Name Role Phone Kelly Whatley MD Care Team Information Tableau Administrator U navailable STACEY AGRAWAL M.D. Care Team [...] Provider Date Freestyle Esteban 2/Sensor/Flash Glucose Monitoring [id number] Misc uad to monitor bs 4-6x a day 2units E16.1 Stacey Agrawal M.D. 07/09/2021 Dicyclomine DCL57ic Capsules 2 tablets up to four times a day Kelly Whatley MD Bupropion Hydrochloride ER (XL)300mg Tablets ER 24HR Daily Unknown Xanax0.5mg Tablets prn Unknown 0 Zyrtec Cgbwbdw72qy Tablets Every night Unknown [id number] Tablets Martha Whatley se, MD Vitamin D (Ergocalciferol)1.25mg (28898 Ut) Capsules Wing Morris MD Multivitamin Ca+380mg/L3239pk x1/d Unknown Mirena (52 MG)20mcg/24HR IUD Unknown History Medications Dexcom G6 TransmitterMisc use as directed daily to send glucose values to cook restaurant. change every 3 months 1units E16.1 Stacey Agrawal M.D. 08/15/2021 - 02/04/2022 Dexcom G6 SensorMisc use 1 sensor q10d 3units E16.1 Stacey Agrawal M.D. 08/15/2021 - 02/04/2022 Dexcom G6 ReceiverDevice use daily to recieve sugar data from sensor 1units E16.1 Stacey Agrawal M.D. 08/15/2021 - 02/04/2022 Rwgpliaj12ef Tablets 1 tab by mouth three times a day before meals 270tabs E16.1 Stacey Agrawal M.D. 07/24/2021 - 08/20/2022 Aetqrbdz98lt Tablets 1 tab by mouth three times a day before meals 90tabs E16.1 Stacey Agrawal M.D. 06/11/2021 - 07/24/2021
== END 2024-06-11 08:11 | disposition home or self-care (01) ==
LOC: HO.LNP 08:10
PROVIDERS: PCP Nurse Practitioner Family; Visit Provider Obstetrics & Gynecology
DX: Z30.433 Encounter for removal and reinsertion of intrauterine contraceptive device (principal)
CPT/HCPCS: 58300; 58301; 87491; 87591; J7298

== ENCOUNTER 2024-07-29 08:34 | Outpatient (REF) | payer OTHER, SELFPAY ==
--- NOTE | ~2024-07-29 | US_ITS ---
EXAMINATION: US THYROID CLINICAL INFORMATION: Junie disease. 39-year-old female. COMPARISON: 12/31/2023. 09/24/2023. TECHNIQUE: Linear transducer grayscale and color Doppler examination with attention to the region of the thyroid. Imaging of bilateral neck lymph nodes were also obtained. FINDINGS: SIZE: Measurements of the thyroid lobes and nodules are given in sagittal, anteroposterior and transverse dimensions respectively. Right Thyroid Lobe: 5.8 x 1.9 x 2.0 cm, volume 11.2 mL. (Previously 10.3 mL) Parenchyma: The gland echotexture is heterogeneous. Thyroid vascularity is increased. Left Thyroid Lobe: 4.8 x 2.0 x 2.4 cm, volume 11.9 mL. (Previously 7.8 mL) Parenchyma: The gland echotexture is heterogeneous. Thyroid vascularity is increased. Isthmus: 0.46 cm in maximum AP dimension. (Previously the same). There are no focal nodules. NODES: -In the bilateral anterior cervical chains, there are several prominent but nonpathologic appearing lymph nodes, which are likely reactive in nature. These maintain normal eron morphology with preserved fatty dwight. None measure over 1.0 cm in short axis. Largest node is a left level 1B measuring 0.9 x 0.6 x 0.9 cm, with reactive appearance. -Unchanged to slightly smaller 6 mm reniform nodule just inferior to the right thyroid lobe, highly suggestive of a normal lymph node. US/US thyroid IMPRESSION: 1. Mildly enlarged, diffusely heterogeneous and hypervascular thyroid gland in keeping with thyroiditis. 2. There are no discrete nodules identified. 3. There is no evidence of pathologically-appearing or enlarged cervical lymphadenopathy. Lymph nodes visualized appear reactive in nature. Electronically signed by: Neno Engle MD 07/30/2024 02:57 PM [facility]
== END 2024-07-29 08:35 | disposition home or self-care (01) ==
LOC: HO.HMGCX 08:34
PROVIDERS: PCP Nurse Practitioner Family; Visit Provider Student in an Organized Health Care Education/Training Program
DX: R22.1 Localized swelling, mass and lump, neck (principal)
CPT/HCPCS: 76536

== ENCOUNTER 2024-08-19 08:20 | Outpatient (AMB) | payer OTHER, SELFPAY ==
[2024-08-19 08:21] VITALS: BP 100/58; PULSE 77; O2SAT 97; BMI 26.1
--- NOTE | 2024-08-19 08:21 | A.OFFVIS_ITS ---
Vital Signs 08/19/24 08:21 Height 5 ft 5 in Weight 156 lb 11.979 oz BMI 26.1 BP 100/58 L Blood Pressure Location Lt brachial Position Sitting Pulse 77 Pulse Source Pulse Oximeter Pulse Oximetry (%) 97 Oxygen Delivery Method Room Air Intake Visit Reasons: Mass of right side of the neck Intake Note: Patient present today for Mass of right side of the neck. 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 HPI from prior visit Thyroid ultrasound on 09/24/2023 revealed no focal thyroid nodules, showed heterogeneous gland echotexture, however she was also noted to have a 7 X 4 X 6 mm hypoechoic lesion inferior to the right thyroid lobe concerning for possible parathyroid adenoma or lymph node. Findings were redemonstrated on head and neck ultrasound done in 12/25/2023. TSH and free T4 were normal from 01/27. Her PTH from 01/27 was noted to be elevated at 99.5 pg/mL, with normal ionized calcium of 5. She has never had abnormal calcium levels. She was asked to repeat labs in [facility] 01/28/24 Vit D 22.4 ng/ml Jules 9.4 mg/dl Albumin 4.3 g/dl PTH intact 32 pg/ml Has hx of kidney stomes in the past demonstrated on CT abdomen with a 2 mm right renal calculus in May 2022, though this was not seen on a recent ultrasound retroperitoneum done in 01/24/2024 Has interstitial cystitis, so has hematuria follows with urology History of pelvic fractures 12 years ago : was in the had a fracture with wide stride , no surgical intervention, Had a bone density at that time but this was in doesnt have results Shoulder and ankle fractures 1.5 years ago needed surgery Symptoms of hypercalcemia: endorses constipation does have IBS diet helps , abdominal pain, polyuria but has interstial cystitis, endorses muscle aches , feels very tired but has insomnia Endorses cold intolerance. Endorses intermittent palpitations but endorses anxiety. Stable weight . Sometimes has choking sensation, other times have been having difficulty swallowing. No hoarseness . Not on vitamin D or Calcium supplements Vitamin D caused a lot of nausea in the past with supplementation. Interval history US neck Jul 2024 : showed stable size and normal appearance of the 6 mm lymphnode located posterior to the right thyroid lobe. Other normal lymph nodes noted. Bone density Mar 2024: also normal with Z scores within range. 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 Never smoker Alcohol : occasionally such as holidays No drug use Physical exam General: sitting comfortably in bed in no acute distress HEENT: normocephalic/atraumatic, moist oral mucosa Neck: supple, symmetrical, no thyromegaly , palpable 0.5 cm left level 2B lymph node Cardiac: normal heart sounds Pulm: normal breath sounds B/L, no added breath sounds Abd: not distended, no tenderness Extremities: no edema, no signs of myxedema Neuro: AAO x3, Speech: normal, no facial droop, moving all 4 extremities Skin: no rash Laboratory Tests 07/21/20 01/07/21 05/26/21 11:57 16:07 12:24 Creatinine Calcium 8.7 9.6 D 9.6 Ionized Calcium Albumin TSH Free T4 Free T3 PTH Intact Thyroid Peroxidase Ab TSH Receptor Ab 05/10/22 11/18/22 12/24/22 15:44 09:52 08:31 Creatinine Calcium 9.0 D 9.3 9.5 Ionized Calcium Albumin 4.1 4.0 TSH Free T4 Free T3 PTH Intact Thyroid Peroxidase Ab TSH Receptor Ab 02/17/23 09/13/23 01/22/24 10:11 08:24 07:04 Creatinine 0.85 Calcium 9.3 9.4 Ionized Calcium 5.0 Albumin 4.0 3.9 TSH 0.24 L 0.73 Free T4 1.09 Free T3 2.7 PTH Intact 99.5 H Thyroid Peroxidase Ab 504 H TSH Receptor Ab 1.03 Lab results from [facility] 01/28/2024 Calcium: 9.4 mg/dL Albumin 4.3 gram/deciliter PTH 32 pg/mL Vitamin-D 22.4 ng/mL Thyroid US 09/24/23 COMPARISON: CTA neck 11/18/2022. TECHNIQUE: Linear transducer grayscale and color Doppler examination with attention to the region of the thyroid. FINDINGS: SIZE: Measurements of the thyroid lobes and nodules are given in sagittal, anteroposterior and transverse dimensions respectively. Right Thyroid Lobe: 5.5 x 1.8 x 2.0 cm, volume 10.3 mL. Parenchyma: The gland echotexture is heterogeneous. Thyroid vascularity is increased. Left Thyroid Lobe: 4.7 x 1.4 x 2.2 cm, volume 7.8 mL. Parenchyma: The gland echotexture is heterogeneous. Thyroid vascularity is increased. There is a lobulated appearance of the left thyroid lobe, nonspecific. Isthmus: 0.5 cm in maximum AP dimension. No focal thyroid nodule is seen. NODES: No lymphadenopathy is seen in the tissue surrounding the thyroid gland. ADDITIONAL FINDINGS: Inferior to the right thyroid lobe is a 0.7 x 0.4 x 0.6 cm hypoechoic focus, nonspecific. US/US thyroid IMPRESSION: 1. Normal-sized thyroid gland which demonstrates heterogeneous echotexture and increased vascularity. No discrete thyroid nodules visualized. Inferior to the right thyroid lobe is a 0.7 x 0.4 x 0.6 cm hypoechoic focus. This is a nonspecific finding. This may represent a small lymph node or possibly parathyroid. Clinical correlation recommended. Follow-up imaging can be obtained as clinically indicated. Ultrasound soft tissue neck 12/29/2023 FINDINGS: Inferior to the right thyroid gland, a 7 x 4 x 7 mm hypoechoic, circumscribed nodule is seen. This shows mild associated color Doppler flow, possibly a vascular hilum. Prior ultrasound dimensions were 7 x 4 x 6 mm. US/US soft tiss head and/or neck IMPRESSION: There is a continued stable hypoechoic nodule inferior to the right thyroid lobe, possibly a small lymph node or a parathyroid gland. Continued clinical concern, consider further evaluation with serum parathormone and calcium levels. US retroperitoneum 01/14/2024 IMPRESSION: Normal renal and bladder ultrasound. Previously seen right renal calculus is not visible on the current study. Ct abdomen 05/2022 KIDNEYS AND URETERS: Right kidney: 2 mm stone mid pole right kidney. There is no stone in the left kidney. No ureteral calculi. No hydronephrosis. US THYROID 07/29/24 CLINICAL INFORMATION: Junie disease. 39-year-old female. COMPARISON: 12/31/2023. 09/24/2023. TECHNIQUE: Linear transducer grayscale and color Doppler examination with attention to the region of the thyroid. Imaging of bilateral neck lymph nodes were also obtained. FINDINGS: SIZE: Measurements of the thyroid lobes and nodules are given in sagittal, anteroposterior and transverse dimensions respectively. Right Thyroid Lobe: 5.8 x 1.9 x 2.0 cm, volume 11.2 mL. (Previously 10.3 mL) Parenchyma: The gland echotexture is heterogeneous. Thyroid vascularity is increased. Left Thyroid Lobe: 4.8 x 2.0 x 2.4 cm, volume 11.9 mL. (Previously 7.8 mL) Parenchyma: The gland echotexture is heterogeneous. Thyroid vascularity is increased. Isthmus: 0.46 cm in maximum AP dimension. (Previously the same). There are no focal nodules. NODES: -In the bilateral anterior cervical chains, there are several prominent but nonpathologic appearing lymph nodes, which are likely reactive in nature. These maintain normal eron morphology with preserved fatty dwight. None measure over 1.0 cm in short axis. Largest node is a left level 1B measuring 0.9 x 0.6 x 0.9 cm, with reactive appearance. -Unchanged to slightly smaller 6 mm reniform nodule just inferior to the right thyroid lobe, highly suggestive of a normal lymph node. US/US thyroid IMPRESSION: 1. Mildly enlarged, diffusely heterogeneous and hypervascular thyroid gland in keeping with thyroiditis. 2. There are no discrete nodules identified. 3. There is no evidence of pathologically-appearing or enlarged cervical lymphadenopathy. Lymph nodes visualized appear reactive in nature. Electronically signed by: Neno Engle MD 07/30/2024 02:57 PM [facility] BONE DENSITOMETRY 03/30 CLINICAL INDICATION: Personal history of (healed) osteoporosis fracture. COMPARISON: This is the patient's baseline examination. TECHNIQUE: Using a [employer] DXA System (software version: 13.1) manufactured by [employer], dual-energy x-ray absorptiometry was performed of the lumbar spine, left hip and left forearm radius 33%. The images are of good technical quality. Based on ISCD (International Society for Clinical Densitometry) standards of reporting, Z-scores instead of T-scores are reported in this premenopausal woman. Summary results are attached. FINDINGS: AP SPINE L1-L4: BMD 1.354 g/cm2, T-score 1.4, Z-score 1.3, Z-score within expected range for age. LEFT FEMUR, NECK: BMD 0.965 g/cm2, T-score -0.5, Z-score -0.1, Z-score within expected range for age. LEFT FEMUR, TOTAL: BMD 0.988 g/cm2, T-score -0.2, Z-score 0.0, Z-score within expected range for age. LEFT FOREARM RADIUS 33%: BMD 0.862 g/cm2, T-score -0.2, Z-score -0.2, Z-score within expected range for age. IDENTIFIED RISK FACTORS: None listed. HISTORY OF FRACTURE: None listed. MEDICATIONS: Vitamin D. MM/XR DEXA appendicular skeleton IMPRESSION: 1. DIAGNOSIS: Based on the lowest Z-score value of -0.2 in the left forearm radius 33%, the patient's bone density is within the expected range for age. 2. 10-YEAR FRACTURE RISK PREDICTION, FRAX: Not performed in this perimenopausal patient. [facility] Medical History ASCUS of cervix with negative high risk HPV Mass of right side of neck History of healed fragility fracture 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 Renal calculi Positive ISAAK (antinuclear antibody) Chronic fatigue Endometriosis Fibromyalgia Interstitial cystitis Surgical History H/O shoulder surgery History of ankle surgery H/O abdominoplasty Family History Father Diabetes Maternal Grandfather Hypertension Maternal Grandmother Hypertension Other Substance use disorder Social History Housing: House Alcohol intake: current Alcohol intake frequency: holidays/special occasions only Patient Tobacco Use Status: Never used Tobacco e-Cigarette/Vaping Use: Never Used Current occupational status: employed 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 She describes she had a bone density scan at that time but she was in the , she does not have those records. She has had elevated PTH level 99 in January 2024 at our lab, repeat labs done [facility] in January 27 noted normal calcium, albumin, PTH levels. Vitamin-D was noted to be low at 22.4 ng/mL. DEXA scan done March 2024 was normal. She also has prior history of kidney stones though not recently. She has been on vitamin D 1000 units daily 3 to 4 times a week since fall 2023. At this time we will repeat labs to check her vitamin-D, PTH and other metabolic bone labs. Plan: -continue vitamin-D 1000 units daily -ordered blood work with calcium, albumin, ionized calcium, PTH, kidney function, vitamin-D level, magnesium and phosphorus -advised to take calcium rich foods 2-3 servings daily to allow for 1000 mg per day -150 minutes of exercise per week advised -if blood work is abnormal with plan to follow up in 4 weeks to discuss results, if blood work comes back normal I will cancel her appointment (2) Mass of right side of neck: Code(s): R22.1 - Localized swelling, mass and lump, neck Category: Medical Plan: Patient found to have right posterior thyroid neck lesion measuring about 7 mm in December 28. She has normal thyroid function testing. The masses hypoechoic with some vascularity located posterior to the right thyroid lobe. Likely this is a lymph node.. Other differential could be parathyroid adenoma. She was initially noted to have elevated PTH level on her lab testing but repeat lab testing at [facility] showed normal PTH level of 32 pg/mL from January 27, with normal calcium levels. Her ionized calcium levels are also normal. Vitamin-D level is low at 22.9. Parathyroid glands can enlarge in the setting of vitamin- D deficiency. She has no history of head or neck radiation, no family history of thyroid cancer, nonsmoker. All of these reduce the likelihood of malignancy. Most recent thyroid ultrasound done in July 2024 identified normal bilateral neck lymph nodes which look like reactive lymph nodes. At this time we followed these lymph nodes since 1.5 years, with no concerning/significant change, these are normal-appearing reactive lymph nodes, no need for further imaging unless patient has any clinical changes. (3) Elevated parathyroid hormone: Code(s): R79.89 - Other specified abnormal findings of blood chemistry Category: Medical Plan: See above Plan See above. Orders: Orders Albumin Level Today Z87.310 - Personal history of (healed) osteoporosis fracture Vitamin D 25-OH Total Today R79.89 - Other specified abnormal findings of blood chemistry, Z87.310 - Personal history of (healed) osteoporosis fracture Parathyroid Hormone Intact Today R79.89 - Other specified abnormal findings of blood chemistry, Z87.310 - Personal history of (healed) osteoporosis fracture Phosphorus Today Z87.310 - Personal history of (healed) osteoporosis fracture Basic Metabolic Panel Today Z87.310 - Personal history of (healed) osteoporosis fracture Calcium, Ionized Today R79.89 - Other specified abnormal findings of blood chemistry, Z87.310 - Personal history of (healed) osteoporosis fracture Calcium Today R79.89 - Other specified abnormal findings of blood chemistry, Z87.310 - Personal history of (healed) osteoporosis fracture Magnesium Today Z87.310 - Personal history of (healed) osteoporosis fracture TSH reflex Free T4 Today R79.89 - Other specified abnormal findings of blood chemistry Patient Instructions: Do blood work , we will reach out with results on the portal Follow up in 4 weeks , if blood work is normal we will cancel this appointment Continue vitamin D 1000 units daily continue to maintain 1000 mg of calcium in diet by taking 2-3 servings of calcium rich foods daily Walk/run 30 mins 5 days a week plus 2-3 days of strength training Coding Level of Care Code Est Pt Level 3 (34712) Diagnoses History of healed fragility fracture Z87.310 Mass of right side of neck R22.1 Elevated parathyroid hormone R79.89
--- OUTSIDE RECORDS SUMMARY | 2024-08-19 08:27 | XMS_ITS | Continuity of Care Document ---
Author Organization [facility] Address [address] [facility] [address] [place], [place] Phone [phone] Care Team Providers Care Mine Deputy Name Role Phone Kelly Whatley MD Care Team Information Human Resources Compensation Analyst U navailable STACEY AGRAWAL M.D. Care Team [...] Provider Date Freestyle Esteban 2/Sensor/Flash Glucose Monitoring [id number] Misc uad to monitor bs 4-6x a day 2units E16.1 Stacey Agrawal M.D. 07/09/2021 Dicyclomine [id number] Capsules 2 tablets up to four times a day Kelly Whatley MD Bupropion Hydrochloride ER (XL)300mg Tablets ER 24HR Daily Unknown Xanax0.5mg Tablets prn Unknown 0 Zyrtec Grqpvvh96dp Tablets Every night Unknown Sbarryc088yk Tablets Martha Whatley se, MD Vitamin D (Ergocalciferol)1.25mg (72305 Ut) Capsules Wing Morris MD Multivitamin Ca+380mg/A3228no x1/d Unknown Mirena (52 MG)20mcg/24HR IUD Unknown History Medications Dexcom G6 TransmitterMisc use as directed daily to send glucose values to business services officer. change every 3 months 1units E16.1 Stacey Agrawal M.D. 08/15/2021 - 02/04/2022 Dexcom G6 SensorMisc use 1 sensor q10d 3units E16.1 Stacey Agrawal M.D. 08/15/2021 - 02/04/2022 Dexcom G6 ReceiverDevice use daily to recieve sugar data from sensor 1units E16.1 Stacey Agrawal M.D. 08/15/2021 - 02/04/2022 Qxzdcrkr46am Tablets 1 tab by mouth three times a day before meals 270tabs E16.1 Stacey Agrawal M.D. 07/24/2021 - 08/20/2022 Qvcpqhmf56hi Tablets 1 tab by mouth three times a day before meals 90tabs E16.1 Stacey Agrawal M.D. 06/11/2021 - 07/24/2021
--- OUTSIDE RECORDS SUMMARY | 2024-08-19 08:27 | XMS_ITS | Continuity of Care Document ---
Author Name DOD-OR Organization DOD-OR Care Team Providers Care Autocad Operator Name Role Phone DOD-[facility] Unavailable Unavailable Problems [...] DoD candidiasis oral thrush Inactive Condition meds [id number] up with pcm prn DoD skin abscess [...] exam with cervical pap smear Inactive Condition [facility] Gynecologic Services Contraceptive Management Active Condition DoD Inquiry And Counseling: Contraceptive Practices Inactive Condition DoD Patient Education - Proper Use Of Medications Inactive Condition [facility] visit for: issue repeat prescription for medication [...] Drug allergy (disorder ) Unknown active 4 [place], [place] IMITREX Drug allergy (disorder ) Unknown active 8 [facility] TETRACYCLINE (TETRACYCLINE ) Drug allergy (disorder ) Unknown active 4 [place] TRAZODONE (TRAZODONE HCL) Drug allergy (disorder ) Unknown active 8 [facility] Immunizations Combined list of available immunizations from the Department of Defense and Veterans Affairs facilities. 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 (CSL) complet ed Influenza , seasonal, injectabl e, preservat marilu free DoD hepatitis A vaccine, adult dosage 2 2014 [id number] Other (OTH) complet ed hepatitis A vaccine, adult dosage DoD Influenza, seasonal, injectable, preservative free 1 2013 UNK 140 [employer]Net[employer] Inc[employer] (CSL) complet ed Influenza , seasonal, injectabl e, preservat marilu free DoD tetanus toxoid, reduced diphtheria toxoid, and acellular pertu is vaccine, adsorbed 1 2013 [id number] 115 Sanofi Pasteur ([facility]) complet ed tetanus toxoid, reduced diphtheri a toxoid, and acellular pertussis vaccine, adsorbed DoD Influenza, seasonal, injectable, preservative free 1 2013 [id number] 140 MedIReppler[employer] Inc. (MED) complet ed Influenza , seasonal, injectabl e, preservat marilu free DoD tetanus toxoid, reduced diphtheria toxoid, and acellular pertu is vaccine, adsorbed 1 2013 [id number] 0CA 115 [employer] (SKB) complet ed tetanus toxoid, reduced diphtheri a toxoid, and acellular pertussis vaccine, adsorbed DoD Influenza, seasonal, injectable, preservative free 1 2012 [id number] 140 Ac[employer] Inc. (MED) complet ed Influenza , seasonal, injectabl e, preservat marilu free DoD poliovirus vaccine, inactivated 1 2011 [id number] 10 Sanofi Pasteur ([facility]) complet ed polioviru s vaccine, inactivat ed DoD hepatitis A vaccine, adult dosage 1 2011 [id number] 52 [employer] (SKB) complet ed hepatitis A vaccine, adult dosage DoD influenza virus vaccine, live, attenuated, for intranasal use 1 2011 [id number] 111 Med[employer]Reppler[employer] Inc. (MED) complet ed influenza virus vaccine, live, attenuate d, for intranasa l use DoD meningococcal polysaccharid e (groups A, C, Y and W-135) diphtheria toxoid conjugate vaccine (MCV4P) 1 2011 [id number] 114 Sanofi Pasteur (P[facility]) complet ed meningoco ccal polysacch aride (groups A, C, Y and W-135) diphtheri a toxoid conjugate vaccine (MCV4P) DoD tetanus toxoid, reduced diphtheria toxoid, and acellular pertu is vaccine, adsorbed 1 2011 [id number] 115 [employer]X [employer]ine (SKB) complet ed tetanus toxoid, reduced diphtheri a toxoid, and acellular pertussis vaccine, adsorbed DoD Adenovirus, type 4 and type 7, live, oral 1 [id number] [place] [address] (BRR) complet ed Adenoviru s, type 4 [...] derivative solution, intradermal 1 2011 Unknown, Provider [id number] Sanofi Pasteur ([facility]) complet ed tuberculi n skin test; purified protein derivativ e solution, intraderm al DoD Influenza, seasonal, injectable, preservative free 0 2010 140 Sanofi Pasteur ([facility]) complet ed Influenza , seasonal, injectabl e, preservat marilu free DoD influenza virus vaccine, split virus (incl. purified surface antigen)-reti red CODE 1 2007 JULITO RICHTER [id number] 15 [place] PASTEUR ([facility]) complet ed influenza virus vaccine, split virus (incl. purified surface antigen)- retired CODE DoD influenza virus vaccine, split virus (incl. purified surface antigen)-reti red CODE 1 2004 Unknown, Provider [id number] 15 Sanofi Pasteur ([facility]) complet ed influenza virus vaccine, split virus (incl. purified surface antigen)- retired CODE DoD measles, mumps and rubella virus vaccine 1 2004 Unknown, Provider [id number] 03 Merck (MSD) complet ed measles, mumps and rubella virus vaccine DoD Encounters Combined list of: 1) Encounters from Department of Veterans Affairs facilities going backup to the last 18 months, not all VA inpatient encounters are included; 2) Encounters from the Department of Defense facilities going backup to 280 months. Location Location Details Encounter Type Encounter Number Reason For Visit Attending Provider ADM Date DC Date Status Disposition [place] [facility] [place] OUTPATIENT [id number] wants referra l for urologi [facility] [place] [facility] [place] [id number] KRISTIN VASQUEZ 09/28 Released w/o Limitations [facility] [place]) [facility] [place] TELE CONSULT [id number] PEDRO PABLO OSBORN Shahla 11/08 [facility] [employer] [place] [place] [facility] [place] [id number] ALLERGI ES KRISTIN BECKER 11/13 Released w/o Limitations [facility] [employer] [place] [facility] [place] [id number] WELL WOMAN EXAM KRISTIN BECKER 11/28 Released w/o Limitations [facility] [place] [facility] [place]LE CONS[place] [id number] CHESTER JONES 12/11 [facility] [place] [place] [id number] painful urinati on(walk in appt for 1800) MELINDA KERNS 04/24 Released w/o Limitations [facility] [employer] [place] [place] [facility] [place] OUTPATIENT [id number] immuniz ation BLAKE HUYNH 04/29 Released w/o Limitations [facility] [employer] [place] [place] [facility] [place] [id number] REQ REF TO UROLOGY KRISTIN BECKER 06/03 Released w/o Limitations [facility] [employer] [place] [facility] [place] [id number] COUGH MEKA VALLES 06/17 Released w/o Limitations [facility] [employer] [place] [place] [facility] [place] [id number] VAG DISCHAR GE AND ODOR KRISTIN BECKER 07/10 Released w/o Limitations [facility] [employer] [place] [place] [facility] [place] TELE CONSULT [id number] MOE LORI 07/23 [facility] [place] [facility] [place] [id number] RASH IN PRIVATE AREA FIOR QUEEN SURYA 12/03 Released w/o Limitations [facility] [employer] [place] [place] [facility] [place] TELE CONSULT [id number] FIOR QUEEN 12/09 [facility] [place] [facility] [place] TELE CONSULT [id number] MED REFILL LORI ROSA 01/08 [facility] [employer] [place] [place] [facility] [place] [id number] RASH UNDER ARM CARRIE WELLER 02/28 Released w/o Limitations [facility] [employer] [place] [place] [facility] [place] [id number] R/O FRANCOISE JUÁREZ 04/28 Released w/o Limitations [facility] [employer] [place] [place] [facility] [place]Except [place] Family [place] OUTPATIENT [id number] [facility] enrollm ent ASHIA BESS A 02/05 Released w/o Limitations [facility] [employer]Ex[place] [facility] [place] [facility]) OUTPATIENT [id number] BOTD/IR R VAG BLEEDIN G/PAIN X3WK PAPADOPOUL OS, HAI B 11/24 Released w/o Limitations [facility]-David [facility] [place] [facility]) [facility] Olympic Team) OUTPATIENT [id number] fu migrain and allergy meds ANGELIQUE WARREN 12/08 Released w/o Limitations [facility] Team) [facility]Connie [facility](Uro logy) OUTPATIENT [id number] Interst itial Cystiti s/ufl/b s/void log-nee ds SPEC appt. TAMIA PINEDA 12/23 Released w/o Limitations [facility](U rology) [facility]nie [facility](Uro logy) OUTPATIENT [id number] LENARD Pineda 01/12 Released w/o Limitations [facility](U rology) [facility](Nanoscience Technician ecology Clinic) OUTPATIENT [id number] metorrh LIMA Grimm 01/25 Released w/o Limitations [facility](G ynecolo gy Clinic) [facility] Olympic Team) OUTPATIENT [id number] f/u ANGELIQUE WARREN 01/27 Released w/o Limitations [facility] Olympic Team) [facility](Nanoscience Technician ecology Clinic) OUTPATIENT [id number] 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) PER LIMA MEDINA 02/02 Released w/o Limitations [facility](G ynecolo gy Clinic) [facility](Nanoscience Technician ecology Clinic) OUTPATIENT [id number] LIMA BLAIR 02/17 Released w/o Limitations [facility](G ynecolo gy Clinic) [facility](Uro logy) OUTPATIENT [id number] LENARD Maldonado 03/23 Released w/o Limitations [facility](U rology) [facility] Olympic Team) OUTPATIENT [id number] depress ion and anxiety x ROSIO Stroud 04/12 Released w/o Limitations [facility] Olympic Team) [facility] Olympic Team) OUTPATIENT [id number] f/u DEPRESS ION ROSIO CARBAJAL [place] 06/01 Released w/o Limitations [facility]-For lazara Peñaloza([facility] Olympic Team) [facility] Olympic Team) OUTPATIENT [id number] 23yo f/u on sleep issues ROSIO CARBAJAL [place] 07/28 Released w/o Limitations [facility]-For lazara Peñaloza([facility] Olympic Team) [facility]Connie Pe[facility](Nanoscience Technician ecology Clinic) OUTPATIENT [id number] iud removal MIKE REES 12/05 Released w/o Limitations [facility]-For lazara Peñaloza(G ynecolo gy Clinic) [facility] Post Immunizat ion) OUTPATIENT [id number] Notes Entered by: XAVIER TOMAS 21 Apr 2012 0626 ------- ------- ------- ------- -- IET PPD ELIAS MCCARTHY 04/21 Released w/o Limitations [employer]([facility] Post Immuniz ation) [employer]([facility] -Trainee) OUTPATIENT [id number] FITO SMITH 04/22 Released w/o Limitations [facility](P ES Optomet ry-Lewis serjioe) [facility] Physical Therapy) TELE CONSULT [id number] Notes Entered by: ANGELIQUE VUONG 20 May 2012 0751 ------- ------- ------- ------- -- med refANGELIQUE Magdaleno 05/20 [employer]([facility] Physica l Therapy ) [employer]([facility] [place] Athlete Perform) OUTPATIENT [id number] Notes Entered by: SMILEY COTO 20 May 2012 1423 ------- ------- ------- ------- -- Manjit ankle TONY COTO 05/20 Released with Work/Duty Limitations [employer]([facility] [place] Athlete Perform ) [employer]([facility] [place] Athlete Perform) OUTPATIENT [id number] Notes Entered by: SMILEY COTO 21 May 2012 1514 ------- ------- ------- ------- -- Left Ankle TONY COTO 05/21 Released with Work/Duty Limitations [facility] [place] Athlete Perform ) [facility] [place] Athlete Perform) OUTPATIENT [id number] Notes Entered by: SMILEY COTO 22 May 2012 1247 ------- ------- ------- ------- -- L ankle TONY COTO 05/22 Released with Work/Duty Limitations [employer]([facility] [place] Athlete Perform ) [facility] Physical Therapy BAS) TELE CONSULT [id number] Notes Entered by: Aristeo BEGUM 26 May 2012 0550 ------- ------- ------- ------- -- REF-- ATC imaging DAYANARA DANIELS 05/26 Medical Group(T [facility] Physica l Therapy BAS) [facility] Ambulator y) OUTPATIENT [id number] Notes Entered by: JESUS SALCEDO 26 May 2012 0824 ------- ------- ------- ------- -- ORTHO FELIPE CADENA 05/26 Released with Work/Duty Limitations [facility]( MC Ambulat ory) [facility] Physical Therapy) OUTPATIENT [id number] Notes Entered by: TWAN ELLIS 26 May 2012 1444 ------- ------- ------- ------- -- Ankle - Initial (ref: Soljamey) CHARISMA ELLIS 05/26 Released with Work/Duty Limitations [facility](T [facility] Physica l Therapy ) [facility] [place] Athlete Perform) OUTPATIENT [id number] Notes Entered by: SMILEY COTO 26 May 2012 1530 ------- ------- ------- ------- -- L ankle TONY COTO 05/26 Immediate Referral [facility] Group([facility] [place] Athlete Perform ) [facility] Ambulator y) OUTPATIENT [id number] Notes Entered by: Amanda ELDRIDGE 08 Jun 2012 0759 ------- ------- ------- ------- -- LEFT GROIN PAIN YULIANA FAULKNER 06/08 Released with Work/Duty Limitations [facility] Ambulat ory) [facility] Ambulator y) OUTPATIENT [id number] Notes Entered by: HENRY FLEMING 09 Jun 2012 1308 ------- ------- ------- ------- -- f/u YULIANA FAULKNER 06/09 Immediate Referral [facility] Ambulat ory) [facility] Ambulator y) OUTPATIENT [id number] Notes Entered by: HENRY FLEMING 09 Jun 2012 1312 ------- ------- ------- ------- -- fran/ELIAS Thompson 06/09 Released w/o Limitations [facility] Ambulat ory) [facility] Physical Therapy BAS) OUTPATIENT [id number] Notes Entered by: Aristeo BEGUM 10 Jun 2012 0627 ------- ------- ------- ------- -- INITIAL -- GROIN/P ELVIC PAIN DAYANARA DANIELS 06/10 Released with Work/Duty Limitations [facility] Physica l Therapy BAS) [facility] Physical Therapy BAS) OUTPATIENT [id number] Notes Entered by: Aristeo BEGUM 11 Jun 2012 0600 ------- ------- ------- ------- -- F/U -- GROIN PAIN DAYANARA DANIELS 06/11 Released with Work/Duty Limitations [facility](T Physica l Therapy BAS) [facility] Ambulator y) OUTPATIENT [id number] Notes Entered by: Elaine FAULKNER 11 Jun 2012 0616 ------- ------- ------- ------- -- sore throat YULIANA FAULKNER 06/11 Sick at Home/Quarter s [facility] Ambulat ory) [facility] Ambulator y) OUTPATIENT [id number] MEME FINLEY 06/12 Released w/o Limitations [facility] Ambulat ory) [facility] Ambulator y) OUTPATIENT [id number] Notes Entered by: ALLEN SMITH 13 Jun 2012 1459 ------- ------- ------- ------- -- ORTHO NADIA GUAMAN 06/13 Released with Work/Duty Limitations [facility] Ambulat ory) [facility] Physical Therapy BAS) OUTPATIENT [id number] Notes Entered by: Aristeo BEGUM 19 Jun 2012 0837 ------- ------- ------- ------- -- F/U -- HIP PAIN DAYANARA DANIELS 06/19 Released with Work/Duty Limitations [facility] Physica l Therapy BAS) [facility]([address]) OUTPATIENT [id number] Notes Entered by: ARIS HERRERA 27 Aug 2012 0816 ------- ------- ------- ------- -- Rash on bilater al legs, behind knee for 3 days. MALAIKA STEIN 08/27 Released w/o Limitations [facility]([address]) [facility]([address]) OUTPATIENT [id number] Notes Entered by: JIMBO MOLINA 14 Oct 2012 1413 ------- ------- ------- ------- -- Self Care Knee pain JIMBO MOLINA 10/14 Released w/o Limitations [facility](C -1 Primary Care DC) [facility]([place] Athlete Performan ce) OUTPATIENT [id number] Notes Entered by: MARTINA STEIN 20 Oct 2012 0938 ------- ------- ------- ------- -- Thony saravia knee pain 12/14 GERSON STEIN 10/20 Released with Work/Duty Limitations [facility](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) [facility] Team B) OUTPATIENT [id number] LOD stress fx pelvis, left MADELINE TIRADO 12/22 Released w/o Limitations [facility] Team B) [facility] Team B) OUTPATIENT [id number] LOD Followu p referra saravia renewal s MADELINE TIRADO 09/15 Released with Work/Duty Limitations [facility] Team B) [facility] Team A) TELE CONSULT [id number] Notes Entered by: Amanda CROFT 26 Jul 2016 1212 ------- ------- ------- ------- -- Network Results LOD Referra manjit [facility] Jul 23 FAISAL HINES I 07/[address] [place] [address]([facility] Team A) Procedures Combined list of: 1) Procedures from Department of Veterans Affairs facilities going back up to thelast 18 months, not all VA non-surgical procedures are included; 2) All procedures from the Department of Defense facilities. Procedure Procedure Type Code Date Perfomer Comments [facility] e THERAPEUTIC PROCEDURE,1 OR MORE AREAS,EACH 15 MINUTES;NEUROMUSCULAR REEDUCATION OF MOVEMENT,BALANCE,COOR DINATION,KINESTHETIC SENSE,POSTURE,AND/OR PROPRIOCEPTION FOR SITTING AND/OR STANDING ACTIVITIES 2 [facility] PHYSICAL THERAPY RE-EVALUATION 2 [facility] THERAPEUTIC PROCEDURE,1 OR MORE AREAS,EACH 15 MINUTES;NEUROMUSCULAR REEDUCATION OF MOVEMENT,BALANCE,COOR DINATION,KINESTHETIC SENSE,POSTURE,AND/OR PROPRIOCEPTION FOR SITTING AND/OR STANDING ACTIVITIES 2 DoD APPLICATION OF A MODALITY TO 1 OR MORE AREAS; HOT OR COLD PACKS 2 DoD ANKLE ORTHOSIS, ANKLE GAUNTLET OR SIMILAR, WITH OR WITHOUT JOINTS, PREFABRICATED, [id number] 2 DoD ANKLE FOOT ORTHOSIS, MULTILIGAMENTOUS ANKLE SUPPORT, PREFABRICATED, [id number] 2 DoD STRAPPING; ANKLE AND/OR FOOT 2 [...] COST TO PHYSICIAN OR OTHER QUALIFIED HEALTH CERTIFIED CORPORATE TRAVEL EXECUTIVE 8 DoD MEASUREMENT OF POST-VOIDING RESIDUAL URINE AND/OR BLADDER CAPACITY BY ULTRASOUND, NON-IMAGING 8 DoD IMMUNIZATION ADMINISTRATION (INCLUDES PERCUTANEOUS, INTRADERMAL, SUBCUTANEOUS, OR INTRAMUSCULAR INJECTIONS); 1 VACCINE (SINGLE OR COMBINATION VACCINE/TOXOID) 5 DoD HEPATITIS B VACCINE (HEPB), ADULT DOSAGE, 3 DOSE SCHEDULE, FOR INTRAMUSCULAR USE 5 DoD URINALYSIS, BY DIP STICK OR TABLET REAGENT FOR BILIRUBIN, GLUCOSE, HEMOGLOBIN, KETONES, LEUKOCYTES, NITRITE, PH, PROTEIN, SPEC GRAVITY, UROBILINOGEN, ANY NUMBER OF CONSTITUENTS; W/O MICRO, NON-AUTO 5 DoD ALL POTASSIUM HYDROXIDE (LUPE) PREPARATIONS 5 DoD NONINVASIVE EAR OR PULSE OXIMETRY FOR OXYGEN SATURATION; SINGLE DETERMINATION 5 [facility] ANESTHESIA FOR VAGINAL PROCEDURES (INCLUDING BIOPSY OF LABIA, VAGINA, CERVIX OR ENDOMETRIUM); NOT OTHERWISE SPECIFIED 4 [facility] SCREENING PAPANICOLAOU SMEAR; OBTAINING, PREPARING AND CONVEYANCE OF CERVICAL OR VAGINAL SMEAR TO LABORATORY 4 [facility] APPLICATION OF A MODALITY TO 1 OR MORE AREAS; HOT OR COLD PACKS 3 [facility] Modalities Cryotherapy Cold Packs Modalities Cryotherapy Cold Packs 37541 3 ROSENDALEGERSON [facility] Athletic Training Evaluation Athletic Training Evaluation 55923 3 ROSENDALE [facility] Physical Therapy Neuromuscular Re-education Physical Therapy Neuromuscular Re-education 09059 2 DAYANARA DANIELS [facility] Physical Therapy Service Re-Evaluation Physical Therapy Service Re-Evaluation 88788 2 JEREMIAHDAYANARA ROLON [facility] Physical Therapy Service Re-Evaluation Physical Therapy Service Re-Evaluation 15004 2 DAYANARA DANIELS [facility] Physical Therapy Neuromuscular Re-education Physical Therapy Neuromuscular Re-education 77280 2 JEREMIAHDAYANARA ROLON [facility] Physical Therapy Service Evaluation Physical Therapy Service Evaluation 59069 2 DAYANARA DANIELS [facility] Modalities Cryotherapy Cold Packs Modalities Cryotherapy Cold Packs 33110 2 TONY COTO [facility] Athletic Training Re-evaluation Athletic Training Re-evaluation 83785 2 TONY COTO [facility] Ankle orthosis, ankle gauntlet or similar, with or without joints, prefabricated, [id number] 2 CHARISMA ELLIS [facility] Foot, arch support, removable, premolded, longitudinal, each 2 CHARISMA ELLIS [facility] Physician Supervised Ordering / Handling / Fitting Patient Devices Physician Supervised Ordering / Handling / Fitting Patient Devices 73957 2 CHARISMA ELLIS Physical Therapy Neuromuscular Re-education Physical Therapy Neuromuscular Re-education 45205 2 CHARISMA ELLIS [facility] Patient Counseling Medical Management Individual Patient Patient Counseling Medical Management Individual Patient 91487 2 CHARISMA ELLIS Physical Therapy Service Evaluation Physical Therapy Service Evaluation 17766 2 CHARISMA ELLIS Ankle foot orthosis, multiligamentous ankle support, prefabricated, [id number] 2 TONY COTO Taping Ankle Taping Ankle 58543 2 TONY COTO Modalities Cryotherapy Cold Packs Modalities Cryotherapy Cold Packs 31510 2 TONY COTO Physical Therapy Neuromuscular Re-education Physical Therapy Neuromuscular Re-education 68573 2 TONY COTO Taping Ankle Taping Ankle 30770 2 TONY COTO Modalities Cryotherapy Cold Packs Modalities Cryotherapy Cold Packs 77361 2 TONY COTO A isted Exercises For ROM Assisted Exercises For ROM 09231 2 TONY COTO Athletic Training Evaluation Athletic Training Evaluation 62403 2 TONY COTO Taping Ankle Taping Ankle 12732 2 TONY COTO Modalities Cryotherapy Cold Packs Modalities Cryotherapy Cold Packs 63857 2 TONY COTO isted Exercises For ROM Assisted Exercises For ROM 05307 2 TONY COTO Athletic Training Evaluation Athletic Training Evaluation 35061 2 TONY COTO Ophthalmological New Patient Start Intermediate Level Care Ophthalmological New Patient Start Intermediate Level Care 35567 2 MARY ELLEN ERAZO Spectacles Services Fitting Monofocal Except For Aphakia Spectacles Services Fitting Monofocal Except For Aphakia 45948 2 MARY ELLEN ERAZO Determination Of Refractive State Determination Of Refractive State 89294 2 MARY ELLEN ERAZO Skin Test Anergy Tuberculin Intradermal Skin Test Anergy Tuberculin Intradermal 65502 2 ELIAS MCCARTHY Immunization Administration By Injection, One Vaccine Immunization Administration By Injection, One Vaccine 75914 2 ELIAS MCCARTHY Screening papanicolaou smear; obtaining, preparing and conveyance of cervical or vaginal smear to laboratory 9 MIKE REES [facility] Intrauterine Device (IUD) Removal Gynecologic Services Intrauterine Device (IUD) Removal 90968 9 MIKE REES [facility] Influenza Split Virus Vaccine 0.5mL Dosage Intramuscular Preservative Free 8 ROSIO CARBAJAL [facility] Immunization Administration By Injection, One Vaccine Immunization Administration By Injection, One Vaccine 51411 8 ROSIO CARBAJAL [facility] Routine Urinalysis Without Microscopic Examination Routine Urinalysis Without Microscopic Examination 66882 8 OMID WINTER [facility] Diagnostic Cystoscopy Diagnostic Cystoscopy 42340 8 OMID WINTER [facility] Contraceptive IntraUterine Device (e.g., Progestacert IUD), including implants and supplies 8 LIMA VARMA [facility] Intrauterine Device (IUD) Insertion Gynecologic Services Intrauterine Device (IUD) Insertion 16761 8 LIMA VARMA Ultrasound Trans-Vaginal Ultrasound Trans-Vaginal 36700 8 LIMA VARMA Physician Supervised Services Provision Of Educational Supplies Physician Supervised Services Provision Of Educational Supplies 63868 8 LIMA VARMA Screening papanicolaou smear; obtaining, preparing and conveyance of cervical or vaginal smear to laboratory 8 LIMA VARMA Measuremt Post-Voiding Resid Urine, Bladder Capacity Ultrasd Measuremt Post-Voiding Resid Urine, Bladder Capacity Ultrasd 66301 8 TAMIA PINEDA Complex Bladder Flow Rate Studies Complex Bladder Flow Rate Studies 42839 8 TAMIA PINEDA Influenza Split Virus Vaccine 0.5mL Dosage Intramuscular 5 KRISTIN BECKER Immunization Administration By Injection, One Vaccine Immunization Administration By Injection, One Vaccine 63815 5 KRISTIN BECKER Hepatitis B Vaccine (Active) Adult Dosage 5 BLAKE HUYNH [facility] Routine Urinalysis Without Microscopic Examination Routine Urinalysis Without Microscopic Examination 17305 5 MELINDA KERNS Vaginal Wet Mount Smear Vaginal [place] Smear 45132 5 KRISTIN BECKER Vaginal LUPE Prep Vaginal LUPE Prep 77338 00 5 KRISTIN BECKER Screening papanicolaou smear; obtaining, preparing and conveyance of cervical or vaginal smear to laboratory 5 KRISTIN BECKER Cervical Pap Smear Cervical Pap Smear 46432 5 KRISTIN BECKER Social History Combined list of available smoking, tobacco, and other social history from Department of Defense and Veterans Affairs facilities. Social History Type Response Date Comment Sour e This section is an empty social history section. DoD
== END 2024-08-19 08:45 | disposition home or self-care (01) ==
PROVIDERS: PCP Nurse Practitioner Family; Visit Provider Student in an Organized Health Care Education/Training Program
DX: Z87.310 Personal history of (healed) osteoporosis fracture (principal); R22.1 Localized swelling, mass and lump, neck; R79.89 Other specified abnormal findings of blood chemistry
CPT/HCPCS: 99213

== ENCOUNTER → 2024-08-19 08:20 | Outpatient (BNVA) | payer OTHER, SELFPAY | PROVIDERS: PCP Nurse Practitioner Family; Visit Provider Student in an Organized Health Care Education/Training Program | DX: R22.1 Localized swelling, mass and lump, neck (principal); R79.89 Other specified abnormal findings of blood chemistry; Z87.310 Personal history of (healed) osteoporosis fracture | CPT/HCPCS: 99212 ==

== ENCOUNTER 2024-09-21 07:28 | Outpatient (AMB) | payer OTHER, SELFPAY ==
--- OUTSIDE RECORDS SUMMARY | 2024-09-21 07:30 | XMS_ITS ---
Continuity of Care Document (CCD) Created on: September 21, 2024 Sindhu Rolon External Reference #: [id number] : [id number] Sex: Female Author Organization [facility] Address [address] [facility] [address] [place], [place] Phone [phone] Care Team Providers Care Cutting Machine Operator Helper Name Role Phone Kelly Whatley MD Care Team Information Systems Mechanic U navailable STACEY AGRAWAL M.D. Care Team Information Rec eiver Unavailable Kelly Whatley MD Primary Care Physician Unavailab le Problems Active Problems Provider Date Reactive hypoglycemia Stacey Agrawal M.D. On set: 02/04/2022 Reactive hypoglycemia Stacey Agrawla M.D. On set: 09/24/2021 Junie thyroiditis Stacey [...] Provider Date Freestyle Esteban 2/Sensor/Flash Glucose Monitoring [id number] Misc uad to monitor bs 4-6x a day 2units E16.1 Stacey Agrawal M.D. 07/09/2021 Dicyclomine [id number] Capsules 2 tablets up to four times a day Kelly Whatley MD Bupropion Hydrochloride ER (XL)300mg Tablets ER 24HR Daily Unknown Xanax0.5mg Tablets prn Unknown 0 Zyrtec [id number] Tablets Every night Unknown [id number] Tablets Martha Whatley se, MD Vitamin D (Ergocalciferol)1.25mg (80407 Ut) Capsules Wing Morris MD Multivitamin Ca+380mg/R5360ey x1/d Unknown Mirena (52 MG)20mcg/24HR IUD Unknown History Medications Dexcom G6 TransmitterMisc use as directed daily to send glucose values to internet ecommerce specialist. change every 3 months 1units E16.1 Stacey Agrawal M.D. 08/15/2021 - 02/04/2022 Dexcom G6 SensorMisc use 1 sensor q10d 3units E16.1 Stacey Agrawal M.D. 08/15/2021 - 02/04/2022 Dexcom G6 ReceiverDevice use daily to recieve sugar data from sensor 1units E16.1 Stacey Agrawal M.D. 08/15/2021 - 02/04/2022 [id number] Tablets 1 tab by mouth three times a day before meals 270tabs E16.1 Stacey Agrawal M.D. 07/24/2021 - 08/20/2022 Uowxwpkt45yw Tablets 1 tab by mouth three times a day before meals 90tabs E16.1 Stacey Agrawla M.D. 06/11/2021 - 07/24/2021
--- NOTE | 2024-09-21 07:33 | A.OFFVIS_ITS ---
Vital Signs 09/21/24 07:38 Height 5 ft 5 in Weight 156 lb BMI 26.0 Intake Visit Reasons: IUD Check Visual Display Associate Required: No Information Interpreted: non-clinical & clinical Concrete Pile Driver Operator: Concrete Pile Driver Operator Present (Anneliese SANCHEZ) Accompanied by: Self / Same As Patient Allergies carbamazepine [From Tegretol] Allergy (Severe, Verified 09/21/24 07:39) Hives sumatriptan [From IMITREX] Allergy (Severe, Verified 09/21/24 07:39) HYPOTENSION, SYNCOPE Sulfa (Sulfonamide Antibiotics) Allergy (Unknown, Verified 09/21/24 07:39) Rash tetracycline [TETRACYCLINE] Allergy (Unknown, Verified 09/21/24 07:39) HIVES, Rash oxycodone Adverse Reaction (Verified 09/21/24 07:39) Vomiting Is last menstrual period known: No (mirena) HPI Comments Details: The patient is presenting for IUD check after 1 st period following IUD insertion. The patient has no complaints periods are normal, not painful, and flow is normal. [facility] Medical History ASCUS of cervix with negative high risk HPV Mass of right side of neck History of healed fragility fracture 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 Renal calculi Positive ISAAK (antinuclear antibody) Chronic fatigue Endometriosis Fibromyalgia Interstitial cystitis Surgical History H/O shoulder surgery History of ankle surgery H/O abdominoplasty Family History Father Diabetes Maternal Grandfather Hypertension Maternal Grandmother Hypertension Other Substance use disorder Social History Housing: House Alcohol intake: current Alcohol intake frequency: holidays/special occasions only Patient Tobacco Use Status: Never used Tobacco e-Cigarette/Vaping Use: Never Used Current occupational status: employed 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 Sexual orientation: Straight/Heterosexual Gender identity: Female Cognitive needs: No Hearing needs: No Vision needs: No Review of Systems Const All systems reviewed & are unremarkable except as noted in HPI and below Physical Exam Vital Signs: BMI result Body Mass Index 26.0 General: Yes no CVA tenderness External Female Exam: normal external appearance and normal appearance of the urethra Speculum Exam - Vagina: normal appearance of the vagina, normal palpation, no lesions and no masses Speculum Exam - Cervix: normal appearance of the cervix, normal palpation, no lesions, no masses, nontender and Other cervical findings present (IUD string in place) Bimanual exam- vagina & uterus: normal bimanual exam, normal palpation, uterine size normal, normal palpation, uterine shape normal, No Cervical tenderness present and non-tender Bimanual Exam- Adnexa, other: normal adnexae Back/Spine/Pelvis Back: no CVA tenderness Results AMB Test Urine AMB Test Urine Negative Last Edit by Anneliese Patel CMA on 07:43 Assessment & Plan Assessment & Plan (1) IUD check up: Code(s): Z30.431 - Encounter for routine checking of intrauterine contraceptive device Category: Medical Plan: UPT done in the office was negative. Discussed with the patient the finding on physical exam, IUD string in place, the patient was reassured. Instructions given to patient to call in case of temperature above 100.4, severe cr amping/pelvic pain, abnormal discharge or abnormal uterine bleeding or if she misses her menstrual cycle. Otherwise follow-up at her annual exam appointment. All questions answered, the patient verbalized understanding. Coding Level of Care Code Est Pt Level 3 (89896) Diagnoses IUD check up Z30.431
[2024-09-21 07:38] VITALS: BMI 26.0
== END 2024-09-21 07:43 | disposition home or self-care (01) ==
LOC: HO.HWS 07:28
PROVIDERS: PCP Nurse Practitioner Family; Visit Provider Obstetrics & Gynecology
DX: Z32.02 Encounter for pregnancy test, result negative (principal); Z30.431 Encounter for routine checking of intrauterine contraceptive device
CPT/HCPCS: 99213

== ENCOUNTER → 2024-09-21 07:28 | Outpatient (BNVA) | payer OTHER, SELFPAY | PROVIDERS: PCP Nurse Practitioner Family; Visit Provider Obstetrics & Gynecology | DX: Z30.431 Encounter for routine checking of intrauterine contraceptive device (principal) | CPT/HCPCS: 81025; 99212 ==

== ENCOUNTER 2025-02-13 18:00 | Emergency (ER) | payer OTHER, SELFPAY ==
[2025-02-13 18:04] VITALS: BP 130/84; PULSE 92; RESP 16; TEMP 36.4; O2SAT 100; BMI 27.5
--- NOTE | 2025-02-13 18:06 | ED.GENADULT ---
HPI - General Adult General Chief complaint: Urogenital-Female Stated complaint: unable to urinate Time Seen by Provider: 02/13/25 21:43 Source: patient Mode of arrival: ambulatory Limitations: no limitations History of Present Illness ED Provider: Dr. Areli Gallo HPI narrative: 39-year-old female with history of interstitial cystitis, ADHD, IUD in place presenting with urinary hesitancy, bladder pain, bilateral flank pain ongoing since (4 days ago). Patient states that she initially thought she might have a yeast infection so she used some Monistat which did not seem to help her symptoms at all. Now she is having severe pain in her bladder and is unable to urinate. Able to urinate since this morning. Had a bowel movement that was normal this morning as well. When she was able to urinate, no hematuria or dysuria. Denies associated fevers, chest pain or difficulty breathing. She does admit to some nausea but no vomiting. Has been drinking normally throughout the day. Related Data Home Medications ?Medication ?Instructions ?Recorded ?Confirmed flash glucose sensor ([employer] #1 ea 11/14/21 02/24/24 Esteban 2 Sensor kit) dextroamphetamine-amphetamine 20 20 mg PO DAILY 11/05/22 02/24/24 mg tablet (Adderall) ondansetron 8 mg disintegrating 8 mg PO BEDTIME PRN 03/11/24 tablet doxepin 25 mg capsule 25 mg PO BEDTIME 05/04/24 bupropion HCl 150 mg 24 hr tablet, 150 mg PO DAILY 08/19/24 extended release levonorgestrel (Mirena) intrauterine 09/21/24 Previous Rx's ?Medication ?Instructions ?Recorded lorazepam 1 mg tablet 1 mg PO DAILY PRN anxiety 30 days 10/30/24 #30 tabs cetirizine 10 mg tablet 10 mg PO DAILY #90 tabs 11/16/24 cephalexin 500 mg capsule 500 mg PO QID 10 days #40 caps 02/13/25 ondansetron 4 mg disintegrating 4 mg PO Q8H PRN nausea and 02/13/25 tablet vomiting #10 tabs Allergies Allergy/AdvReac Type Severity Reaction Status Date / Time carbamazepine (From Tegretol) Allergy Severe Hives Verified 02/13/25 18:06 sumatriptan (From IMITREX) Allergy Severe HYPOTENSION, Verified 02/13/25 18:06 SYNCOPE Sulfa (Sulfonamide Allergy Unknown Rash Verified 02/13/25 18:06 Antibiotics) tetracycline (TETRACYCLINE) Allergy Unknown HIVES, Rash Verified 02/13/25 18:06 oxycodone AdvReac Vomiting Verified 02/13/25 18:06 Review of Systems Review of Systems: As per HPI, full review of systems performed and negative but for the above mentioned pertinent positives and negatives. [facility] Past Medical History Attestation statement: The following information was validated with the patient. [facility] Narrative: Interstitial cystitis ADHD anxiety and depression Source: old records reviewed and nursing notes reviewed Medical History ASCUS of cervix with negative high risk HPV Mass of right side of neck History of healed fragility fracture 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 Renal calculi Positive ISAAK (antinuclear antibody) Chronic fatigue Endometriosis Fibromyalgia Interstitial cystitis Surgical History H/O shoulder surgery History of ankle surgery H/O abdominoplasty Family History Family History Father Diabetes Maternal Grandfather Hypertension Maternal Grandmother Hypertension Other Substance use disorder Social History Social History Housing: House Alcohol intake: current Alcohol intake frequency: holidays/special occasions only Patient Tobacco Use Status: Never used Tobacco Smoked in Last 30 Days: No e-Cigarette/Vaping Use: Never Used Use of substances other than those prescribed or required for medical reasons: No Advance Directives: No Advance Directives Information Provided: No Do you have a plan to hurt others: No Plan Current occupational status: employed 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 SKIN: Normal skin color for ethnicity, warm, dry, no rashes noted. HEENT: Normocephalic, atraumatic, no stridor, dry mucous membranes, dentition intact, EOMI, PERRLA. NECK: Soft, supple, full ROM, midline structures nontender, no step-offs, no deformities, no lymphadenopathy. CHEST: Heart regular rhythm, no murmurs, symmetric chest rise and fall. PULMONARY: Clear to auscultation bilaterally, diminished at the bases, no labored breathing, no wheezes/rhales/rhonchi. ABDOMINAL: Soft, nondistended, rhythm ribs suprapubic tenderness to palpation with voluntary guarding, quiet bowel sounds in all quadrants. : Deferred. MUSCULOSKELETAL: Normal tone, full range of motion, no deformities, no peripheral edema. NEURO: Alert and oriented x3, CN II through XII intact, equal strength and sensation bilateral upper and lower extremities, no focal neurologic deficits. PSYCHIATRIC: Flat affect, fluid speech, good eye contact and appropriate demeanor. Vital Signs: Vital Signs - 24 hr 02/13/25 18:04 02/13/25 21:18 02/13/25 23:11 Temperature 97.6 F 97.7 F Pulse Rate 92 62 60 Respiratory Rate 16 16 16 Blood Pressure 130/84 108/68 109/64 Pulse Oximetry 100 100 99 Oxygen Delivery Method Room Air Room Air Room Air BMI result Body Mass Index 27.5 Course Course Course Narrative: Rapid medical examination performed in triage by Hayde Centeno PA-C. Patient is a 39 year old assigned female at presenting to the emergency department with inability to urinate. Detailed physical exam and review of systems are deferred to the ripsaw operator. Labs ordered. Patient placed back in the waiting room pending room availability and results. Medications Administered Discontinued Medications Generic Name Dose Route Start Last Admin Trade Name Freq PRN Reason Stop Dose Admin Ibuprofen 600 mg 02/13/25 22:19 02/13/25 22:30 Ibuprofen 600 Mg Tablet PO 02/13/25 22:20 600 mg ONCE ONE Administration Ondansetron HCl 4 mg 02/13/25 22:19 02/13/25 22:30 Ondansetron Odt 4 Mg Tab.Rapdis TRANSLINGU 02/13/25 22:20 4 mg ONCE ONE Administration Oxybutynin Chloride 10 mg 02/13/25 22:19 02/13/25 22:30 Oxybutynin Chloride Er 5 Mg Tab.Er.24 PO 02/13/25 22:20 10 mg ONCE ONE Administration Medical Decision Making Medical Decision Making [facility] Narrative: 39-year-old female with history of interstitial cystitis presenting with urinary hesitancy ongoing since . Unable to urinate since this morning. Bladder scan by RN shows 150 cc in her bladder. Patient is anxious and nauseous but has not vomited. Differential diagnosis includes UTI, pyelonephritis, renal dysfunction, interstitial cystitis flare, yeast infection, among others. 10:28 PM 02/13/2025 (Dr. Areli Gallo, D.O.) Patient is tender overlying the bladder with what sounds like bladder spasms. She has no flank tenderness to percussion on my exam. Kidney function is normal, slight dehydration but otherwise electrolytes are within normal limits. No elevated white blood cell count is just systemic infection. Very low suspicion for pyelonephritis at this point. Plan for urinalysis, pain and nausea control and oxybutynin for bladder spasm pain. 11:56 PM 02/13/2025 (Dr. Areli Gallo, D.O.) patient denies significant improvement after oxybutynin however, her urine has resulted in she does have a significant urinary tract infection. We will treat with Keflex. Discussed importance of follow-up as well as strict return precautions. Using shared decision making, plan for discharge home to follow-up with primary care and/or specialist. Patient understands and agrees with plan for discharge. Discharged home in stable condition. Differential Diagnosis Differential Diagnoses: The differential diagnosis associated with the presentation includes (As above) Admission/Observation Consideration of admission/observation: Escalation of care including admission/observation considered Lab Data MDM Lab Attestation statement: I reviewed the patient's lab results. 02/13/25 18:19 02/13/25 18:19 Labs: Lab Results 02/13/25 02/13/25 Range/Units 18:19 23:12 WBC 8.7 (4.8-10.8) X10*3/uL RBC 3.86 L (4.20-5.50) X10*6/uL Hgb 12.9 (12.0-16.0) g/dl Hct 37.5 (37.0-47.0) % MCV 97.2 (80.0-98.0) fL MCH 33.4 H (27.0-33.0) pg MCHC 34.4 (31.0-35.0) g/dl RDW 13.1 (11.0-16.0) % Plt Count 215 (160-400) X10*3/uL MPV 10.1 (9.4-12.3) fL Immature Gran % (Auto) 0.2 (0.0-0.4) % Neut % (Auto) 64.7 (45-73) % Lymph % (Auto) 21.1 (20-40) % [place] % (Auto) 10.5 (2-11) % Eos % (Auto) 3.0 (0-4) % Baso % (Auto) 0.5 (0-2) % Lymph # (Auto) 1.8 (1.2-4.9) X10*3/uL [place] # (Auto) 0.9 (0.1-1.2) X10*3/uL Eos # (Auto) 0.3 (0.0-0.4) X10*3/uL Baso # (Auto) 0.0 (0.0-0.2) X10*3/uL Abs Immat Gran (auto) 0.02 (0.00-0.03) X10*3/uL Absolute Neuts (auto) 5.6 (2.0-8.3) x10*3/uL Absolute Nucleated RBC 0.000 (0.0-0.012) X10*3/uL Nucleated RBC % (auto) 0.0 (0.0-0.2) /100WBC Sodium 142 (135-145) mmol/L Potassium 5.0 D (3.3-5.1) mmol/L Chloride 108 (96-108) mmol/L Carbon Dioxide 25 (22-29) mmol/L Anion Gap 14 (12-20) BUN 17 H (9-16) mg/dL Creatinine 0.94 (0.5-1.4) mg/dL Estim Creat Clear Calc 79.8 Estimated GFR > 60 Random Glucose 74 (60-115) mg/dL Calcium 9.3 (8.4-10.2) mg/dL Magnesium 2.2 (1.6-2.6) mg/dL Total Bilirubin 0.2 (0.0-1.0) mg/dL AST 23 (5-31) U/L ALT 17 (0-31) U/L Alkaline Phosphatase 53 (39-117) U/L Total Protein 7.0 (6.5-8.0) g/dL Albumin 4.4 (3.5-5.0) g/dL Beta HCG, Quant < 2 mIU/mL Urine Color Yellow Urine Appearance Cloudy Urine pH 7.0 (5.0-9.0) Ur Specific [place] 1.020 (1.005-1.025) Urine Protein 30 (1+) H (Neg-Trace) mg/dL Urine Glucose (UA) Negative (Negative) mg/dL Urine Ketones Trace (Negative) mg/dL Urine Blood Small (1+) H (Negative) Urine Nitrite Negative (Negative) Ur Leukocyte Esterase Large (3+) H (Negative) Urine RBC 11-20 H (0-2) /HPF Urine WBC >50 H (0-5) /HPF Ur Squamous Epith Cells 0-2 (0-2) /HPF Urine Bacteria 4+ (None Seen) Hyaline Casts 0-2 (0-2) /LPF External Record Review External record reviewed: Outpatient record and Primary care record Chronic Conditions Patient?s care impacted by: Other (Interstitial cystitis, ADHD) Discharge Plan Discharge Clinical Impression: UTI (urinary tract infection), Acute suprapubic pain Patient Disposition: Home, Self-Care Instructions: Urinary Tract Infection in Older Adults (ED) Additional Instructions: Take your antibiotic as prescribed until the course is completed. Do not stop this medication early if you start to feel better. Return to the emergency room with any new or worsening symptoms including: Fevers greater than 100?, worsening pain despite antibiotics, inability to urinate for more than 8 hours in a row, any new symptom that concerns you. Prescriptions: New cephalexin 500 mg capsule 500 mg PO QID 10 Days Qty: 40 0RF ondansetron 4 mg tablet,disintegrating 4 mg PO Q8H PRN (Reason: nausea and vomiting) Qty: 10 0RF No Action lorazepam 1 mg tablet 1 mg PO DAILY PRN (Reason: anxiety) 30 Days Qty: 30 0RF cetirizine 10 mg tablet 10 mg PO DAILY Qty: 90 1RF (DME) [employer] Esteban 2 Sensor Kit See Rx Instructions .ROUTE .MEDSUPPLY Qty: 1 Rx Instructions: As directed ondansetron 8 mg tablet,disintegrating 8 mg PO BEDTIME PRN dextroamphetamine-amphetamine [Adderall] 20 mg tablet 20 mg PO DAILY doxepin 25 mg capsule 25 mg PO BEDTIME Mirena 21 mcg/24hr (up to 8 yrs) 52 mg intrauterine device intrauterine bupropion HCl 150 mg tablet extended release 24 hr 150 mg PO DAILY Stand Alone Forms: Work/School Release Print Language: Cook Islander
[2025-02-13 18:23] LABS: MANUAL DIFF FLAG NO
[2025-02-13 18:24] LABS: Hematocrit 37.5 % (37.0-47.0); Hemoglobin 12.9 g/dl (12.0-16.0); Imm Gran Abs Auto 0.02 X10*3/uL (0.00-0.03); Imm Gran Pct Auto 0.2 % (0.0-0.4); Lymphocytes Absolute Auto 1.8 X10*3/uL (1.2-4.9); Mean Corpuscular HGB Conc 34.4 g/dl (31.0-35.0); Mean Corpuscular Hemoglobin 33.4 pg (27.0-33.0); Mean Corpuscular Volume 97.2 fL (80.0-98.0); NRBC Abs Auto 0.000 X10*3/uL (0.0-0.012); NRBC Pct Auto 0.0 /100WBC (0.0-0.2); Platelet Count 215 X10*3/uL (160-400); Red Blood Count 3.86 X10*6/uL (4.20-5.50); White Blood Count 8.7 X10*3/uL (4.8-10.8)
[2025-02-13 18:47] LABS: Alanine Aminotransferase 17 U/L (0-31); Albumin Level 4.4 g/dL (3.5-5.0); Alkaline Phosphatase 53 U/L (39-117); Anion Gap 14 (12-20); Aspartate Amino Transferase 23 U/L (5-31); Blood Urea Nitrogen 17 mg/dL (9-16); Calcium 9.3 mg/dL (8.4-10.2); Carbon Dioxide 25 mmol/L (22-29); Chloride 108 mmol/L (96-108); Creatinine Clr Calc Pharmacy 79.8; Estimated Glomerular Filt Rate > 60; Magnesium 2.2 mg/dL (1.6-2.6); Potassium 5.0 mmol/L (3.3-5.1); Sodium 142 mmol/L (135-145); Total Protein 7.0 g/dL (6.5-8.0)
[2025-02-13 21:18] VITALS: BP 108/68; PULSE 62; RESP 16; O2SAT 100
[2025-02-13] MEDS: oxyBUTYnin chloride ER 5 MG TAB.ER.24 10 MG PO (22:30)
[2025-02-13 23:11] VITALS: BP 109/64; PULSE 60; RESP 16; TEMP 36.5; O2SAT 99
[2025-02-13 23:20] LABS: Appearance Urine Cloudy; Glucose Urine UA Negative (Negative); PH 7.0 (5.0-9.0); Specific Gravity - Urine 1.020 (1.005-1.025); UMIC TRIGGER UACC YES
--- NOTE | 2025-02-13 23:20 | MHC.EDTECH ---
pt voided at this time. pt reports feeling slightly less bloated but pain remains the same, feeling like she has to strain and that this is not like my other UTI's. Pt reports some itching as well. denies burning sensations. urine specimen sent at this time.
[2025-02-13 23:22] LABS: UACC Culture Trigger YES
[2025-02-14 00:30] VITALS: BP 109/64; PULSE 60; RESP 16; TEMP 36.5; O2SAT 99
== END 2025-02-14 00:31 | disposition home or self-care (01) ==
PROVIDERS: Physician Assistant Medical; Emergency Provider Emergency Medicine; PCP Nurse Practitioner Family
DX: N39.0 Urinary tract infection, site not specified (principal); R33.9 Retention of urine, unspecified; R39.89 Other symptoms and signs involving the genitourinary system; R11.2 Nausea with vomiting, unspecified; Z79.899 Other long term (current) drug therapy
CPT/HCPCS: 36415; 51798; 80053; 81001; 83735; 84702; 85025; 87086; 87147; 99283; 99285

== ENCOUNTER 2025-03-02 10:28 | Outpatient (REF) | payer OTHER, SELFPAY ==
--- OUTSIDE RECORDS SUMMARY | 2025-03-02 11:19 | XMS_ITS | Continuity of Care Document ---
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 Role Phone [facility] Unavailable Unavailable Problems [...] DoD candidiasis oral thrush Inactive Condition meds [id number] up with pcm prn DoD skin abscess [...] exam with cervical pap smear Inactive Condition [facility] Gynecologic Services Contraceptive Management Active Condition DoD Inquiry And Counseling: Contraceptive Practices Inactive Condition DoD Patient Education - Proper Use Of Medications Inactive Condition [facility] visit for: issue repeat prescription for medication [...] Drug allergy (disorder ) Unknown active 4 [place] IMITREX Drug allergy (disorder ) Unknown active [address] [facility] TETRACYCLINE (TETRACYCLINE ) Drug allergy (disorder ) Unknown active 4 [place] TRAZODONE (TRAZODONE HCL) Drug allergy (disorder ) Unknown active [address] [facility] Immunizations Combined list of available immunizations from the Department of Defense and Veterans Affairs facilities. Immunization Series Date Given Administered By Site Reaction Lot Number CVX Code Drug Putty Mixer Status Comments Source Influenza, seasonal, injectable, preservative free 1 2014 UNK 140 [employer] (CSL) complet ed Influenza , seasonal, injectabl e, preservat marilu free DoD hepatitis A vaccine, adult dosage 2 2014 [id number] 52 Other (OTH) complet ed hepatitis A vaccine, adult dosage DoD Influenza, seasonal, injectable, preservative free 1 2013 UNK 140 [employer] (CSL) complet ed Influenza , seasonal, injectabl e, preservat marilu free DoD tetanus toxoid, reduced diphtheria toxoid, and acellular pertu is vaccine, adsorbed 1 2013 [id number] 115 Sanofi Pasteur ([facility]) complet ed tetanus toxoid, reduced diphtheri a toxoid, and acellular pertussis vaccine, adsorbed DoD Influenza, seasonal, injectable, preservative free 1 2013 [id number] 140 [employer] [place] (MED) complet ed Influenza , seasonal, injectabl e, preservat marilu free DoD tetanus toxoid, reduced diphtheria toxoid, and acellular pertu is vaccine, adsorbed 1 2013 [id number] 0CA 115 [employer] (SKB) complet ed tetanus toxoid, reduced diphtheri a toxoid, and acellular pertussis vaccine, adsorbed DoD Influenza, seasonal, injectable, preservative free 1 2012 [id number] 140 [employer] (MED) complet ed Influenza , seasonal, injectabl e, preservat marilu free DoD poliovirus vaccine, inactivated 1 2011 [id number] 10 Sanofi Pasteur ([facility]) complet ed polioviru s vaccine, inactivat ed DoD hepatitis A vaccine, adult dosage 1 2011 [id number] 52 [employer] (SKB) complet ed hepatitis A vaccine, adult dosage DoD influenza virus vaccine, live, attenuated, for intranasal use 1 2011 [id number] 111 [employer] [place] (MED) complet ed influenza virus vaccine, live, attenuate d, for intranasa l use DoD meningococcal polysaccharid e (groups A, C, Y and W-135) diphtheria toxoid conjugate vaccine (MCV4P) 1 2011 [id number] 114 Sanofi Pasteur ([facility]) complet ed meningoco ccal polysacch aride (groups A, C, Y and W-135) diphtheri a toxoid conjugate vaccine (MCV4P) DoD tetanus toxoid, reduced diphtheria toxoid, and acellular pertu is vaccine, adsorbed 1 2011 [id number] 115 [employer] (SKB) complet ed tetanus toxoid, reduced diphtheri a toxoid, and acellular pertussis vaccine, adsorbed DoD Adenovirus, type 4 and type 7, live, oral 1 [id number] [place] [address] (BRR) complet ed Adenoviru s, type 4 [...] derivative solution, intradermal 1 2011 Unknown, Provider [id number] 96 Sanofi Pasteur ([facility]) complet ed tuberculi n skin test; purified protein derivativ e solution, intraderm al DoD Influenza, seasonal, injectable, preservative free 0 2010 140 Sanofi Pasteur ([facility]) complet ed Influenza , seasonal, injectabl e, preservat marilu free DoD influenza virus vaccine, split virus (incl. purified surface antigen)-reti red CODE 1 2007 JULITO RICHTER [id number] 15 [employer] PA[employer] ([facility]) complet ed influenza virus vaccine, split virus (incl. purified surface antigen)- retired CODE DoD influenza virus vaccine, split virus (incl. purified surface antigen)-reti red CODE 1 2004 Unknown, Provider [id number] 15 Sanofi Pasteur ([facility]) complet ed influenza virus vaccine, [...] Date Status Disposition [place] [facility] [place] OUT[place]IENT [id number] wants referra l for urologi [facility]ALEN- [facility]ANNA[facility] 04/02 [facility] w/o Limitations [facility] [place] [facility] [place] [id number] KRISTIN VASQUEZ 09/28 Released w/o Limitations [facility], [place]([facility]) [facility] [place] TELE CONSULT [id number] PEDRO PABLO OSBORN Shahla 11/08 [facility] [employer] [place] [facility] [place] [id number] ALLERGI ES KRISTIN BECKER 11/13 Released w/o Limitations [facility] [employer] [place] [facility] [place] [id number] WELL WOMAN EXAM KRISTIN BECKER 11/28 Released w/o Limitations [facility] [employer] [place] [facility] [place]LE CONSULT [id number] CHESTER JONES 12/11 [facility] [employer] [place] [place] [place] OUTPATIENT [id number] painful urinati on(walk in appt for 1800) MELINDA KERNS 04/24 Released w/o Limitations [facility] [employer] [place] [place] [facility] [place] OUTPATIENT [id number] immuniz ation BLAKE HUYNH 04/29 Released w/o Limitations [facility], [employer] [place] [place] [facility] [place] [id number] REQ REF TO UROLOGY KRISTIN BECKER 06/03 Released w/o Limitations [facility] [employer] [place] [facility] [place] [id number] COUGH MEKA VALLES 06/17 Released w/o Limitations [facility] [employer] [place] [place] [facility] [place] [id number] VAG DISCHAR GE AND ODOR KRISTIN BECKER 07/10 Released w/o Limitations [facility] [employer] [place] [facility] [place] TELE CONSULT [id number] MOE LORI 07/23 [facility] [employer] [place] [place] [facility] [place] [id number] RASH IN PRIVATE AREA FIOR QUEEN SURYA 12/03 Released w/o Limitations [facility] [employer] [place] [place] [facility] [place] TELE CONSULT [id number] FIOR QUEEN 12/09 [facility] [employer] [place] [place] [facility] [place] TELE CONSULT [id number] MED REFILL LORI ROSA 01/08 [facility] [employer] [place] [place] [facility] [employer] [place] [id number] RASH UNDER ARM CARRIE WELLER 02/28 Released w/o Limitations [facility] [employer] [place] [place] [facility] [place] [id number] R/O FRANCOISE JUÁREZ 04/28 Released w/o Limitations [facility] [employer] [place] [facility] [place]Except [place] Family [place] OUTPATIENT [id number] [facility] ASHIA BESS A 02/05 Released w/o Limitations [facility] [employer]Exce [place]ional Family [place] [facility]Amanda [facility] [employer]os[employer] Team) OUTPATIENT [id number] BOTD/IR R VAG BLEEDIN G/PAIN X3WK PAPADOPOUL OS, HAI B 11/24 Released w/o Limitations [facility]David [facility](M [facility] [employer] Team) [facility] Olympic Team) OUTPATIENT [id number] fu migrain and allergy meds ANGELIQUE WARREN 12/08 Released w/o Limitations [facility](M [facility] Olympic Team) [facility](Uro logy) OUTPATIENT [id number] Interst itial Cystiti s/ufl/b s/void log-nee ds SPEC appt. TAMIA PINEDA 12/23 Released w/o Limitations [facility](U rology) [facility](Uro logy) OUTPATIENT [id number] LENARD Pineda 01/12 Released w/o Limitations [facility](U rology) [facility](Ski Tow Operator ecology Clinic) OUTPATIENT [id number] metorrh LIMA Grimm 01/25 Released w/o Limitations [facility](G ynecolo gy Clinic) [facility] Olympic Team) OUTPATIENT [id number] f/u ANGELIQUE WARREN 01/27 Released w/o Limitations [facility] Olympic Team) [facility](S[facility] Operator ecology Clinic) OUTPATIENT [id number] 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 F/U (WALK-I N) PER LIMA MEDINA 02/02 Released w/o Limitations [facility] gy Clinic) [facility](S[facility] Tow Operator ecology Clinic) OUTPATIENT [id number] LIMA BLAIR 02/17 Released w/o Limitations [facility](G ynecolo gy Clinic) [facility] [facility](Uro logy) OUTPATIENT [id number] LENARD Maldonado 03/23 Released w/o Limitations [facility](U rology) [facility] Olympic Team) OUTPATIENT [id number] depress ion and anxiety x ROSIO Stroud 04/12 Released w/o Limitations [facility] Olympic Team) [facility] Olympic Team) OUTPATIENT [id number] f/u DEPRESS ION ROSIO CARBAJAL [place] 06/01 Released w/o Limitations [facility]For lazara Peñaloza([facility] Olympic Team) [facility] Olympic Team) OUTPATIENT [id number] 23yo f/u on sleep issues ROSIO CARBAJAL [place] 07/28 Released w/o Limitations [facility]For [facility]ara [facility] Olympic Team) [facility]Connie [facility](Ski Tow Operator ecology Clinic) OUTPATIENT [id number] iud removal MIKE REES 12/05 Released w/o Limitations [facility]For lazara Peñ[facility](G ynecolo gy Clinic) [facility] Post Immunizat ion) OUTPATIENT [id number] Notes Entered by: XAVIER TOMAS 21 Apr 2012 0626 ------- ------- ------- ------- -- IET PPD ELIAS MCCARTHY 04/21 Released w/o Limitations [employer]([facility] Post Immuniz ation) [employer]([facility] -Trainee) OUTPATIENT [id number] FITO SMITH 04/22 Released w/o Limitations [facility](P ES Optomet ry-Lewis serjioe) [facility] Physical Therapy) TELE CONSULT [id number] Notes Entered by: ANGELIQUE VUONG 20 May 2012 0751 ------- ------- ------- ------- -- med refANGELIQUE Magdaleno 05/20 [employer](T [facility] Physica l Therapy ) [employer]([facility] [place] [employer] Perform) OUTPATIENT [id number] Notes Entered by: SMILEY COTO 20 May 2012 1423 ------- ------- ------- ------- -- Manjit ankle TONY COTO 05/20 Released with Work/Duty Limitations [employer]([facility] [place] [employer] Perform ) [employer]([facility] [place] [employer] Perform) OUTPATIENT [id number] Notes Entered by: SMILEY COTO 21 May 2012 1514 ------- ------- ------- ------- -- Left Ankle TONY COTO 05/21 Released with Work/Duty Limitations [facility] [place] [employer] ) [facility] [place] [employer]form) OUTPATIENT [id number] Notes Entered by: SMILEY COTO 22 May 2012 1247 ------- ------- ------- ------- -- L ankle TONY COTO 05/22 Released with Work/Duty Limitations [employer]([facility] [place] [employer]form ) [facility] Physical Therapy BAS) TELE CONSULT [id number] Notes Entered by: Aristeo BEGUM 26 May 2012 0550 ------- ------- ------- ------- -- REF-- ATC imaging DAYANARA DANIELS 05/26 [facility] Group(T [facility] Physica l Therapy BAS) [facility] Ambulator y) OUTPATIENT [id number] Notes Entered by: JESUS SALCEDO 26 May 2012 0824 ------- ------- ------- ------- -- ORTHO FELIPE CADENA 05/26 Released with Work/Duty Limitations [facility]( MC Ambulat ory) [facility] Therapy) OUTPATIENT [id number] Notes Entered by: TWAN ELLIS 26 May 2012 1444 ------- ------- ------- ------- -- Ankle - Initial (ref: Soljamey) CHARISMA ELLIS 05/26 Released with Work/Duty Limitations [facility](T [facility] Physica l Therapy ) [facility] [place] [employer] Perform) OUTPATIENT [id number] Notes Entered by: SMILEY COTO 26 May 2012 1530 ------- ------- ------- ------- -- L ankle TONY COTO 05/26 Immediate Referral [employer]([facility] [place] [employer]form ) [facility] Ambulator y) OUTPATIENT [id number] Notes Entered by: Amanda ELDRIDGE 08 Jun 2012 0759 ------- ------- ------- ------- -- LEFT GROIN PAIN YULIANA FAULKNER 06/08 Released with Work/Duty Limitations [facility] Ambulat ory) [facility] Ambulator y) OUTPATIENT [id number] Notes Entered by: HENRY FLEMING 09 Jun 2012 1308 ------- ------- ------- ------- -- f/u YULIANA FAULKNER 06/09 Immediate Referral [facility] Ambulat ory) [facility] Ambulator y) OUTPATIENT [id number] Notes Entered by: HENRY FLEMING 09 Jun 2012 1312 ------- ------- ------- ------- -- fran/ELIAS Thompson 06/09 Released w/o Limitations [facility] Ambulat ory) [facility] Physical Therapy BAS) OUTPATIENT [id number] Notes Entered by: Aristeo BEGUM 10 Jun 2012 0627 ------- ------- ------- ------- -- INITIAL -- GROIN/P ELVIC PAIN DAYANARA DANIELS 06/10 Released with Work/Duty Limitations [facility] Physica l Therapy BAS) [facility] Physical Therapy BAS) OUTPATIENT [id number] Notes Entered by: Aristeo BEGUM 11 Jun 2012 0600 ------- ------- ------- ------- -- F/U -- GROIN PAIN DAYANARA DANIELS 06/11 Released with Work/Duty Limitations [facility](T Physica l Therapy BAS) [facility] Ambulator y) OUTPATIENT [id number] Notes Entered by: Elaine FAULKNER 11 Jun 2012 0616 ------- ------- ------- ------- -- sore throat YULIANA FAULKNER 06/11 Sick at Home/Quarter s [facility] Ambulat ory) [facility] Ambulator y) OUTPATIENT [id number] MEME FINLEY 06/12 Released w/o Limitations [facility] Ambulat ory) [facility] Ambulator y) OUTPATIENT [id number] Notes Entered by: ALLEN SMITH 13 Jun 2012 1459 ------- ------- ------- ------- -- ORTHO NADIA GUAMAN 06/13 Released with Work/Duty Limitations [facility] Ambulat ory) [facility] Physical Therapy BAS) OUTPATIENT [id number] Notes Entered by: Aristeo BEGUM 19 Jun 2012 0837 ------- ------- ------- ------- -- F/U -- HIP PAIN DAYANARA DANIELS 06/19 Released with Work/Duty Limitations [facility] Physica l Therapy BAS) [facility]([address]) OUTPATIENT [id number] Notes Entered by: ARIS HERRERA 27 Aug 2012 0816 ------- ------- ------- ------- -- Rash on bilater al legs, behind knee for 3 days. MALAIKA STEIN 08/27 Released w/o Limitations [facility]([address]) [facility]([address]) OUTPATIENT [id number] Notes Entered by: JIMBO MOLINA 14 Oct 2012 1413 ------- ------- ------- ------- -- Self Care Knee pain JIMBO MOLINA 10/14 Released w/o Limitations [facility](C -1 Primary Care MT) [facility]([place] [employer]) OUTPATIENT [id number] Notes Entered by: MARTINA STEIN 20 Oct 2012 0938 ------- ------- ------- ------- -- Thony saravia knee pain 12/14 GERSON STEIN 10/20 Released with Work/Duty Limitations [facility](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) [facility] Team B) OUTPATIENT [id number] LOD stress fx pelvis, left MADELINE TIRADO 12/22 Released w/o Limitations [facility] Team B) [facility] Team B) OUTPATIENT [id number] LOD Followu p referra saravia renewal s MADELINE TIRADO 09/15 Released with Work/Duty Limitations [facility] Team B) [facility] Team A) TELE CONSULT [id number] Notes Entered by: Amanda CROFT 26 Jul 2016 1212 ------- ------- ------- ------- -- Network Results LOD Referra manjit [facility] Jul 23 FAISAL HINES I 07/[address] [place] [address]([facility] Team A) Procedures Combined list of: 1) Procedures from Department of Veterans Affairs facilities going back up to thelast 18 months, not all VA non-surgical procedures are included; 2) All procedures from the Department of Defense facilities. Procedure Procedure Type Code Date Perfomer Comments Sour e APPLICATION OF A MODALITY TO 1 OR MORE AREAS; HOT OR COLD PACKS 3 DoD THERAPEUTIC PROCEDURE,1 OR MORE AREAS,EACH 15 MINUTES;NEUROMUSCULAR REEDUCATION OF MOVEMENT,BALANCE,COOR DINATION,KINESTHETIC SENSE,POSTURE,AND/OR PROPRIOCEPTION FOR SITTING AND/OR STANDING ACTIVITIES 2 [facility] PHYSICAL THERAPY RE-EVALUATION 2 DoD THERAPEUTIC PROCEDURE,1 OR MORE AREAS,EACH 15 MINUTES;NEUROMUSCULAR REEDUCATION OF MOVEMENT,BALANCE,COOR DINATION,KINESTHETIC SENSE,POSTURE,AND/OR PROPRIOCEPTION FOR SITTING AND/OR STANDING ACTIVITIES 2 DoD APPLICATION OF A MODALITY TO 1 OR MORE AREAS; HOT OR COLD PACKS 2 DoD ANKLE ORTHOSIS, ANKLE GAUNTLET OR SIMILAR, WITH OR WITHOUT JOINTS, PREFABRICATED, [id number] 2 DoD ANKLE FOOT ORTHOSIS, MULTILIGAMENTOUS ANKLE SUPPORT, PREFABRICATED, [id number] 2 DoD STRAPPING; ANKLE AND/OR FOOT 2 [...] COST TO PHYSICIAN OR OTHER QUALIFIED HEALTH ARTIFACTS CONSERVATOR 8 DoD MEASUREMENT OF POST-VOIDING RESIDUAL URINE [...] DoD ALL POTASSIUM HYDROXIDE (LUPE) PREPARATIONS 5 [facility] NONINVASIVE EAR OR PULSE OXIMETRY FOR OXYGEN SATURATION; SINGLE DETERMINATION 5 [facility] ANESTHESIA FOR VAGINAL PROCEDURES (INCLUDING BIOPSY OF LABIA, VAGINA, CERVIX OR ENDOMETRIUM); NOT OTHERWISE SPECIFIED 4 [facility] SCREENING PAPANICOLAOU SMEAR; OBTAINING, PREPARING AND CONVEYANCE OF CERVICAL OR VAGINAL SMEAR TO LABORATORY 4 [facility] Modalities Cryotherapy Cold Packs Modalities Cryotherapy Cold Packs 99318 3 [facility] Athletic Training Evaluation Athletic Training Evaluation [address] [facility] Neuromuscular Re-education Physical Therapy Neuromuscular Re-education 27859 2 DAYANARA DANIELS [facility] Physical Therapy Service Re-Evaluation Physical Therapy Service Re-Evaluation 16522 2 JEREMIAHDAYANARA ROLON [facility] Physical Therapy Service Re-Evaluation Physical Therapy Service Re-Evaluation 54274 2 DAYANARA DANIELS [facility] Physical Therapy Neuromuscular Re-education Physical Therapy Neuromuscular Re-education 43951 2 JEREMIAHDAYANARA ROLON [facility] Physical Therapy Service Evaluation Physical Therapy Service Evaluation 73590 2 DAYANARA DANIELS [facility] Modalities Cryotherapy Cold Packs Modalities Cryotherapy Cold Packs 62503 2 TONY COTO [facility] Athletic Training Re-evaluation Athletic Training Re-evaluation 36316 2 TONY COTO [facility] Ankle orthosis, ankle gauntlet or similar, with or without joints, prefabricated, [id number] 2 HCARISMA ELLIS [facility] Foot, arch support, removable, premolded, longitudinal, each 2 CHARISMA ELLIS [facility] Physician Supervised Ordering / Handling / Fitting Patient Devices Physician Supervised Ordering / Handling / Fitting Patient Devices 98661 2 CHARISMA ELLIS Physical Therapy Neuromuscular Re-education Physical Therapy Neuromuscular Re-education 86270 2 CHARISMA ELLIS Patient Counseling Medical Management Individual Patient Patient Counseling Medical Management Individual Patient 70280 2 CHARISMA ELLIS Physical Therapy Service Evaluation Physical Therapy Service Evaluation 43056 2 CHARISMA ELLIS Ankle foot orthosis, multiligamentous ankle support, prefabricated, [id number] 2 TONY COTO Taping Ankle Taping Ankle 19077 2 TONY COTO Modalities Cryotherapy Cold Packs Modalities Cryotherapy Cold Packs 50078 2 TONY COTO Physical Therapy Neuromuscular Re-education Physical Therapy Neuromuscular Re-education 80632 2 TONY COTO Taping Ankle Taping Ankle 41687 2 TONY COTO Modalities Cryotherapy Cold Packs Modalities Cryotherapy Cold Packs 56161 2 TONY COTO A isted Exercises For ROM Assisted Exercises For ROM 21914 2 TONY COTO Athletic Training Evaluation Athletic Training Evaluation 14566 2 TONY COTO Taping Ankle Taping Ankle 09923 2 TONY COTO Modalities Cryotherapy Cold Packs Modalities Cryotherapy Cold Packs 58793 2 TONY COTO isted Exercises For ROM Assisted Exercises For ROM 68554 2 TONY COTO Athletic Training Evaluation Athletic Training Evaluation 50798 2 TONY COTO Ophthalmological New Patient Start Intermediate Level Care Ophthalmological New Patient Start Intermediate Level Care 00206 2 MARY ELLEN ERAZO Spectacles Services Fitting Monofocal Except For Aphakia Spectacles Services Fitting Monofocal Except For Aphakia 23441 2 MARY ELLEN ERAZO Determination Of Refractive State Determination Of Refractive State 88070 2 MARY ELLEN ERAZO Skin Test Anergy Tuberculin Intradermal Skin Test Anergy Tuberculin Intradermal 41254 2 ELIAS MCCARTHY Immunization Administration By Injection, One Vaccine Immunization Administration By Injection, One Vaccine 10897 2 ELIAS MCCARTHY Screening papanicolaou smear; obtaining, preparing and conveyance of cervical or vaginal smear to laboratory 9 MIKE REES [facility] Intrauterine Device (IUD) Removal [facility] Intrauterine Device (IUD) Removal 32533 9 MIKE REES [facility] Influenza Split Virus Vaccine 0.5mL Dosage Intramuscular Preservative Free 8 ROSIO CARBAJAL [facility] Immunization Administration By Injection, One Vaccine Immunization Administration By Injection, One Vaccine 30538 8 ROSIO CARBAJAL [facility] Routine Urinalysis Without Microscopic Examination Routine Urinalysis Without Microscopic Examination 43517 8 OMID WINTER [facility] Diagnostic Cystoscopy Diagnostic Cystoscopy 79860 8 OMID WINTER [facility] Contraceptive IntraUterine Device (e.g., Progestacert IUD), including implants and supplies 8 LIMA VARMA [facility] Intrauterine Device (IUD) Insertion [facility] Intrauterine Device (IUD) Insertion 96996 8 LIMA VARMA Ultrasound Trans-Vaginal Ultrasound Trans-Vaginal 38978 8 LIMA VARMA Physician Supervised Services Provision Of Educational Supplies Physician Supervised Services Provision Of Educational Supplies 77882 8 LIMA VARMA Screening papanicolaou smear; obtaining, preparing and conveyance of cervical or vaginal smear to laboratory 8 LIMA VARMA Measuremt Post-Voiding Resid Urine, Bladder Capacity Ultrasd Measuremt Post-Voiding Resid Urine, Bladder Capacity Ultrasd 61289 8 TAMIA PINEDA Complex Bladder Flow Rate Studies Complex Bladder Flow Rate Studies 80774 8 TAMIA PINEDA Influenza Split Virus Vaccine 0.5mL Dosage Intramuscular 5 KRISTIN BECKER Immunization Administration By Injection, One Vaccine Immunization Administration By Injection, One Vaccine 10947 5 KRISTIN BECKER Hepatitis B Vaccine (Active) Adult Dosage 5 BLAKE HUYNH [facility] Routine Urinalysis Without Microscopic Examination Routine Urinalysis Without Microscopic Examination 64115 5 MELINDA KERNS Vaginal Wet [place] Smear Vaginal [place] Smear 36550 5 KRISTIN BECKER Vaginal LUPE Prep Vaginal LUPE Prep 45665 00 5 KRISTIN BECKER Screening papanicolaou smear; obtaining, preparing and conveyance of cervical or vaginal smear to laboratory 5 KRISTIN BECKER Cervical Pap Smear Cervical Pap Smear 52632 5 KRISTIN BECKER Social History Combined list of available smoking, tobacco, and other social history from Department of Defense and Veterans Affairs facilities. Social History Type Response Date Comment Sour e This section is an empty social history section. DoD
--- OUTSIDE RECORDS SUMMARY | 2025-03-02 11:21 | XMS_ITS | Continuity of Care Document ---
Author Organization [facility] Address [address] [facility] [address] [place], [place] Phone [phone] Care Team Providers Care Sales Operations Specialist Name Role Phone Kelly Whatley MD Care Team Information Vacuum Pan Operator U navailable STACEY AGRAWAL M.D. Care Team Information Rec eiver Unavailable Kelly Whatley MD Primary Care Physician Unavailab le Problems Active Problems Provider Date Reactive hypoglycemia Stacey Agrawal M.D. On set: 02/04/2022 Reactive hypoglycemia Stacey Agrawal M.D. On set: 09/24/2021 Junie thyroiditis Stacey Agrawal M.D. On set: 06/11/2021 Reactive hypoglycemia Stacey Agrawal M.D. On set: 06/11/2021 Social History Type Date Description Comments Sex Female Sex Unknown Allergies and adverse reactions Active [...] Provider Date Freestyle Esteban 2/Sensor/Flash Glucose Monitoring [id number] Misc uad to monitor bs 4-6x a day 2units E16.1 Stacey Agrawal M.D. 07/09/2021 Dicyclomine [id number] Capsules 2 tablets up to four times a day Kelly Whatley MD Bupropion Hydrochloride ER (XL)300mg Tablets ER 24HR Daily Unknown Xanax0.5mg Tablets prn Unknown 0 Zyrtec Dvinvgw17vx Tablets Every night Unknown [id number] Tablets Martha Whatley se, MD Vitamin D (Ergocalciferol)1.25mg (28558 Ut) Capsules Wing Morris MD Multivitamin Ca+380mg/N0942qr x1/d Unknown Mirena (52 MG)20mcg/24HR IUD Unknown History Medications Dexcom G6 TransmitterMisc use as directed daily to send glucose values to payroll accounting clerk. change every 3 months 1units E16.1 Stacey Agrawal M.D. 08/15/2021 - 02/04/2022 Dexcom G6 SensorMisc use 1 sensor q10d 3units E16.1 Stacey Agrawal M.D. 08/15/2021 - 02/04/2022 Dexcom G6 ReceiverDevice use daily to recieve sugar data from sensor 1units E16.1 Stacey Agrawal M.D. 08/15/2021 - 02/04/2022 Kskhqttw15qr Tablets 1 tab by mouth three times a day before meals 270tabs E16.1 Stacey Agrawal M.D. 07/24/2021 - 08/20/2022 Yhdwlwsy65qz Tablets 1 tab by mouth three times a day before meals 90tabs E16.1 Stacey Agrawal M.D. 06/11/2021 - 07/24/2021
[2025-03-02 14:23] LABS: Albumin Level 4.7 g/dL (3.5-5.0); Anion Gap 9 (12-20); Blood Urea Nitrogen 12 mg/dL (9-16); Calcium 9.2 mg/dL (8.4-10.2); Carbon Dioxide 28 mmol/L (22-29); Chloride 107 mmol/L (96-108); Estimated Glomerular Filt Rate > 60; Magnesium 2.2 mg/dL (1.6-2.6); Potassium 4.0 mmol/L (3.3-5.1); Sodium 140 mmol/L (135-145)
[2025-03-02 14:42] LABS: Parathyroid Hormone Intact 76.0 pg/mL (8.7-77.1)
[2025-03-02 16:06] LABS: Free T4 (Free Thyroxine) 1.03 ng/dL (0.71-1.85)
[2025-03-03 03:52] LABS: HBS Num1 23.89 mIU/mL (0-7.99); HBc Num1 0.16 S/CO (0.00-0.79); HBsAGNum1 0.38 S/CO (0.00-0.99); Hepatitis A Antibody IgM 0.18 Index (0-0.79); Hepatitis B Surface Antigen Negative (Negative); ~HepC Num1 0.13 S/CO (0.00-0.79); ~Hepatitis A Antibody IgM Nonreactive (Nonreactive); ~Hepatitis B Surface Antibody REACTIVE (Nonreactive); ~Hepatitis C Antibody Nonreactive (Nonreactive)
[2025-03-03 06:43] LABS: Rubeola IgG (Measles) 70.60 AU/mL
[2025-03-03 16:38] LABS: Calcium, Ionized 5.2 mg/dL (4.7-5.5)
== END 2025-03-02 10:29 | disposition home or self-care (01) ==
LOC: HO.HMGCLDS 10:28
PROVIDERS: PCP Nurse Practitioner Family; Referring Provider Student in an Organized Health Care Education/Training Program; Visit Provider Nurse Practitioner Family
DX: Z01.84 Encounter for antibody response examination (principal); Z11.59 Encounter for screening for other viral diseases; R79.89 Other specified abnormal findings of blood chemistry; Z28.39 Other underimmunization status; Z87.310 Personal history of (healed) osteoporosis fracture
CPT/HCPCS: 36415; 80048; 82040; 82306; 82330; 83735; 83970; 84100; 84439; 84443; 86704; 86706; 86709; 86735; 86762; 86765; 86787; 86803; 87340

== ENCOUNTER 2025-03-10 15:46 | Outpatient (AMB) | payer OTHER, SELFPAY ==
--- NOTE | 2025-03-10 15:52 | A.OFFPC_ITS ---
Vital Signs 03/10/25 16:03 Height 5 ft 5 in Weight 166 lb BMI 27.6 BP 120/80 Blood Pressure Location Lt brachial Position Sitting Pulse 71 Pulse Source Pulse Oximeter Pulse Oximetry (%) 97 Oxygen Delivery Method Room Air Intake Visit Reasons: PE Allergies carbamazepine (From Tegretol) Allergy (Severe, Verified 03/10/25 16:03) Hives sumatriptan (From IMITREX) Allergy (Severe, Verified 03/10/25 16:03) HYPOTENSION, SYNCOPE Sulfa (Sulfonamide Antibiotics) Allergy (Unknown, Verified 03/10/25 16:03) Rash tetracycline (TETRACYCLINE) Allergy (Unknown, Verified 03/10/25 16:03) HIVES, Rash oxycodone Adverse Reaction (Verified 03/10/25 16:03) Vomiting Medication List - Last Reconciled 03/10/25 by Ari Richard LABEL SEWER- bupropion HCl XL 150 mg PO DAILY cetirizine 10 mg PO DAILY dextroamphetamine-amphetamine 10 mg 1 tab PO DAILY dextroamphetamine-amphetamine 20 mg (Adderall) 20 mg PO DAILY levonorgestrel (Mirena) intrauterine lorazepam 1 mg PO DAILY PRN 30 days ondansetron 8 mg PO BEDTIME PRN Tobacco use date assessed: 03/10/25 Dental Screening Dental Screen Date: 03/10/25 Did you have a dental visit in the last 12 months?: Yes Did you have a dental problem in the last 6 months where you did not have access to dental care?: No Was dental information given to patient?: Patient has dentist HPI PE HPI Details History of Present Illness The patient is a 39-year-old female presenting for a physical exam. She has a history of interstitial cystitis and is currently seeking a new urologist for ongoing management. Her preventative care is up-to-date, including a recent mammogram. She denies experiencing any fevers, chills, shortness of breath, abdominal pain, blood in stool, constipation, diarrhea, suicidal ideation, or homicidal ideation. The patient is currently undergoing a divorce but reports doing well emotionally, supported by her therapist and psychiatrist. 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 Health Maintenance - Mammogram: Up-to-date Social History - Family status: Currently undergoing a divorce - Education: Started nursing school Review of Systems - General: Denies fevers, chills - Respiratory: Denies shortness of breat h - Gastrointestinal: Denies abdominal shawna n, blood in stool, constipation, diarrhea - Psychiatric: Denies suicidal ideation, homicidal ideation Physical Exam General: Cooperative, healthy appearing, comfortable, no acute distress and well developed Orientation: Patient oriented x3 Limitations: No limitations Head: Normal to inspection Ears: Hearing grossly normal bilaterally Nose: Normal external nose present Face and sinus: Normal facial exam Eyes: Appearance normal, both eyes and all related structures Neck: Normal visual inspection and Yes full ROM Respiratory: Normal respiratory effort and able to speak in complete sentences. Clear to auscultation bilaterally Cardiovascular: Regular rate and rhythm. Normal S1 and S2 GI: Normal to inspection. Soft to palpation and nontender : History of interstitial cystitis Skin: No rashes or lesions noted Neuro: Patient oriented x3 Extremities: Normal to inspection Results - Labs: Orders entered for future fastin g labs Plan Patient was informed and verbally consented to the use of an ambient scribe for clinic note documentation during this visit. 1. Interstitial Cystitis The patient has a history of interstitial cystitis and is seeking a new urologist for management. A referral will be provided to assist in finding a suitable specialist. 2. Preventative Care The patient's mammogram is up-to-date, and she is advised to continue regular screenings as per guidelines. Discussion Notes During the visit, we discussed the patient's history of interstitial cystitis and the need for a referral to a new urologist. We also reviewed her preventative care, noting that her mammogram is current. I encouraged her to maintain regular screenings and provided reassurance regarding her emotional well-being during her divorce and transition into nursing school. Patient Instructions - Follow up with the referred urologist for interstitial cystitis management. - Continue regular mammogram screenings as per guidelines. - Maintain emotional support through the rapy and psychiatry during the divorce and nursing school transition. 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 Renal calculi Positive ISAAK (antinuclear antibody) Chronic fatigue Endometriosis Fibromyalgia Interstitial cystitis Surgical History H/O shoulder surgery History of ankle surgery H/O abdominoplasty Family History Father Diabetes Maternal Grandfather Hypertension Maternal Grandmother Hypertension Other Substance use disorder Social History Housing: House Alcohol intake: current Alcohol intake frequency: holidays/special occasions only Patient Tobacco Use Status: Never used Tobacco e-Cigarette/Vaping Use: Never Used Current occupational status: employed 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 1. Little interest or pleasure in doing things: nearly every day 2. Feeling down, depressed, or hopeless: nearly every day 3. Trouble falling or staying asleep, or sleeping too much: nearly every day 4. Feeling tired or having little energy: nearly every day 5. Poor appetite or overeating: nearly every day 6. Feeling bad about yourself - or that you are a failure or have let yourself or your family down: more than half the days 7. Trouble concentrating on things, such as reading the newspaper or watching television: nearly every day 8. Moving or speaking so slowly that other people could have noticed. Or the opposite - being so fidgety or restless that you have been moving around a lot more than usual: not at all 9. Thoughts that you would be better off or of hurting yourself in some way: not at all Total score: 20 Depression Screening Interpretation: Positive (denies any si or hi) Depression S creening Follow-up: Existing condition and In treatment Depression Screening Done: Yes 87065 - PHQ-9 Billing: Yes Source: Developed by Drs. Keyur Corey, Yana Moss, Vernon Tomas and colleagues, with an educational hossein from [employer]. Thrive Questionnaire Date Thrive assessed: 03/10/25 I am a: Patient What is your living situation today?: I have a steady place to live Within the past 12 months, did the food you bought not last and you didn't have the money to get more?: Never true Within the past 12 months, did you worry whether your food would run out before you got money to buy more?: Never true Do you have trouble paying for medicines?: No Do you have trouble getting transportation to medical appointments?: No Do you have trouble paying your heating and electricity bill?: No Do you have trouble taking care of your child, family member or friend?: No Do you have trouble with day-to-day activities such as bathing, preparing meals, shopping, managing finances, etc.?: No Are you currently unemployed and looking for a job?: No Are you interested in more education?: No Please select the resources that you would like help with: None Currently or been in a relationship where the following occur: I choose not to answer THRIVE Score: 0 AUDIT C Alcohol Use Questionnaire (AUDIT-C) 1. How often do you have a drink containing alcohol?: Monthly or less 2. How many drinks containing alcohol do you have on a typical day when you are drinking?: 1 or 2 3. How often do you have six or more drinks on one occasion?: Less than monthly Total Score: 2 Score Reviewed/Action Taken: Yes DINORA-7 AMB Questionnaire DINORA-7 Date DINORA - 7 assessed: 03/10/25 Feeling nervous, anxious, or on edge: 3 = Nearly every day Not being able to stop or control worryin = Nearly every day Worrying too much about different things: 3 = Nearly every day Trouble relaxin = Nearly every day Being so restless that it is hard to sit still: 3 = Nearly every day Becoming easily annoyed or irritable: 3 = Nearly every day Feeling afraid as if something awful might happen: 3 = Nearly every day Total DINORA-7 score (0-4 normal; 5-9 mild; 10-14 moderate; 15-21 severe): 21 Source: Developed by Drs. Keyur Corey, Yana Moss, Vernon Tomas and colleagues, with an educational hossein from [employer]. DINORA-7 Assessment Billing DINORA-7 Assessment Tool: DINORA-7 Assessment 42956 (denies any si or hi) Physical exam (Primary Care) Vital Signs: Last Vital Signs Pulse 71 03/10/25 16:03 BP 120/80 03/10/25 16:03 Pulse Ox 97 03/10/25 16:03 Oxygen Delivery Method Room Air 03/10/25 16:03 BMI result Body Mass Index 27.6 Tobacco/Smoking Status: Tobacco use Status Tobacco use date assessed 03/10/25 03/10/25 16:09 Patient Tobacco Use Status Never used Tobacco 03/10/25 15:53 e-Cigarette/Vaping Use Never Used 03/10/25 15:53 PHQ-9: PHQ-9 Score PHQ-9: Total score 20 03/10/25 16:09 Depression Screening Interpretation: Positive (denies any si or hi) Depression Screening Follow-up: Existing condition and In treatment Thrive Assessment: Date of Thrive Assessment Date Thrive assessed 03/10/25 03/10/25 16:09 Currently or been in a relationship where the following occur: I choose not to answer Coding Level of Care Code Est Pt Prev Care 40-64y(47349) Diagnoses Physical exam Z00.00 Interstitial cystitis N30.10 Additional Codes PHQ-9 - 97776 - PHQ-9 Billing: Yes ([id number]) DINORA-7 Assessment Billing - DINORA-7 Assessment Tool: DINORA-7 Assessment 05533 ([id number]) Assessment & Plan Assessment & Plan (1) Physical exam: Code(s): Z00.00 - Encounter for general adult medical examination without abnormal findings Category: Medical (2) Interstitial cystitis: Code(s): N30.10 - Interstitial cystitis (chronic) without hematuria Category: Medical Plan . Orders: Orders Complete Blood Count Auto Diff Today Z00.00 - Encounter for general adult medical examination without abnormal findings TSH reflex Free T4 Today Z00.00 - Encounter for general adult medical examin ation without abnormal findings Comprehensive Hiland. Panel Fast Today Z00.00 - Encounter for general adult medical examination without abnormal findings UA CC w/rflx Micro + Cult Today Z00.00 - Encounter for general adult medical examination without abnormal findings Lipid Panel Today Z00.00 - Encounter for general adult medical examination without abnormal findings Referrals Urology Referral N30.10 - Interstitial cystitis (chronic) without hematuria
[2025-03-10 16:03] VITALS: BP 120/80; PULSE 71; O2SAT 97; BMI 27.6
--- OUTSIDE RECORDS SUMMARY | 2025-03-10 16:32 | XMS_ITS | Continuity of Care Document ---
Author Organization [facility] Address [address] [facility] [address] [place], [place] Phone [phone] Care Team Providers Care Seismograph Helper Name Role Phone Kelly Whatley MD Care Team Information Maintenance Welder U navailable STACEY AGRAWAL M.D. Care Team Information Rec eiver Unavailable Kelly Whatley MD Primary Care Physician Unavailab le Problems Active Problems Provider Date Reactive hypoglycemia Stacey Agrwaal M.D. On set: 02/04/2022 Reactive hypoglycemia Stacey [...] Provider Date Freestyle Esteban 2/Sensor/Flash Glucose Monitoring Yudsvz2Ynopuz Misc uad to monitor bs 4-6x a day 2units E16.1 Stacey Agrawal M.D. 07/09/2021 Dicyclomine QCR72rs Capsules 2 tablets up to four times a day Kelly Whatley MD Bupropion Hydrochloride ER (XL)300mg Tablets ER 24HR Daily Unknown Xanax0.5mg Tablets prn Unknown 0 Zyrtec Kmxkcan85uv Tablets Every night Unknown Dsxunlp772pv Tablets Martha Whatley se, MD Vitamin D (Ergocalciferol)1.25mg (43019 Ut) Capsules Wing Morris MD Multivitamin Ca+380mg/O1284gc x1/d Unknown Mirena (52 MG)20mcg/24HR IUD Unknown History Medications Dexcom G6 TransmitterMisc use as directed daily to send glucose values to cyanide pot tender. change every 3 months 1units E16.1 Stacey Agrawal M.D. 08/15/2021 - 02/04/2022 Dexcom G6 SensorMisc use 1 sensor q10d 3units E16.1 Stacey Agrawal M.D. 08/15/2021 - 02/04/2022 Dexcom G6 ReceiverDevice use daily to recieve sugar data from sensor 1units E16.1 Stacey Agrawal M.D. 08/15/2021 - 02/04/2022 Wjxraopi60ri Tablets 1 tab by mouth three times a day before meals 270tabs E16.1 Stacey Agrawal M.D. 07/24/2021 - 08/20/2022 Kanmdmgo64td Tablets 1 tab by mouth three times a day before meals 90tabs E16.1 Stacey Agrawal M.D. 06/11/2021 - 07/24/2021
== END 2025-03-10 17:01 | disposition home or self-care (01) ==
LOC: HO.HMCC 15:47
PROVIDERS: PCP Nurse Practitioner Family; Visit Provider Nurse Practitioner Family
DX: Z00.00 Encounter for general adult medical examination without abnormal findings (principal); N30.10 Interstitial cystitis (chronic) without hematuria

== ENCOUNTER → 2025-03-10 15:46 | Outpatient (BNVA) | payer OTHER, SELFPAY | PROVIDERS: PCP Nurse Practitioner Family; Visit Provider Nurse Practitioner Family | DX: Z00.00 Encounter for general adult medical examination without abnormal findings (principal); N30.10 Interstitial cystitis (chronic) without hematuria | CPT/HCPCS: 96127 ==

== ENCOUNTER 2025-06-23 12:55 | Outpatient (REF) | payer OTHER, SELFPAY ==
[2025-06-23 16:09] LABS: MANUAL DIFF FLAG NO
[2025-06-23 16:15] LABS: Hematocrit 40.5 % (37.0-47.0); Hemoglobin 13.5 g/dl (12.0-16.0); Imm Gran Abs Auto 0.01 X10*3/uL (0.00-0.03); Imm Gran Pct Auto 0.2 % (0.0-0.4); Lymphocytes Absolute Auto 1.6 X10*3/uL (1.2-4.9); Mean Corpuscular HGB Conc 33.3 g/dl (31.0-35.0); Mean Corpuscular Hemoglobin 32.4 pg (27.0-33.0); Mean Corpuscular Volume 97.1 fL (80.0-98.0); NRBC Abs Auto 0.000 X10*3/uL (0.0-0.012); NRBC Pct Auto 0.0 /100WBC (0.0-0.2); Platelet Count 276 X10*3/uL (160-400); Red Blood Count 4.17 X10*6/uL (4.20-5.50); White Blood Count 4.6 X10*3/uL (4.8-10.8)
[2025-06-25 04:17] LABS: Follicle Stimulating Hormone 5.4 mIU/mL
== END 2025-06-23 12:56 | disposition home or self-care (01) ==
LOC: HO.HMGCLDS 12:55
PROVIDERS: Obstetrics & Gynecology; PCP Nurse Practitioner Family; Visit Provider Nurse Practitioner Family
DX: R53.1 Weakness (principal); R07.89 Other chest pain; R53.83 Other fatigue; R42 Dizziness and giddiness; R11.11 Vomiting without nausea; E07.9 Disorder of thyroid, unspecified
CPT/HCPCS: 36415; 83001; 83002; 84443; 85025; 99212

== ENCOUNTER 2025-06-23 12:55 | Outpatient (AMB) | payer OTHER, SELFPAY ==
--- OUTSIDE RECORDS SUMMARY | 2025-06-18 23:59 | XMS_ITS | Continuity of Care Document ---
Author Organization [facility] Address [address] [place] [address], [address] d Floor, [address] [place] [phone]- Care Team Providers Care Toddler Teacher Name Role Phone Jose Manuel BLANCO, Ari Henry Primary Care Physician Encounter [facility] [id number] Date(s): 05/19/25 - 06/18/25 [facility] [address] [place] [address] [address]rd Floor, [address] [place] [address] Attending Physician: Walt Guadalupe Admitting Physician: Walt Guadalupe Referring Physician: AdmtrWalt Encounter Type: Triage Allergies, Adverse Reactions, Alerts Substance Criticality Severity Reaction Reaction Severity Status tetracycline hives arms and belly Active Tegretol 1 Blisters Active Percocet vomiting Active Imitrex passed out Active Bactrim childhood aller gy told hives Active Glutens 2 Vomiting food Active 1blisters mouth & face 2abdominal pain Medications Adderall = 20 mg, By Mouth, Daily in AM, 0 Refills, Maintenance, 06/03/22 1:07:00 PM EST, Partial fill upon patient request if the prescription is for a schedule II opioid drug. Start Date: 06/03/22 Status: Ordered Medication Dispense Status: Completed Total Allowed Fills: 1 Fills Dispensed: 0 gabapentin 300 mg oral capsule 600 mg, 2, capsule, By Mouth, 3 times a day, # 180 capsule, Refills 8, Tot. Refills 8, Maintenance,06/09/25 2:31:00 PM EST, Route to Pharmacy Electronically, [facility], Partial fill upon patient request if the prescription is for a schedule II opioid drug., 165.1, cm, 12/23/24 16:23:00 EDT, Height Start Date: 06/09/25 Stop Date: 03/06/26 Status: Ordered Medication Dispense Status: Completed Quantity: 180.0 Unit: capsule Total Allowed Fills: 9 Fills Dispensed: 0 indomethacin 25 mg oral capsule 1 capsule = 25 mg, By Mouth, Daily, PRN Headache, # 10 capsule, 1 Refills, Maintenance, 09/08/23 5:13:00 PM EST, [facility]/pharmacy #[id number], Partial fill upon patient request if the prescription is for a schedule II opioid drug., 165.1, cm, 04/22/23 9:07:00 EDT, Height, 67.9, kg, 03/04/23 8:35:00 EDT, Dry Weight Start Date: 09/08/23 Status: Ordered Medication Dispense Status: Completed Quantity: 10.0 Unit: capsule Total Allowed Fills: 2 Fills Dispensed: 0 LORazepam 0.5 mg oral tablet 1 tablet = 0.5 mg, By Mouth, Every 8 hours, PRN Spasm, 0 Refills, Maintenance, 05/27/22 1:33:00 PM EST, Partial fill upon patient request if the prescription is for a schedule II opioid drug. Start Date: 05/27/22 Status: Ordered Medication Dispense Status: Completed Total Allowed Fills: 1 Fills Dispensed: 0 melatonin 10 mg oral tablet 1 tablet = 10 mg, By Mouth, Daily at bedtime, PRN as needed for insomnia, # 200 tablet, 0 Refills, Maintenance, 11/11/22 9:19:00 AM EDT, Tablet, Partial fill upon patient request if the prescription isfor a schedule II opioid drug. Start Date: 11/11/22 Status: Ordered Medication Dispense Status: Completed Quantity: 200.0 Unit: tablet Total Allowed Fills: 1 Fills Dispensed: 0 pantoprazole 40 mg oral delayed release tablet 1 tablet, By Mouth, Daily, # 90 tablet, 3 Refills, Maintenance, 11/06/22 6:01:00 PM EDT, 165.1, cm, 08/06/22 9:06:00 EST, Height, 69.5, kg, 07/18/21 8:55:00 EST, Dry Weight Start Date: 11/06/22 Status: Ordered Medication Dispense Status: Completed Quantity: 90.0 Unit: tablet Total Allowed Fills: 1 Fills Dispensed: 0 Trazodone = 200 mg, By Mouth, Daily at bedtime, 0 Refills, Maintenance, 03/03/23 10:19:00 AM EDT, Partial fillupon patient request if the prescription is for a schedule II opioid drug. Start Date: 03/03/23 Status: Ordered Medication Dispense Status: Completed Total Allowed Fills: 1 Fills Dispensed: 0 Zyrtec-D 1 tablet, By Mouth, Daily in AM, 0 Refills, Maintenance, 01/23/17 1:49:51 PM EDT Start Date: 01/23/17 Status: Ordered Medication Dispense Status: Completed Total Allowed Fills: 1 Fills Dispensed: 0 Problem List Condition Confirmation Course Effective Dates Status H ealth Status Informant Chronic interstitial cystitis Confirmed Active Hypothyroidism Confirmed Active IBS (irritable bowel syndrome) Confirmed Active Raynaud phenomenon Confirmed Active Social History Social History Type Response Sexual Sexually involved in last 6 months: Yes. Smoking Status Never smoker; Type: Cigarettes entered on: 12/07/15 Sex Sex Representation Female (finding) Patient Care team information Care Team Personnel Name: Ari Richard NP Position: Reference Physician Member Role: PCP Address: [address] [place] [address] Telecom: Care Team Related Persons Name: SANIA GALLAGHER Name: OVIDIO DONAHUE Insurance Providers Guarantor name: JULIAN GALLAGHER Health Plan Information #: 1 Payer: [facility] Payer Identifier: NA Member Number: [id number] Group Number: [id number] Subscriber Identifier: NA Relationship to Subscriber: self Coverage Type: NA Coverage Verification Date: NA Telecom: NA Address: NA
[2025-06-23 13:09] VITALS: BP 118/84; PULSE 84; TEMP 36.8; O2SAT 100; BMI 28.1
--- NOTE | 2025-06-23 13:09 | AM.OFFWIN_ITS ---
Intake Vital Signs 06/23/25 13:09 Height 5 ft 5 in Weight 169 lb BMI 28.1 BP 118/84 Blood Pressure Location Lt brachial Position Sitting Pulse 84 Pulse Source Pulse Oximeter Temp 98.2 F Temp Source Oral Pulse Oximetry (%) 100 Oxygen Delivery Method Room Air Intake Visit Reasons: EP-chest pressure, vomiting, chills, vertigo Intake Note: chest pressure, vomting off/on, chills, shoulder pains, body sweats, body chills and vertigo x6 wks Patient Tobacco Use Status: Never used Tobacco Allergies carbamazepine (From Tegretol) Allergy (Severe, Verified 06/23/25 13:11) Hives sumatriptan (From IMITREX) Allergy (Severe, Verified 06/23/25 13:11) HYPOTENSION, SYNCOPE Sulfa (Sulfonamide Antibiotics) Allergy (Unknown, Verified 06/23/25 13:11) Rash tetracycline (TETRACYCLINE) Allergy (Unknown, Verified 06/23/25 13:11) HIVES, Rash oxycodone Adverse Reaction (Verified 06/23/25 13:11) Vomiting Medication List - Last Reconciled 06/23/25 by Yun Gillette NP bupropion HCl XL 150 mg PO DAILY cetirizine 10 mg PO DAILY dextroamphetamine-amphetamine 10 mg 1 tab PO DAILY PRN dextroamphetamine-amphetamine 20 mg (Adderall) 20 mg PO DAILY levonorgestrel (Mirena) intrauterine lorazepam 1 mg PO DAILY PRN 30 days ondansetron 8 mg PO BEDTIME PRN Do you need a note to return to daycare/school/sports/work: No HPI HPI Comments History of Present Illness Details 40-year-old female presents to the walk- in clinic with complaints of chest pressure, generalized body weakness, fatigue, intermittent vomiting, shoulder pain, body sweats and chills, and vertigo. Symptoms have been ongoing for six weeks and have worsened recently. She denies fevers, diarrhea, or constipation. She reports multiple negative COVID tests. She has an IUD and does not have menstrual periods. Urine HCG is negative. Recent PCP labs showed slightly low TSH and elevated PTH. A thyroid ultrasound on 09/24/2023 revealed a heterogeneous gland echotexture with no focal thyroid nodules, but noted a 7 x 4 x 6 mm hypoechoic lesion inferior to the right thyroid lobe concerning for a possible parathyroid adenoma or lymph node. Findings were confirmed on a repeat head and neck ultrasound on 12/25/2023. She was last seen by endocrinology in 08/2014, and recent PTH and Vitamin D labs were normal. She was discharged with advice to follow up next year. 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 Renal calculi Positive ISAAK (antinuclear antibody) Chronic fatigue Endometriosis Fibromyalgia Interstitial cystitis Surgical History H/O shoulder surgery History of ankle surgery H/O abdominoplasty Family History Father Diabetes Maternal Grandfather Hypertension Maternal Grandmother Hypertension Other Substance use disorder Social History Housing: House Alcohol intake: current Alcohol intake frequency: holidays/special occasions only Patient Tobacco Use Status: Never used Tobacco e-Cigarette/Vaping Use: Never Used Current occupational status: employed 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 Sexual orientation: Straight/Heterosexual Gender identity: Female Cognitive needs: No Hearing needs: No Vision needs: No Review of Systems Const All systems reviewed & are unremarkable except as noted in HPI and below Physical Exam Vital Signs: Last Vital Signs Temp 98.2 F 06/23/25 13:09 Pulse 84 06/23/25 13:09 BP 118/84 06/23/25 13:09 Pulse Ox 100 06/23/25 13:09 Oxygen Delivery Method Room Air 06/23/25 13:09 BMI result Body Mass Index 28.1 Const General: no acute distress Nutritional Appearance: well nourished Orientation/consciousness: patient oriented x3 HEENT Head: Yes normocephalic Ears: external ears normal and TM's normal bilaterally General nose exam: Normal external nose present and Nasal discharge present Face and sinus: Yes sinuses nontender Mouth: moist mucous membranes Throat: Yes uvula midline Resp Effort & Inspection: normal respiratory effort and able to speak in complete sentences Auscultation: clear to auscultation bilaterally, no crackles, no rales, no rhonchi and no wheezes Cardio Heart sounds: S1 normal heart sound present and S2 normal heart sound present Neuro General: patient oriented x3 Assessment & Plan Assessment & Plan (1) Weakness generalized: Code(s): R53.1 - Weakness Plan: The patient has chronic, worsening chest pressure, fatigue, generalized weakness, vertigo, and intermittent vomiting of unclear etiology, possibly multifactorial including endocrine, metabolic, cardiac, or other systemic causes. She has a parathyroid/thyroid lesion concerning for a parathyroid adenoma. Previous mild thyroid function abnormalities were noted with slightly low TSH and elevated PTH. Other systemic causes such as electrolyte abnormalities, anemia, cardiac issues, infection, or adrenal dysfunction should be considered. Ordered labs including CBC, and repeat thyroid panel (TSH, Free T4, T3). Symptom management includes monitoring for worsening chest pain, syncope, or shortness of breath, staying hydrated, and using antiemetics as needed for vomiting. F/U with PCP. Orders: Orders Complete Blood Count Auto Diff Today R53.1 - Weakness TSH reflex Free T4 Today R53.1 - Weakness Coding Level of Care Code Est Pt Level 4 (79795) Diagnoses Weakness generalized R53.1 Time Spent (min) 20
--- OUTSIDE RECORDS SUMMARY | 2025-06-23 16:48 | XMS_ITS | Continuity of Care Document ---
Author Organization [facility] Address [address] [place], [place] Phone [phone] Care Team Providers Care Room Service Waiter Name Role Phone Kelly Whatley MD Care Team Information Boardinghouse Keeper U navailable STACEY AGRAWAL M.D. Care Team [...] Provider Date Freestyle Esteban 2/Sensor/Flash Glucose Monitoring [id number] Misc uad to monitor bs 4-6x a day 2units E16.1 Stacey Agrawal M.D. 07/09/2021 Dicyclomine [id number] Capsules 2 tablets up to four times a day Kelly Whatley MD Bupropion Hydrochloride ER (XL)300mg Tablets ER 24HR Daily Unknown Xanax0.5mg Tablets prn Unknown 0 Zyrtec [id number] Tablets Every night Unknown [id number] Tablets Martha Whatley se, MD Vitamin D (Ergocalciferol)1.25mg (49888 Ut) Capsules Wing Morris MD Multivitamin Ca+380mg/E1941ph x1/d Unknown Mirena (52 MG)20mcg/24HR IUD Unknown History Medications Dexcom G6 TransmitterMisc use as directed daily to send glucose values to b2b managed service sales exec. change every 3 months 1units E16.1 Stacey Agrawal M.D. 08/15/2021 - 02/04/2022 Dexcom G6 SensorMisc use 1 sensor q10d 3units E16.1 Stacey Agrawal M.D. 08/15/2021 - 02/04/2022 Dexcom G6 ReceiverDevice use daily to recieve sugar data from sensor 1units E16.1 Stacey Agrawal M.D. 08/15/2021 - 02/04/2022 Echvlthb43gv Tablets 1 tab by mouth three times a day before meals 270tabs E16.1 Stacey Agrawal M.D. 07/24/2021 - 08/20/2022 Iqbhltag61tv Tablets 1 tab by mouth three times a day before meals 90tabs E16.1 Stacey Agrawal M.D. 06/11/2021 - 07/24/2021
== END 2025-06-23 14:05 | disposition home or self-care (01) ==
PROVIDERS: PCP Nurse Practitioner Family; Visit Provider Nurse Practitioner Family
DX: R53.1 Weakness (principal)

== ENCOUNTER 2025-07-05 09:04 | Outpatient (AMB) | payer OTHER, SELFPAY ==
[2025-07-05 09:05] VITALS: BP 116/74; BMI 27.6
--- NOTE | 2025-07-05 09:05 | MHC.OFFVIS ---
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 Required: No Information Interpreted: non-clinical & clinical Network Design Architect: Network Design Architect Present (Anneliese Patel DANIEL) Accompanied by: Self / Same As Patient Allergies carbamazepine (From Tegretol) Allergy (Severe, Verified 07/05/25 09:09) Hives sumatriptan (From IMITREX) Allergy (Severe, Verified 07/05/25 09:09) HYPOTENSION, SYNCOPE Sulfa (Sulfonamide Antibiotics) Allergy (Unknown, Verified 07/05/25 09:09) Rash tetracycline (TETRACYCLINE) Allergy (Unknown, Verified 07/05/25 09:09) HIVES, Rash oxycodone Adverse Reaction (Verified 07/05/25 09:09) Vomiting Is last menstrual period known: No (mirena) HPI Comments Details: Presenting for annual exam. No complaints. Last Pap/HPV was negative in 04/29, preceded by ascus HPV negative, colpo biopsy was negative in 11/26 Last Mammogram was BI-RADS 1 in 08/30 [facility] Medical History Weakness generalized ASCUS of cervix with negative high risk HPV Mass of right side of neck History of healed fragility fracture 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 Renal calculi Positive ISAAK (antinuclear antibody) Chronic fatigue Endometriosis Fibromyalgia Interstitial cystitis Surgical History H/O shoulder surgery History of ankle surgery H/O abdominoplasty Family History Father Diabetes Maternal Grandfather HTN (hypertension) Maternal Grandmother HTN (hypertension) Mother HTN (hypertension) Heart attack Brother Gallbladder cancer Colon cancer Other Substance use disorder Social History Household Members: None Housing: House Alcohol intake: current Alcohol intake frequency: holidays/special occasions only Patient Tobacco Use Status: Never used Tobacco e-Cigarette/Vaping Use: Never Used Current occupational status: employed 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 [employer] Sexual orientation: Straight/Heterosexual Gender identity: Female Cognitive needs: No Hearing needs: No Vision needs: No Female Reproductive History Menstrual control method: progestin IUCD Total pregnancies: 2 Full term: 1 Number of Living Children: 1 Ab spontaneous: 1 Date of last pap smear: 11/05/22 History of abnormal pap smear: Yes (Ascus) Date of Mammogram: 08/25/23 Review of Systems Const All systems reviewed & are unremarkable except as noted in HPI and below Card Reports as per HPI Resp Reports as per HPI GI Reports as per HPI and Reports no additional complaints Reports as per HPI Physical Exam Vital Signs: Last Vital Signs BP 116/74 07/05/25 09:05 BMI result Body Mass Index 27.6 Const General: cooperative, healthy appearing and comfortable Chest Chest palpation & inspection: normal inspection of the chest and normal palpation of entire chest wall Breast/axilla inspection: normal inspection of the breasts and normal inspection of the axillae Breast/axilla palpation: normal palpation of the breasts, normal palpation of the axillae and no axillary lymphadenopathy Resp Effort & Inspection: normal respiratory effort Auscultation: clear to auscultation bilaterally Percussion: percussion normal Cardio Palpation: normal PMI Rate: regular rate Rhythm: regular rhythm Heart sounds: no murmurs and no rubs Peripheral pulses: Peripheral pulses 2+ throughout GI Inspection: Yes normal to inspection Palpation (GI): Soft to palpation, nontender, no guarding, not rigid and No hepatosplenomegaly present Percussion: Yes normal to percussion Auscultation: normal bowel sounds Rectal Exam - Female: deferred General: Yes bladder normal to palpation External Female Exam: No lesion Speculum Exam - Vagina: normal appearance of the vagina, normal palpation, normal vaginal discharge and not erythematous Speculum Exam - Cervix: normal appearance of the cervix and normal palpation Bimanual exam- vagina & uterus: normal bimanual exam, normal palpation, uterine size normal, bladder normal to palpation, consistency normal and normal palpation Bimanual Exam- Adnexa, other: normal adnexae, no masses and no tenderness Assessment & Plan Assessment & Plan (1) Well woman exam: Code(s): Z01.419 - Encounter for gynecological examination (general) (routine) without abnormal findings Category: Medical Plan: Cotesting done. Mammogram ordered. Counseled the patient about the recommended dietary allowance of 1000 mg of Calcium & 600 IU of vitamin D. The patient was instructed to perform monthly self-breast exams and to schedule an annual exam in a year; All questions answered and the patient verbalized understanding. Instructed the patient to schedule annual exam in a year Orders: Orders MM tomosynthesis screening BI Today Z12.31 - Encounter for screening mammogram for malignant neoplasm of breast Coding Level of Care Code Est Pt Prev Care 40-64y(85396) Diagnoses Well woman exam Z01.419
--- OUTSIDE RECORDS SUMMARY | 2025-07-05 11:18 | XMS_ITS ---
Continuity of Care Document (CCD) Created on: July 05, 2025 Sindhu Rolon External Reference #: [id number] : [id number] Sex: Female Author Organization [facility] Address [address] [place], [place] Phone [phone] Care Team Providers Care Surveyor Mine Name Role Phone Kelly Whatley MD Care Team Information Chartered Wealth Manager U navailable STACEY AGRAWAL M.D. Care Team [...] Provider Date Freestyle Esteban 2/Sensor/Flash Glucose Monitoring [id number] Misc uad to monitor bs 4-6x a day 2units E16.1 Stacey Agrawal M.D. 07/09/2021 Dicyclomine [id number] Capsules 2 tablets up to four times a day Kelly Whatley MD Bupropion Hydrochloride ER (XL)300mg Tablets ER 24HR Daily Unknown Xanax0.5mg Tablets prn Unknown 0 Zyrtec Wtmumju33uo Tablets Every night Unknown [id number] Tablets Martha Whatley se, MD Vitamin D (Ergocalciferol)1.25mg (49079 Ut) Capsules Wing Morris MD Multivitamin Ca+380mg/A1309af x1/d Unknown Mirena (52 MG)20mcg/24HR IUD Unknown History Medications Dexcom G6 TransmitterMisc use as directed daily to send glucose values to staff scientist. change every 3 months 1units E16.1 Stacey Agrawal M.D. 08/15/2021 - 02/04/2022 Dexcom G6 SensorMisc use 1 sensor q10d 3units E16.1 Stacey Agrawal M.D. 08/15/2021 - 02/04/2022 Dexcom G6 ReceiverDevice use daily to recieve sugar data from sensor 1units E16.1 Stacey Agrawal M.D. 08/15/2021 - 02/04/2022 Dktyqukz43ua Tablets 1 tab by mouth three times a day before meals 270tabs E16.1 Stacey Agrawal M.D. 07/24/2021 - 08/20/2022 Yrjsyhry80nv Tablets 1 tab by mouth three times a day before meals 90tabs E16.1 Stacey Agrawal M.D. 06/11/2021 - 07/24/2021
== END 2025-07-05 09:55 | disposition home or self-care (01) ==
LOC: HO.HWS 09:04
PROVIDERS: PCP Nurse Practitioner Family; Visit Provider Obstetrics & Gynecology
DX: Z01.419 Encounter for gynecological examination (general) (routine) without abnormal findings (principal)
CPT/HCPCS: 99396; 99459

== ENCOUNTER 2025-07-05 09:04 | Outpatient (REF) | payer OTHER, SELFPAY | END 2025-07-05 09:05 | disposition home or self-care (01) | LOC: HO.LNP 09:04 | PROVIDERS: PCP Nurse Practitioner Family; Visit Provider Obstetrics & Gynecology | DX: Z01.419 Encounter for gynecological examination (general) (routine) without abnormal findings (principal) | CPT/HCPCS: 87626; 88175 ==